=== PATIENT | male | born 1930 | race Caucasian/White ===

== ENCOUNTER 2018-02-01 17:09 | Inpatient (IN) | payer MEDICARE, MEDICAID ==
[2018-02-01 17:38] LABS: CHLORIDE,CL 102 mEq/L (98-106); SODIUM,NA 138 mEq/L (136-145)
[2018-02-01] MEDS: Sodium Chloride 0.9% 1,000 ML IV SCH (19:02)
[2018-02-01] MEDS: Bumetanide 1 MG Tab PO SCH (19:02)
[2018-02-01] MEDS: Pantoprazole 40 MG Vial IVPUSH SCH (19:02)
[2018-02-01] MEDS: hydrALAZINE 25 MG Tab PO SCH (19:26)
[2018-02-01] MEDS ORDERED: Tamsulosin 0.4 MG Cap.ER PO SCH (20:00)
[2018-02-02] MEDS: Levothyroxine 100 MCG Tab PO SCH (06:41)
[2018-02-02] MEDS: hydrALAZINE 25 MG Tab PO SCH ×3 (07:36→19:36)
[2018-02-02] MEDS: Metoprolol Succinate 100 MG Tab.ER PO SCH (07:37)
[2018-02-02] MEDS: Bumetanide 1 MG Tab PO SCH ×2 (07:38→15:09)
[2018-02-02] MEDS: Lisinopril 10 MG Tab PO SCH (07:39)
[2018-02-02] MEDS: Isosorbide Mononitrate 30 MG Tab.ER PO SCH (07:39)
[2018-02-02] MEDS ORDERED: Non-Formulary Medication 1 Each (Liraglutide [Victoza] 1.8 MG) SUBCUT SCH (08:00)
[2018-02-02] MEDS: Insulin Aspart 100 Units/ML 3 ML Pen SUBCUT SCH ×3 (08:01→17:21)
[2018-02-02] MEDS: Sodium Chloride 0.9% 1,000 ML IV SCH (09:35)
[2018-02-02] MEDS ORDERED: Ferrous Sulfate 324 MG Tab.EC PO SCH (12:00)
[2018-02-02] MEDS: Pantoprazole 40 MG Vial IVPUSH SCH (18:03)
[2018-02-02] MEDS ORDERED: LIRAGLUTIDE SUBCUT SCH (20:00)
--- NOTE | 2018-02-02 21:28 | PCM.PN ---
- General Info Date of Service: 02/02/18 Admission Dx/Problem (Free Text): Hematochezia Functional Status: Reports: Pain Controlled, Tolerating Diet, Ambulating - Review of Systems General: Denies: Fever, Weakness, Fatigue HEENT: Reports: No Symptoms Pulmonary: Denies: Shortness of Breath, Cough, Sputum Cardiovascular: Denies: Chest Pain, Edema, Lightheadedness Gastrointestinal: Reports: Hematochezia. Denies: Abdominal Pain, Diarrhea, Nausea, Vomiting Genitourinary: Reports: No Symptoms Musculoskeletal: Reports: No Symptoms Skin: Reports: No Symptoms Neurological: Reports: Dizziness (improved today versus admit) - Patient Data Vitals - Most Recent: Last Vital Signs Temp 98.9 F 02/02/18 19:34 Pulse 63 02/02/18 19:34 Resp 18 02/02/18 19:34 BP 136/70 02/02/18 19:34 Pulse Ox 96 02/02/18 19:34 Weight - Most Recent: 231 lb 11.2 oz I&O - Last 24 Hours: Intake & Output 02/02/18 02/02/18 02/02/18 06:59 14:59 22:59 Intake Total 1000 Balance 1000 Lab Results Last 24 Hours: Laboratory Results - last 24 hr 02/02/18 02/02/18 02/02/18 Range/Units 06:55 07:39 08:05 Hgb 8.4 L (14.0-18.0) g/dL Hct 27.6 L (40.0-54.0) % Sodium 140 (136-145) mEq/L Potassium 3.9 (3.5-5.0) mEq/L Chloride 104 (98-106) mEq/L Carbon Dioxide 27 (21-32) mmol/L BUN 21 H (7-18) mg/dL Creatinine 1.8 H (0.7-1.3) mg/dL Est Cr Clr Drug Dosing 28.50 mL/min Estimated GFR (MDRD) 36 L (>=60) mL/min Glucose 240 H (75-99) mg/dL POC Glucose 247 H (75-105) mg/dl Calcium 8.8 (8.4-10.1) mg/dL 02/02/18 02/02/18 Range/Units 11:23 17:12 Hgb (14.0-18.0) g/dL Hct (40.0-54.0) % Sodium (136-145) mEq/L Potassium (3.5-5.0) mEq/L Chloride (98-106) mEq/L Carbon Dioxide (21-32) mmol/L BUN (7-18) mg/dL Creatinine (0.7-1.3) mg/dL Est Cr Clr Drug Dosing mL/min Estimated GFR (MDRD) (>=60) mL/min Glucose (75-99) mg/dL POC Glucose 414 H* 346 H (75-105) mg/dl Calcium (8.4-10.1) mg/dL Med Orders - Current: Current Medications Bumetanide (Bumex) 1 mg PO BIDDIURETIC [facility] Last Admin: 02/02/18 15:09 Dose: 1 mg Ferrous Sulfate (Ferrous Sulfate) 324 mg PO DAILY@1200 [facility] Last Admin: 02/02/18 11:53 Dose: 324 mg Hydralazine HCl (Apresoline) 50 mg PO TID [facility] Last Admin: 02/02/18 19:36 Dose: 50 mg Sodium Chloride (Normal Saline) 1,000 mls @ 70 mls/hr IV ASDIRECTED [facility] Last Admin: 02/02/18 09:35 Dose: 70 mls/hr Insulin Aspart (Novolog) 0 unit SUBCUT TIDMEALS [facility]; Protocol Last Admin: 02/02/18 17:21 Dose: 8 units Isosorbide Mononitrate (Imdur) 30 mg PO DAILY [facility] Last Admin: 02/02/18 07:39 Dose: 30 mg Levothyroxine Sodium (Synthroid) 100 mcg PO ACBREAKFAST [facility] Last Admin: 02/02/18 06:41 Dose: 100 mcg Lisinopril (Prinivil) 10 mg PO DAILY [facility] Last Admin: 02/02/18 07:39 Dose: 10 mg Metoprolol Succinate (Toprol Xl) 100 mg PO DAILY [facility] Last Admin: 02/02/18 07:37 Dose: 100 mg Liraglutide [Victoza (] Pen Own Med) 0 mg SUBCUT BEDTIME [facility] Last Admin: 02/02/18 19:38 Dose: 1.2 mg Pantoprazole Sodium (Protonix Iv) 40 mg IVPUSH Q24H [facility] Last Admin: 02/02/18 18:03 Dose: 40 mg Discontinued Medications Ferrous Sulfate (Ferrous Sulfate) 324 mg PO Q2D [facility] Iron Sucrose 400 mg/ Sodium (Chloride) 270 mls @ 62.5 mls/hr IV ONETIME ONE Stop: 02/02/18 13:57 Last Admin: 02/02/18 10:29 Dose: 62.5 mls/hr Non-Formulary Medication (Liraglutide [Victoza]) 1.8 mg SUBCUT DAILY [facility] Tamsulosin HCl (Flomax) 0.4 mg PO BEDTIME [facility] Last Admin: 02/01/18 19:27 Dose: Not Given - Exam General: Alert, Oriented HEENT: Mucous Membr. Moist/[place] Neck: Supple Lungs: Clear to Auscultation, Normal Respiratory Effort Cardiovascular: Regular Rate, Regular Rhythm GI/Abdominal Exam: Normal Bowel Sounds, Soft, Non-Tender Extremities: Normal Inspection, No Pedal Edema Skin: Warm, Dry Neurological: No New Focal Deficit - Problem List & Annotations (1) Hematochezia SNOMED Code(s): 323364905 Code(s): K92.1 - MELENA Status: Acute Priority: High Current Visit: Yes - Problem List Review Problem List Initiated/Reviewed/Updated: Yes - My Orders Last 24 Hours: My Active Orders 02/02/18 12:00 Ferrous Sulfate 324 mg PO DAILY@1200 02/03/18 05:11 BASIC METABOLIC PANEL,BMP [CHEM] AM CBC WITH AUTO DIFF [HEME] AM - Assessment Assessment:: Hematochezia - Plan Plan:: Patient admits to feeling better today, less dizziness. Denies abdominal pain. He has not had a stool since admission. Relates that has had 1-2 stools per day that have been bloody over the last 4 days. Has a history of intermittent blood in his stools for years but admits has been worse as of late. Does admit that he doesn't always take his iron like recommended as it does cause GI irritation and constipation. Has had iron infusions about every 3-4 months. Hemoglobin on admit 8.3, today 8.4. Creatinine 1.9 on admission, now 1.8. Normal creatinine tends to vary between 1.6 and 2.0. Telemetry has been stable , noted atrial fib. Patient routinely on a daily aspirin and Xarelto. Currently on hold. Will given iron transfusion today. Continue to monitor for stools/blood. Telemetry. IV Protonix. Possible discharge in am.
[2018-02-03] MEDS: Sodium Chloride 0.9% 1,000 ML IV SCH (02:26)
[2018-02-03] MEDS: Levothyroxine 100 MCG Tab PO SCH (06:36)
[2018-02-03] MEDS: Bumetanide 1 MG Tab PO SCH (07:14)
[2018-02-03] MEDS: Isosorbide Mononitrate 30 MG Tab.ER PO SCH (07:15)
[2018-02-03] MEDS: hydrALAZINE 25 MG Tab PO SCH (07:15)
[2018-02-03] MEDS: Metoprolol Succinate 100 MG Tab.ER PO SCH (07:15)
[2018-02-03] MEDS: Lisinopril 10 MG Tab PO SCH (07:16)
[2018-02-03 07:17] VITALS: BP 158/87
[2018-02-03] MEDS: Insulin Aspart 100 Units/ML 3 ML Pen SUBCUT SCH (07:54)
[2018-02-03] MEDS ORDERED: Ferrous Sulfate 324 MG Tab.EC PO SCH (08:00)
--- NOTE | 2018-02-03 09:27 | PCM.DCSUM1 ---
Discharge Summary - Hospital Course Free Text/Narrative:: Patient presented to see Dawit Arias in the clinic with complaints of dizziness and bright red blood from his rectum. Has had issues with bleeding with stools for many years but worsened over the last 4 days. Had noted the amount of blood was increased. Denies any abdominal pain. Hemoglobin on admit 8.4, has chronic anemia as well and admits that doesn't take his iron like is recommended. Has had iron transfusions in the past as well. Admitted and started on IV fluids, T & C for 2 units with repeat labs. Diagnosis: Stroke: No - Discharge Data Discharge Date: 02/03/18 Discharge Disposition: Home, Self-Care 01 Condition: Good - Discharge Diagnosis/Problem(s) (1) Hematochezia SNOMED Code(s): 554569536 ICD Code: K92.1 - MELENA Status: Acute Priority: High - Patient Summary/Data Complications: none Consults: Consultations 02/01/18 18:25 Consult to Physician [CONS] Routine Hospital Course: Patient has had 2 large stools with bright red blood noted during admission but is now asymptomatic. Denies any further dizziness. Is up and ambulating without symptoms. He denies any abdominal pain or shortness of breath. Has had bloody stools for years, had colonoscopy with large hemorrhoids noted in the past. Xarelto has been held during admission. IV Protonix given. Blood pressure has remained stable. Is tolerating meals well. Hemoglobin remained stable between 8.1-8.4. Was given Iron infusion as does have concerns with GI side effects from taking his oral iron on a regular basis. - Patient Instructions Diet: Usual Diet as Tolerated Activity: As Tolerated - Discharge Plan *PRESCRIPTION DRUG MONITORING PROGRAM REVIEWED*: No *COPY OF PRESCRIPTION DRUG MONITORING REPORT IN PATIENT TENZIN: No Home Medications: Home Meds Allopurinol 150 mg PO DAILY 02/08/14 [History] Simvastatin 10 mg PO BEDTIME 02/08/14 [History] Ketorolac [Acular 0.5% Ophth Soln] 1 drop OP TID PRN 10/22/14 [History] Bumetanide [Bumex] 1 mg PO BID 11/09/14 [History] Omeprazole [Prilosec] 20 mg PO DAILY 11/09/14 [History] Tamsulosin [Flomax] 0.4 mg PO BEDTIME 11/09/14 [History] hydrALAZINE [Apresoline] 50 mg PO TID 11/09/14 [History] Lisinopril 10 mg PO DAILY 08/05/15 [History] Metoprolol Succinate [Toprol XL] 100 mg PO DAILY 08/05/15 [History] Levothyroxine Sodium [Synthroid] 100 mcg PO ACBREAKFAST 08/17/16 [History] Isosorbide Mononitrate [Imdur] 30 mg PO DAILY #30 tab.er 09/17/16 [Rx] Ferrous Sulfate 325 mg PO Q2D 02/01/18 [History] Liraglutide [Victoza] 6 - 12 units SUBCUT DAILY 02/01/18 [History] Patient Handouts: Gastrointestinal Bleeding Referrals: Torito Taylor MD [ED Physician] - (See Dr. Taylor on Wednesday, lab prior to visit ) - Discharge Summary/Plan Comment DC Time >30 min.: No Discharge Summary/Plan Comment: Discharge home Continue Omeprazole. Hold Xarelto Continue oral iron Repeat labs on Wednesday prior to seeing Dr. Taylor - General Info Date of Service: 02/03/18 Admission Dx/Problem (Free Text: Hematochezia Functional Status: Reports: Pain Controlled, Tolerating Diet, Ambulating - Review of Systems General: Denies: Fever, Weakness, Fatigue HEENT: Reports: No Symptoms Pulmonary: Denies: Shortness of Breath, Cough Cardiovascular: Denies: Chest Pain, Edema, Lightheadedness Gastrointestinal: Reports: Hematochezia. Denies: Abdominal Pain, Nausea, Vomiting Genitourinary: Reports: No Symptoms Musculoskeletal: Reports: No Symptoms Skin: Reports: No Symptoms Neurological: Reports: No Symptoms Psychiatric: Reports: No Symptoms - Patient Data Vitals - Most Recent: Last Vital Signs Temp 97.7 F 02/03/18 07:46 Pulse 77 02/03/18 07:46 Resp 18 02/03/18 07:46 BP 158/87 H 02/03/18 07:46 Pulse Ox 97 02/03/18 07:46 Weight - Most Recent: 231 lb 11.2 oz I&O - Last 24 hours: Intake & Output 02/02/18 02/03/18 02/03/18 22:59 06:59 14:59 Intake Total 1000 Balance 1000 Lab Results - Last 24 hrs: Laboratory Results - last 24 hr 02/02/18 02/02/18 02/02/18 Range/Units 06:55 11:23 17:12 WBC (5.0-10.0) 10^3/uL RBC (4.50-6.00) 10^6/uL Hgb (14.0-18.0) g/dL Hct (40.0-54.0) % MCV (82.0-94.0) fL MCH (27.0-32.0) pg MCHC (33.0-38.0) g/dL RDW Coeff of Emma (11.0-15.0) % Plt Count (150-400) 10^3/uL Neut % (Auto) (35-85) % Lymph % (Auto) (10-55) % [place] % (Auto) (0-16) % Eos % (Auto) (0-5) % Baso % (Auto) (0-3) % Neut # (Auto) (1.80-7.00) 10^3/uL Lymph # (Auto) (1.00-4.80) 10^3/uL [place] # (Auto) (0.00-0.80) 10^3/uL Eos # (Auto) (0.00-0.45) 10^3/uL Baso # (Auto) 10^3/uL Sodium (136-145) mEq/L Potassium (3.5-5.0) mEq/L Chloride (98-106) mEq/L Carbon Dioxide (21-32) mmol/L BUN (7-18) mg/dL Creatinine (0.7-1.3) mg/dL Est Cr Clr Drug Dosing mL/min Estimated GFR (MDRD) (>=60) mL/min Glucose (75-99) mg/dL POC Glucose 414 H* 346 H (75-105) mg/dl Calcium (8.4-10.1) mg/dL Iron 19 L (50-150) ug/dL TIBC 336 (261-478) ug/dL Unsaturated IBC 317 (155-355) ug/dL Transferrin % Sat 5.7 L (20.0-50.0) % Ferritin 25 (24-336) ng/mL 02/02/18 02/03/18 02/03/18 Range/Units 20:32 06:50 06:50 WBC 10.0 (5.0-10.0) 10^3/uL RBC 3.36 L (4.50-6.00) 10^6/uL Hgb 8.1 L (14.0-18.0) g/dL Hct 27.0 L (40.0-54.0) % MCV 80.4 L (82.0-94.0) fL MCH 24.1 L (27.0-32.0) pg MCHC 30.0 L (33.0-38.0) g/dL RDW Coeff of Emma 18.0 H (11.0-15.0) % Plt Count 344 (150-400) 10^3/uL Neut % (Auto) 72.1 (35-85) % Lymph % (Auto) 13.7 (10-55) % [place] % (Auto) 8.7 (0-16) % Eos % (Auto) 5.1 H (0-5) % Baso % (Auto) 0.4 (0-3) % Neut # (Auto) 7.18 H (1.80-7.00) 10^3/uL Lymph # (Auto) 1.37 (1.00-4.80) 10^3/uL [place] # (Auto) 0.87 H (0.00-0.80) 10^3/uL Eos # (Auto) 0.51 H (0.00-0.45) 10^3/uL Baso # (Auto) 0.04 10^3/uL Sodium 140 (136-145) mEq/L Potassium 3.6 (3.5-5.0) mEq/L Chloride 105 (98-106) mEq/L Carbon Dioxide 26 (21-32) mmol/L BUN 22 H (7-18) mg/dL Creatinine 1.8 H (0.7-1.3) mg/dL Est Cr Clr Drug Dosing 28.50 mL/min Estimated GFR (MDRD) 36 L (>=60) mL/min Glucose 207 H (75-99) mg/dL POC Glucose 309 H (75-105) mg/dl Calcium 8.8 (8.4-10.1) mg/dL Iron (50-150) ug/dL TIBC (261-478) ug/dL Unsaturated IBC (155-355) ug/dL Transferrin % Sat (20.0-50.0) % Ferritin (24-336) ng/mL 02/03/18 Range/Units 07:50 WBC (5.0-10.0) 10^3/uL RBC (4.50-6.00) 10^6/uL Hgb (14.0-18.0) g/dL Hct (40.0-54.0) % MCV (82.0-94.0) fL MCH (27.0-32.0) pg MCHC (33.0-38.0) g/dL RDW Coeff of Emma (11.0-15.0) % Plt Count (150-400) 10^3/uL Neut % (Auto) (35-85) % Lymph % (Auto) (10-55) % [place] % (Auto) (0-16) % Eos % (Auto) (0-5) % Baso % (Auto) (0-3) % Neut # (Auto) (1.80-7.00) 10^3/uL Lymph # (Auto) (1.00-4.80) 10^3/uL [place] # (Auto) (0.00-0.80) 10^3/uL Eos # (Auto) (0.00-0.45) 10^3/uL Baso # (Auto) 10^3/uL Sodium (136-145) mEq/L Potassium (3.5-5.0) mEq/L Chloride (98-106) mEq/L Carbon Dioxide (21-32) mmol/L BUN (7-18) mg/dL Creatinine (0.7-1.3) mg/dL Est Cr Clr Drug Dosing mL/min Estimated GFR (MDRD) (>=60) mL/min Glucose (75-99) mg/dL POC Glucose 205 H (75-105) mg/dl Calcium (8.4-10.1) mg/dL Iron (50-150) ug/dL TIBC (261-478) ug/dL Unsaturated IBC (155-355) ug/dL Transferrin % Sat (20.0-50.0) % Ferritin (24-336) ng/mL Med Orders - Current: Current Medications Bumetanide (Bumex) 1 mg PO BIDDIURETIC [facility] Last Admin: 02/03/18 07:14 Dose: 1 mg Ferrous Sulfate (Ferrous Sulfate) 324 mg PO DAILY@1200 [facility] Last Admin: 02/02/18 11:53 Dose: 324 mg Hydralazine HCl (Apresoline) 50 mg PO TID [facility] Last Admin: 02/03/18 07:15 Dose: 50 mg Sodium Chloride (Normal Saline) 1,000 mls @ 70 mls/hr IV ASDIRECTED [facility] Last Admin: 02/03/18 02:26 Dose: 70 mls/hr Insulin Aspart (Novolog) 0 unit SUBCUT TIDMEALS [facility]; Protocol Last Admin: 02/03/18 07:54 Dose: 4 units Isosorbide Mononitrate (Imdur) 30 mg PO DAILY [facility] Last Admin: 02/03/18 07:15 Dose: 30 mg Levothyroxine Sodium (Synthroid) 100 mcg PO ACBREAKFAST [facility] Last Admin: 02/03/18 06:36 Dose: 100 mcg Lisinopril (Prinivil) 10 mg PO DAILY [facility] Last Admin: 02/03/18 07:16 Dose: 10 mg Metoprolol Succinate (Toprol Xl) 100 mg PO DAILY [facility] Last Admin: 02/03/18 07:15 Dose: 100 mg Liraglutide [Victoza (] Pen Own Med) 0 mg SUBCUT BEDTIME [facility] Last Admin: 02/02/18 19:38 Dose: 1.2 mg Pantoprazole Sodium (Protonix Iv) 40 mg IVPUSH Q24H [facility] Last Admin: 02/02/18 18:03 Dose: 40 mg Discontinued Medications Ferrous Sulfate (Ferrous Sulfate) 324 mg PO Q2D [facility] Iron Sucrose 400 mg/ Sodium (Chloride) 270 mls @ 62.5 mls/hr IV ONETIME ONE Stop: 02/02/18 13:57 Last Admin: 02/02/18 10:29 Dose: 62.5 mls/hr Non-Formulary Medication (Liraglutide [Victoza]) 1.8 mg SUBCUT DAILY [facility] Tamsulosin HCl (Flomax) 0.4 mg PO BEDTIME [facility] Last Admin: 02/01/18 19:27 Dose: Not Given - Exam General: Reports: Alert, Oriented HEENT: Reports: Mucous Membr. Moist/[place] Neck: Reports: Supple Lungs: Reports: Clear to Auscultation, Normal Respiratory Effort Cardiovascular: Reports: Regular Rate, Regular Rhythm GI/Abdominal Exam: Normal Bowel Sounds, Soft, Non-Tender Extremities: Normal Inspection, No Pedal Edema Skin: Reports: Warm, Dry Neurological: Reports: No New Focal Deficit
== END 2018-02-03 09:50 | disposition home or self-care (01) | DRG 379 ==
LOC: CC.FCMC 17:09 → CC.MS 17:09 → UNDOADMIN 17:38 → CC.MS 18:17
PROVIDERS: ADMIT Physician Assistant Medical; ATTEND Family Medicine
DX: K92.1 Melena (principal); N40.0 Benign prostatic hyperplasia without lower urinary tract symptoms; I12.9 Hypertensive chronic kidney disease with stage 1 through stage 4 chronic kidney disease, or unspecified chronic kidney disease; E11.22 Type 2 diabetes mellitus with diabetic chronic kidney disease; N18.3 Chronic kidney disease, stage 3 (moderate); K21.9 Gastro-esophageal reflux disease without esophagitis; E78.5 Hyperlipidemia, unspecified; E03.9 Hypothyroidism, unspecified; E61.1 Iron deficiency; N28.1 Cyst of kidney, acquired; Z88.8 Allergy status to other drugs, medicaments and biological substances; Z79.899 Other long term (current) drug therapy; Z91.14 Patient's other noncompliance with medication regimen
CPT/HCPCS: 36415; 80048; 80053; 82728; 82962; 83540; 83550; 83605; 85014; 85018; 85025; 86140; 86850; 86900; 86901; 86920; 86922; A9270-GY; C9113; J1756; J1815-GY; J7030; J7050

== ENCOUNTER 2018-05-02 16:29 | Observation (INO) | payer MEDICARE, MEDICAID ==
[2018-05-02] MEDS ORDERED: Ondansetron 4 MG Tab.DIS PO PRN (18:09)
[2018-05-02] MEDS ORDERED: Ondansetron 4 MG/2 ML SDV IV PRN (18:09)
[2018-05-02] MEDS ORDERED: Ketorolac 0.5% Ophth Soln 3 ML Bottle EYERT PRN (18:09)
[2018-05-02] MEDS ORDERED: Acetaminophen 325 MG Tab PO PRN (18:09)
[2018-05-02] MEDS: Sodium Chloride 0.9% 1,000 ML IV SCH (18:44)
--- NOTE | 2018-05-02 18:58 | EDM.PDOC ---
ED HPI GENERAL MEDICAL PROBLEM - General Chief Complaint: Diabetic Complaint Stated Complaint: EXTREMELY HIGH BLOOD SUGAR CAME FROM CLINIC Time Seen by Provider: 05/02/18 16:45 Source of Information: Reports: Patient, Family History Limitations: Reports: No Limitations - History of Present Illness INITIAL COMMENTS - FREE TEXT/NARRATIVE: Patient presents to the ER with concerns of blood sugars running high. Son reports that they had been on a [place] conway over the weekend and he seemed fine except he was voiding a lot. Went to the drug store to review his blood sugars with the pharmacist as he wasn't sure how his machine worked and when reviewing the patient's log, it appeared they had been running high for quite some time, as far back as February per his machine. Pharmacist felt he needed to be seen by his provider for review of this so son brought him to the clinic to be seen where he was referred over to the ER. Patient states he feels fine. Does also see an internal medicine doctor in [place] and was started on Victoza a month or 2 ago as his sugars have been so high. Hasn't seen much improvement at this point and is scheduled to be seen on May 19 for a recheck. Denies chest pain, shortness of breath, nausea or vomiting. Does have polyuria and polydipsia. Son relates he was on Lantus several years ago but it was stopped due to cost and they felt he was doing well at that time without it. He was able to go on 5-6 hour stretches this weekend with hunting with only short breaks in between and seemed to tolerate quite well. Patient was not all that concerned and felt he would have his meds adjusted when he went to his doctor in [place] Duration: Week(s):, Constant Location: Reports: Generalized Associated Symptoms: Denies: Confusion, Chest Pain, Loss of Appetite, Nausea/ Vomiting, Shortness of Breath, Weakness - Related Data Allergies Allergy/AdvReac Type Severity Reaction Status Date / Time Sulfa (Sulfonamide Allergy Cannot Verified 05/02/18 16:45 Antibiotics) Remember terazosin [Terazosin] Allergy Cannot Verified 05/02/18 16:45 Remember Home Meds: Home Meds Allopurinol 150 mg PO DAILY 02/08/14 [History] Simvastatin 10 mg PO BEDTIME 02/08/14 [History] Ketorolac [Acular 0.5% Ophth Soln] 1 drop OP TID PRN 03/30/15 [History] Bumetanide [Bumex] 1 mg PO BID 11/09/14 [History] Omeprazole [Prilosec] 20 mg PO DAILY 11/09/14 [History] Tamsulosin [Flomax] 0.4 mg PO BEDTIME 11/09/14 [History] hydrALAZINE [Apresoline] 50 mg PO TID 11/09/14 [History] Lisinopril 10 mg PO DAILY 08/05/15 [History] Metoprolol Succinate [Toprol XL] 50 mg PO DAILY 08/05/15 [History] Levothyroxine Sodium [Synthroid] 100 mcg PO ACBREAKFAST 08/17/16 [History] Ferrous Sulfate 325 mg PO Q2D 02/01/18 [History] Liraglutide [Victoza] 12 units SUBCUT DAILY 02/01/18 [History] Cholecalciferol (Vitamin D3) [Vitamin D] 2,000 unit PO DAILY 05/02/18 [History] Past Medical History HEENT History: Reports: Cataract, Impaired Vision Cardiovascular History: Reports: Heart Murmur, Heart Valve Replacement, High Cholesterol, Hypertension Gastrointestinal History: Reports: GERD, GI Bleed, Hemorrhoids Endocrine/Metabolic History: Reports: Diabetes, Type II - Past Surgical History Cardiovascular Surgical History: Reports: Valve Replacement GI Surgical History: Reports: Colonoscopy Endocrine Surgical History: Reports: Other (See Below) Social & Family History - Family History Family Medical History: Noncontributory Cardiac: Reports: CAD, Hypertension - Tobacco Use Smoking Status *Q: Never Smoker - Caffeine Use Caffeine Use: Reports: Coffee - Recreational Drug Use Recreational Drug Use: No - Living Situation & Occupation Living situation: Reports: , with Spouse ED ROS GENERAL - Review of Systems Review Of Systems: See Below Constitutional: Denies: Fever, Chills, Malaise, Weakness, Decreased Appetite HEENT: Reports: No Symptoms Respiratory: Denies: Shortness of Breath, Cough Cardiovascular: Reports: Edema. Denies: Chest Pain, Lightheadedness Endocrine: Denies: Fatigue GI/Abdominal: Denies: Abdominal Pain, Nausea, Vomiting : Reports: Frequency Musculoskeletal: Reports: No Symptoms Skin: Reports: No Symptoms Neurological: Denies: Confusion, Dizziness, Headache, Syncope, Weakness Psychiatric: Reports: No Symptoms ED EXAM GENERAL NO PERIP PULSE - Physical Exam Exam: See Below Exam Limited By: No Limitations General Appearance: Alert, WD/WN, No Apparent Distress Ears: Normal External Exam, Normal TMs Nose: Normal Inspection, Normal Mucosa, No Blood Throat/Mouth: Normal Inspection, Normal Oropharynx Head: Normocephalic Neck: Normal Inspection, Supple, Non-Tender Respiratory/Chest: No Respiratory Distress, Lungs Clear, Normal Breath Sounds Cardiovascular: Regular Rate, Rhythm, Systolic Murmur GI/Abdominal: Normal Bowel Sounds, Soft, Non-Tender Extremities: Pedal Edema (2+ pitting) Neurological: Alert, Oriented Skin Exam: Warm, Dry Course - Vital Signs Last Recorded V/S: Last Vital Signs Temp 98.7 F 05/02/18 16:56 Pulse 76 05/02/18 16:56 Resp 18 05/02/18 16:56 BP 120/72 05/02/18 16:56 Pulse Ox 98 05/02/18 16:56 - Orders/Labs/Meds Orders: Active Orders 24 hr Category Date Time Status Patient Status [ADT] Routine ADT 05/02/18 18:09 Active Blood Glucose Check, Bedside [RC] 0730,1130,1700,2100 Care 05/02/18 18:09 Active Cardiac Monitoring [RC] 0800,2000 Care 05/02/18 18:09 Active Oxygen Therapy [RC] .PRN Care 05/02/18 18:09 Active Up With Assistance [RC] .PRN Care 05/02/18 18:09 Active Vital Signs [RC] 0000,0400,0800,1200,1600,2000 Care 05/02/18 18:09 Active Consistent Carbohydrate Diet [DIET] Diet 05/02/18 Dinner Active BASIC METABOLIC PANEL,BMP [CHEM] AM Lab 05/03/18 05:11 Ordered C-REACTIVE PROTEIN [CHEM] AM Lab 05/03/18 05:11 Ordered CBC WITH AUTO DIFF [HEME] AM Lab 05/03/18 05:11 Ordered Acetaminophen [Tylenol] Med 05/02/18 18:09 Active 650 mg PO Q4H PRN Insulin Aspart [NovoLOG] Med 05/02/18 21:00 Active See Protocol SUBCUT WITHMEALSANDBED Insulin Glarg,Human.Rec.Analog [LantUS Solostar] Med 05/02/18 20:00 Active 20 units SUBCUT BEDTIME Ondansetron [Zofran ODT] Med 05/02/18 18:09 Active 4 mg PO Q4H PRN Ondansetron [Zofran] Med 05/02/18 18:09 Active 4 mg IV Q4H PRN Sodium Chloride 0.9% [Normal Saline] 1,000 ml Med 05/02/18 18:09 Active IV ASDIRECTED Resuscitation Status Routine Resus Stat 05/02/18 17:32 Ordered Medication Orders Acetaminophen (Tylenol) 650 mg PO Q4H PRN PRN Reason: Pain (Mild 1-3)/fever Allopurinol (Zyloprim) 150 mg PO DAILY [facility] Bumetanide (Bumex) 1 mg PO BID@0800,1400 [facility] Cholecalciferol (Vitamin D3) 2,000 units PO DAILY [facility] Ferrous Sulfate (Ferrous Sulfate) 324 mg PO Q2D [facility] Hydralazine HCl (Apresoline) 50 mg PO TID@0800,1200,1700 [facility] Sodium Chloride (Normal Saline) 1,000 mls @ 125 mls/hr IV ASDIRECTED [facility] Last Admin: 05/02/18 18:44 Dose: 125 mls/hr Insulin Aspart (Novolog) 0 unit SUBCUT WITHMEALSANDBED [facility]; Protocol Insulin Glargine (Lantus Solostar) 20 units SUBCUT BEDTIME [facility] Ketorolac Tromethamine (Acular 0.5% Ophth Soln) 0 ml EYERT TID PRN PRN Reason: eyes Levothyroxine Sodium (Synthroid) 100 mcg PO ACBREAKFAST [facility] Lisinopril (Prinivil) 10 mg PO DAILY [facility] Metoprolol Succinate (Toprol Xl) 50 mg PO DAILY [facility] Liraglutide [Victoza ] 12units Own Med 12 units SUBCUT BEDTIME [facility] Ondansetron HCl (Zofran Odt) 4 mg PO Q4H PRN PRN Reason: nausea, able to take PO Ondansetron HCl (Zofran) 4 mg IV Q4H PRN PRN Reason: Nausea/Vomiting Pantoprazole Sodium (Protonix) 40 mg PO DAILY@0700 [facility] Simvastatin (Zocor) 10 mg PO BEDTIME [facility] Tamsulosin HCl (Flomax) 0.4 mg PO DAILY@1700 [facility] Labs: Laboratory Tests 05/02/18 05/02/18 05/02/18 Range/Units 16:59 16:59 17:05 WBC 12.8 H (5.0-10.0) 10^3/uL RBC 5.00 (4.50-6.00) 10^6/uL Hgb 12.1 L (14.0-18.0) g/dL Hct 38.0 L (40.0-54.0) % MCV 76.0 L (82.0-94.0) fL MCH 24.2 L (27.0-32.0) pg MCHC 31.8 L (33.0-38.0) g/dL RDW Coeff of Emma 17.2 H (11.0-15.0) % Plt Count 273 (150-400) 10^3/uL Neut % (Auto) 78.4 (35-85) % Lymph % (Auto) 10.9 (10-55) % [place] % (Auto) 7.1 (0-16) % Eos % (Auto) 3.4 (0-5) % Baso % (Auto) 0.2 (0-3) % Neut # (Auto) 10.01 H (1.80-7.00) 10^3/uL Lymph # (Auto) 1.40 (1.00-4.80) 10^3/uL [place] # (Auto) 0.91 H (0.00-0.80) 10^3/uL Eos # (Auto) 0.44 (0.00-0.45) 10^3/uL Baso # (Auto) 0.03 10^3/uL Sodium 128 L (136-145) mEq/L Potassium 3.9 (3.5-5.0) mEq/L Chloride 95 L (98-106) mEq/L Carbon Dioxide 25 (21-32) mmol/L BUN 47 H D (7-18) mg/dL Creatinine 2.5 H (0.7-1.3) mg/dL Est Cr Clr Drug Dosing 19.83 mL/min Estimated GFR (MDRD) 25 L (>=60) mL/min Glucose 568 H* D (75-99) mg/dL Calcium 8.9 (8.4-10.1) mg/dL Total Bilirubin 0.4 (0.0-1.0) mg/dL AST 20 (15-37) U/L ALT 27 (12-78) U/L Alkaline Phosphatase 106 (46-116) U/L C-Reactive Protein 7.3 H (0.2-0.8) mg/dL Total Protein 7.6 (6.4-8.2) g/dL Albumin 3.0 L (3.4-5.0) g/dL Urine Color Yellow (YELLOW) Urine Appearance Clear (CLEAR) Urine pH 6.0 (4.5-8.0) Ur Specific [place] 1.015 (1.003-1.020) Urine Protein 100 H (NEGATIVE) mg/dL Urine Glucose (UA) 500 H (NEGATIVE) mg/dL Urine Ketones Negative (NEGATIVE) mg/dL Urine Occult Blood Trace-intact H (NEGATIVE) Urine Nitrite Negative (NEGATIVE) Urine Bilirubin Negative (NEGATIVE) Urine Urobilinogen 0.2 (0.2-1.0) EU/dL Ur Leukocyte Esterase Negative (NEGATIVE) Urine RBC 10-20 H (0-5) /HPF Urine WBC 0-5 (0-5) /HPF Ur Epithelial Cells Few H (NOT SEEN) /HPF Meds: Medications Generic Name Dose Route Start Last Admin Trade Name Freq PRN Reason Stop Dose Admin Acetaminophen 650 mg 05/02/18 18:09 Tylenol PO Q4H PRN Pain (Mild 1-3)/fever Allopurinol 150 mg 05/03/18 08:00 Zyloprim PO DAILY [facility] Bumetanide 1 mg 05/03/18 08:00 Bumex PO BID@0800,1400 [facility] Cholecalciferol 2,000 units 05/03/18 08:00 Vitamin D3 PO DAILY [facility] Ferrous Sulfate 324 mg 05/03/18 08:00 Ferrous Sulfate PO Q2D [facility] Hydralazine HCl 50 mg 05/03/18 08:00 Apresoline PO TID@0800,1200,1700 [facility] Sodium Chloride 1,000 mls @ 125 mls/hr 05/02/18 18:09 05/02/18 18:44 Normal Saline IV 125 mls/hr ASDIRECTED [facility] Administration Insulin Aspart 0 unit 05/02/18 21:00 Novolog SUBCUT WITHMEALSANDBED [facility] Protocol Insulin Glargine 20 units 05/02/18 20:00 Lantus Solostar SUBCUT BEDTIME [facility] Ketorolac Tromethamine 0 ml 05/02/18 18:09 Acular 0.5% Ophth Soln EYERT TID PRN eyes Levothyroxine Sodium 100 mcg 05/03/18 07:00 Synthroid PO ACBREAKFAST [facility] Lisinopril 10 mg 05/03/18 08:00 Prinivil PO DAILY [facility] Metoprolol Succinate 50 mg 05/03/18 08:00 Toprol Xl PO DAILY [facility] Liraglutide [Victoza 12 units 05/02/18 20:00 ] 12units Own Med SUBCUT BEDTIME [facility] Ondansetron HCl 4 mg 05/02/18 18:09 Zofran Odt PO Q4H PRN nausea, able to take PO Ondansetron HCl 4 mg 05/02/18 18:09 Zofran IV Q4H PRN Nausea/Vomiting Pantoprazole Sodium 40 mg 05/03/18 07:00 Protonix PO DAILY@0700 [facility] Simvastatin 10 mg 05/02/18 20:00 Zocor PO BEDTIME [facility] Tamsulosin HCl 0.4 mg 05/03/18 17:00 Flomax PO DAILY@1700 [facility] - Re-Assessments/Exams Free Text/Narrative Re-Assessment/Exam: 05/02/18 Lab results reviewed with patient and son. Sodium is low, BUN and creatinine are high in comparison to past evaluation. Will admit to observation, rehydrate with normal saline and monitor blood sugars. Start on sliding scale insulin and restart Lantus. Patient and family in agreement. Departure - Departure Time of Disposition: 17:30 Disposition: Refer to Observation Condition: Fair Clinical Impression: Hyperglycemia, Hyponatremia, Chronic kidney disease - Discharge Information - Problem List & Annotations (1) Diabetes mellitus type 2 SNOMED Code(s): 22140264 Code(s): E11.9 - TYPE 2 DIABETES MELLITUS WITHOUT COMPLICATIONS Status: Chronic Priority: High Current Visit: Yes (2) Chronic kidney disease SNOMED Code(s): 983794428 Code(s): N18.9 - CHRONIC KIDNEY DISEASE, UNSPECIFIED Status: Acute Priority: High Current Visit: Yes (3) Hyperglycemia SNOMED Code(s): 61986246 Code(s): R73.9 - HYPERGLYCEMIA, UNSPECIFIED Status: Acute Priority: High Current Visit: Yes (4) Hyponatremia SNOMED Code(s): 83633921 Code(s): E87.1 - HYPO-OSMOLALITY AND HYPONATREMIA Status: Acute Priority : High Current Visit: Yes (5) Dehydration SNOMED Code(s): 65205391 Code(s): E86.0 - DEHYDRATION Status: Acute Current Visit: Yes - Problem List Review Problem List Initiated/Reviewed/Updated: Yes - My Orders Last 24 Hours: My Active Orders 05/02/18 17:32 Resuscitation Status Routine 05/02/18 18:09 Patient Status [ADT] Routine Blood Glucose Check, Bedside [RC] 0730,1130,1700,2100 Cardiac Monitoring [RC] 0800,2000 Oxygen Therapy [RC] .PRN Up With Assistance [RC] .PRN Vital Signs [RC] 0000,0400,0800,1200,1600,2000 Acetaminophen [Tylenol] 650 mg PO Q4H PRN Ondansetron [Zofran ODT] 4 mg PO Q4H PRN Ondansetron [Zofran] 4 mg IV Q4H PRN Sodium Chloride 0.9% [Normal Saline] 1,000 ml IV ASDIRECTED 05/02/18 20:00 Insulin Glarg,Human.Rec.Analog [LantUS Solostar] 20 units SUBCUT BEDTIME 05/02/18 21:00 Insulin Aspart [NovoLOG] See Protocol SUBCUT WITHMEALSANDBED 05/02/18 Dinner Consistent Carbohydrate Diet [DIET] 05/03/18 05:11 BASIC METABOLIC PANEL,BMP [CHEM] AM C-REACTIVE PROTEIN [CHEM] AM CBC WITH AUTO DIFF [HEME] AM - Assessment/Plan Admission H&P: Please use this note as an admission H&P Last 24 Hours: My Active Orders 05/02/18 17:32 Resuscitation Status Routine 05/02/18 18:09 Patient Status [ADT] Routine Blood Glucose Check, Bedside [RC] 0730,1130,1700,2100 Cardiac Monitoring [RC] 0800,2000 Oxygen Therapy [RC] .PRN Up With Assistance [RC] .PRN Vital Signs [RC] 0000,0400,0800,1200,1600,2000 Acetaminophen [Tylenol] 650 mg PO Q4H PRN Ondansetron [Zofran ODT] 4 mg PO Q4H PRN Ondansetron [Zofran] 4 mg IV Q4H PRN Sodium Chloride 0.9% [Normal Saline] 1,000 ml IV ASDIRECTED 05/02/18 20:00 Insulin Glarg,Human.Rec.Analog [LantUS Solostar] 20 units SUBCUT BEDTIME 05/02/18 21:00 Insulin Aspart [NovoLOG] See Protocol SUBCUT WITHMEALSANDBED 05/02/18 Dinner Consistent Carbohydrate Diet [DIET] 05/03/18 05:11 BASIC METABOLIC PANEL,BMP [CHEM] AM C-REACTIVE PROTEIN [CHEM] AM CBC WITH AUTO DIFF [HEME] AM Assessment:: Hyperglycemia Hyponatremia CKD Dehydration Plan: Admit to observation. Will rehydrate with IV fluids. Monitor blood sugars, give sliding scale insulin and restart Lantus. Patient and family in agreement.
[2018-05-02] MEDS ORDERED: Insulin Glargine,Human Rec. Analog 100 Units/ML 3 ML Pen SUBCUT SCH (20:00)
[2018-05-02] MEDS ORDERED: HYDRALAZINE 25 MG PO SCH (20:00)
[2018-05-02] MEDS ORDERED: hydrALAZINE 25 MG Tab PO SCH (20:00)
[2018-05-02] MEDS: Tamsulosin 0.4 MG Cap.ER ** OWN MED PO SCH (20:34)
[2018-05-02] MEDS: SIMVASTATIN 10 MG PO SCH (20:52)
[2018-05-02] MEDS: LIRAGLUTIDE 12 UNIT SUBCUT SCH (20:53)
[2018-05-02] MEDS: Insulin Aspart 100 Units/ML 3 ML Pen SUBCUT SCH (21:22)
[2018-05-02] MEDS: Insulin Detemir 100 Units/ML 3 ML Pen SUBCUT SCH (21:30)
[2018-05-03] MEDS: Sodium Chloride 0.9% 1,000 ML IV SCH ×3 (02:40→17:49)
[2018-05-03] MEDS: Pantoprazole 40 MG Tab.CR PO SCH (06:34)
[2018-05-03] MEDS: Levothyroxine 100 MCG Tab ** OWN MED PO SCH (06:34)
[2018-05-03] MEDS: HYDRALAZINE 50 MG PO SCH ×3 (07:22→17:18)
[2018-05-03] MEDS: **PTOM** Allopurinol 300 MG Tab PO SCH (07:22)
[2018-05-03] MEDS: Cholecalciferol (Vitamin D3) 1,000 Unit Tab PO SCH (07:22)
[2018-05-03] MEDS: BUMETANIDE 1 MG PO SCH ×2 (07:24→13:56)
[2018-05-03] MEDS ORDERED: Metoprolol Succinate 25 MG Tab.ER PO SCH (08:00)
[2018-05-03] MEDS ORDERED: Lisinopril 5 MG Tab PO SCH (08:00)
[2018-05-03] MEDS ORDERED: Ferrous Sulfate 324 MG Tab.EC PO SCH (08:00)
[2018-05-03] MEDS: **PTOM** Isosorbide Mononitrate 30 MG Tab.ER PO SCH (10:45)
[2018-05-03] MEDS: Insulin Aspart 100 Units/ML 3 ML Pen SUBCUT SCH ×4 (10:45→20:40)
[2018-05-03] MEDS ORDERED: Polyethylene Glycol 3350 Powder 17 GM Packet PO PRN (10:46)
[2018-05-03] MEDS ORDERED: HYDRALAZINE 100 MG PO SCH (14:00)
[2018-05-03] MEDS: Tamsulosin 0.4 MG Cap.ER ** OWN MED PO SCH (17:18)
--- NOTE | 2018-05-03 20:26 | PCM.PN ---
- General Info Date of Service: 05/03/18 Admission Dx/Problem (Free Text): Dehydration CKD Hyponatremia Hyperglycemia Functional Status: Reports: Pain Controlled, Tolerating Diet, Ambulating - Review of Systems General: Denies: Fever, Weakness, Fatigue HEENT: Reports: No Symptoms Pulmonary: Denies: Shortness of Breath, Cough Cardiovascular: Denies: Chest Pain, Edema, Lightheadedness Gastrointestinal: Denies: Abdominal Pain, Nausea, Vomiting Genitourinary: Reports: No Symptoms Musculoskeletal: Reports: No Symptoms Skin: Reports: No Symptoms Neurological: Reports: No Symptoms - Patient Data Vitals - Most Recent: Last Vital Signs Temp 97 F 05/03/18 15:46 Pulse 71 05/03/18 15:46 Resp 18 05/03/18 15:46 BP 133/74 05/03/18 15:46 Pulse Ox 98 05/03/18 15:46 Weight - Most Recent: 215 lb 14.4 oz I&O - Last 24 Hours: Intake & Output 05/03/18 05/03/18 05/03/18 06:59 14:59 22:59 Intake Total 992 1000 883 Balance 992 1000 883 Lab Results Last 24 Hours: Laboratory Results - last 24 hr 05/02/18 05/03/18 05/03/18 Range/Units 20:31 06:59 06:59 WBC 12.3 H (5.0-10.0) 10^3/uL RBC 4.72 (4.50-6.00) 10^6/uL Hgb 11.5 L (14.0-18.0) g/dL Hct 36.4 L (40.0-54.0) % MCV 77.1 L (82.0-94.0) fL MCH 24.4 L (27.0-32.0) pg MCHC 31.6 L (33.0-38.0) g/dL RDW Coeff of [place] 17.2 H (11.0-15.0) % Plt Count 261 (150-400) 10^3/uL Neut % (Auto) 70.0 (35-85) % Lymph % (Auto) 14.4 (10-55) % [place] % (Auto) 9.9 (0-16) % Eos % (Auto) 5.5 H (0-5) % Baso % (Auto) 0.2 (0-3) % Neut # (Auto) 8.60 H (1.80-7.00) 10^3/uL Lymph # (Auto) 1.77 (1.00-4.80) 10^3/uL [place] # (Auto) 1.22 H (0.00-0.80) 10^3/uL Eos # (Auto) 0.68 H (0.00-0.45) 10^3/uL Baso # (Auto) 0.03 10^3/uL Sodium 137 (136-145) mEq/L Potassium 3.5 (3.5-5.0) mEq/L Chloride 105 (98-106) mEq/L Carbon Dioxide 26 (21-32) mmol/L BUN 39 H (7-18) mg/dL Creatinine 2.0 H (0.7-1.3) mg/dL Est Cr Clr Drug Dosing 25.65 mL/min Estimated GFR (MDRD) 32 L (>=60) mL/min Glucose 88 D (75-99) mg/dL POC Glucose > 500 H* (75-105) mg/dl Calcium 8.7 (8.4-10.1) mg/dL C-Reactive Protein 6.1 H (0.2-0.8) mg/dL 05/03/18 05/03/18 05/03/18 Range/Units 07:19 11:50 17:20 WBC (5.0-10.0) 10^3/uL RBC (4.50-6.00) 10^6/uL Hgb (14.0-18.0) g/dL Hct (40.0-54.0) % MCV (82.0-94.0) fL MCH (27.0-32.0) pg MCHC (33.0-38.0) g/dL RDW Coeff of Emma (11.0-15.0) % Plt Count (150-400) 10^3/uL Neut % (Auto) (35-85) % Lymph % (Auto) (10-55) % [place] % (Auto) (0-16) % Eos % (Auto) (0-5) % Baso % (Auto) (0-3) % Neut # (Auto) (1.80-7.00) 10^3/uL Lymph # (Auto) (1.00-4.80) 10^3/uL [place] # (Auto) (0.00-0.80) 10^3/uL Eos # (Auto) (0.00-0.45) 10^3/uL Baso # (Auto) 10^3/uL Sodium (136-145) mEq/L Potassium (3.5-5.0) mEq/L Chloride (98-106) mEq/L Carbon Dioxide (21-32) mmol/L BUN (7-18) mg/dL Creatinine (0.7-1.3) mg/dL Est Cr Clr Drug Dosing mL/min Estimated GFR (MDRD) (>=60) mL/min Glucose (75-99) mg/dL POC Glucose 92 311 H 355 H (75-105) mg/dl Calcium (8.4-10.1) mg/dL C-Reactive Protein (0.2-0.8) mg/dL Med Orders - Current: Current Medications Acetaminophen (Tylenol) 650 mg PO Q4H PRN PRN Reason: Pain (Mild 1-3)/fever Last Admin: 05/02/18 23:41 Dose: 650 mg Allopurinol (Zyloprim) 150 mg PO DAILY [facility] Last Admin: 05/03/18 07:22 Dose: 150 mg Bumetanide (Bumex) 1 mg PO BID@0800,1400 [facility] Last Admin: 05/03/18 13:56 Dose: 1 mg Cholecalciferol (Vitamin D3) 2,000 units PO DAILY [facility] Last Admin: 05/03/18 07:22 Dose: 2,000 units Ferrous Sulfate (Ferrous Sulfate) 324 mg PO Q2D [facility] Last Admin: 05/03/18 08:19 Dose: 324 mg Sodium Chloride (Normal Saline) 1,000 mls @ 125 mls/hr IV ASDIRECTED [facility] Last Admin: 05/03/18 17:49 Dose: 125 mls/hr Insulin Aspart (Novolog) 0 unit SUBCUT WITHMEALSANDBED [facility]; Protocol Last Admin: 05/03/18 17:21 Dose: 5 units Insulin Detemir (Levemir) 20 unit SUBCUT BEDTIME [facility] Last Admin: 05/02/18 21:30 Dose: 20 units Isosorbide Mononitrate (Imdur) 30 mg PO DAILY [facility] Last Admin: 05/03/18 10:45 Dose: 30 mg Ketorolac Tromethamine (Acular 0.5% Ophth Soln) 0 ml EYERT TID PRN PRN Reason: eyes Levothyroxine Sodium (Synthroid) 100 mcg PO ACBREAKFAST [facility] Last Admin: 05/03/18 06:34 Dose: 100 mcg Liraglutide [Victoza ] 12units Own Med 12 units SUBCUT BEDTIME [facility] Last Admin: 05/02/18 20:53 Dose: 12 units Hydralazine 50 Mg (Tab Own Med ) 2 each PO TID@0800,1200,1700 [facility] Last Admin: 05/03/18 17:18 Dose: 2 each Ptom Lisinopril (10 Mg Tab) 10 mg PO DAILY [facility] Ptom Metoprolol (Succinate Er 100 Mg) 100 mg PO DAILY [facility] Ondansetron HCl (Zofran Odt) 4 mg PO Q4H PRN PRN Reason: nausea, able to take PO Ondansetron HCl (Zofran) 4 mg IV Q4H PRN PRN Reason: Nausea/Vomiting Pantoprazole Sodium (Protonix) 40 mg PO DAILY@0700 [facility] Last Admin: 05/03/18 06:34 Dose: 40 mg Polyethylene Glycol (Miralax) 17 gm PO DAILY PRN PRN Reason: Constipation Last Admin: 05/03/18 11:54 Dose: 17 gm Simvastatin (Zocor) 10 mg PO BEDTIME [facility] Last Admin: 05/02/18 20:52 Dose: 10 mg Tamsulosin HCl (Flomax) 0.4 mg PO DAILY@1700 [facility] Last Admin: 05/03/18 17:18 Dose: 0.4 mg Discontinued Medications Hydralazine HCl (Apresoline) 50 mg PO TID@0800,1200,1700 [facility] Insulin Glargine (Lantus Solostar) 20 units SUBCUT BEDTIME [facility] Last Admin: 05/02/18 21:30 Dose: Not Given Lisinopril (Prinivil) 10 mg PO DAILY [facility] Last Admin: 05/03/18 07:24 Dose: 10 mg Metoprolol Succinate (Toprol Xl) 50 mg PO DAILY [facility] Last Admin: 05/03/18 07:25 Dose: 50 mg Non-Formulary Medication (Hydralazine [Apresoline]) 100 mg PO TID [facility] - Exam General: Alert, Oriented HEENT: Mucous Membr. Moist/[place] Neck: Supple Lungs: Clear to Auscultation, Normal Respiratory Effort Cardiovascular: Regular Rate, Regular Rhythm, Murmurs GI/Abdominal Exam: Normal Bowel Sounds, Soft, Non-Tender Extremities: Normal Inspection, Pedal Edema Skin: Warm, Dry, Other (Has erythematous lesions scattered to lower extremities ) Neurological: No New Focal Deficit - Problem List & Annotations (1) Diabetes mellitus type 2 SNOMED Code(s): 23711578 Code(s): E11.9 - TYPE 2 DIABETES MELLITUS WITHOUT COMPLICATIONS Status: Chronic Priority: High Current Visit: Yes (2) Chronic kidney disease SNOMED Code(s): 933730264 Code(s): N18.9 - CHRONIC KIDNEY DISEASE, UNSPECIFIED Status: Acute Priority: High Current Visit: Yes (3) Hyperglycemia SNOMED Code(s): 30550773 Code(s): R73.9 - HYPERGLYCEMIA, UNSPECIFIED Status: Acute Priority: High Current Visit: Yes (4) Hyponatremia SNOMED Code(s): 64004502 Code(s): E87.1 - HYPO-OSMOLALITY AND HYPONATREMIA Status: Acute Priority : High Current Visit: Yes (5) Dehydration SNOMED Code(s): 47331373 Code(s): E86.0 - DEHYDRATION Status: Acute Current Visit: Yes - Problem List Review Problem List Initiated/Reviewed/Updated: Yes - My Orders Last 24 Hours: My Active Orders 05/02/18 20:00 Liraglutide [Victoza] 12 units SUBCUT BEDTIME Non-Formulary Medication [NF Drug] 2 each PO TID@0800,1200,1700 Simvastatin [Zocor] 10 mg PO BEDTIME Tamsulosin [Flomax] 0.4 mg PO DAILY@1700 05/02/18 21:00 Insulin Aspart [NovoLOG] See Protocol SUBCUT WITHMEALSANDBED 05/02/18 21:20 Insulin Detemir [Levemir] 20 unit SUBCUT BEDTIME 05/03/18 07:00 Levothyroxine [Synthroid] 100 mcg PO ACBREAKFAST Pantoprazole [ProTONIX] 40 mg PO DAILY@0700 05/03/18 08:00 Allopurinol [Zyloprim] 150 mg PO DAILY Bumetanide [Bumex] 1 mg PO BID@0800,1400 Cholecalciferol (Vitamin D3) [Vitamin D3] 2,000 units PO DAILY Ferrous Sulfate 324 mg PO Q2D 05/03/18 10:00 Isosorbide Mononitrate [Imdur] 30 mg PO DAILY 05/03/18 10:46 Polyethylene Glycol 3350 [MiraLAX] 17 gm PO DAILY PRN 05/04/18 08:00 Lisinopril 10 mg PO DAILY Metoprolol Succinate 100 Mg 100 mg PO DAILY - Assessment Assessment:: Dehydration CKD Hyponatremia Hyperglycemia - Plan Plan:: Patient feeling good. Denies any lightheadedness this am with blood sugar that had dropped to 92. Has been running high, over 500 much of the time over the last 2 months. Labs today are improved. Sodium now 137. Creatinine 2.0. CRP 6.1. Afebrile. Blood pressure in good control. Will continue with IV Normal Saline. Watch blood sugars throughout the day today and adjust novolog to low dose per sliding scale. Lantus 20 units at bedtime, continue Victoza. Repeat labs in am. Possible discharge home tomorrow.
[2018-05-03] MEDS: LIRAGLUTIDE 12 UNIT SUBCUT SCH (20:42)
[2018-05-03] MEDS: Insulin Detemir 100 Units/ML 3 ML Pen SUBCUT SCH (20:44)
[2018-05-03] MEDS: SIMVASTATIN 10 MG PO SCH (20:47)
[2018-05-04] MEDS: Sodium Chloride 0.9% 1,000 ML IV SCH (02:18)
[2018-05-04] MEDS: Pantoprazole 40 MG Tab.CR PO SCH (06:43)
[2018-05-04] MEDS: Levothyroxine 100 MCG Tab ** OWN MED PO SCH (06:43)
[2018-05-04] MEDS: BUMETANIDE 1 MG PO SCH (07:29)
[2018-05-04] MEDS: **PTOM** Isosorbide Mononitrate 30 MG Tab.ER PO SCH (07:29)
[2018-05-04] MEDS: HYDRALAZINE 50 MG PO SCH (07:31)
[2018-05-04] MEDS: Insulin Aspart 100 Units/ML 3 ML Pen SUBCUT SCH (07:33)
[2018-05-04] MEDS: **PTOM** Allopurinol 300 MG Tab PO SCH (07:33)
[2018-05-04 07:34] VITALS: BP 127/74
[2018-05-04] MEDS: Cholecalciferol (Vitamin D3) 1,000 Unit Tab PO SCH (07:40)
[2018-05-04] MEDS ORDERED: LISINOPRIL 10 MG PO SCH (08:00)
[2018-05-04] MEDS ORDERED: METOPROLOL SUCCINATE 100 MG PO SCH (08:00)
[2018-05-04] MEDS ORDERED: Bisacodyl 10 MG Supp RECTAL ONE (08:50)
--- NOTE | 2018-05-04 15:57 | PCM.DCSUM1 ---
Discharge Summary - Hospital Course Free Text/Narrative:: Patient presented to ER with concerns of ongoing high blood sugars. Son had taken him on an [employer] [place] and noted that he was voiding about every 15 minutes. Son had noted on his glucose monitor that he had been running high to as far back as February. Patient himself had not been concerned. Had been started on Victoza a few months ago by his provider in [place] for the same reason. Is due for recheck of this on May 19. Patient asymptomatic other than polyuria in the ER. Lab done however did show hyponatremia at 128 and acute renal insufficiency with a creatinine of 2.5, normal being around 1.6. Admitted and started on IV normal saline. UA negative except for mostly glucose. Diagnosis: Stroke: No Modified [place] Scale: No Symptoms at All Modified [place] Scale Score: 0 - Discharge Data Discharge Date: 05/04/18 Discharge Disposition: Home, Self-Care 01 Condition: - Discharge Diagnosis/Problem(s) (1) Diabetes mellitus type 2 SNOMED Code(s): 07657754 ICD Code: E11.9 - TYPE 2 DIABETES MELLITUS WITHOUT COMPLICATIONS Status: Chronic Priority: High (2) Chronic kidney disease SNOMED Code(s): 147524908 ICD Code: N18.9 - CHRONIC KIDNEY DISEASE, UNSPECIFIED Status: Acute Priority: High (3) Hyperglycemia SNOMED Code(s): 66879923 ICD Code: R73.9 - HYPERGLYCEMIA, UNSPECIFIED Status: Acute Priority: High (4) Hyponatremia SNOMED Code(s): 90452720 ICD Code: E87.1 - HYPO-OSMOLALITY AND HYPONATREMIA Status: Acute Priority : High (5) Dehydration SNOMED Code(s): 10821632 ICD Code: E86.0 - DEHYDRATION Status: Acute - Patient Summary/Data Complications: none Hospital Course: Patient has continued to feel well. Blood sugars have ranged from 88-92 in the mornings to over 300 the remainder of the day. He was given 20 units of Levemir with additional 14 units total of Novolog throughout the day. Sodium has responded nicely to fluids and increased to 137 yesterday and 136 today. Creatinine 2.5 on admit, now 1.7. Appetite is good. Ambulating about without any difficulty. - Patient Instructions Diet: Diabetic Diet Activity: As Tolerated Other/Special Instructions: Check blood sugars four times per day and bring log to appointment - Discharge Plan *PRESCRIPTION DRUG MONITORING PROGRAM REVIEWED*: No *COPY OF PRESCRIPTION DRUG MONITORING REPORT IN PATIENT TENZIN: No Prescriptions/Med Rec: Insulin Detemir [Levemir] 30 unit SUBCUT BEDTIME #1 pen Home Medications: Home Meds Allopurinol 150 mg PO DAILY 02/08/14 [History] Simvastatin 10 mg PO BEDTIME 02/08/14 [History] Ketorolac [Acular 0.5% Ophth Soln] 1 drop OP TID PRN 10/22/14 [History] Bumetanide [Bumex] 1 mg PO BID 11/09/14 [History] Omeprazole [Prilosec] 20 mg PO DAILY 11/09/14 [History] Tamsulosin [Flomax] 0.4 mg PO BEDTIME 11/09/14 [History] Lisinopril 10 mg PO DAILY 08/05/15 [History] Metoprolol Succinate [Toprol XL] 100 mg PO DAILY 08/05/15 [History] Levothyroxine Sodium [Synthroid] 100 mcg PO ACBREAKFAST 08/17/16 [History] Ferrous Sulfate 325 mg PO Q2D 02/01/18 [History] Liraglutide [Victoza] 12 units SUBCUT DAILY 02/01/18 [History] Cholecalciferol (Vitamin D3) [Vitamin D] 2,000 unit PO DAILY 05/02/18 [History] hydrALAZINE [Apresoline] 100 mg PO TID 05/02/18 [History] Isosorbide Mononitrate [Isosorbide Mononitrate ER] 30 mg PO DAILY 05/03/18 [ History] Insulin Detemir [Levemir] 30 unit SUBCUT BEDTIME #1 pen 05/04/18 [Rx] Patient Handouts: Hyponatremia, Type 2 Diabetes Mellitus, Self Care, Adult Forms: ED Department Discharge Referrals: Torito Taylor MD [ED Physician] - (Follow up with Dr. Taylor in one week. Bring diabetic log with to appointment) - Discharge Summary/Plan Comment DC Time >30 min.: No Discharge Summary/Plan Comment: Discharge home Advised to take Victoza in the am and will add Levemir 30 units at bedtime. Continue to monitor blood sugars four times a day and bring log to upcoming appointment with Dr. Taylor next week. - General Info Date of Service: 05/04/18 Admission Dx/Problem (Free Text: Dehydration CKD Hyponatremia Hyperglycemia Functional Status: Reports: Pain Controlled - Review of Systems General: Denies: Fever, Weakness, Fatigue HEENT: Reports: No Symptoms Pulmonary: Denies: Shortness of Breath, Cough Cardiovascular: Denies: Chest Pain, Edema, Lightheadedness Gastrointestinal: Denies: Abdominal Pain, Nausea, Vomiting Genitourinary: Reports: No Symptoms Musculoskeletal: Reports: No Symptoms Neurological: Reports: No Symptoms - Patient Data Vitals - Most Recent: Last Vital Signs Temp 96.7 F 05/04/18 07:51 Pulse 76 05/04/18 07:51 Resp 18 05/04/18 07:51 BP 127/74 05/04/18 07:51 Pulse Ox 96 05/04/18 07:51 Weight - Most Recent: 215 lb 14.4 oz I&O - Last 24 hours: Intake & Output 05/04/18 05/04/18 05/04/18 06:59 14:59 22:59 Intake Total 1000 Balance 1000 Lab Results - Last 24 hrs: Laboratory Results - last 24 hr 05/03/18 05/03/18 05/04/18 Range/Units 17:20 20:35 07:00 Sodium 136 (136-145) mEq/L Potassium 3.9 (3.5-5.0) mEq/L Chloride 104 (98-106) mEq/L Carbon Dioxide 24 (21-32) mmol/L BUN 28 H (7-18) mg/dL Creatinine 1.7 H (0.7-1.3) mg/dL Est Cr Clr Drug Dosing 30.18 mL/min Estimated GFR (MDRD) 38 L (>=60) mL/min Glucose 219 H D (75-99) mg/dL POC Glucose 355 H 408 H* (75-105) mg/dl Calcium 8.3 L (8.4-10.1) mg/dL 05/04/18 Range/Units 07:25 Sodium (136-145) mEq/L Potassium (3.5-5.0) mEq/L Chloride (98-106) mEq/L Carbon Dioxide (21-32) mmol/L BUN (7-18) mg/dL Creatinine (0.7-1.3) mg/dL Est Cr Clr Drug Dosing mL/min Estimated GFR (MDRD) (>=60) mL/min Glucose (75-99) mg/dL POC Glucose 203 H (75-105) mg/dl Calcium (8.4-10.1) mg/dL Med Orders - Current: Current Medications Discontinued Medications Acetaminophen (Tylenol) 650 mg PO Q4H PRN PRN Reason: Pain (Mild 1-3)/fever Last Admin: 05/02/18 23:41 Dose: 650 mg Allopurinol (Zyloprim) 150 mg PO DAILY [facility] Last Admin: 05/04/18 07:33 Dose: 150 mg Bisacodyl (Dulcolax) 10 mg RECTAL ONETIME ONE Stop: 05/04/18 08:51 Last Admin: 05/04/18 08:55 Dose: 10 mg Bumetanide (Bumex) 1 mg PO BID@0800,1400 [facility] Last Admin: 05/04/18 07:29 Dose: 1 mg Cholecalciferol (Vitamin D3) 2,000 units PO DAILY [facility] Last Admin: 05/04/18 07:40 Dose: 2,000 units Ferrous Sulfate (Ferrous Sulfate) 324 mg PO Q2D [facility] Last Admin: 05/03/18 08:19 Dose: 324 mg Hydralazine HCl (Apresoline) 50 mg PO TID@0800,1200,1700 [facility] Sodium Chloride (Normal Saline) 1,000 mls @ 125 mls/hr IV ASDIRECTED [facility] Last Admin: 05/04/18 02:18 Dose: 125 mls/hr Insulin Aspart (Novolog) 0 unit SUBCUT WITHMEALSANDBED [facility]; Protocol Last Admin: 05/04/18 07:33 Dose: 2 units Insulin Detemir (Levemir) 20 unit SUBCUT BEDTIME [facility] Last Admin: 05/03/18 20:44 Dose: 20 units Insulin Glargine (Lantus Solostar) 20 units SUBCUT BEDTIME [facility] Last Admin: 05/02/18 21:30 Dose: Not Given Isosorbide Mononitrate (Imdur) 30 mg PO DAILY [facility] Last Admin: 05/04/18 07:29 Dose: 30 mg Ketorolac Tromethamine (Acular 0.5% Ophth Soln) 0 ml EYERT TID PRN PRN Reason: eyes Levothyroxine Sodium (Synthroid) 100 mcg PO ACBREAKFAST [facility] Last Admin: 05/04/18 06:43 Dose: 100 mcg Lisinopril (Prinivil) 10 mg PO DAILY [facility] Last Admin: 05/03/18 07:24 Dose: 10 mg Metoprolol Succinate (Toprol Xl) 50 mg PO DAILY [facility] Last Admin: 05/03/18 07:25 Dose: 50 mg Liraglutide [Victoza ] 12units Own Med 12 units SUBCUT BEDTIME [facility] Last Admin: 05/03/18 20:42 Dose: 12 units Hydralazine 50 Mg (Tab Own Med ) 2 each PO TID@0800,1200,1700 [facility] Last Admin: 05/04/18 07:31 Dose: 2 each Ptom Lisinopril (10 Mg Tab) 10 mg PO DAILY [facility] Last Admin: 05/04/18 07:30 Dose: 10 mg Non-Formulary Medication (Hydralazine [Apresoline]) 100 mg PO TID [facility] Ptom Metoprolol (Succinate Er 100 Mg) 100 mg PO DAILY [facility] Last Admin: 05/04/18 07:31 Dose: 100 mg Ondansetron HCl (Zofran Odt) 4 mg PO Q4H PRN PRN Reason: nausea, able to take PO Ondansetron HCl (Zofran) 4 mg IV Q4H PRN PRN Reason: Nausea/Vomiting Pantoprazole Sodium (Protonix) 40 mg PO DAILY@0700 [facility] Last Admin: 05/04/18 06:43 Dose: 40 mg Polyethylene Glycol (Miralax) 17 gm PO DAILY PRN PRN Reason: Constipation Last Admin: 05/03/18 11:54 Dose: 17 gm Simvastatin (Zocor) 10 mg PO BEDTIME [facility] Last Admin: 05/03/18 20:47 Dose: 10 mg Tamsulosin HCl (Flomax) 0.4 mg PO DAILY@1700 [facility] Last Admin: 05/03/18 17:18 Dose: 0.4 mg - Exam General: Reports: Alert, Oriented HEENT: Reports: Mucous Membr. Moist/[place] Neck: Reports: Supple Lungs: Reports: Clear to Auscultation, Normal Respiratory Effort Cardiovascular: Reports: Regular Rate, Regular Rhythm GI/Abdominal Exam: Normal Bowel Sounds, Soft, Non-Tender Extremities: Pedal Edema Skin: Reports: Other (erythematous scaly lesions to lower legs noted) Neurological: Reports: No New Focal Deficit
== END 2018-05-04 10:30 | disposition home or self-care (01) ==
LOC: CC.ED 16:29 → CC.MS 17:36
PROVIDERS: ADMIT Physician Assistant Medical; ATTEND Family Medicine
DX: E11.65 Type 2 diabetes mellitus with hyperglycemia (principal); I12.9 Hypertensive chronic kidney disease with stage 1 through stage 4 chronic kidney disease, or unspecified chronic kidney disease; E11.22 Type 2 diabetes mellitus with diabetic chronic kidney disease; N18.9 Chronic kidney disease, unspecified; E87.1 Hypo-osmolality and hyponatremia; E86.0 Dehydration; E78.00 Pure hypercholesterolemia, unspecified; Z79.4 Long term (current) use of insulin; Z79.899 Other long term (current) drug therapy; Z23 Encounter for immunization
CPT/HCPCS: 36415; 80048; 80053; 81001; 82962; 85025; 86140; 90686; 96360; 96361; 99217; 99220; 99225; 99284; A9270-GY; G0378; J1815-GY; J7030

== ENCOUNTER 2018-05-15 09:44 | Emergency (ER) | payer MEDICARE, MEDICAID ==
[2018-05-15 10:17] LABS: CHLORIDE,CL 102 mEq/L (98-106); SODIUM,NA 136 mEq/L (136-145)
--- NOTE | 2018-05-15 11:10 | EDM.PDOC ---
ED HPI GENERAL MEDICAL PROBLEM - General Chief Complaint: General Stated Complaint: DIZZINESS Time Seen by Provider: 05/15/18 10:30 Source of Information: Reports: Patient History Limitations: Reports: No Limitations - History of Present Illness INITIAL COMMENTS - FREE TEXT/NARRATIVE: Akash is a 87 year old male who presents to the ED with c/o near syncopal episode while at [facility]. He reports he stood up and "lost his balance because things got black." He denies loss of consciousness. He reports he leaned against the wall and some people stood him back up and then got him a wheelchair. Episode lasted 10-15 seconds and then he has felt normal since then. Does have strong cardiac history, including valve replacement. Patient is not good historian and cardiology notes are not available for review. Does appear that patient had been on Xarelto for known atrial flutter, but this was stopped in January 2018 secondary to GI bleed. Patient denies any chest pain, shortness of breath, headache, abdominal pain, N/ V/D, bloody/black stools, cough, urinary symptoms. At presentation to the ED he reports he feels fine. Onset: Today, Sudden Onset Date: 05/15/18 Onset Time: 10:15 Duration: Resolved Prior to Arrival Associated Symptoms: Reports: Syncope (near syncope). Denies: Confusion, Chest Pain, Cough, cough w sputum, Diaphoresis, Fever/Chills, Headaches, Loss of Appetite, Malaise, Nausea/Vomiting, Rash, Seizure, Shortness of Breath, Weakness - Related Data Allergies Allergy/AdvReac Type Severity Reaction Status Date / Time Sulfa (Sulfonamide Allergy Cannot Verified 05/15/18 10:11 Antibiotics) Remember terazosin [Terazosin] Allergy Cannot Verified 05/15/18 10:11 Remember Home Meds: Home Meds Allopurinol 150 mg PO DAILY 02/08/14 [History] Simvastatin 10 mg PO BEDTIME 02/08/14 [History] Ketorolac [Acular 0.5% Ophth Soln] 1 drop OP TID PRN 10/22/14 [History] Bumetanide [Bumex] 1 mg PO BID 11/09/14 [History] Omeprazole [Prilosec] 20 mg PO DAILY 11/09/14 [History] Tamsulosin [Flomax] 0.4 mg PO BEDTIME 11/09/14 [History] Lisinopril 10 mg PO DAILY 08/05/15 [History] Metoprolol Succinate [Toprol XL] 100 mg PO DAILY 08/05/15 [History] Levothyroxine Sodium [Synthroid] 100 mcg PO ACBREAKFAST 08/17/16 [History] Liraglutide [Victoza] 12 units SUBCUT DAILY 02/01/18 [History] Cholecalciferol (Vitamin D3) [Vitamin D] 2,000 unit PO DAILY 05/02/18 [History] hydrALAZINE [Apresoline] 100 mg PO TID 05/02/18 [History] Isosorbide Mononitrate [Isosorbide Mononitrate ER] 30 mg PO DAILY 05/03/18 [ History] Insulin Detemir [Levemir] 30 unit SUBCUT BEDTIME #1 pen 05/04/18 [Rx] Past Medical History HEENT History: Reports: Cataract, Impaired Vision Cardiovascular History: Reports: Heart Murmur, Heart Valve Replacement, High Cholesterol, Hypertension Gastrointestinal History: Reports: GERD, GI Bleed, Hemorrhoids Endocrine/Metabolic History: Reports: Diabetes, Type II - Past Surgical History Cardiovascular Surgical History: Reports: Valve Replacement GI Surgical History: Reports: Colonoscopy Endocrine Surgical History: Reports: Other (See Below) Social & Family History - Family History Family Medical History: Noncontributory Cardiac: Reports: CAD, Hypertension - Tobacco Use Smoking Status *Q: Never Smoker - Caffeine Use Caffeine Use: Reports: Coffee - Recreational Drug Use Recreational Drug Use: No - Living Situation & Occupation Living situation: Reports: , with Spouse ED ROS GENERAL - Review of Systems Review Of Systems: ROS reveals no pertinent complaints other than HPI. ED EXAM, GENERAL - Physical Exam Exam: See Below Exam Limited By: No Limitations General Appearance: Alert, WD/WN, No Apparent Distress Eye Exam: Bilateral Eye: EOMI, PERRL Ears: Normal External Exam, Normal Canal, Hearing Grossly Normal, Normal TMs Nose: Normal Inspection, Normal Mucosa, No Blood Throat/Mouth: Normal Inspection, Normal Lips, Normal Teeth, Normal Gums, Normal Oropharynx, Normal Voice, No Airway Compromise Head: Atraumatic, Normocephalic Neck: Normal Inspection, Supple, Non-Tender, Full Range of Motion Respiratory/Chest: No Respiratory Distress, Lungs Clear, Normal Breath Sounds, No Accessory Muscle Use, Chest Non-Tender Cardiovascular: Normal Peripheral Pulses, Systolic Murmur, Irregularly Irregular , Other (pitting edema to pretibial BLE) Peripheral Pulses: 2+: Dorsalis Pedis (L), Dorsalis Pedis (R) GI/Abdominal: Normal Bowel Sounds, Soft, Non-Tender, No Organomegaly, No Distention, No Abnormal Bruit, No Mass Back Exam: Normal Inspection, Full Range of Motion, NT Extremities: Non-Tender, Normal Capillary Refill, Pedal Edema Neurological: Alert, Oriented, CN II-XII Intact, Normal Cognition, Normal Gait, Normal Reflexes, No Motor/Sensory Deficits Psychiatric: Normal Affect, Normal Mood Skin Exam: Warm, Dry, Intact Course - Vital Signs Last Recorded V/S: Last Vital Signs Temp 97.6 F 05/15/18 12:30 Pulse 66 05/15/18 12:30 Resp 16 05/15/18 12:30 BP 148/78 H 05/15/18 12:30 Pulse Ox 99 05/15/18 12:30 - Orders/Labs/Meds Orders: Active Orders 24 hr Category Date Time Status EKG Documentation Completion [RC] STAT Care 05/15/18 09:51 Active Labs: Laboratory Tests 05/15/18 05/15/18 05/15/18 Range/Units 09:56 09:56 09:56 WBC 7.5 (5.0-10.0) 10^3/uL RBC 4.58 (4.50-6.00) 10^6/uL Hgb 11.0 L (14.0-18.0) g/dL Hct 36.0 L (40.0-54.0) % MCV 78.6 L (82.0-94.0) fL MCH 24.0 L (27.0-32.0) pg MCHC 30.6 L (33.0-38.0) g/dL RDW Coeff of Emma 17.3 H (11.0-15.0) % Plt Count 302 (150-400) 10^3/uL Neut % (Auto) 66.0 (35-85) % Lymph % (Auto) 18.9 (10-55) % [place] % (Auto) 8.8 (0-16) % Eos % (Auto) 5.8 H (0-5) % Baso % (Auto) 0.5 (0-3) % Neut # (Auto) 4.97 (1.80-7.00) 10^3/uL Lymph # (Auto) 1.42 (1.00-4.80) 10^3/uL [place] # (Auto) 0.66 (0.00-0.80) 10^3/uL Eos # (Auto) 0.44 (0.00-0.45) 10^3/uL Baso # (Auto) 0.04 10^3/uL PT 10.4 (9.7-12.3) SEC INR 1.00 (0.92-1.18) APTT 28.6 (23.2-32.3) SEC Sodium (136-145) mEq/L Potassium (3.5-5.0) mEq/L Chloride (98-106) mEq/L Carbon Dioxide (21-32) mmol/L BUN (7-18) mg/dL Creatinine (0.7-1.3) mg/dL Est Cr Clr Drug Dosing mL/min Estimated GFR (MDRD) (>=60) mL/min Glucose (75-99) mg/dL Calcium (8.4-10.1) mg/dL Total Bilirubin (0.0-1.0) mg/dL AST (15-37) U/L ALT (12-78) U/L Alkaline Phosphatase (46-116) U/L Lactate Dehydrogenase (100-190) U/L Creatine Kinase (35-232) U/L Troponin I (0.00-0.06) ng/mL Total Protein (6.4-8.2) g/dL Albumin (3.4-5.0) g/dL Urine Color Yellow (YELLOW) Urine Appearance Clear (CLEAR) Urine pH 5.5 (4.5-8.0) Ur Specific Calder 1.015 (1.003-1.020) Urine Protein 100 H (NEGATIVE) mg/dL Urine Glucose (UA) Negative (NEGATIVE) mg/dL Urine Ketones Negative (NEGATIVE) mg/dL Urine Occult Blood Negative (NEGATIVE) Urine Nitrite Negative (NEGATIVE) Urine Bilirubin Negative (NEGATIVE) Urine Urobilinogen 0.2 (0.2-1.0) EU/dL Ur Leukocyte Esterase Small H (NEGATIVE) Urine RBC Not seen (0-5) /HPF Urine WBC 0-5 (0-5) /HPF Ur Squamous Epith Cells Occasional H (NOT SEEN) /HPF Urine Bacteria Occasional H (NOT SEEN) /HPF 05/15/18 Range/Units 09:56 WBC (5.0-10.0) 10^3/uL RBC (4.50-6.00) 10^6/uL Hgb (14.0-18.0) g/dL Hct (40.0-54.0) % MCV (82.0-94.0) fL MCH (27.0-32.0) pg MCHC (33.0-38.0) g/dL RDW Coeff of Emma (11.0-15.0) % Plt Count (150-400) 10^3/uL Neut % (Auto) (35-85) % Lymph % (Auto) (10-55) % [place] % (Auto) (0-16) % Eos % (Auto) (0-5) % Baso % (Auto) (0-3) % Neut # (Auto) (1.80-7.00) 10^3/uL Lymph # (Auto) (1.00-4.80) 10^3/uL [place] # (Auto) (0.00-0.80) 10^3/uL Eos # (Auto) (0.00-0.45) 10^3/uL Baso # (Auto) 10^3/uL PT (9.7-12.3) SEC INR (0.92-1.18) APTT (23.2-32.3) SEC Sodium 136 (136-145) mEq/L Potassium 4.5 (3.5-5.0) mEq/L Chloride 102 (98-106) mEq/L Carbon Dioxide 27 (21-32) mmol/L BUN 27 H (7-18) mg/dL Creatinine 1.8 H (0.7-1.3) mg/dL Est Cr Clr Drug Dosing 29.46 mL/min Estimated GFR (MDRD) 36 L (>=60) mL/min Glucose 237 H (75-99) mg/dL Calcium 8.9 (8.4-10.1) mg/dL Total Bilirubin 0.4 (0.0-1.0) mg/dL AST 28 (15-37) U/L ALT 31 (12-78) U/L Alkaline Phosphatase 100 (46-116) U/L Lactate Dehydrogenase 215 H (100-190) U/L Creatine Kinase 115 (35-232) U/L Troponin I < 0.017 (0.00-0.06) ng/mL Total Protein 7.5 (6.4-8.2) g/dL Albumin 2.9 L (3.4-5.0) g/dL Urine Color (YELLOW) Urine Appearance (CLEAR) Urine pH (4.5-8.0) Ur Specific Calder (1.003-1.020) Urine Protein (NEGATIVE) mg/dL Urine Glucose (UA) (NEGATIVE) mg/dL Urine Ketones (NEGATIVE) mg/dL Urine Occult Blood (NEGATIVE) Urine Nitrite (NEGATIVE) Urine Bilirubin (NEGATIVE) Urine Urobilinogen (0.2-1.0) EU/dL Ur Leukocyte Esterase (NEGATIVE) Urine RBC (0-5) /HPF Urine WBC (0-5) /HPF Ur Squamous Epith Cells (NOT SEEN) /HPF Urine Bacteria (NOT SEEN) /HPF - Re-Assessments/Exams Free Text/Narrative Re-Assessment/Exam: 05/15/18 11:00 Discussed lab and EKG findings with patient. Patient has known history of flutter. Recently stopped Xarelto secondary to GI bleed. Will keep patient for few hours for cardiac monitoring and close monitoring of BP. 05/15/18 13:42 Patient has been stable troughout extended ER stay. Has been on cardiac monitoring. Pulse range upper 40's-60's. Patient has had no further symptoms. Blood pressure has remained stable. Will discharge home. Departure - Departure Time of Disposition: 13:43 Disposition: Home, Self-Care 01 Clinical Impression: Postural dizziness with near syncope Atrial flutter Qualifiers: Atrial flutter type: unspecified Qualified Code(s): I48.92 - Unspecified atrial flutter - Discharge Information *PRESCRIPTION DRUG MONITORING PROGRAM REVIEWED*: Not Applicable *COPY OF PRESCRIPTION DRUG MONITORING REPORT IN PATIENT TENZIN: Not Applicable Instructions: Near-Syncope, [id number], Atrial Flutter Referrals: Torito Taylor MD [Primary Care Provider] - Forms: ED Department Discharge Additional Instructions: Change positions slowly Drink at least 60 oz fluids/day Close monitoring of blood sugars Hold metoprolol if pulse less then 60 at home Recommend follow up with PCP for med review in the next week, sooner if symptoms recur or worsen - My Orders Last 24 Hours: My Active Orders 05/15/18 09:51 EKG Documentation Completion [RC] STAT - Assessment/Plan Last 24 Hours: My Active Orders 05/15/18 09:51 EKG Documentation Completion [RC] STAT
[2018-05-15 13:01] VITALS: BP 148/78
== END 2018-05-15 14:25 | disposition home or self-care (01) ==
LOC: CC.ED 09:44
DX: I48.92 Unspecified atrial flutter (principal); R55 Syncope and collapse; E11.9 Type 2 diabetes mellitus without complications; Z79.899 Other long term (current) drug therapy; Z88.2 Allergy status to sulfonamides; Z88.8 Allergy status to other drugs, medicaments and biological substances
CPT/HCPCS: 36415; 80053; 81001; 82550; 83615; 84484; 85025; 85610; 85730; 93005; 93010; 99284

== ENCOUNTER 2018-09-30 06:26 | Emergency (ER) | payer MEDICARE, MEDICAID ==
[2018-09-30 09:29] VITALS: BP 150/75
--- NOTE | 2018-09-30 10:13 | EDM.PDOC ---
ED HPI GENERAL MEDICAL PROBLEM - General Chief Complaint: Chest Pain Stated Complaint: SICK Time Seen by Provider: 09/30/18 07:30 Source of Information: Reports: Patient History Limitations: Reports: No Limitations - History of Present Illness INITIAL COMMENTS - FREE TEXT/NARRATIVE: Akash is an 88 year old male who presents to the ED with c/o elevated BP and episodes of chest pain. He reports that starting last evening he just hasn't felt right. Reports he feels like his heart is racing. Has intermittent episodes of left sided chest pain that last a few seconds and then go away. He denies any dizziness, shortness of breath, diaphoresis, syncope, N/V/D. Reports he has a chronic cough productive of sputum in the mornings, but no recent changes in this. Denies known history of a fib. Reports with these symptoms he checked his BP and it was elevated 200/100s, prompting ED presentation. He did not take his BP meds this morning prior to arrival. Quality: Reports: Sharp Severity: Mild Context: Denies: Sick Contact, Trauma Associated Symptoms: Reports: Chest Pain, Cough, cough w sputum, Weakness. Denies: Confusion, Diaphoresis, Fever/Chills, Headaches, Loss of Appetite, Malaise, Nausea/Vomiting, Shortness of Breath, Syncope Treatments [employer]S: Reports: Aspirin - Related Data Allergies Allergy/AdvReac Type Severity Reaction Status Date / Time Sulfa (Sulfonamide Allergy Cannot Verified 09/30/18 07:49 Antibiotics) Remember terazosin [Terazosin] Allergy Cannot Verified 09/30/18 07:49 Remember Home Meds: Home Meds Allopurinol 150 mg PO DAILY 02/08/14 [History] Simvastatin 10 mg PO BEDTIME 02/08/14 [History] Ketorolac [Acular 0.5% Ophth Soln] 1 drop OP TID PRN 10/22/14 [History] Bumetanide [Bumex] 1 mg PO BID 11/09/14 [History] Omeprazole [Prilosec] 20 mg PO DAILY 11/09/14 [History] Tamsulosin [Flomax] 0.4 mg PO BEDTIME 11/09/14 [History] Lisinopril 10 mg PO DAILY 08/05/15 [History] Metoprolol Succinate [Toprol XL] 100 mg PO DAILY 08/05/15 [History] Levothyroxine Sodium [Synthroid] 100 mcg PO ACBREAKFAST 08/17/16 [History] Liraglutide [Victoza] 12 units SUBCUT DAILY 02/01/18 [History] Cholecalciferol (Vitamin D3) [Vitamin D] 2,000 unit PO DAILY 05/02/18 [History] hydrALAZINE [Apresoline] 100 mg PO TID 05/02/18 [History] Isosorbide Mononitrate [Isosorbide Mononitrate ER] 30 mg PO DAILY 05/03/18 [ History] Insulin Detemir [Levemir] 30 unit SUBCUT BEDTIME #1 pen 05/04/18 [Rx] Past Medical History HEENT History: Reports: Cataract, Impaired Vision Cardiovascular History: Reports: Heart Murmur, Heart Valve Replacement, High Cholesterol, Hypertension Gastrointestinal History: Reports: GERD, GI Bleed, Hemorrhoids Endocrine/Metabolic History: Reports: Diabetes, Type II - Past Surgical History Cardiovascular Surgical History: Reports: Valve Replacement GI Surgical History: Reports: Colonoscopy Endocrine Surgical History: Reports: Other (See Below) Social & Family History - Family History Family Medical History: Noncontributory Cardiac: Reports: CAD, Hypertension - Tobacco Use Smoking Status *Q: Never Smoker Second Hand Smoke Exposure: No - Caffeine Use Caffeine Use: Reports: Coffee - Living Situation & Occupation Living situation: Reports: , with Spouse ED ROS GENERAL - Review of Systems Review Of Systems: ROS reveals no pertinent complaints other than HPI. ED EXAM, GENERAL - Physical Exam Exam: See Below Exam Limited By: No Limitations General Appearance: Alert, WD/WN, No Apparent Distress Eye Exam: Bilateral Eye: EOMI, Normal Fundi, Normal Inspection, PERRL Ears: Normal External Exam, Normal Canal, Hearing Grossly Normal, Normal TMs Nose: Normal Inspection, Normal Mucosa, No Blood Throat/Mouth: Normal Inspection, Normal Lips, Normal Teeth, Normal Gums, Normal Oropharynx, Normal Voice, No Airway Compromise Head: Atraumatic, Normocephalic Neck: Normal Inspection, Supple, Non-Tender, Full Range of Motion Cardiovascular: Normal Peripheral Pulses, No Edema, No JVD, No Murmur, Irregularly Irregular GI/Abdominal: Normal Bowel Sounds, Soft, Non-Tender, No Organomegaly, No Distention, No Abnormal Bruit, No Mass Back Exam: Normal Inspection, Full Range of Motion, NT Extremities: Normal Inspection, Normal Range of Motion, Non-Tender, Normal Capillary Refill, No Pedal Edema Neurological: Alert, Oriented, CN II-XII Intact, Normal Cognition, Normal Gait, Normal Reflexes, No Motor/Sensory Deficits Psychiatric: Normal Affect, Normal Mood Skin Exam: Warm, Dry, Intact, Normal Color, No Rash Lymphatic: No Adenopathy Course - Vital Signs Last Recorded V/S: Last Vital Signs Temp 97.1 F 09/30/18 07:16 Pulse 92 09/30/18 08:02 Resp 18 09/30/18 08:02 BP 150/75 H 09/30/18 09:29 Pulse Ox 93 L 09/30/18 08:02 - Orders/Labs/Meds Labs: Laboratory Tests 09/30/18 09/30/18 09/30/18 Range/Units 07:07 07:07 07:07 WBC 7.8 (5.0-10.0) 10^3/uL RBC 4.83 (4.50-6.00) 10^6/uL Hgb 12.1 L (14.0-18.0) g/dL Hct 38.8 L (40.0-54.0) % MCV 80.3 L (82.0-94.0) fL MCH 25.1 L (27.0-32.0) pg MCHC 31.2 L (33.0-38.0) g/dL RDW Coeff of Emma 15.8 H (11.0-15.0) % Plt Count 313 (150-400) 10^3/uL Neut % (Auto) 68.4 (35-85) % Lymph % (Auto) 15.7 (10-55) % [place] % (Auto) 9.2 (0-16) % Eos % (Auto) 6.2 H (0-5) % Baso % (Auto) 0.5 (0-3) % Neut # (Auto) 5.33 (1.80-7.00) 10^3/uL Lymph # (Auto) 1.22 (1.00-4.80) 10^3/uL [place] # (Auto) 0.72 (0.00-0.80) 10^3/uL Eos # (Auto) 0.48 H (0.00-0.45) 10^3/uL Baso # (Auto) 0.04 10^3/uL PT 10.3 (9.7-12.3) SEC INR 0.99 (0.92-1.18) APTT 29.2 (23.2-32.3) SEC Sodium 141 (136-145) mEq/L Potassium 4.2 (3.5-5.0) mEq/L Chloride 104 (98-106) mEq/L Carbon Dioxide 27 (21-32) mmol/L BUN 31 H (7-18) mg/dL Creatinine 1.8 H (0.7-1.3) mg/dL Est Cr Clr Drug Dosing 27.97 mL/min Estimated GFR (MDRD) 36 L (>=60) mL/min Glucose 144 H D (75-99) mg/dL Calcium 9.2 (8.4-10.1) mg/dL Lactate Dehydrogenase 261 H (100-190) U/L Creatine Kinase 171 (35-232) U/L Troponin I 0.019 (0.00-0.06) ng/mL NT-Pro-B Natriuret Pep (0-1000) pg/mL 09/30/18 Range/Units 07:56 WBC (5.0-10.0) 10^3/uL RBC (4.50-6.00) 10^6/uL Hgb (14.0-18.0) g/dL Hct (40.0-54.0) % MCV (82.0-94.0) fL MCH (27.0-32.0) pg MCHC (33.0-38.0) g/dL RDW Coeff of Emma (11.0-15.0) % Plt Count (150-400) 10^3/uL Neut % (Auto) (35-85) % Lymph % (Auto) (10-55) % [place] % (Auto) (0-16) % Eos % (Auto) (0-5) % Baso % (Auto) (0-3) % Neut # (Auto) (1.80-7.00) 10^3/uL Lymph # (Auto) (1.00-4.80) 10^3/uL [place] # (Auto) (0.00-0.80) 10^3/uL Eos # (Auto) (0.00-0.45) 10^3/uL Baso # (Auto) 10^3/uL PT (9.7-12.3) SEC INR (0.92-1.18) APTT (23.2-32.3) SEC Sodium (136-145) mEq/L Potassium (3.5-5.0) mEq/L Chloride (98-106) mEq/L Carbon Dioxide (21-32) mmol/L BUN (7-18) mg/dL Creatinine (0.7-1.3) mg/dL Est Cr Clr Drug Dosing mL/min Estimated GFR (MDRD) (>=60) mL/min Glucose (75-99) mg/dL Calcium (8.4-10.1) mg/dL Lactate Dehydrogenase (100-190) U/L Creatine Kinase (35-232) U/L Troponin I (0.00-0.06) ng/mL NT-Pro-B Natriuret Pep 3055 H (0-1000) pg/mL - Re-Assessments/Exams Free Text/Narrative Re-Assessment/Exam: Reviewed EKG with Dr. Taylor, patients PCP. Dr. Taylor reports patient has history of atrial fibrillation. Is not anticoagulated due to GI bleed in past. He was on Eliquis in the past. Discussed lab, EKG, CXR findings with patient and family. Patient reports he is feeling better now that BP improved. Has not had episodes of CP while in ED. BP improved after patient took home BP medications. Will discharge home. Departure - Departure Time of Disposition: 10:02 Disposition: Home, Self-Care 01 Condition: Good Clinical Impression: Hypertension Qualifiers: Hypertension type: essential hypertension Qualified Code(s): I10 - Essential ( primary) hypertension Congestive heart failure Qualifiers: Heart failure type: unspecified Heart failure chronicity: chronic Qualified Code(s): I50.9 - Heart failure, unspecified Atrial fibrillation Qualifiers: Atrial fibrillation type: chronic Qualified Code(s): I48.2 - Chronic atrial fibrillation Referrals: PCP,Unknown [Primary Care Provider] - Forms: ED Department Discharge Additional Instructions: 1) Continue home meds as prescribed 2) Follow up with PCP if symptoms worsen or do not improve 3) Return to ED for emergent needs
== END 2018-09-30 10:10 | disposition home or self-care (01) ==
LOC: CC.ED 06:26
DX: I11.0 Hypertensive heart disease with heart failure (principal); I50.9 Heart failure, unspecified; I48.2 Chronic atrial fibrillation; E11.9 Type 2 diabetes mellitus without complications; K21.9 Gastro-esophageal reflux disease without esophagitis; Z79.899 Other long term (current) drug therapy; Z79.4 Long term (current) use of insulin; Z95.4 Presence of other heart-valve replacement; Z88.2 Allergy status to sulfonamides; Z88.8 Allergy status to other drugs, medicaments and biological substances
CPT/HCPCS: 36415; 71046; 80048; 82550; 83615; 83880; 84484; 85025; 85610; 85730; 93005; 99285-25

== ENCOUNTER 2019-04-09 14:13 | Emergency (ER) | payer MEDICARE, MEDICAID ==
[2019-04-09] MEDS ORDERED: Acetaminophen/HYDROcodone 325-5 MG Tab PO ONE ×2 (14:14→14:23)
[2019-04-09 14:17] VITALS: BP 126/67; PULSE 70
--- NOTE | 2019-04-09 14:29 | EDM.PDOC ---
ED HPI GENERAL MEDICAL PROBLEM - General Chief Complaint: Lower Extremity Injury/Pain Stated Complaint: R Leg Pain Time Seen by Provider: 04/09/19 14:15 Source of Information: Reports: Patient, Family History Limitations: Reports: No Limitations - History of Present Illness INITIAL COMMENTS - FREE TEXT/NARRATIVE: in with c/o right sided hip/back pain over the sciatic nerve x this morning , no injury or trauma, no cp or palpitations, no calf pain. 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) Right Hip Pain Score (Numeric/FACES): 9 - Related Data Allergies Allergy/AdvReac Type Severity Reaction Status Date / Time Sulfa (Sulfonamide Allergy Cannot Verified 04/09/19 14:18 Antibiotics) Remember terazosin [Terazosin] Allergy Cannot Verified 04/09/19 14:18 Remember Home Meds: Home Meds Allopurinol 150 mg PO DAILY 02/08/14 [History] Simvastatin 10 mg PO BEDTIME 02/08/14 [History] Ketorolac [Acular 0.5% Ophth Soln] 1 drop OP TID PRN 10/22/14 [History] Bumetanide [Bumex] 1 mg PO BID 11/09/14 [History] Omeprazole [Prilosec] 20 mg PO DAILY 11/09/14 [History] Tamsulosin [Flomax] 0.4 mg PO BEDTIME 11/09/14 [History] Lisinopril 10 mg PO DAILY 08/05/15 [History] Metoprolol Succinate [Toprol XL] 100 mg PO DAILY 08/05/15 [History] Levothyroxine Sodium [Synthroid] 100 mcg PO ACBREAKFAST 08/17/16 [History] Liraglutide [Victoza] 12 units SUBCUT DAILY 02/01/18 [History] Cholecalciferol (Vitamin D3) [Vitamin D] 2,000 unit PO DAILY 05/02/18 [History] hydrALAZINE [Apresoline] 100 mg PO TID 05/02/18 [History] Isosorbide Mononitrate [Isosorbide Mononitrate ER] 30 mg PO DAILY 05/03/18 [ History] Insulin Detemir [Levemir] 30 unit SUBCUT BEDTIME #1 pen 05/04/18 [Rx] Past Medical History HEENT History: Reports: Cataract, Impaired Vision Cardiovascular History: Reports: Heart Murmur, Heart Valve Replacement, High Cholesterol, Hypertension Gastrointestinal History: Reports: GERD, GI Bleed, Hemorrhoids Endocrine/Metabolic History: Reports: Diabetes, Type II - Past Surgical History Cardiovascular Surgical History: Reports: Valve Replacement GI Surgical History: Reports: Colonoscopy Endocrine Surgical History: Reports: Other (See Below) Social & Family History - Family History Family Medical History: Noncontributory Cardiac: Reports: CAD, Hypertension - Caffeine Use Caffeine Use: Reports: Coffee - Living Situation & Occupation Living situation: Reports: , with Spouse Review of Systems - Review of Systems Review Of Systems: See Below Constitutional: Reports: No Symptoms. Denies: Chills, Fever Eyes: Reports: No Symptoms Ears: Reports: No Symptoms Nose: Reports: No Symptoms Mouth/Throat: Reports: No Symptoms Respiratory: Reports: No Symptoms. Denies: Shortness of Breath Cardiovascular: Reports: No Symptoms. Denies: Chest Pain, Irregular Heart Rate , Palpitations GI/Abdominal: Reports: No Symptoms. Denies: Abdominal Pain, Nausea, Vomiting Genitourinary: Reports: No Symptoms Musculoskeletal: Reports: Back Pain, Joint Pain (as above). Denies: Neck Pain Skin: Reports: No Symptoms. Denies: Bruising, Rash, Erythema Neurological: Reports: No Symptoms. Denies: Headache, Numbness, Tingling, Weakness Psychiatric: Reports: No Symptoms ED EXAM, GENERAL - Physical Exam Exam: See Below Exam Limited By: No Limitations General Appearance: Alert, WD/WN, No Apparent Distress Nose: Normal Inspection Throat/Mouth: Normal Inspection, Normal Lips, Normal Voice, No Airway Compromise Head: Atraumatic, Normocephalic Neck: Normal Inspection, Supple, Non-Tender, Full Range of Motion Respiratory/Chest: No Respiratory Distress, Lungs Clear, Normal Breath Sounds Cardiovascular: Normal Peripheral Pulses, Regular Rate, Rhythm, No Edema, No Murmur Peripheral Pulses: 2+: Radial (L), Posterior Tibial (L), Posterior Tibial (R) GI/Abdominal: Soft, Non-Tender Back Exam: Normal Inspection, Full Range of Motion Extremities: Normal Inspection, Normal Range of Motion, Normal Capillary Refill , Other (pain over the sciatic area on the right with palpation and goes into his right buttock, no problems voiding or having a BM, no numbness or tingling) . No: Redness Neurological: Alert, Oriented, Normal Cognition, No Motor/Sensory Deficits Psychiatric: Normal Affect, Normal Mood Skin Exam: Warm, Dry, Intact, Normal Color Course - Vital Signs Last Recorded V/S: Last Vital Signs Temp 35.8 C 04/09/19 14:14 Pulse 70 04/09/19 14:14 Resp 16 04/09/19 14:14 BP 126/67 04/09/19 14:14 Pulse Ox 96 04/09/19 14:14 - Orders/Labs/Meds Orders: Active Orders 24 hr Category Date Time Status Hip Min 2V or 3V w Pelvis Rt [CR] Stat Exams 04/09/19 14:22 Taken Meds: Medications Discontinued Medications Generic Name Dose Route Start Last Admin Trade Name [place] PRN Reason Stop Dose Admin Hydrocodone Bitart/Acetaminophen 1 tab 04/09/19 14:23 04/09/19 14:28 [place] 325-5 Mg PO 04/09/19 14:24 1 tab ONETIME ONE Administration - Re-Assessments/Exams Free Text/Narrative Re-Assessment/Exam: 04/09/19 15:18 xray of the right hip and pelvis is neg for fx or dislocation, radiology reading is pending Departure - Departure Time of Disposition: 15:18 Disposition: Home, Self-Care 01 Condition: Good Clinical Impression: Right-sided low back pain with sciatica - Discharge Information *PRESCRIPTION DRUG MONITORING PROGRAM REVIEWED*: Not Applicable *COPY OF PRESCRIPTION DRUG MONITORING REPORT IN PATIENT TENZIN: Not Applicable Instructions: Sciatica Forms: ED Department Discharge Additional Instructions: norco 5/325mg 1 every 6 hours as needed for pain follow up with your family doctor in am for further evaluation and treatment return to ER sooner if worse or problems - Problem List & Annotations (1) Right-sided low back pain with sciatica SNOMED Code(s): 022307211 Code(s): M54.41 - LUMBAGO WITH SCIATICA, RIGHT SIDE Status: Acute Priority: High Current Visit: Yes Qualifiers: Chronicity: acute Sciatica laterality: sciatica of right side Qualified Code(s): M54.41 - Lumbago with sciatica, right side - Problem List Review Problem List Initiated/Reviewed/Updated: Yes - My Orders Last 24 Hours: My Active Orders 04/09/19 14:22 Hip Min 2V or 3V w Pelvis Rt [CR] Stat - Assessment/Plan Last 24 Hours: My Active Orders 04/09/19 14:22 Hip Min 2V or 3V w Pelvis Rt [CR] Stat Plan: will tx with norco for now, pt is a diabetic and aadvised his Blood glucose runs over 200, I hesitate to start the pt on prednisone at this time and suggest he see his pcp in am and if they agree can prescribe prednisone with a possible sliding scale insulin, advised pt and he and his agrees with the tx plan
[2019-04-09] MEDS ORDERED: Take Home: Acetaminophen/HYDROcodone 325-5 MG, 2 Tab Pack PO ONE (15:24)
== END 2019-04-09 15:48 | disposition home or self-care (01) ==
LOC: CC.ED 14:13
DX: M54.41 Lumbago with sciatica, right side (principal); I10 Essential (primary) hypertension; E11.9 Type 2 diabetes mellitus without complications; E78.00 Pure hypercholesterolemia, unspecified; K21.9 Gastro-esophageal reflux disease without esophagitis; Z88.2 Allergy status to sulfonamides; Z88.8 Allergy status to other drugs, medicaments and biological substances; Z79.899 Other long term (current) drug therapy; Z79.4 Long term (current) use of insulin
CPT/HCPCS: 99283; 99283-25; A9270-GY

== ENCOUNTER 2019-04-11 22:20 | Inpatient (IN) | payer MEDICARE, MEDICAID ==
--- NOTE | 2019-04-11 23:20 | EDM.PDOC ---
ED HPI GENERAL MEDICAL PROBLEM - General Chief Complaint: Lower Extremity Injury/Pain Stated Complaint: right leg sciatiac pain Time Seen by Provider: 04/11/19 22:54 Source of Information: Reports: Patient History Limitations: Reports: No Limitations - History of Present Illness INITIAL COMMENTS - FREE TEXT/NARRATIVE: Akash is an 88 yo male who is brought into the ER via EMS with complaints of right sciatic pain. He states he was seen in the ER on Wednesday for the same pain. Had X-rays done and was sent home with hydrocodone tablets. Admits the pain first started on Wednesday after getting out of the shower so he came to the ER. He admits the pills really haven't helped and came into the clinic yesterday to see Dr Taylor and had more x-rays done. Unsure of results. States pain has gotten worse since Wednesday. He did take the 4 tablets of [place] he was sent home with and filled his prescription for [place] today from Dr. Taylor. He has only has taken one pain medicine today as it really doesn't seem to help. Was going to physical therapy appointment today and ended up falling, getting a skin tear to his elbow. Was still able to work with physical therapy and went home. States he felt a lot better after physical therapy until supper time. Since then he has fallen twice at home but was able to get himself up. Denies any head involvement or any other injuries from the fall. called the ambulance after the last fall. He states the pain seems to come and go but overall is getting worse. States it starts in his right lower back and goes down his right leg. Currently rates his pain a 9 out of 10. 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) Right Leg Pain Score (Numeric/FACES): 9 - Related Data Allergies Allergy/AdvReac Type Severity Reaction Status Date / Time Sulfa (Sulfonamide Allergy Cannot Verified 04/11/19 22:31 Antibiotics) Remember terazosin [Terazosin] Allergy Cannot Verified 04/11/19 22:31 Remember Home Meds: Home Meds Allopurinol 150 mg PO DAILY 02/08/14 [History] Simvastatin 10 mg PO BEDTIME 02/08/14 [History] Ketorolac [Acular 0.5% Ophth Soln] 1 drop OP TID PRN 10/22/14 [History] Bumetanide [Bumex] 1 mg PO BID 11/09/14 [History] Omeprazole [Prilosec] 20 mg PO DAILY 11/09/14 [History] Tamsulosin [Flomax] 0.4 mg PO BEDTIME 11/09/14 [History] Lisinopril 10 mg PO DAILY 08/05/15 [History] Metoprolol Succinate [Toprol XL] 100 mg PO DAILY 08/05/15 [History] Levothyroxine Sodium [Synthroid] 100 mcg PO ACBREAKFAST 08/17/16 [History] Liraglutide [Victoza] 12 units SUBCUT DAILY 02/01/18 [History] Cholecalciferol (Vitamin D3) [Vitamin D] 2,000 unit PO DAILY 05/02/18 [History] hydrALAZINE [Apresoline] 100 mg PO TID 05/02/18 [History] Isosorbide Mononitrate [Isosorbide Mononitrate ER] 30 mg PO DAILY 05/03/18 [ History] Insulin Detemir [Levemir] 30 unit SUBCUT BEDTIME #1 pen 05/04/18 [Rx] Hydrocodone/Acetaminophen [Hydrocodon-Acetaminophen 5-325] 1 tab PO Q6H PRN [History] Past Medical History HEENT History: Reports: Cataract, Impaired Vision, Other (See Below) Other HEENT History: right false eye Cardiovascular History: Reports: Heart Murmur, Heart Valve Replacement, High Cholesterol, Hypertension Gastrointestinal History: Reports: GERD, GI Bleed, Hemorrhoids Endocrine/Metabolic History: Reports: Diabetes, Type II - Past Surgical History HEENT Surgical History: Reports: Cataract Surgery Cardiovascular Surgical History: Reports: Valve Replacement GI Surgical History: Reports: Colonoscopy Endocrine Surgical History: Reports: Other (See Below) Social & Family History - Family History Family Medical History: Noncontributory Cardiac: Reports: CAD, Hypertension - Tobacco Use Smoking Status *Q: Never Smoker - Caffeine Use Caffeine Use: Reports: Coffee - Recreational Drug Use Recreational Drug Use: No - Living Situation & Occupation Living situation: Reports: , with Spouse Review of Systems - Review of Systems Review Of Systems: See Below Constitutional: Reports: Weakness. Denies: Chills, Fever Eyes: Reports: No Symptoms Ears: Reports: No Symptoms Nose: Reports: No Symptoms Mouth/Throat: Reports: No Symptoms Respiratory: Reports: No Symptoms GI/Abdominal: Reports: No Symptoms Genitourinary: Denies: Dysuria, Hematuria, Painful Urination Musculoskeletal: Reports: Back Pain, Leg Pain, Muscle Pain, Muscle Stiffness Skin: Reports: Other (skin tear right elbow) Neurological: Reports: Numbness, Paresthesia, Tingling, Difficulty Walking, Gait Disturbance. Denies: Confusion, Dizziness, Headache, Seizure, Syncope, Trouble Speaking, Change in Speech Psychiatric: Reports: No Symptoms ED EXAM, GENERAL - Physical Exam Exam: See Below Exam Limited By: No Limitations General Appearance: Alert, No Apparent Distress, Obese. No: Lethargic Eye Exam: Right Eye: Other (prosthesis), Left Eye: Normal Inspection Ears: Normal External Exam, Normal Canal, Hearing Grossly Normal, Normal TMs Nose: Normal Inspection, Normal Mucosa, No Blood Throat/Mouth: Normal Voice, No Airway Compromise Head: Atraumatic, Normocephalic Neck: Normal Inspection, Supple, Non-Tender. No: Tender Lateral, Tender Midline Respiratory/Chest: No Respiratory Distress, Lungs Clear, Normal Breath Sounds, No Accessory Muscle Use Cardiovascular: Normal Peripheral Pulses, Regular Rate, Rhythm, Systolic Murmur Peripheral Pulses: 2+: Femoral (R), Posterior Tibial (L), Posterior Tibial (R), Dorsalis Pedis (L), Dorsalis Pedis (R) GI/Abdominal: Normal Bowel Sounds, Soft, Non-Tender, No Organomegaly, No Abnormal Bruit, No Mass, Pelvis Stable Back Exam: Decreased Range of Motion, Paraspinal Tenderness (Right L4-S1 into sciatic notch). No: Muscle Spasm Extremities: Pedal Edema (1+ bilaterally), Leg Pain (right hip), Other ( decreased strength to bilateral lower extremities) Neurological: Alert, Oriented, CN II-XII Intact, Normal Cognition, Other ( parathesias to right lower extremity. Decreased strength to bilateral lower extremities. ). No: Confused, Slow to Respond Psychiatric: Normal Affect, Normal Mood Skin Exam: Warm, Dry, Intact, Normal Color, No Rash Course - Vital Signs Last Recorded V/S: Last Vital Signs Temp 98.5 F 04/11/19 22:23 Pulse 75 04/11/19 22:23 Resp 18 04/11/19 22:23 BP 176/90 H 04/11/19 22:50 Pulse Ox 97 04/11/19 22:23 Departure - Departure Time of Disposition: 23:30 Disposition: Refer to Observation Clinical Impression: Low back pain with right-sided sciatica Qualifiers: Chronicity: acute Back pain laterality: right Qualified Code(s): M54.41 - Lumbago with sciatica, right side - Discharge Information - Problem List & Annotations (1) Right-sided low back pain with sciatica SNOMED Code(s): 495894140 Code(s): M54.41 - LUMBAGO WITH SCIATICA, RIGHT SIDE Status: Acute Priority: High Qualifiers: Chronicity: acute Sciatica laterality: sciatica of right side Qualified Code(s): M54.41 - Lumbago with sciatica, right side - Assessment/Plan Admission H&P: Please use this note as an admission H&P Plan: Will admit to Dr. Taylor's services under observation for pain control and PT to continue to work with. Discussed with Akash further imaging is likely warranted at this time. Will discuss tomorrow whether CT or MRI would be of his best interest. Akash verbalized understanding and will transfer to the floor in satisfactory condition. I reviewed recent x-rays that do show anterolisthesis at L4-S1. No acute abnormalities of lumbar spine or right hip.
[2019-04-12] MEDS ORDERED: Ketorolac 0.5% Ophth Soln 3 ML Bottle EYERT PRN ×2 (00:21→01:31)
[2019-04-12] MEDS ORDERED: Acetaminophen/HYDROcodone 325-5 MG Tab PO PRN (00:21)
[2019-04-12] MEDS ORDERED: Sodium Chloride 0.9% 10 ML Syringe FLUSH PRN (00:21)
[2019-04-12] MEDS ORDERED: fentaNYL 100 MCG/2 ML SDV ONE (00:59)
[2019-04-12] MEDS: fentaNYL 100 MCG/2 ML SDV IVPUSH PRN ×3 (01:10→13:32)
[2019-04-12] MEDS ORDERED: Levothyroxine 100 MCG Tab PO SCH (07:00)
[2019-04-12] MEDS: Pantoprazole 40 MG Tab.CR PO SCH (07:59)
[2019-04-12] MEDS ORDERED: hydrALAZINE 25 MG Tab PO SCH (08:00)
[2019-04-12] MEDS ORDERED: Isosorbide Mononitrate 30 MG Tab.ER PO SCH (08:00)
[2019-04-12] MEDS ORDERED: Bumetanide 1 MG Tab PO SCH (08:00)
[2019-04-12] MEDS ORDERED: Metoprolol Succinate 100 MG Tab.ER PO SCH (08:00)
[2019-04-12] MEDS ORDERED: LIRAGLUTIDE 12 UNIT SUBCUT SCH (08:00)
[2019-04-12] MEDS ORDERED: Lisinopril 10 MG Tab PO SCH (08:00)
[2019-04-12] MEDS: Enoxaparin 30 MG/0.3 ML Syringe SUBCUT SCH (08:53)
--- NOTE | 2019-04-12 09:03 | PCM.PN ---
- General Info Date of Service: 04/12/19 Admission Dx/Problem (Free Text): Acute low back pain with sciatica Functional Status: Reports: Pain Controlled, Tolerating Diet, Ambulating - Review of Systems General: Reports: Weakness HEENT: Reports: No Symptoms Pulmonary: Denies: Shortness of Breath, Cough Cardiovascular: Denies: Chest Pain, Edema, Lightheadedness Gastrointestinal: Denies: Abdominal Pain, Nausea, Vomiting Genitourinary: Reports: No Symptoms Musculoskeletal: Reports: Back Pain, Leg Pain Skin: Reports: No Symptoms Neurological: Reports: Weakness - Patient Data Vitals - Most Recent: Last Vital Signs Temp 96.9 F 04/12/19 07:58 Pulse 70 04/12/19 08:23 Resp 14 04/12/19 08:23 BP 158/87 H 04/12/19 08:23 Pulse Ox 96 04/12/19 08:23 Weight - Most Recent: 228 lb 11.2 oz Lab Results Last 24 Hours: Laboratory Results - last 24 hr 04/11/19 04/11/19 04/11/19 Range/Units 23:30 23:30 23:35 WBC 12.1 H (5.0-10.0) 10^3/uL RBC 4.96 (4.50-6.00) 10^6/uL Hgb 13.7 L (14.0-18.0) g/dL Hct 41.5 (40.0-54.0) % MCV 83.7 (82.0-94.0) fL MCH 27.6 (27.0-32.0) pg MCHC 33.0 (33.0-38.0) g/dL RDW Coeff of Emma 15.9 H (11.0-15.0) % Plt Count 289 (150-400) 10^3/uL Neut % (Auto) 78.9 (35-85) % Lymph % (Auto) 9.6 L (10-55) % [place] % (Auto) 9.2 (0-16) % Eos % (Auto) 2.1 (0-5) % Baso % (Auto) 0.2 (0-3) % Neut # (Auto) 9.52 H (1.80-7.00) 10^3/uL Lymph # (Auto) 1.16 (1.00-4.80) 10^3/uL [place] # (Auto) 1.11 H (0.00-0.80) 10^3/uL Eos # (Auto) 0.25 (0.00-0.45) 10^3/uL Baso # (Auto) 0.03 10^3/uL Sodium 136 (136-145) mEq/L Potassium 3.6 (3.5-5.0) mEq/L Chloride 100 (98-106) mEq/L Carbon Dioxide 25 (21-32) mmol/L BUN 31 H (7-18) mg/dL Creatinine 1.8 H (0.7-1.3) mg/dL Est Cr Clr Drug Dosing 27.03 mL/min Estimated GFR (MDRD) 36 L (>=60) mL/min Glucose 193 H D (75-99) mg/dL POC Glucose (75-105) mg/dl Calcium 9.1 (8.4-10.1) mg/dL Urine Color Yellow (YELLOW) Urine Appearance Clear (CLEAR) Urine pH 5.5 (4.5-8.0) Ur Specific [place] 1.020 (1.003-1.020) Urine Protein >=300 H (NEGATIVE) mg/dL Urine Glucose (UA) Negative (NEGATIVE) mg/dL Urine Ketones Negative (NEGATIVE) mg/dL Urine Occult Blood Trace-intact H (NEGATIVE) Urine Nitrite Negative (NEGATIVE) Urine Bilirubin Negative (NEGATIVE) Urine Urobilinogen 0.2 (0.2-1.0) EU/dL Ur Leukocyte Esterase Negative (NEGATIVE) Urine RBC 0-5 (0-5) /HPF Urine WBC 0-5 (0-5) /HPF Ur Epithelial Cells Occasional H (NOT SEEN) /HPF Urine Bacteria Occasional H (NOT SEEN) /HPF 04/12/ Range/Units 07:58 WBC (5.0-10.0) 10^3/uL RBC (4.50-6.00) 10^6/uL Hgb (14.0-18.0) g/dL Hct (40.0-54.0) % MCV (82.0-94.0) fL MCH (27.0-32.0) pg MCHC (33.0-38.0) g/dL RDW Coeff of Emma (11.0-15.0) % Plt Count (150-400) 10^3/uL Neut % (Auto) (35-85) % Lymph % (Auto) (10-55) % [place] % (Auto) (0-16) % Eos % (Auto) (0-5) % Baso % (Auto) (0-3) % Neut # (Auto) (1.80-7.00) 10^3/uL Lymph # (Auto) (1.00-4.80) 10^3/uL [place] # (Auto) (0.00-0.80) 10^3/uL Eos # (Auto) (0.00-0.45) 10^3/uL Baso # (Auto) 10^3/uL Sodium (136-145) mEq/L Potassium (3.5-5.0) mEq/L Chloride (98-106) mEq/L Carbon Dioxide (21-32) mmol/L BUN (7-18) mg/dL Creatinine (0.7-1.3) mg/dL Est Cr Clr Drug Dosing mL/min Estimated GFR (MDRD) (>=60) mL/min Glucose (75-99) mg/dL POC Glucose 130 H (75-105) mg/dl Calcium (8.4-10.1) mg/dL Urine Color (YELLOW) Urine Appearance (CLEAR) Urine pH (4.5-8.0) Ur Specific [place] (1.003-1.020) Urine Protein (NEGATIVE) mg/dL Urine Glucose (UA) (NEGATIVE) mg/dL Urine Ketones (NEGATIVE) mg/dL Urine Occult Blood (NEGATIVE) Urine Nitrite (NEGATIVE) Urine Bilirubin (NEGATIVE) Urine Urobilinogen (0.2-1.0) EU/dL Ur Leukocyte Esterase (NEGATIVE) Urine RBC (0-5) /HPF Urine WBC (0-5) /HPF Ur Epithelial Cells (NOT SEEN) /HPF Urine Bacteria (NOT SEEN) /HPF Med Orders - Current: Current Medications Acetaminophen (Tylenol) 650 mg PO Q4H PRN PRN Reason: Pain (Mild 1-3)/fever Hydrocodone Bitart/Acetaminophen ([place] 325-5 Mg) 1 tab PO Q6H PRN PRN Reason: Pain Last Admin: 04/12/19 03:05 Dose: 1 tab Allopurinol (Zyloprim) 150 mg PO DAILY [facility] Bumetanide (Bumex) 1 mg PO BIDDIURETIC [facility] Enoxaparin Sodium (Lovenox) 30 mg SUBCUT DAILY [facility] Last Admin: 04/12/19 08:53 Dose: 30 mg Fentanyl (Sublimaze) 25 - 50 mcg IVPUSH Q6H PRN PRN Reason: Pain Last Admin: 04/12/19 08:00 Dose: 50 mcg Hydralazine HCl (Apresoline) 100 mg PO TID [facility] Insulin Glargine (Lantus Solostar) 30 units SUBCUT BEDTIME [facility] Isosorbide Mononitrate (Imdur) 30 mg PO DAILY [facility] Ketorolac Tromethamine (Acular 0.5% Ophth Soln) 3 ml EYERT TID PRN PRN Reason: Dry Eyes Levothyroxine Sodium (Synthroid) 100 mcg PO ACBREAKFAST [facility] Last Admin: 04/12/19 07:59 Dose: 100 mcg Lisinopril (Prinivil) 10 mg PO DAILY [facility] Metoprolol Succinate (Toprol Xl) 100 mg PO DAILY [facility] Non-Formulary Medication (Liraglutide [Victoza]) 12 units SUBCUT DAILY [facility] Pantoprazole Sodium (Protonix) 40 mg PO ACBREAKFAST [facility] Last Admin: 04/12/19 07:59 Dose: 40 mg Simvastatin (Zocor) 10 mg PO BEDTIME [facility] Sodium Chloride (Saline Flush) 10 ml FLUSH ASDIRECTED PRN PRN Reason: Keep Vein Open Tamsulosin HCl (Flomax) 0.4 mg PO BEDTIME [facility] Discontinued Medications Fentanyl (Sublimaze) Confirm Administered Dose 100 mcg .ROUTE .[facility]-MED ONE Stop: 04/12/19 01:00 Last Admin: 04/12/19 01:06 Dose: Not Given Ketorolac Tromethamine (Acular 0.5% Ophth Soln) ml EYERT TID PRN PRN Reason: eyes - Exam General: Alert, Oriented HEENT: Mucous Membr. Moist/[place] Neck: Supple Lungs: Clear to Auscultation, Normal Respiratory Effort Cardiovascular: Regular Rate, Regular Rhythm GI/Abdominal Exam: Normal Bowel Sounds, Soft, Non-Tender Extremities: Normal Inspection, Leg Pain, Other (pain in low back, especially to right side) Skin: Warm, Dry Neurological: No New Focal Deficit - Problem List & Annotations (1) Right-sided low back pain with sciatica SNOMED Code(s): 113896292 Code(s): M54.41 - LUMBAGO WITH SCIATICA, RIGHT SIDE Status: Acute Priority: High Current Visit: Yes Qualifiers: Chronicity: acute Sciatica laterality: sciatica of right side Qualified Code(s): M54.41 - Lumbago with sciatica, right side - Problem List Review Problem List Initiated/Reviewed/Updated: Yes - Assessment Assessment:: right side low back pain with sciatica - Plan Plan:: Patient admitted late last evening for low back pain with right sciatica. [facility] has been dealing with this for several days now. Was seen x2 prior to coming to ER last night. Had [place] at home that he states was not effective for his pain. Legs have been weak, has fallen several times. Relates the pain radiates down his right leg. Had more severe again this am, nurse reports was restless, blood pressure was up. Was given Fentanyl and he is now resting better in bed. Had ambulated to the bathroom with his cane and staff and tolerated fairly well, was steady. Will continue with PT today. Pain meds as needed. Plan for MRI when able.
[2019-04-12] MEDS ORDERED: LISINOPRIL 10 MG PO SCH (09:30)
[2019-04-12] MEDS: ISOSORBIDE MONONITRATE 30 MG PO SCH (09:59)
[2019-04-12] MEDS: METOPROLOL SUCCINATE 100 MG PO SCH (09:59)
[2019-04-12] MEDS: Allopurinol 300 MG Tab PO SCH (09:59)
[2019-04-12] MEDS: HYDRALAZINE 50 MG PO SCH ×3 (10:00→20:09)
[2019-04-12] MEDS: BUMETANIDE 1 MG PO SCH ×2 (10:01→16:40)
[2019-04-12] MEDS: FINASTERIDE 5 MG PO SCH (11:57)
[2019-04-12] MEDS: HYDROCODONE PO PRN ×2 (13:17→20:14)
[2019-04-12] MEDS: ACETAMINOPHEN PO PRN ×2 (13:17→20:14)
[2019-04-12] MEDS: Tamsulosin 0.4 MG Cap.ER PO SCH (20:08)
[2019-04-12] MEDS: [UNRECOGNIZED DRUG - OTHER] PO SCH (20:09)
[2019-04-12] MEDS: Insulin Glargine,Human Rec. Analog 100 Units/ML 3 ML Pen SUBCUT SCH (20:16)
[2019-04-13] MEDS: Acetaminophen 325 MG Tab PO PRN ×3 (01:15→19:51)
[2019-04-13] MEDS: HYDROCODONE PO PRN ×3 (03:50→23:09)
[2019-04-13] MEDS: ACETAMINOPHEN PO PRN ×3 (03:50→23:09)
[2019-04-13] MEDS: LEVOTHYROXINE 100 MCG PO SCH (06:03)
[2019-04-13] MEDS: Pantoprazole 40 MG Tab.CR PO SCH (06:03)
[2019-04-13] MEDS: ISOSORBIDE MONONITRATE 30 MG PO SCH (08:20)
[2019-04-13] MEDS: LISINOPRIL 20 MG PO SCH (08:20)
[2019-04-13] MEDS: BUMETANIDE 1 MG PO SCH ×2 (08:21→16:48)
[2019-04-13] MEDS: FINASTERIDE 5 MG PO SCH (08:21)
[2019-04-13] MEDS: HYDRALAZINE 50 MG PO SCH ×3 (08:21→19:45)
[2019-04-13] MEDS: Enoxaparin 30 MG/0.3 ML Syringe SUBCUT SCH (08:22)
[2019-04-13] MEDS: Metoprolol Succinate 100 MG Tab.ER PO SCH (09:17)
[2019-04-13] MEDS: Allopurinol 300 MG Tab PO SCH (09:17)
[2019-04-13] MEDS: METOPROLOL SUCCINATE 100 MG PO SCH (09:17)
[2019-04-13] MEDS ORDERED: Polyethylene Glycol 3350 Powder 17 GM Packet PO ONE (09:50)
[2019-04-13] MEDS: Insulin Lispro 100 Units/ML 3 ML Vial SUBCUT SCH ×3 (13:46→20:49)
[2019-04-13] MEDS: methylPREDNISolone Sodium Succinate 125 MG/2 ML SDV IVPUSH SCH (13:58)
[2019-04-13] MEDS ORDERED: Bumetanide 1 MG Tab ONE (16:56)
[2019-04-13] MEDS: Tamsulosin 0.4 MG Cap.ER PO SCH (19:45)
[2019-04-13] MEDS: Insulin Glargine,Human Rec. Analog 100 Units/ML 3 ML Pen SUBCUT SCH (19:46)
[2019-04-13] MEDS: [UNRECOGNIZED DRUG - OTHER] PO SCH (19:46)
[2019-04-13] MEDS: fentaNYL 100 MCG/2 ML SDV IVPUSH SCH (19:52)
--- NOTE | 2019-04-13 21:12 | PCM.PN ---
- General Info Date of Service: 04/13/19 Admission Dx/Problem (Free Text): Acute low back pain with sciatica Functional Status: Reports: Pain Controlled (with fentanyl), Tolerating Diet, Ambulating - Review of Systems General: Reports: Weakness. Denies: Fever, Fatigue, Malaise HEENT: Reports: No Symptoms Pulmonary: Denies: Shortness of Breath, Cough Cardiovascular: Denies: Chest Pain, Edema, Lightheadedness Gastrointestinal: Denies: Abdominal Pain, Nausea, Vomiting Genitourinary: Denies: Dysuria Musculoskeletal: Reports: Back Pain, Leg Pain Skin: Reports: No Symptoms Neurological: Reports: Weakness - Patient Data Vitals - Most Recent: Last Vital Signs Temp 99.4 F 04/13/19 20:00 Pulse 88 04/13/19 20:00 Resp 18 04/13/19 20:00 BP 128/75 04/13/19 20:00 Pulse Ox 94 L 04/13/19 20:00 Weight - Most Recent: 228 lb 11.2 oz Lab Results Last 24 Hours: Laboratory Results - last 24 hr 04/13/19 04/13/19 04/13/19 Range/Units 07:51 12:06 17:25 POC Glucose 74 L 146 H 219 H (75-105) mg/dl 04/13/19 Range/Units 20:46 POC Glucose 407 H* (75-105) mg/dl Med Orders - Current: Current Medications Acetaminophen (Tylenol) 650 mg PO Q4H PRN PRN Reason: Pain (Mild 1-3)/fever Last Admin: 04/13/19 19:51 Dose: 650 mg Hydrocodone Bitart/Acetaminophen ([place] 325-5 Mg) 1 tab PO Q6H PRN PRN Reason: Pain Last Admin: 04/13/19 14:27 Dose: 1 tab Allopurinol (Zyloprim) 150 mg PO DAILY [facility] Last Admin: 04/13/19 09:17 Dose: 150 mg Bumetanide (Bumex) 1 mg PO BIDDIURETIC [facility] Last Admin: 04/13/19 16:48 Dose: 1 mg Enoxaparin Sodium (Lovenox) 30 mg SUBCUT DAILY [facility] Last Admin: 04/13/19 08:22 Dose: 30 mg Fentanyl (Sublimaze) 25 - 50 mcg IVPUSH Q6H PRN PRN Reason: Pain Last Admin: 04/12/19 13:32 Dose: 25 mcg Fentanyl (Sublimaze) 25 mcg IVPUSH Q12H [facility] Last Admin: 04/13/19 19:52 Dose: Not Given Finasteride (Proscar) 5 mg PO DAILY [facility] Last Admin: 04/13/19 08:21 Dose: 5 mg Insulin Glargine (Lantus Solostar) 30 units SUBCUT BEDTIME [facility] Last Admin: 04/13/19 19:46 Dose: 30 units Insulin Human Lispro (Humalog) 0 unit SUBCUT WITHMEALSANDBED [facility]; Protocol Last Admin: 04/13/19 20:49 Dose: 10 unit Isosorbide Mononitrate (Imdur) 30 mg PO DAILY [facility] Last Admin: 04/13/19 08:20 Dose: 30 mg Ketorolac Tromethamine (Acular 0.5% Ophth Soln) 3 ml EYERT TID PRN PRN Reason: Dry Eyes Levothyroxine Sodium (Synthroid) 100 mcg PO ACBREAKFAST [facility] Last Admin: 04/13/19 06:03 Dose: 100 mcg Lisinopril (Prinivil) 20 mg PO DAILY [facility] Last Admin: 04/13/19 08:20 Dose: 20 mg Methylprednisolone Sodium Succinate (Solu-Medrol) 62.5 mg IVPUSH BID@0800,1600 [facility] Last Admin: 04/13/19 13:58 Dose: 62.5 mg Metoprolol Succinate (Toprol Xl) 100 mg PO DAILY [facility] Last Admin: 04/13/19 09:17 Dose: 100 mg Non-Formulary Medication (Liraglutide [Victoza]) 12 units SUBCUT DAILY [facility] Ownmed Hydralazine 50 Mg Tab 50 mg PO TID [facility] Last Admin: 04/13/19 19:45 Dose: 50 mg Pantoprazole Sodium (Protonix) 40 mg PO ACBREAKFAST [facility] Last Admin: 04/13/19 06:03 Dose: 40 mg Simvastatin (Zocor) 10 mg PO BEDTIME [facility] Last Admin: 04/13/19 19:46 Dose: 10 mg Sodium Chloride (Saline Flush) 10 ml FLUSH ASDIRECTED PRN PRN Reason: Keep Vein Open Tamsulosin HCl (Flomax) 0.4 mg PO BEDTIME [facility] Last Admin: 04/13/19 19:45 Dose: 0.4 mg Discontinued Medications Hydrocodone Bitart/Acetaminophen ([place] 325-5 Mg) 1 tab PO Q6H PRN PRN Reason: Pain Last Admin: 04/12/19 03:05 Dose: 1 tab Bumetanide (Bumex) 1 mg PO BIDDIURETIC [facility] Last Admin: 04/12/19 11:35 Dose: Not Given Bumetanide (Bumex) Confirm Administered Dose 1 mg .ROUTE .[facility] ONE Stop: 04/13/19 16:57 Last Admin: 04/13/19 17:35 Dose: Not Given Fentanyl (Sublimaze) Confirm Administered Dose 100 mcg .ROUTE .[facility] ONE Stop: 04/12/19 01:00 Last Admin: 04/12/19 01:06 Dose: Not Given Hydralazine HCl (Apresoline) 100 mg PO TID [facility] Last Admin: 04/12/19 11:35 Dose: Not Given Isosorbide Mononitrate (Imdur) 30 mg PO DAILY [facility] Last Admin: 04/12/19 11:36 Dose: Not Given Ketorolac Tromethamine (Acular 0.5% Ophth Soln) ml EYERT TID PRN PRN Reason: eyes Levothyroxine Sodium (Synthroid) 100 mcg PO ACBREAKFAST [facility] Last Admin: 04/12/19 07:59 Dose: 100 mcg Lisinopril (Prinivil) 10 mg PO DAILY [facility] Last Admin: 04/12/19 11:36 Dose: Not Given Lisinopril (Prinivil) 10 mg PO DAILY [facility] Last Admin: 04/12/19 10:00 Dose: 10 mg Metoprolol Succinate (Toprol Xl) 100 mg PO DAILY [facility] Last Admin: 04/12/19 11:36 Dose: Not Given Metoprolol Succinate (Toprol Xl) 100 mg PO DAILY [facility] Last Admin: 04/13/19 09:17 Dose: Not Given Polyethylene Glycol (Miralax) 17 gm PO ONETIME ONE Stop: 04/13/19 09:51 Last Admin: 04/13/19 09:57 Dose: 17 gm - Exam General: Alert, Oriented HEENT: Mucous Membr. Moist/[place] Neck: Supple Lungs: Clear to Auscultation, Normal Respiratory Effort Cardiovascular: Regular Rate, Regular Rhythm GI/Abdominal Exam: Normal Bowel Sounds, Soft, Non-Tender Extremities: Normal Inspection, No Pedal Edema Skin: Warm Neurological: No New Focal Deficit - Problem List & Annotations (1) Right-sided low back pain with sciatica SNOMED Code(s): 251094681 Code(s): M54.41 - LUMBAGO WITH SCIATICA, RIGHT SIDE Status: Acute Priority: High Current Visit: Yes Qualifiers: Chronicity: acute Sciatica laterality: sciatica of right side Qualified Code(s): M54.41 - Lumbago with sciatica, right side - Problem List Review Problem List Initiated/Reviewed/Updated: Yes - My Orders Last 24 Hours: My Active Orders 04/13/19 08:00 Lisinopril [Prinivil] 20 mg PO DAILY 04/13/19 11:21 Patient Status [ADT] Routine 04/13/19 12:00 Insulin Lispro [HumaLOG] See Protocol SUBCUT WITHMEALSANDBED 04/13/19 13:30 methylPREDNISolone Sod Succ [Solu-MEDROL] 62.5 mg IVPUSH BID@0800,1600 04/13/19 20:00 fentaNYL [Sublimaze] 25 mcg IVPUSH Q12H 04/14/19 11:21 Lumbar Spine Comp wo Cont [MR] Routine - Assessment Assessment:: right side low back pain with sciatica - Plan Plan:: Patient admitted late last evening for low back pain with right sciatica. has been dealing with this for several days now. Was seen x2 prior to coming to ER last night. Had [place] at home that he states was not effective for his pain. Legs have been weak, has fallen several times. Relates the pain radiates down his right leg. Had more severe again this am, nurse reports was restless, blood pressure was up. Was given Fentanyl and he is now resting better in bed. Had ambulated to the bathroom with his cane and staff and tolerated fairly well, was steady. Will continue with PT today. Pain meds as needed. Plan for MRI when able. 04-13-2019 Patient up in chair at bedside. States is ambulating with walker and stand by assist. Does feel the Fentanyl is helping with his pain. IS concerned with constipation this am, straining to have a BM and feels is worsening his pain. Nurses report is more restless prior to receiving pain meds. Still has pain that radiates down his leg at times. Will continue with PT and pain meds. Transfer to acute. MRI in am.
[2019-04-14] MEDS: LEVOTHYROXINE 100 MCG PO SCH (06:03)
[2019-04-14] MEDS: Pantoprazole 40 MG Tab.CR PO SCH (06:03)
[2019-04-14] MEDS ORDERED: Lisinopril 20 MG Tab PO SCH (08:00)
[2019-04-14] MEDS: fentaNYL 100 MCG/2 ML SDV IVPUSH SCH (08:00)
[2019-04-14] MEDS ORDERED: Acetaminophen/HYDROcodone 325-5 MG Tab PO PRN (08:21)
[2019-04-14] MEDS ORDERED: Bumetanide 1 MG Tab PO SCH ×2 (08:22→09:00)
[2019-04-14] MEDS ORDERED: Isosorbide Mononitrate 30 MG Tab.ER PO SCH ×2 (08:23→09:00)
[2019-04-14] MEDS ORDERED: Levothyroxine 100 MCG Tab PO SCH ×2 (08:23→09:00)
[2019-04-14] MEDS ORDERED: Finasteride 5 MG Tab PO SCH (08:30)
[2019-04-14] MEDS: hydrALAZINE 25 MG Tab PO SCH ×2 (08:38→13:42)
[2019-04-14] MEDS: Allopurinol 300 MG Tab PO SCH (08:39)
[2019-04-14] MEDS: Metoprolol Succinate 100 MG Tab.ER PO SCH (08:39)
[2019-04-14] MEDS: methylPREDNISolone Sodium Succinate 125 MG/2 ML SDV IVPUSH SCH (08:40)
[2019-04-14] MEDS: Enoxaparin 30 MG/0.3 ML Syringe SUBCUT SCH (08:41)
[2019-04-14] MEDS: Insulin Lispro 100 Units/ML 3 ML Vial SUBCUT SCH ×2 (08:48→12:16)
[2019-04-14] MEDS: HYDRALAZINE 50 MG PO SCH (09:31)
[2019-04-14] MEDS: ISOSORBIDE MONONITRATE 30 MG PO SCH (09:31)
[2019-04-14] MEDS: BUMETANIDE 1 MG PO SCH (09:31)
[2019-04-14] MEDS: LISINOPRIL 20 MG PO SCH (09:31)
[2019-04-14] MEDS: FINASTERIDE 5 MG PO SCH (09:32)
[2019-04-14 13:42] VITALS: BP 124/75; PULSE 76
--- NOTE | 2019-04-14 14:23 | PCM.DCSUM1 ---
Discharge Summary - Hospital Course Free Text/Narrative:: Patient presented to ER with persistent back and right leg pain. He was seen in the ER on Wednesday, given pain meds and discharged home. Returned on Wednesday to see Dr. Taylor. Had xrays done, sent back home with [place]. He was seen by Physical Therapy and had felt better after returning home. Had only taken one [place] as he didn't feel they helped. The evening of arrival again to ER, was unable to get up after falling x2 and called EMS. Admitted for PT and pain control. Labs all essentially stable. Diagnosis: Stroke: No Modified Cannon Scale: No Symptoms at All Modified Cannon Scale Score: 0 - Discharge Data Discharge Date: 04/14/19 Discharge Disposition: Home, Self-Care 01 Condition: Good - Referral to Home Health Primary Care Physician: Torito Taylor MD - Discharge Diagnosis/Problem(s) (1) Right-sided low back pain with sciatica SNOMED Code(s): 690827058 ICD Code: M54.41 - LUMBAGO WITH SCIATICA, RIGHT SIDE Status: Acute Priority: High Qualifiers: Chronicity: acute Sciatica laterality: sciatica of right side Qualified Code(s): M54.41 - Lumbago with sciatica, right side - Patient Summary/Data Complications: none Consults: Consultations 04/12/19 00:21 PT Evaluation and Treatment [CONS] Routine Hospital Course: Patient doing very well this am, requesting to go home "before the storm". He is up and ambulating with walker. Evaluated by PT this am who stated he is doing better than he had been prior as an outpatient. Was given steroids while here in addition to Fentanyl and switched to [place] for pain. Had large BM this am who felt that relieved some of his pain as well as has been straining on the toilet to have a BM. Had MRI this am, awaiting on results. Denies much for appreciable pain to vertebral area with palpation. Has pain more in right leg at times. Will discharge home as patient does feel he can manage with the oral pain meds and continue PT as an outpatient. Will follow up with Dr. Taylor next week. - Patient Instructions Diet: Diabetic Diet Activity: As Tolerated - Discharge Plan *PRESCRIPTION DRUG MONITORING PROGRAM REVIEWED*: No *COPY OF PRESCRIPTION DRUG MONITORING REPORT IN PATIENT TENZIN: No Home Medications: Home Meds Allopurinol 150 mg PO DAILY 02/08/14 [History] Simvastatin 10 mg PO BEDTIME 02/08/14 [History] Ketorolac [Acular 0.5% Ophth Soln] 1 drop OP TID PRN 10/22/14 [History] Bumetanide [Bumex] 1 mg PO BID 11/09/14 [History] Omeprazole [Prilosec] 20 mg PO DAILY 11/09/14 [History] Tamsulosin [Flomax] 0.4 mg PO BEDTIME 11/09/14 [History] Metoprolol Succinate [Toprol XL] 100 mg PO DAILY 08/05/15 [History] Levothyroxine Sodium [Synthroid] 100 mcg PO ACBREAKFAST 08/17/16 [History] Cholecalciferol (Vitamin D3) [Vitamin D] 2,000 unit PO DAILY 05/02/18 [History] hydrALAZINE [Apresoline] 100 mg PO TID 05/02/18 [History] Isosorbide Mononitrate [Isosorbide Mononitrate ER] 30 mg PO DAILY 05/03/18 [ History] Hydrocodone/Acetaminophen [Hydrocodon-Acetaminophen 5-325] 1 tab PO Q6H PRN [History] Finasteride 5 mg PO DAILY 04/12/19 [History] Lisinopril 20 mg PO DAILY 04/12/19 [History] Insulin Degludec [Tresiba] 22 unit SUBCUT DAILY 04/16/19 [History] Oxygen Therapy Mode: Nasal Cannula Forms: ED Department Discharge Referrals: Torito Taylor MD [Primary Care Provider] - (Follow up with Dr. Taylor in 1 week ) - Discharge Summary/Plan Comment DC Time >30 min.: No - General Info Date of Service: 04/14/19 Admission Dx/Problem (Free Text: Acute low back pain with sciatica Functional Status: Reports: Pain Controlled, Tolerating Diet, Ambulating - Review of Systems General: Reports: Weakness HEENT: Reports: No Symptoms Pulmonary: Denies: Shortness of Breath, Cough Cardiovascular: Denies: Chest Pain, Edema, Lightheadedness Gastrointestinal: Denies: Abdominal Pain, Nausea, Vomiting Genitourinary: Reports: No Symptoms Musculoskeletal: Reports: Back Pain, Leg Pain Skin: Reports: No Symptoms Neurological: Reports: Weakness - Patient Data Vitals - Most Recent: Last Vital Signs Temp 97.2 F 04/14/19 12:00 Pulse 76 04/14/19 12:00 Resp 16 04/14/19 12:00 BP 124/75 04/14/19 13:42 Pulse Ox 96 04/14/19 12:00 Weight - Most Recent: 228 lb 11.2 oz Lab Results - Last 24 hrs: Laboratory Results - last 24 hr 04/13/19 04/13/19 04/14/19 Range/Units 17:25 20:46 07:28 POC Glucose 219 H 407 H* 189 H (75-105) mg/dl 04/14/19 Range/Units 10:12 POC Glucose 226 H (75-105) mg/dl Med Orders - Current: Current Medications Acetaminophen (Tylenol) 650 mg PO Q4H PRN PRN Reason: Pain (Mild 1-3)/fever Last Admin: 04/13/19 19:51 Dose: 650 mg Hydrocodone Bitart/Acetaminophen ([place] 325-5 Mg) 1 tab PO Q6H PRN PRN Reason: Pain Last Admin: 04/14/19 13:43 Dose: 1 tab Allopurinol (Zyloprim) 150 mg PO DAILY [facility] Last Admin: 04/14/19 08:39 Dose: 150 mg Bumetanide (Bumex) 1 mg PO BIDDIURETIC [facility] Last Admin: 04/14/19 08:46 Dose: 1 mg Enoxaparin Sodium (Lovenox) 30 mg SUBCUT DAILY [facility] Last Admin: 04/14/19 08:41 Dose: 30 mg Fentanyl (Sublimaze) 25 - 50 mcg IVPUSH Q6H PRN PRN Reason: Pain Last Admin: 04/12/19 13:32 Dose: 25 mcg Fentanyl (Sublimaze) 25 mcg IVPUSH Q12H [facility] Last Admin: 04/14/19 08:00 Dose: Not Given Finasteride (Proscar) 5 mg PO DAILY [facility] Last Admin: 04/14/19 08:38 Dose: 5 mg Hydralazine HCl (Apresoline) 50 mg PO TID [facility] Last Admin: 04/14/19 13:42 Dose: 50 mg Insulin Glargine (Lantus Solostar) 30 units SUBCUT BEDTIME [facility] Last Admin: 04/13/19 19:46 Dose: 30 units Insulin Human Lispro (Humalog) 0 unit SUBCUT WITHMEALSANDBED [facility]; Protocol Last Admin: 04/14/19 12:16 Dose: 6 unit Isosorbide Mononitrate (Imdur) 30 mg PO DAILY [facility] Last Admin: 04/14/19 08:46 Dose: 30 mg Ketorolac Tromethamine (Acular 0.5% Ophth Soln) 3 ml EYERT TID PRN PRN Reason: Dry Eyes Levothyroxine Sodium (Synthroid) 100 mcg PO ACBREAKFAST [facility] Last Admin: 04/14/19 08:46 Dose: 100 mcg Lisinopril (Prinivil) 20 mg PO DAILY [facility] Last Admin: 04/14/19 08:39 Dose: 20 mg Methylprednisolone Sodium Succinate (Solu-Medrol) 62.5 mg IVPUSH BID@0800,1600 [facility] Last Admin: 04/14/19 08:40 Dose: 62.5 mg Metoprolol Succinate (Toprol Xl) 100 mg PO DAILY [facility] Last Admin: 04/14/19 08:39 Dose: 100 mg Non-Formulary Medication (Liraglutide [Victoza]) 12 units SUBCUT DAILY [facility] Pantoprazole Sodium (Protonix) 40 mg PO ACBREAKFAST [facility] Last Admin: 04/14/19 06:03 Dose: 40 mg Simvastatin (Zocor) 10 mg PO BEDTIME [facility] Sodium Chloride (Saline Flush) 10 ml FLUSH ASDIRECTED PRN PRN Reason: Keep Vein Open Tamsulosin HCl (Flomax) 0.4 mg PO BEDTIME [facility] Last Admin: 04/13/19 19:45 Dose: 0.4 mg Discontinued Medications Hydrocodone Bitart/Acetaminophen ([place] 325-5 Mg) 1 tab PO Q6H PRN PRN Reason: Pain Last Admin: 04/12/19 03:05 Dose: 1 tab Hydrocodone Bitart/Acetaminophen ([place] 325-5 Mg) 1 tab PO Q6H PRN PRN Reason: Pain Last Admin: 04/13/19 23:09 Dose: 1 tab Bumetanide (Bumex) 1 mg PO BIDDIURETIC [facility] Last Admin: 04/12/19 11:35 Dose: Not Given Bumetanide (Bumex) 1 mg PO BIDDIURETIC [facility] Last Admin: 04/14/19 09:31 Dose: Not Given Bumetanide (Bumex) Confirm Administered Dose 1 mg .ROUTE .STK-MED ONE Stop: 04/13/19 16:57 Last Admin: 04/13/19 17:35 Dose: Not Given Bumetanide (Bumex) 1 mg PO BIDDIURETIC [facility] Fentanyl (Sublimaze) Confirm Administered Dose 100 mcg .ROUTE .STK-MED ONE Stop: 04/12/19 01:00 Last Admin: 04/12/19 01:06 Dose: Not Given Finasteride (Proscar) 5 mg PO DAILY [facility] Last Admin: 04/14/19 09:32 Dose: Not Given Hydralazine HCl (Apresoline) 100 mg PO TID [facility] Last Admin: 04/12/19 11:35 Dose: Not Given Isosorbide Mononitrate (Imdur) 30 mg PO DAILY [facility] Last Admin: 04/12/19 11:36 Dose: Not Given Isosorbide Mononitrate (Imdur) 30 mg PO DAILY [facility] Last Admin: 04/14/19 09:31 Dose: Not Given Isosorbide Mononitrate (Imdur) 30 mg PO DAILY [facility] Ketorolac Tromethamine (Acular 0.5% Ophth Soln) ml EYERT TID PRN PRN Reason: eyes Levothyroxine Sodium (Synthroid) 100 mcg PO ACBREAKFAST [facility] Last Admin: 04/12/19 07:59 Dose: 100 mcg Levothyroxine Sodium (Synthroid) 100 mcg PO ACBREAKFAST [facility] Last Admin: 04/14/19 06:03 Dose: 100 mcg Levothyroxine Sodium (Synthroid) 100 mcg PO ACBREAKFAST [facility] Lisinopril (Prinivil) 10 mg PO DAILY [facility] Last Admin: 04/12/19 11:36 Dose: Not Given Lisinopril (Prinivil) 10 mg PO DAILY [facility] Last Admin: 04/12/19 10:00 Dose: 10 mg Lisinopril (Prinivil) 20 mg PO DAILY [facility] Last Admin: 04/14/19 09:31 Dose: Not Given Metoprolol Succinate (Toprol Xl) 100 mg PO DAILY [facility] Last Admin: 04/12/19 11:36 Dose: Not Given Metoprolol Succinate (Toprol Xl) 100 mg PO DAILY [facility] Last Admin: 04/13/19 09:17 Dose: Not Given Ownmed Hydralazine 50 Mg Tab 50 mg PO TID [facility] Last Admin: 04/14/19 09:31 Dose: Not Given Polyethylene Glycol (Miralax) 17 gm PO ONETIME ONE Stop: 04/13/19 09:51 Last Admin: 04/13/19 09:57 Dose: 17 gm Simvastatin (Zocor) 10 mg PO BEDTIME [facility] Last Admin: 04/13/19 19:46 Dose: 10 mg - Exam General: Reports: Alert, Oriented HEENT: Reports: Mucous Membr. Moist/[place] Neck: Reports: Supple Lungs: Reports: Clear to Auscultation, Normal Respiratory Effort Cardiovascular: Reports: Regular Rate, Regular Rhythm GI/Abdominal Exam: Normal Bowel Sounds, Soft, Non-Tender Back Exam: Reports: Normal Inspection, Decreased Range of Motion, Paraspinal Tenderness Extremities: Normal Inspection, No Pedal Edema Skin: Reports: Warm, Dry Neurological: Reports: No New Focal Deficit
[2019-04-14] MEDS ORDERED: Simvastatin 10 MG Tab PO SCH (20:00)
== END 2019-04-14 15:15 | disposition home or self-care (01) | DRG 552 ==
LOC: CC.ED 22:20 → CC.MS 23:35 → UNDOADMOB 23:40 → CC.MS 23:40 → CC.ED 23:45 → OBSVTOIN 04-13 11:21
PROVIDERS: ADMIT Physician Assistant Medical; ATTEND Family Medicine
DX: M54.41 Lumbago with sciatica, right side (principal); H54.7 Unspecified visual loss; Z97.0 Presence of artificial eye; E78.00 Pure hypercholesterolemia, unspecified; K21.9 Gastro-esophageal reflux disease without esophagitis; E11.9 Type 2 diabetes mellitus without complications; R29.6 Repeated falls; Z79.899 Other long term (current) drug therapy; Z87.19 Personal history of other diseases of the digestive system; Z79.4 Long term (current) use of insulin; Z88.8 Allergy status to other drugs, medicaments and biological substances; Z79.890 Hormone replacement therapy; Z88.2 Allergy status to sulfonamides; Z88.1 Allergy status to other antibiotic agents; Z98.49 Cataract extraction status, unspecified eye; Z95.2 Presence of prosthetic heart valve
CPT/HCPCS: 36415; 72148; 80048; 81001; 82962; 85025; 96372; 96374; 96376; 97116-GP; 97161-GP; 97530-GP; 99284; A9270-GY; G0378; J1650; J1815; J1815-GY; J2930; J3010

== ENCOUNTER 2019-04-15 22:25 | Inpatient (IN) | payer MEDICARE, MEDICAID ==
[2019-04-15] MEDS ORDERED: Ondansetron 4 MG/2 ML SDV ONE (22:51)
[2019-04-15] MEDS ORDERED: Ondansetron 4 MG/2 ML SDV IVPUSH STA (22:58)
--- NOTE | 2019-04-15 22:58 | EDM.PDOC ---
ED HPI GENERAL MEDICAL PROBLEM - General Chief Complaint: General Stated Complaint: weakness, pain Time Seen by Provider: 04/15/19 22:27 Source of Information: Reports: Patient, EMS History Limitations: Reports: No Limitations - History of Present Illness INITIAL COMMENTS - FREE TEXT/NARRATIVE: Patient is an 88 year old male that presents to the ER. Patient arrives via EMS. EMS reports it took 3 people to get the patient from his bed to a standing position and pivot to EMS cot. The patient was admitted here to the hospital this past week for uncontrollable back pain and was discharged yesterday. Patient reports he was able to walk out of hospital yesterday with walker. Patient had an MRI done Wednesday. The patient reports that started today he seemed okay and ambulating and moving. He then reports has the afternoon progressed he started to have body aches, chills, hot feeling, lower back pain increase, burning with urination, generally weak, unable to get up from bed. The patient reports he generally does not feel well. Denies urinary/bowel incontinence. Onset: Today Onset Date: 04/15/19 Duration: Getting Worse Location: Reports: Back, Generalized, Radiates to (RLE to knee) Quality: Reports: Ache Severity: Moderate Improves with: Reports: Immobilization Worsens with: Reports: Movement Associated Symptoms: Reports: Fever/Chills, Malaise, Weakness (generalized). Denies: Confusion, Chest Pain, Cough, cough w sputum, Diaphoresis, Headaches, Loss of Appetite, Nausea/Vomiting, Rash, Seizure, Shortness of Breath, Syncope Right Back Pain Score (Numeric/FACES): 8 - Related Data Allergies Allergy/AdvReac Type Severity Reaction Status Date / Time Sulfa (Sulfonamide Allergy Cannot Verified 04/15/19 22:32 Antibiotics) Remember terazosin [Terazosin] Allergy Cannot Verified 04/15/19 22:32 Remember Home Meds: Home Meds Allopurinol 150 mg PO DAILY 02/08/14 [History] Simvastatin 10 mg PO BEDTIME 02/08/14 [History] Ketorolac [Acular 0.5% Ophth Soln] 1 drop OP TID PRN 10/22/14 [History] Bumetanide [Bumex] 1 mg PO BID 11/09/14 [History] Omeprazole [Prilosec] 20 mg PO DAILY 11/09/14 [History] Tamsulosin [Flomax] 0.4 mg PO BEDTIME 11/09/14 [History] Metoprolol Succinate [Toprol XL] 100 mg PO DAILY 08/05/15 [History] Levothyroxine Sodium [Synthroid] 100 mcg PO ACBREAKFAST 08/17/16 [History] Liraglutide [Victoza] 12 units SUBCUT DAILY 02/01/18 [History] Cholecalciferol (Vitamin D3) [Vitamin D] 2,000 unit PO DAILY 05/02/18 [History] hydrALAZINE [Apresoline] 100 mg PO TID 05/02/18 [History] Isosorbide Mononitrate [Isosorbide Mononitrate ER] 30 mg PO DAILY 05/03/18 [ History] Insulin Detemir [Levemir] 30 unit SUBCUT BEDTIME #1 pen 05/04/18 [Rx] Hydrocodone/Acetaminophen [Hydrocodon-Acetaminophen 5-325] 1 tab PO Q6H PRN [History] Finasteride 5 mg PO DAILY 04/12/19 [History] Lisinopril 20 mg PO DAILY 04/12/19 [History] Past Medical History HEENT History: Reports: Cataract, Impaired Vision, Other (See Below) Other HEENT History: right false eye Cardiovascular History: Reports: Heart Murmur, Heart Valve Replacement, High Cholesterol, Hypertension Gastrointestinal History: Reports: GERD, GI Bleed, Hemorrhoids Endocrine/Metabolic History: Reports: Diabetes, Type II - Past Surgical History HEENT Surgical History: Reports: Cataract Surgery Cardiovascular Surgical History: Reports: Valve Replacement GI Surgical History: Reports: Colonoscopy Endocrine Surgical History: Reports: Other (See Below) Social & Family History - Family History Family Medical History: Noncontributory Cardiac: Reports: CAD, Hypertension - Tobacco Use Smoking Status *Q: Never Smoker - Caffeine Use Caffeine Use: Reports: Coffee - Recreational Drug Use Recreational Drug Use: No - Living Situation & Occupation Living situation: Reports: , with Spouse ED ROS GENERAL - Review of Systems Review Of Systems: See Below Constitutional: Reports: Fever, Chills, Malaise, Weakness (general), Fatigue, Diaphoresis HEENT: Reports: No Symptoms. Denies: Rhinitis, Sinus Problem, Throat Pain Respiratory: Denies: Shortness of Breath, Wheezing, Pleuritic Chest Pain, Cough , Sputum, Hemoptysis Cardiovascular: Reports: Edema (BLE). Denies: Chest Pain, Lightheadedness, Palpitations Endocrine: Reports: No Symptoms GI/Abdominal: Reports: No Symptoms. Denies: Abdominal Pain, Diarrhea, Nausea, Vomiting : Reports: Dysuria Musculoskeletal: Reports: Back Pain (lower central, right lower), Leg Pain ( right posterior lower to knee), Muscle Pain (generally achy) Skin: Reports: No Symptoms Neurological: Reports: No Symptoms. Denies: Dizziness, Headache, Numbness, Seizure, Syncope, Tingling, Weakness (not unilateral. No weakness to RLE. ) Psychiatric: Reports: No Symptoms Hematologic/Lymphatic: Reports: No Symptoms Immunologic: Reports: No Symptoms ED EXAM, GENERAL - Physical Exam Exam: See Below Exam Limited By: No Limitations General Appearance: Alert, WD/WN, No Apparent Distress, Mild Distress, Obese Eye Exam: Left Eye: Normal Inspection, PERRL, Bilateral Eye: Other (chronic abnormal right eye) Ears: Normal External Exam, Normal Canal, Hearing Grossly Normal, Normal TMs Ear Exam: Bilateral Ear: Auricle Normal, Canal Normal, TM normal Nose: Normal Inspection, Normal Mucosa, No Blood Throat/Mouth: Normal Teeth, Normal Gums, Normal Oropharynx, Normal Voice, No Airway Compromise, Other (dry oral mucosa, dry lips) Head: Atraumatic, Normocephalic Neck: Normal Inspection, Supple, Non-Tender, Full Range of Motion. No: Limited Range of Motion, Lymphadenopathy (L), Lymphadenopathy (R), Tender Lateral, Tender Midline Respiratory/Chest: No Respiratory Distress, Lungs Clear, Normal Breath Sounds, No Accessory Muscle Use, Chest Non-Tender, Decreased Breath Sounds (mildly bilateral lobes.). No: Respiratory Distress, Rales, Rhonchi, Wheezing, Stridor , Accessory Muscle Use, Splinting, Prolonged Expiration Cardiovascular: Normal Peripheral Pulses, No Gallop, No JVD, No Murmur, No Rub, Tachycardia (120 on exam), Other (Edema BLE +3) Peripheral Pulses: 2+: Radial (L), Radial (R), Posterior Tibial (L), Posterior Tibial (R), Dorsalis Pedis (L), Dorsalis Pedis (R) GI/Abdominal: Normal Bowel Sounds, Soft, Non-Tender, No Organomegaly, No Distention, No Abnormal Bruit, No Mass, Pelvis Stable (Male) Exam: Deferred Rectal (Males) Exam: Deferred Back Exam: Normal Inspection, Decreased Range of Motion (decreased flexion due to pain. ), Paraspinal Tenderness (lumbar central/right. Right butock. ), Vertebral Tenderness (lumbar L4-5 Area). No: CVA Tenderness (L), CVA Tenderness (R), Muscle Spasm Extremities: Normal Range of Motion (leg raises equal. ROM intact. Pulses +2, sensory/motor function intact. Neurovascular intact. ), Normal Capillary Refill , Pedal Edema (+3 BLE.), Leg Pain (RLE to right knee posterior). No: Increased Warmth, Mottled, Pallor, Redness Neurological: Alert, Oriented, CN II-XII Intact, Normal Cognition, No Motor/ Sensory Deficits, Other (patient generally weak, no unialteral weaknesses. ) Psychiatric: Normal Affect, Normal Mood Skin Exam: Warm, Dry, Intact, Normal Color, No Rash Lymphatic: No Adenopathy Course - Vital Signs Last Recorded V/S: Last Vital Signs Temp 97.4 F 04/16/19 08:00 Pulse 87 04/16/19 08:00 Resp 18 04/16/19 08:00 BP 114/62 04/16/19 08:00 Pulse Ox 94 L 04/16/19 08:00 - Orders/Labs/Meds Orders: Active Orders 24 hr Category Date Time Status Patient Status [ADT] Routine ADT 04/16/19 00:22 Active Antiembolic Devices [RC] 1000,2200 Care 04/16/19 00:22 Active Blood Glucose Check, Bedside [RC] 0730,1130,1700,2100 Care 04/16/19 00:22 Active Cardiac Monitoring [RC] 0800,1999 Care 04/16/19 00:22 Active Height and Weight [RC] 0600 Care 04/16/19 00:22 Active Notify Provider Vital Signs [RC] .PRN Care 04/16/19 00:22 Active Oxygen Therapy [RC] .PRN Care 04/16/19 00:22 Active RT Aerosol Therapy [RC] 0800,1200,1600,2000 Care 04/16/19 00:22 Active Up With Assistance [RC] .PRN Care 04/16/19 00:22 Active Up to Chair [RC] .PRN Care 04/16/19 00:22 Active Vital Signs [RC] 0000,0400,0800,1200,1600,2000 Care 04/16/19 00:22 Active Consistent Carbohydrate Diet [DIET] Diet 04/16/19 Breakfast Active Chest 1V Frontal [CR] Stat Exams 04/15/19 22:48 Taken BASIC METABOLIC PANEL,BMP [CHEM] DAILY Lab 04/17/19 05:00 Ordered BASIC METABOLIC PANEL,BMP [CHEM] DAILY Lab 04/18/19 05:00 Ordered C-REACTIVE PROTEIN [CHEM] DAILY Lab 04/17/19 05:00 Ordered C-REACTIVE PROTEIN [CHEM] DAILY Lab 04/18/19 05:00 Ordered CBC WITH AUTO DIFF [HEME] DAILY Lab 04/17/19 05:00 Ordered CBC WITH AUTO DIFF [HEME] DAILY Lab 04/18/19 05:00 Ordered CULTURE BLOOD [BC] Stat Lab 04/15/19 23:16 Received CULTURE BLOOD [BC] Stat Lab 04/15/19 23:16 Received Acetaminophen [Tylenol] Med 04/16/19 00:22 Active 650 mg PO Q4H PRN Acetaminophen/oxyCODONE [Percocet 325-5 MG] Med 04/16/19 00:22 Active 2 tab PO Q4H PRN Albuterol/Ipratropium [DuoNeb 3.0-0.5 MG/3 ML] Med 04/16/19 00:22 Active 3 ml NEB Q4H PRN Docusate Sodium [Colace] Med 04/16/19 00:22 Active 100 mg PO BID PRN Ibuprofen [Motrin] Med 04/16/19 00:22 Active 600 mg PO Q6H PRN Morphine Med 04/16/19 00:22 Active 2 mg IVPUSH Q2H PRN Ondansetron [Zofran] Med 04/16/19 00:22 Active 4 mg IV Q6H PRN Sodium Chloride 0.9% [Normal Saline] 1,000 ml Med 04/16/19 00:22 Active IV .BOLUS Temazepam [Restoril] Med 04/16/19 00:22 Active 15 mg PO BEDTIME PRN Antiembolic Hose [OM.PC] Per Unit Routine Oth 04/16/19 00:22 Ordered Blood Culture x2 Reflex Set [OM.PC] Stat Oth 04/15/19 22:44 Ordered Resuscitation Status Routine Resus Stat 04/15/19 23:56 Ordered Medication Orders Acetaminophen (Tylenol) 650 mg PO Q4H PRN PRN Reason: Fever Albuterol/Ipratropium (Duoneb 3.0-0.5 Mg/3 Ml) 3 ml NEB Q4H PRN PRN Reason: Shortness Of Breath/wheezing Allopurinol (Zyloprim) 150 mg PO DAILY [facility] Last Admin: 04/16/19 07:50 Dose: 150 mg Bumetanide (Bumex) 2 mg PO DAILY [facility] Last Admin: 04/16/19 07:48 Dose: 2 mg Bumetanide (Bumex) 1 mg PO BEDTIME [facility] Last Admin: 04/16/19 02:32 Dose: Not Given Cholecalciferol (Vitamin D3) 50 mcg PO DAILY [facility] Last Admin: 04/16/19 07:50 Dose: 50 mcg Docusate Sodium (Colace) 100 mg PO BID PRN PRN Reason: Constipation Enoxaparin Sodium (Lovenox) 30 mg SUBCUT Q24H [facility] Finasteride (Proscar) 5 mg PO DAILY [facility] Last Admin: 04/16/19 07:54 Dose: 5 mg Hydralazine HCl (Apresoline) 100 mg PO TID [facility] Piperacillin Sod/Tazobactam (Sod 3.375 gm/ Sodium Chloride) 100 mls @ 200 mls/ hr IV Q6H [facility] Last Admin: 04/16/19 07:37 Dose: Admin: 04/16/19 03:58 Dose: 200 mls/hr Sodium Chloride (Normal Saline) 1,000 mls @ 999 mls/hr IV .BOLUS [facility] Last Admin: 04/16/19 00:56 Dose: 999 mls/hr Levofloxacin/Dextrose 750 mg/ (Premix) 150 mls @ 100 mls/hr IV Q48H [facility] Vancomycin HCl 1.25 gm/ Sodium (Chloride) 250 mls @ 167 mls/hr IV Q24H [facility] Ibuprofen (Motrin) 600 mg PO Q6H PRN PRN Reason: Fever Insulin Glargine (Lantus Solostar) 30 units SUBCUT BEDTIME [facility] Isosorbide Mononitrate (Imdur) 30 mg PO DAILY [facility] Ketorolac Tromethamine (Acular 0.5% Oph Soln) 0 ml EYERT TID PRN PRN Reason: Dry Eyes Levothyroxine Sodium (Synthroid) 100 mcg PO ACBREAKFAST [facility] Last Admin: 04/16/19 06:45 Dose: 100 mcg Lisinopril (Prinivil) 20 mg PO DAILY [facility] Methylprednisolone Sodium Succinate (Solu-Medrol) 62.5 mg IVPUSH Q12H [facility] Last Admin: 04/16/19 07:45 Dose: 62.5 mg Metoprolol Succinate (Toprol Xl) 100 mg PO DAILY [facility] Morphine Sulfate (Morphine) 2 mg IVPUSH Q2H PRN PRN Reason: Pain (severe 7-10) Non-Formulary Medication (Liraglutide [Victoza]) 12 units SUBCUT DAILY [facility] Ondansetron HCl (Zofran) 4 mg IV Q6H PRN PRN Reason: Nausea/Vomiting Oxycodone/Acetaminophen (Percocet 325-5 Mg) 2 tab PO Q4H PRN PRN Reason: Pain (moderate 4-6) Last Admin: 04/16/19 03:59 Dose: 2 tab Pantoprazole Sodium (Protonix) 40 mg PO ACBREAKFAST [facility] Last Admin: 04/16/19 06:45 Dose: 40 mg Simvastatin (Zocor) 10 mg PO BEDTIME [facility] Tamsulosin HCl (Flomax) 0.4 mg PO BEDTIME [facility] Temazepam (Restoril) 15 mg PO BEDTIME PRN PRN Reason: Sleep Vancomycin HCl (Pharmacy To Dose - Vancomycin) 1 dose .XX ASDIRECTED [facility] Labs: Laboratory Tests 04/15/19 04/15/19 04/15/19 Range/Units 22:43 22:46 23:16 WBC 15.3 H (5.0-10.0) 10^3/uL RBC 4.94 (4.50-6.00) 10^6/uL Hgb 13.7 L (14.0-18.0) g/dL Hct 41.3 (40.0-54.0) % MCV 83.6 (82.0-94.0) fL MCH 27.7 (27.0-32.0) pg MCHC 33.2 (33.0-38.0) g/dL RDW Coeff of Emma 16.2 H (11.0-15.0) % Plt Count 284 (150-400) 10^3/uL Neut % (Auto) 89.7 H (35-85) % Lymph % (Auto) 1.9 L (10-55) % Cloud % (Auto) 5.5 (0-16) % Eos % (Auto) 2.7 (0-5) % Baso % (Auto) 0.2 (0-3) % Neut # (Auto) 13.72 H (1.80-7.00) 10^3/uL Lymph # (Auto) 0.29 L (1.00-4.80) 10^3/uL Cloud # (Auto) 0.84 H (0.00-0.80) 10^3/uL Eos # (Auto) 0.41 (0.00-0.45) 10^3/uL Baso # (Auto) 0.03 10^3/uL D-Dimer, Quantitative (0.00-0.50) Sodium 133 L (136-145) mEq/L Potassium 3.8 (3.5-5.0) mEq/L Chloride 99 (98-106) mEq/L Carbon Dioxide 22 (21-32) mmol/L BUN 50 H D (7-18) mg/dL Creatinine 2.1 H (0.7-1.3) mg/dL Est Cr Clr Drug Dosing 23.17 mL/min Estimated GFR (MDRD) 30 L (>=60) mL/min Glucose 302 H* D (75-99) mg/dL Lactic Acid (0.4-2.0) mmol/L Calcium 8.9 (8.4-10.1) mg/dL Total Bilirubin 0.4 (0.0-1.0) mg/dL AST 28 (15-37) U/L ALT 23 (12-78) U/L Alkaline Phosphatase 103 (46-116) U/L C-Reactive Protein 6.3 H (0.2-0.8) mg/dL NT-Pro-B Natriuret Pep 3863 H (0-1000) pg/mL Total Protein 7.0 (6.4-8.2) g/dL Albumin 2.8 L (3.4-5.0) g/dL Urine Color Yellow (YELLOW) Urine Appearance Clear (CLEAR) Urine pH 5.5 (4.5-8.0) Ur Specific [place] 1.025 H (1.003-1.020) Urine Protein >=300 H (NEGATIVE) mg/dL Urine Glucose (UA) 100 H (NEGATIVE) mg/dL Urine Ketones Negative (NEGATIVE) mg/dL Urine Occult Blood Trace-intact H (NEGATIVE) Urine Nitrite Negative (NEGATIVE) Urine Bilirubin Negative (NEGATIVE) Urine Urobilinogen 0.2 (0.2-1.0) EU/dL Ur Leukocyte Esterase Negative (NEGATIVE) Urine RBC 5-10 H (0-5) /HPF Urine WBC Not seen (0-5) /HPF 04/15/19 04/15/19 Range/Units 23:16 23:16 WBC (5.0-10.0) 10^3/uL RBC (4.50-6.00) 10^6/uL Hgb (14.0-18.0) g/dL Hct (40.0-54.0) % MCV (82.0-94.0) fL MCH (27.0-32.0) pg MCHC (33.0-38.0) g/dL RDW Coeff of Emma (11.0-15.0) % Plt Count (150-400) 10^3/uL Neut % (Auto) (35-85) % Lymph % (Auto) (10-55) % Cloud % (Auto) (0-16) % Eos % (Auto) (0-5) % Baso % (Auto) (0-3) % Neut # (Auto) (1.80-7.00) 10^3/uL Lymph # (Auto) (1.00-4.80) 10^3/uL Cloud # (Auto) (0.00-0.80) 10^3/uL Eos # (Auto) (0.00-0.45) 10^3/uL Baso # (Auto) 10^3/uL D-Dimer, Quantitative 2.27 H (0.00-0.50) Sodium (136-145) mEq/L Potassium (3.5-5.0) mEq/L Chloride (98-106) mEq/L Carbon Dioxide (21-32) mmol/L BUN (7-18) mg/dL Creatinine (0.7-1.3) mg/dL Est Cr Clr Drug Dosing mL/min Estimated GFR (MDRD) (>=60) mL/min Glucose (75-99) mg/dL Lactic Acid 1.3 (0.4-2.0) mmol/L Calcium (8.4-10.1) mg/dL Total Bilirubin (0.0-1.0) mg/dL AST (15-37) U/L ALT (12-78) U/L Alkaline Phosphatase (46-116) U/L C-Reactive Protein (0.2-0.8) mg/dL NT-Pro-B Natriuret Pep (0-1000) pg/mL Total Protein (6.4-8.2) g/dL Albumin (3.4-5.0) g/dL Urine Color (YELLOW) Urine Appearance (CLEAR) Urine pH (4.5-8.0) Ur Specific [place] (1.003-1.020) Urine Protein (NEGATIVE) mg/dL Urine Glucose (UA) (NEGATIVE) mg/dL Urine Ketones (NEGATIVE) mg/dL Urine Occult Blood (NEGATIVE) Urine Nitrite (NEGATIVE) Urine Bilirubin (NEGATIVE) Urine Urobilinogen (0.2-1.0) EU/dL Ur Leukocyte Esterase (NEGATIVE) Urine RBC (0-5) /HPF Urine WBC (0-5) /HPF Meds: Medications Generic Name Dose Route Start Last Admin Trade Name Freq PRN Reason Stop Dose Admin Acetaminophen 650 mg 04/16/19 00:22 Tylenol PO Q4H PRN Fever Albuterol/Ipratropium 3 ml 04/16/19 00:22 Duoneb 3.0-0.5 Mg/3 Ml NEB Q4H PRN Shortness Of Breath/wheezing Allopurinol 150 mg 04/16/19 08:00 04/16/19 07:50 Zyloprim PO 150 mg DAILY [facility] Administration Bumetanide 2 mg 04/16/19 08:00 04/16/19 07:48 Bumex PO 2 mg DAILY [facility] Administration Bumetanide 1 mg 04/16/19 01:45 04/16/19 02:32 Bumex PO Not Given BEDTIME [facility] Cholecalciferol 50 mcg 04/16/19 08:00 04/16/19 07:50 Vitamin D3 PO 50 mcg DAILY [facility] Administration Docusate Sodium 100 mg 04/16/19 00:22 Colace PO BID PRN Constipation Enoxaparin Sodium 30 mg 04/16/19 08:00 Lovenox SUBCUT Q24H [facility] Finasteride 5 mg 04/16/19 08:00 04/16/19 07:54 Proscar PO 5 mg DAILY [facility] Administration Hydralazine HCl 100 mg 04/16/19 08:00 Apresoline PO TID [facility] Piperacillin Sod/Tazobactam 100 mls @ 200 mls/hr 04/16/19 00:30 04/16/19 07: 37 Sod 3.375 gm/ Sodium Chloride IV Not Given Q6H [facility] Sodium Chloride 1,000 mls @ 999 mls/hr 04/16/19 00:22 04/16/19 00:56 Normal Saline IV 999 mls/hr .BOLUS [facility] Administration Levofloxacin/Dextrose 750 mg/ 150 mls @ 100 mls/hr 04/16/19 20:00 Premix IV Q48H [facility] Vancomycin HCl 1.25 gm/ Sodium 250 mls @ 167 mls/hr 04/17/19 08:00 Chloride IV Q24H [facility] Ibuprofen 600 mg 04/16/19 00:22 Motrin PO Q6H PRN Fever Insulin Glargine 30 units 04/16/19 20:00 Lantus Solostar SUBCUT BEDTIME [facility] Isosorbide Mononitrate 30 mg 04/16/19 08:00 Imdur PO DAILY [facility] Ketorolac Tromethamine 0 ml 04/16/19 00:22 Acular 0.5% Ophth Soln EYERT TID PRN Dry Eyes Levothyroxine Sodium 100 mcg 04/16/19 07:00 04/16/19 06:45 Synthroid PO 100 mcg ACBREAKFAST [facility] Administration Lisinopril 20 mg 04/16/19 08:00 Prinivil PO DAILY [facility] Methylprednisolone Sodium Succinate 62.5 mg 04/16/19 08:00 04/16/19 07:45 Solu-Medrol IVPUSH 62.5 mg Q12H [facility] Administration Metoprolol Succinate 100 mg 04/16/19 08:00 Toprol Xl PO DAILY [facility] Morphine Sulfate 2 mg 04/16/19 00:22 Morphine IVPUSH Q2H PRN Pain (severe 7-10) Non-Formulary Medication 12 units 04/16/19 08:00 Liraglutide [Victoza] SUBCUT DAILY [facility] Ondansetron HCl 4 mg 04/16/19 00:22 Zofran IV Q6H PRN Nausea/Vomiting Oxycodone/Acetaminophen 2 tab 04/16/19 00:22 04/16/19 03:59 Percocet 325-5 Mg PO 2 tab Q4H PRN Administration Pain (moderate 4-6) Pantoprazole Sodium 40 mg 04/16/19 07:00 04/16/19 06:45 Protonix PO 40 mg ACBREAKFAST [facility] Administration Simvastatin 10 mg 04/16/19 20:00 Zocor PO BEDTIME [facility] Tamsulosin HCl 0.4 mg 04/16/19 20:00 Flomax PO BEDTIME [facility] Temazepam 15 mg 04/16/19 00:22 Restoril PO BEDTIME PRN Sleep Vancomycin HCl 1 dose 04/16/19 00:22 Pharmacy To Dose - Vancomycin .XX ASDIRECTED [facility] Discontinued Medications Generic Name Dose Route Start Last Admin Trade Name Freq PRN Reason Stop Dose Admin Acetaminophen 1,000 mg 04/15/19 23:51 04/15/19 23:56 Tylenol Extra Strength PO 04/15/19 23:52 1,000 mg ONETIME ONE Administration Acetaminophen Confirm 04/16/19 00:02 04/16/19 00:00 Tylenol Extra Strength Administered 04/16/19 00:03 Not Given Dose 1,000 mg .ROUTE .STK-MED ONE Bumetanide 1 mg 04/16/19 20:00 04/16/19 01:01 Bumex PO 1 mg BEDTIME [facility] Administration Bumetanide Confirm 04/16/19 01:24 04/16/19 01:38 Bumex Administered 04/16/19 01:25 Not Given Dose 1 mg .ROUTE .STK-MED ONE Enoxaparin Sodium 30 mg 04/16/19 00:22 04/16/19 00:56 Lovenox SUBCUT 30 mg Q24H [facility] Administration Levofloxacin/Dextrose 750 mg/ 150 mls @ 100 mls/hr 04/16/19 00:22 04/16/19 00 :55 Premix IV 100 mls/hr Q48H [facility] Administration Vancomycin HCl 1.25 gm/ Sodium 250 mls @ 167 mls/hr 04/16/19 01:00 04/16/19 02:23 Chloride IV 167 mls/hr Q24H [facility] Administration Morphine Sulfate Confirm 04/15/19 22:51 04/15/19 23:08 Morphine Administered 04/15/19 22:52 Not Given Dose 4 mg .ROUTE .STK-MED ONE Morphine Sulfate 4 mg 04/15/19 22:58 04/15/19 22:46 Morphine IVPUSH 04/15/19 22:59 4 mg ONETIME ONE Administration Ondansetron HCl Confirm 04/15/19 22:51 04/15/19 23:08 Zofran Administered 04/15/19 22:52 Not Given Dose 4 mg .ROUTE .STK-MED ONE Ondansetron HCl 4 mg 04/15/19 22:58 04/15/19 22:42 Zofran IVPUSH 04/15/19 22:59 4 mg NOW STA Administration - Radiology Interpretation Free Text/Narrative:: CXR: Bilateral lower lobe opacities, possible infiltrates. No pulmonary edema. - Re-Assessments/Exams Free Text/Narrative Re-Assessment/Exam: 04/15/19 23:36 I reviewed patient MRI results: Multilevel degenerative changes of the lumbar spine, as described in detail in report. At the L3-L4 level, there is a right paracentral disc extrusion which narrows the right lateral recess and appears to be impinging the right L4 nerve root. 04/16/19 00:21 Patient CXR shows possible bilateral lower base infiltrates. Patient has fever. Will treat for hospital acquired pneumonia, as patient was recently admitted greater than 2 days and discharged just yesterday. Patient D-dimer is elevated, this could be due to fever/infection. I can not CTA his chest due to patient CR function of 2.1. Will order BLE dopplar US for Wednesday. Patient will be treated with Lovenox during admit. Departure - Departure Time of Disposition: 23:49 Disposition: Admitted As Inpatient 67 Condition: Poor Clinical Impression: Pneumonia Qualifiers: Pneumonia type: due to unspecified organism Laterality: bilateral Lung location : lower lobe of lung Qualified Code(s): J18.1 - Lobar pneumonia, unspecified organism - Discharge Information *PRESCRIPTION DRUG MONITORING PROGRAM REVIEWED*: Not Applicable *COPY OF PRESCRIPTION DRUG MONITORING REPORT IN PATIENT TENZIN: Not Applicable - My Orders Last 24 Hours: My Active Orders 04/15/19 22:44 Blood Culture x2 Reflex Set [OM.PC] Stat 04/15/19 22:48 Chest 1V Frontal [CR] Stat 04/15/19 23:16 CULTURE BLOOD [BC] Stat CULTURE BLOOD [BC] Stat 04/15/19 23:56 Resuscitation Status Routine 04/16/19 00:22 Patient Status [ADT] Routine Antiembolic Devices [RC] 1000,2200 Blood Glucose Check, Bedside [RC] 0730,1130,1700,2100 Cardiac Monitoring [RC] 0800,2000 Height and Weight [RC] 0600 Notify Provider Vital Signs [RC] .PRN Oxygen Therapy [RC] .PRN RT Aerosol Therapy [RC] 0800,1200,1600,2000 Up With Assistance [RC] .PRN Up to Chair [RC] .PRN Vital Signs [RC] 0000,0400,0800,1200,1600,2000 Acetaminophen [Tylenol] 650 mg PO Q4H PRN Acetaminophen/oxyCODONE [Percocet 325-5 MG] 2 tab PO Q4H PRN Albuterol/Ipratropium [DuoNeb 3.0-0.5 MG/3 ML] 3 ml NEB Q4H PRN Docusate Sodium [Colace] 100 mg PO BID PRN Ibuprofen [Motrin] 600 mg PO Q6H PRN Morphine 2 mg IVPUSH Q2H PRN Ondansetron [Zofran] 4 mg IV Q6H PRN Sodium Chloride 0.9% [Normal Saline] 1,000 ml IV .BOLUS Temazepam [Restoril] 15 mg PO BEDTIME PRN Antiembolic Hose [OM.PC] Per Unit Routine 04/16/19 Breakfast Consistent Carbohydrate Diet [DIET] 04/17/19 05:00 BASIC METABOLIC PANEL,BMP [CHEM] DAILY C-REACTIVE PROTEIN [CHEM] DAILY CBC WITH AUTO DIFF [HEME] DAILY 04/18/19 05:00 BASIC METABOLIC PANEL,BMP [CHEM] DAILY C-REACTIVE PROTEIN [CHEM] DAILY CBC WITH AUTO DIFF [HEME] DAILY - Assessment/Plan Last 24 Hours: My Active Orders 04/15/19 22:44 Blood Culture x2 Reflex Set [OM.PC] Stat 04/15/19 22:48 Chest 1V Frontal [CR] Stat 04/15/19 23:16 CULTURE BLOOD [BC] Stat CULTURE BLOOD [BC] Stat 04/15/19 23:56 Resuscitation Status Routine 04/16/19 00:22 Patient Status [ADT] Routine Antiembolic Devices [RC] 1000,2200 Blood Glucose Check, Bedside [RC] 0730,1130,1700,2100 Cardiac Monitoring [RC] 0800,2000 Height and Weight [RC] 0600 Notify Provider Vital Signs [RC] .PRN Oxygen Therapy [RC] .PRN RT Aerosol Therapy [RC] 0800,1200,1600,2000 Up With Assistance [RC] .PRN Up to Chair [RC] .PRN Vital Signs [RC] 0000,0400,0800,1200,1600,2000 Acetaminophen [Tylenol] 650 mg PO Q4H PRN Acetaminophen/oxyCODONE [Percocet 325-5 MG] 2 tab PO Q4H PRN Albuterol/Ipratropium [DuoNeb 3.0-0.5 MG/3 ML] 3 ml NEB Q4H PRN Docusate Sodium [Colace] 100 mg PO BID PRN Ibuprofen [Motrin] 600 mg PO Q6H PRN Morphine 2 mg IVPUSH Q2H PRN Ondansetron [Zofran] 4 mg IV Q6H PRN Sodium Chloride 0.9% [Normal Saline] 1,000 ml IV .BOLUS Temazepam [Restoril] 15 mg PO BEDTIME PRN Antiembolic Hose [OM.PC] Per Unit Routine 04/16/19 Breakfast Consistent Carbohydrate Diet [DIET] 04/17/19 05:00 BASIC METABOLIC PANEL,BMP [CHEM] DAILY C-REACTIVE PROTEIN [CHEM] DAILY CBC WITH AUTO DIFF [HEME] DAILY 04/18/19 05:00 BASIC METABOLIC PANEL,BMP [CHEM] DAILY C-REACTIVE PROTEIN [CHEM] DAILY CBC WITH AUTO DIFF [HEME] DAILY Plan: PLEASE SEE RN NOTE FOR PFSH. PLEASE USE ER H&P ADMIT H&P
[2019-04-15] MEDS ORDERED: Acetaminophen 500 MG Tab PO ONE (23:51)
[2019-04-16] MEDS ORDERED: Acetaminophen 500 MG Tab ONE (00:02)
[2019-04-16] MEDS ORDERED: Temazepam 15 MG Cap PO PRN (00:22)
[2019-04-16] MEDS ORDERED: Ondansetron 4 MG/2 ML SDV IV PRN (00:22)
[2019-04-16] MEDS ORDERED: Levofloxacin/Dextrose 5%-Water 750 MG in Premix Bag 1 BAG IV SCH ×2 (00:22→20:00)
[2019-04-16] MEDS ORDERED: Ibuprofen 200 MG Tab PO PRN (00:22)
[2019-04-16] MEDS ORDERED: Docusate Sodium 100 MG Cap PO PRN (00:22)
[2019-04-16] MEDS ORDERED: Enoxaparin 30 MG/0.3 ML Syringe SUBCUT SCH (00:22)
[2019-04-16] MEDS ORDERED: Ketorolac 0.5% Ophth Soln 3 ML Bottle EYERT PRN (00:22)
[2019-04-16] MEDS ORDERED: Sodium Chloride 0.9% 1,000 ML IV SCH (00:22)
[2019-04-16] MEDS ORDERED: Albuterol/Ipratropium 3.0-0.5 MG/3 ML Neb Soln NEB PRN (00:22)
[2019-04-16] MEDS ORDERED: Morphine 2 MG/ML Syringe IVPUSH PRN (00:22)
[2019-04-16] MEDS ORDERED: Bumetanide 1 MG Tab ONE (01:24)
[2019-04-16] MEDS: Bumetanide 1 MG Tab PO SCH ×3 (02:32→20:34)
[2019-04-16] MEDS: Piperacillin/Tazobactam 3.375 GM in Sodium Chloride 0.9% 100 ML IV SCH ×5 (03:58→23:52)
[2019-04-16] MEDS: Acetaminophen/oxyCODONE 325-5 MG Tab PO PRN (03:59)
[2019-04-16] MEDS: Levothyroxine 100 MCG Tab PO SCH (06:45)
[2019-04-16] MEDS: Pantoprazole 40 MG Tab.CR PO SCH (06:45)
[2019-04-16] MEDS: methylPREDNISolone Sodium Succinate 125 MG/2 ML SDV IVPUSH SCH ×2 (07:45→20:33)
[2019-04-16] MEDS: Allopurinol 300 MG Tab PO SCH (07:50)
[2019-04-16] MEDS: Cholecalciferol (Vitamin D3) 25 MCG Tab PO SCH (07:50)
[2019-04-16] MEDS: Finasteride 5 MG Tab PO SCH (07:54)
[2019-04-16] MEDS ORDERED: LIRAGLUTIDE 12 UNIT SUBCUT SCH (08:00)
[2019-04-16] MEDS: Metoprolol Succinate 100 MG Tab.ER PO SCH (11:11)
[2019-04-16] MEDS: hydrALAZINE 25 MG Tab PO SCH ×3 (12:51→20:34)
[2019-04-16] MEDS: Lisinopril 20 MG Tab PO SCH (12:52)
[2019-04-16] MEDS: Isosorbide Mononitrate 30 MG Tab.ER PO SCH (12:52)
[2019-04-16] MEDS ORDERED: Furosemide 40 MG/4 ML VIAL IVPUSH ONE (13:06)
[2019-04-16] MEDS ORDERED: Insulin Glargine,Human Rec. Analog 100 Units/ML 3 ML Pen SUBCUT SCH ×2 (13:15→20:00)
[2019-04-16] MEDS: Enoxaparin 30 MG/0.3 ML Syringe SUBCUT SCH (14:00)
--- NOTE | 2019-04-16 14:29 | PCM.PN ---
- General Info Date of Service: 04/16/19 Functional Status: Reports: Tolerating Diet - Review of Systems General: Reports: Fever, Weakness (generally, but improved some today) HEENT: Reports: No Symptoms Pulmonary: Reports: Cough, Sputum. Denies: Shortness of Breath, Pleuritic Chest Pain, Hemoptysis, Wheezing Cardiovascular: Reports: Edema (+3 BLE) Gastrointestinal: Reports: No Symptoms. Denies: Abdominal Pain, Diarrhea, Nausea, Vomiting Genitourinary: Reports: No Symptoms Musculoskeletal: Reports: Back Pain (Right lower), Leg Pain (RLE) Skin: Reports: No Symptoms Neurological: Reports: Difficulty Walking (due to RLE pain. ). Denies: Confusion, Dizziness, Headache, Numbness, Seizure, Syncope, Tingling Psychiatric: Reports: No Symptoms - Patient Data Vitals - Most Recent: Last Vital Signs Temp 98.8 F 04/16/19 12:00 Pulse 115 H 04/16/19 12:00 Resp 20 04/16/19 12:00 BP 106/65 04/16/19 12:52 Pulse Ox 91 L 04/16/19 12:00 Weight - Most Recent: 231 lb Lab Results Last 24 Hours: Laboratory Results - last 24 hr 04/15/19 04/15/19 04/15/19 Range/Units 22:43 22:46 23:16 WBC 15.3 H (5.0-10.0) 10^3/uL RBC 4.94 (4.50-6.00) 10^6/uL Hgb 13.7 L (14.0-18.0) g/dL Hct 41.3 (40.0-54.0) % MCV 83.6 (82.0-94.0) fL MCH 27.7 (27.0-32.0) pg MCHC 33.2 (33.0-38.0) g/dL RDW Coeff of Emma 16.2 H (11.0-15.0) % Plt Count 284 (150-400) 10^3/uL Neut % (Auto) 89.7 H (35-85) % Lymph % (Auto) 1.9 L (10-55) % [place] % (Auto) 5.5 (0-16) % Eos % (Auto) 2.7 (0-5) % Baso % (Auto) 0.2 (0-3) % Neut # (Auto) 13.72 H (1.80-7.00) 10^3/uL Lymph # (Auto) 0.29 L (1.00-4.80) 10^3/uL [place] # (Auto) 0.84 H (0.00-0.80) 10^3/uL Eos # (Auto) 0.41 (0.00-0.45) 10^3/uL Baso # (Auto) 0.03 10^3/uL D-Dimer, Quantitative (0.00-0.50) Sodium 133 L (136-145) mEq/L Potassium 3.8 (3.5-5.0) mEq/L Chloride 99 (98-106) mEq/L Carbon Dioxide 22 (21-32) mmol/L BUN 50 H D (7-18) mg/dL Creatinine 2.1 H (0.7-1.3) mg/dL Est Cr Clr Drug Dosing 23.17 mL/min Estimated GFR (MDRD) 30 L (>=60) mL/min Glucose 302 H* D (75-99) mg/dL POC Glucose (75-105) mg/dl Lactic Acid (0.4-2.0) mmol/L Calcium 8.9 (8.4-10.1) mg/dL Total Bilirubin 0.4 (0.0-1.0) mg/dL AST 28 (15-37) U/L ALT 23 (12-78) U/L Alkaline Phosphatase 103 (46-116) U/L C-Reactive Protein 6.3 H (0.2-0.8) mg/dL NT-Pro-B Natriuret Pep 3863 H (0-1000) pg/mL Total Protein 7.0 (6.4-8.2) g/dL Albumin 2.8 L (3.4-5.0) g/dL Urine Color Yellow (YELLOW) Urine Appearance Clear (CLEAR) Urine pH 5.5 (4.5-8.0) Ur Specific [place] 1.025 H (1.003-1.020) Urine Protein >=300 H (NEGATIVE) mg/dL Urine Glucose (UA) 100 H (NEGATIVE) mg/dL Urine Ketones Negative (NEGATIVE) mg/dL Urine Occult Blood Trace-intact H (NEGATIVE) Urine Nitrite Negative (NEGATIVE) Urine Bilirubin Negative (NEGATIVE) Urine Urobilinogen 0.2 (0.2-1.0) EU/dL Ur Leukocyte Esterase Negative (NEGATIVE) Urine RBC 5-10 H (0-5) /HPF Urine WBC Not seen (0-5) /HPF 04/15/19 04/15/19 04/16/19 Range/Units 23:16 23:16 05:00 WBC 12.4 H (5.0-10.0) 10^3/uL RBC 4.58 (4.50-6.00) 10^6/uL Hgb 12.7 L (14.0-18.0) g/dL Hct 39.0 L (40.0-54.0) % MCV 85.2 (82.0-94.0) fL MCH 27.7 (27.0-32.0) pg MCHC 32.6 L (33.0-38.0) g/dL RDW Coeff of Emma 16.1 H (11.0-15.0) % Plt Count 277 (150-400) 10^3/uL Neut % (Auto) 85.6 H (35-85) % Lymph % (Auto) 3.4 L (10-55) % [place] % (Auto) 6.1 (0-16) % Eos % (Auto) 4.6 (0-5) % Baso % (Auto) 0.3 (0-3) % Neut # (Auto) 10.64 H (1.80-7.00) 10^3/uL Lymph # (Auto) 0.42 L (1.00-4.80) 10^3/uL [place] # (Auto) 0.76 (0.00-0.80) 10^3/uL Eos # (Auto) 0.57 H (0.00-0.45) 10^3/uL Baso # (Auto) 0.04 10^3/uL D-Dimer, Quantitative 2.27 H (0.00-0.50) Sodium (136-145) mEq/L Potassium (3.5-5.0) mEq/L Chloride (98-106) mEq/L Carbon Dioxide (21-32) mmol/L BUN (7-18) mg/dL Creatinine (0.7-1.3) mg/dL Est Cr Clr Drug Dosing mL/min Estimated GFR (MDRD) (>=60) mL/min Glucose (75-99) mg/dL POC Glucose (75-105) mg/dl Lactic Acid 1.3 (0.4-2.0) mmol/L Calcium (8.4-10.1) mg/dL Total Bilirubin (0.0-1.0) mg/dL AST (15-37) U/L ALT (12-78) U/L Alkaline Phosphatase (46-116) U/L C-Reactive Protein (0.2-0.8) mg/dL NT-Pro-B Natriuret Pep (0-1000) pg/mL Total Protein (6.4-8.2) g/dL Albumin (3.4-5.0) g/dL Urine Color (YELLOW) Urine Appearance (CLEAR) Urine pH (4.5-8.0) Ur Specific [place] (1.003-1.020) Urine Protein (NEGATIVE) mg/dL Urine Glucose (UA) (NEGATIVE) mg/dL Urine Ketones (NEGATIVE) mg/dL Urine Occult Blood (NEGATIVE) Urine Nitrite (NEGATIVE) Urine Bilirubin (NEGATIVE) Urine Urobilinogen (0.2-1.0) EU/dL Ur Leukocyte Esterase (NEGATIVE) Urine RBC (0-5) /HPF Urine WBC (0-5) /HPF 04/16/19 04/16/19 04/16/19 Range/Units 05:00 07:39 12:03 WBC (5.0-10.0) 10^3/uL RBC (4.50-6.00) 10^6/uL Hgb (14.0-18.0) g/dL Hct (40.0-54.0) % MCV (82.0-94.0) fL MCH (27.0-32.0) pg MCHC (33.0-38.0) g/dL RDW Coeff of Emma (11.0-15.0) % Plt Count (150-400) 10^3/uL Neut % (Auto) (35-85) % Lymph % (Auto) (10-55) % [place] % (Auto) (0-16) % Eos % (Auto) (0-5) % Baso % (Auto) (0-3) % Neut # (Auto) (1.80-7.00) 10^3/uL Lymph # (Auto) (1.00-4.80) 10^3/uL [place] # (Auto) (0.00-0.80) 10^3/uL Eos # (Auto) (0.00-0.45) 10^3/uL Baso # (Auto) 10^3/uL D-Dimer, Quantitative (0.00-0.50) Sodium 136 (136-145) mEq/L Potassium 3.6 (3.5-5.0) mEq/L Chloride 103 (98-106) mEq/L Carbon Dioxide 23 (21-32) mmol/L BUN 45 H (7-18) mg/dL Creatinine 1.9 H (0.7-1.3) mg/dL Est Cr Clr Drug Dosing 25.61 mL/min Estimated GFR (MDRD) 34 L (>=60) mL/min Glucose 172 H D (75-99) mg/dL POC Glucose 160 H 317 H (75-105) mg/dl Lactic Acid (0.4-2.0) mmol/L Calcium 8.6 (8.4-10.1) mg/dL Total Bilirubin (0.0-1.0) mg/dL AST (15-37) U/L ALT (12-78) U/L Alkaline Phosphatase (46-116) U/L C-Reactive Protein 11.0 H (0.2-0.8) mg/dL NT-Pro-B Natriuret Pep 5699 H (0-1000) pg/mL Total Protein (6.4-8.2) g/dL Albumin (3.4-5.0) g/dL Urine Color (YELLOW) Urine Appearance (CLEAR) Urine pH (4.5-8.0) Ur Specific [place] (1.003-1.020) Urine Protein (NEGATIVE) mg/dL Urine Glucose (UA) (NEGATIVE) mg/dL Urine Ketones (NEGATIVE) mg/dL Urine Occult Blood (NEGATIVE) Urine Nitrite (NEGATIVE) Urine Bilirubin (NEGATIVE) Urine Urobilinogen (0.2-1.0) EU/dL Ur Leukocyte Esterase (NEGATIVE) Urine RBC (0-5) /HPF Urine WBC (0-5) /HPF Neil Results Last 24 Hours: Microbiology 04/15/19 23:16 Influenza Type A Antigen Screen - Final Nasal, Unspecified NEGATIVE INFLUENZA A VIRUS AG REFERENCE RANGE: NEGATIVE Influenza Type B Antigen Screen - Final NEGATIVE INFLUENZA B VIRUS AG REFERENCE RANGE: NEGATIVE Med Orders - Current: Current Medications Acetaminophen (Tylenol) 650 mg PO Q4H PRN PRN Reason: Fever Albuterol/Ipratropium (Duoneb 3.0-0.5 Mg/3 Ml) 3 ml NEB Q4H PRN PRN Reason: Shortness Of Breath/wheezing Allopurinol (Zyloprim) 150 mg PO DAILY [facility] Last Admin: 04/16/19 07:50 Dose: 150 mg Bumetanide (Bumex) 2 mg PO DAILY [facility] Last Admin: 04/16/19 07:48 Dose: 2 mg Bumetanide (Bumex) 1 mg PO BEDTIME [facility] Last Admin: 04/16/19 02:32 Dose: Not Given Cholecalciferol (Vitamin D3) 50 mcg PO DAILY [facility] Last Admin: 04/16/19 07:50 Dose: 50 mcg Docusate Sodium (Colace) 100 mg PO BID PRN PRN Reason: Constipation Enoxaparin Sodium (Lovenox) 30 mg SUBCUT Q24H [facility] Finasteride (Proscar) 5 mg PO DAILY [facility] Last Admin: 04/16/19 07:54 Dose: 5 mg Hydralazine HCl (Apresoline) 100 mg PO TID [facility] Last Admin: 04/16/19 12:51 Dose: Not Given Piperacillin Sod/Tazobactam (Sod 3.375 gm/ Sodium Chloride) 100 mls @ 200 mls/ hr IV Q6H [facility] Last Admin: 04/16/19 13:03 Dose: 200 mls/hr Sodium Chloride (Normal Saline) 1,000 mls @ 999 mls/hr IV .BOLUS [facility] Last Admin: 04/16/19 00:56 Dose: 999 mls/hr Levofloxacin/Dextrose 750 mg/ (Premix) 150 mls @ 100 mls/hr IV Q48H [facility] Vancomycin HCl 1.25 gm/ Sodium (Chloride) 250 mls @ 167 mls/hr IV Q24H [facility] Ibuprofen (Motrin) 600 mg PO Q6H PRN PRN Reason: Fever Insulin Glargine (Lantus Solostar) 30 units SUBCUT BEDTIME [facility] Insulin Glargine (Lantus Solostar) 22 units SUBCUT DAILY [facility] Insulin Human Lispro (Humalog) 0 unit SUBCUT WITHMEALSANDBED [facility]; Protocol Isosorbide Mononitrate (Imdur) 30 mg PO DAILY [facility] Last Admin: 04/16/19 12:52 Dose: Not Given Ketorolac Tromethamine (Acular 0.5% Ophth Soln) 0 ml EYERT TID PRN PRN Reason: Dry Eyes Levothyroxine Sodium (Synthroid) 100 mcg PO ACBREAKFAST [facility] Last Admin: 04/16/19 06:45 Dose: 100 mcg Lisinopril (Prinivil) 20 mg PO DAILY [facility] Last Admin: 04/16/19 12:52 Dose: Not Given Methylprednisolone Sodium Succinate (Solu-Medrol) 62.5 mg IVPUSH Q12H [facility] Last Admin: 04/16/19 07:45 Dose: 62.5 mg Metoprolol Succinate (Toprol Xl) 100 mg PO DAILY [facility] Last Admin: 04/16/19 11:11 Dose: Not Given Morphine Sulfate (Morphine) 2 mg IVPUSH Q2H PRN PRN Reason: Pain (severe 7-10) Ondansetron HCl (Zofran) 4 mg IV Q6H PRN PRN Reason: Nausea/Vomiting Oxycodone/Acetaminophen (Percocet 325-5 Mg) 2 tab PO Q4H PRN PRN Reason: Pain (moderate 4-6) Last Admin: 04/16/19 03:59 Dose: 2 tab Pantoprazole Sodium (Protonix) 40 mg PO ACBREAKFAST [facility] Last Admin: 04/16/19 06:45 Dose: 40 mg Simvastatin (Zocor) 10 mg PO BEDTIME [facility] Tamsulosin HCl (Flomax) 0.4 mg PO BEDTIME [facility] Temazepam (Restoril) 15 mg PO BEDTIME PRN PRN Reason: Sleep Vancomycin HCl (Pharmacy To Dose - Vancomycin) 1 dose .XX ASDIRECTED [facility] Discontinued Medications Acetaminophen (Tylenol Extra Strength) 1,000 mg PO ONETIME ONE Stop: 04/15/19 23:52 Last Admin: 04/15/19 23:56 Dose: 1,000 mg Acetaminophen (Tylenol Extra Strength) Confirm Administered Dose 1,000 mg .ROUTE .STK-MED ONE Stop: 04/16/19 00:03 Last Admin: 04/16/19 00:00 Dose: Not Given Bumetanide (Bumex) 1 mg PO BEDTIME [facility] Last Admin: 04/16/19 01:01 Dose: 1 mg Bumetanide (Bumex) Confirm Administered Dose 1 mg .ROUTE .STK-MED ONE Stop: 04/16/19 01:25 Last Admin: 04/16/19 01:38 Dose: Not Given Enoxaparin Sodium (Lovenox) 30 mg SUBCUT Q24H [facility] Last Admin: 04/16/19 00:56 Dose: 30 mg Furosemide (Lasix) 40 mg IVPUSH ONETIME ONE Stop: 04/16/19 13:07 Levofloxacin/Dextrose 750 mg/ (Premix) 150 mls @ 100 mls/hr IV Q48H [facility] Last Admin: 04/16/19 00:55 Dose: 100 mls/hr Vancomycin HCl 1.25 gm/ Sodium (Chloride) 250 mls @ 167 mls/hr IV Q24H [facility] Last Admin: 04/16/19 02:23 Dose: 167 mls/hr Morphine Sulfate (Morphine) Confirm Administered Dose 4 mg .ROUTE .STK-MED ONE Stop: 04/15/19 22:52 Last Admin: 04/15/19 23:08 Dose: Not Given Morphine Sulfate (Morphine) 4 mg IVPUSH ONETIME ONE Stop: 04/15/19 22:59 Last Admin: 04/15/19 22:46 Dose: 4 mg Non-Formulary Medication (Liraglutide [Victoza]) 12 units SUBCUT DAILY [facility] Ondansetron HCl (Zofran) Confirm Administered Dose 4 mg .ROUTE .STK-MED ONE Stop: 04/15/19 22:52 Last Admin: 04/15/19 23:08 Dose: Not Given Ondansetron HCl (Zofran) 4 mg IVPUSH NOW STA Stop: 04/15/19 22:59 Last Admin: 04/15/19 22:42 Dose: 4 mg - Exam General: Alert, Oriented, Cooperative, No Acute Distress HEENT: Pupils Equal, Pupils Reactive, Mucous Membr. Moist/[place] Neck: Supple Lungs: Clear to Auscultation, Normal Respiratory Effort, Other (patietn last night had decreased Bilateral lower lobes, today moving good air and clear. ). No: Decreased Breath Sounds, Crackles, Rales, Rhonchi, Stridor, Wheezing Cardiovascular: Regular Rate, Regular Rhythm GI/Abdominal Exam: Normal Bowel Sounds, Soft, Non-Tender, No Organomegaly, No Distention, No Abnormal Bruit, No Mass, Pelvis Stable (Male) Exam: Deferred Back Exam: Normal Inspection, Full Range of Motion, Decreased Range of Motion ( lower back, but his movement and ability to flex and extend today is improved compared to last night. ), Paraspinal Tenderness (lumbar lower right), Vertebral Tenderness (lumbar ). No: CVA Tenderness (L), CVA Tenderness (R) Extremities: Normal Inspection, Normal Range of Motion, Normal Capillary Refill , Pedal Edema (+3 BLE), Leg Pain (RLE to the knee), Other (pulses +2, cap refill < 2 sec, sensory/motor function intact. Neurovascular intact. ). No: Increased Warmth, Redness Peripheral Pulses: 2+: Radial (L), Radial (R), Femoral (L), Femoral (R), Popliteal (L), Popliteal (R), Posterior Tibial (L), Posterior Tibial (R), Dorsalis Pedis (L), Dorsalis Pedis (R) Skin: Warm, Dry, Intact Neurological: No New Focal Deficit, Normal Speech, Strength Equal Bilateral, Sensation Intact Psy/Mental Status: Alert, Normal Affect, Normal Mood - Problem List Review Problem List Initiated/Reviewed/Updated: Yes - My Orders Last 24 Hours: My Active Orders 04/15/19 22:44 Blood Culture x2 Reflex Set [OM.PC] Stat 04/15/19 22:48 Chest 1V Frontal [CR] Stat 04/15/19 23:16 CULTURE BLOOD [BC] Stat CULTURE BLOOD [BC] Stat 04/15/19 23:56 Resuscitation Status Routine 04/16/19 00:22 Patient Status [ADT] Routine Antiembolic Devices [RC] 1000,2200 Blood Glucose Check, Bedside [RC] 0730,1130,1700,2100 Cardiac Monitoring [RC] 0800,2000 Height and Weight [RC] 0600 Notify Provider Vital Signs [RC] .PRN Oxygen Therapy [RC] .PRN RT Aerosol Therapy [RC] .PRN Up With Assistance [RC] .PRN Up to Chair [RC] .PRN Vital Signs [RC] 0000,0400,0800,1200,1600,2000 Acetaminophen [Tylenol] 650 mg PO Q4H PRN Acetaminophen/oxyCODONE [Percocet 325-5 MG] 2 tab PO Q4H PRN Albuterol/Ipratropium [DuoNeb 3.0-0.5 MG/3 ML] 3 ml NEB Q4H PRN Docusate Sodium [Colace] 100 mg PO BID PRN Ibuprofen [Motrin] 600 mg PO Q6H PRN Ketorolac [Acular 0.5% Ophth Soln] 0 ml EYERT TID PRN Morphine 2 mg IVPUSH Q2H PRN Ondansetron [Zofran] 4 mg IV Q6H PRN Pharmacy to Dose - Vancomycin 1 dose .XX ASDIRECTED Sodium Chloride 0.9% [Normal Saline] 1,000 ml IV .BOLUS Temazepam [Restoril] 15 mg PO BEDTIME PRN Antiembolic Hose [OM.PC] Per Unit Routine 04/16/19 00:30 Piperacillin/Tazobactam [Zosyn] 3.375 gm Sodium Chloride 0.9% [Normal Saline] 100 ml IV Q6H 04/16/19 01:45 Bumetanide [Bumex] 1 mg PO BEDTIME 04/16/19 07:00 Levothyroxine [Synthroid] 100 mcg PO ACBREAKFAST Pantoprazole [ProTONIX] 40 mg PO ACBREAKFAST 04/16/19 08:00 Allopurinol [Zyloprim] 150 mg PO DAILY Bumetanide [Bumex] 2 mg PO DAILY Cholecalciferol (Vitamin D3) [Vitamin D3] 50 mcg PO DAILY Enoxaparin [Lovenox] 30 mg SUBCUT Q24H Finasteride [Proscar] 5 mg PO DAILY Isosorbide Mononitrate [Imdur] 30 mg PO DAILY Lisinopril [Prinivil] 20 mg PO DAILY Metoprolol Succinate [Toprol XL] 100 mg PO DAILY hydrALAZINE [Apresoline] 100 mg PO TID methylPREDNISolone Sod Succ [Solu-MEDROL] 62.5 mg IVPUSH Q12H 04/16/19 13:15 Insulin Glarg,Human.Rec.Analog [LantUS Solostar] 22 units SUBCUT DAILY 04/16/19 17:30 Insulin Lispro [HumaLOG] See Protocol SUBCUT WITHMEALSANDBED 04/16/19 20:00 Insulin Glarg,Human.Rec.Analog [LantUS Solostar] 30 units SUBCUT BEDTIME Levofloxacin/Dextrose 5%-Water [Levaquin in D5W 750 MG/150 ML] 750 mg Premix Bag 1 bag IV Q48H Simvastatin [Zocor] 10 mg PO BEDTIME Tamsulosin [Flomax] 0.4 mg PO BEDTIME 04/16/19 Breakfast Consistent Carbohydrate Diet [DIET] 04/17/19 05:00 BASIC METABOLIC PANEL,BMP [CHEM] DAILY C-REACTIVE PROTEIN [CHEM] DAILY CBC WITH AUTO DIFF [HEME] DAILY PRO B-TYPE NATRIUR PEPT,BNPPRO [CHEM] DAILY 04/17/19 08:00 VL Duplex Lwr Ext Veins Comp [US] Routine Vancomycin 1.25 gm Sodium Chloride 0.9% [Normal Saline] 250 ml IV Q24H 04/18/19 05:00 BASIC METABOLIC PANEL,BMP [CHEM] DAILY C-REACTIVE PROTEIN [CHEM] DAILY CBC WITH AUTO DIFF [HEME] DAILY PRO B-TYPE NATRIUR PEPT,BNPPRO [CHEM] DAILY - Plan Plan:: This patient was admitted for bilateral lower lobe base pneumonia last night with fever. Patient also has continued ongoing right lower back pain and radiation down the right leg with difficulty walking due to pain. Patient today reports he is feeling a little better than yesterday as he does not feel achy all over, his lower back pain has improved some. He reports still having the right leg pain, but reports it is some better compared to last night. He does report that today he has developed a productive cough. Patient is sitting up in a chair with legs up. The patient labs yesterday were wbc 15.3, hgb 13.7, glucose 302, CRP 6.3, Na 133, BUN 50, CR 2.1, BNP 3863. Due to patient being dry with fever and elevated CR of 2.1, 1L NS was given. Patient today CR has improved, not as dry on exam. BNP today has increased, but no increase in shortness of breath, no increase in BLE edema, unchanged. I did on admit increase his Bumex, now will give a one time dose of Lasix IV. His labs today are wbc 12.4, hgb 12.7, glucose 172, CRP 11.0, Na 136, BUN 45, CR 1.9, BNP 5699. Will continue IV abx, pain meds for leg pain. He is scheduled for venous US of legs for DVT. Will continue admit.
[2019-04-16] MEDS: Insulin Lispro 100 Units/ML 3 ML Vial SUBCUT SCH ×2 (17:16→20:37)
[2019-04-16] MEDS ORDERED: Metoprolol Succinate 100 MG Tab.ER PO ONE (17:59)
[2019-04-16] MEDS ORDERED: Bumetanide 1 MG Tab PO SCH (20:00)
[2019-04-16] MEDS: Tamsulosin 0.4 MG Cap.ER PO SCH (20:34)
[2019-04-16] MEDS: Simvastatin 10 MG Tab PO SCH (20:35)
[2019-04-16] MEDS: Insulin Glargine,Human Rec. Analog 100 Units/ML 3 ML Pen SUBCUT SCH (20:41)
[2019-04-17] MEDS: Pantoprazole 40 MG Tab.CR PO SCH (06:11)
[2019-04-17] MEDS: Levothyroxine 100 MCG Tab PO SCH (06:11)
[2019-04-17] MEDS: Piperacillin/Tazobactam 3.375 GM in Sodium Chloride 0.9% 100 ML IV SCH ×4 (06:12→20:05)
[2019-04-17] MEDS: Insulin Lispro 100 Units/ML 3 ML Vial SUBCUT SCH ×4 (07:49→21:07)
[2019-04-17] MEDS: methylPREDNISolone Sodium Succinate 125 MG/2 ML SDV IVPUSH SCH ×2 (07:50→19:46)
[2019-04-17] MEDS: Bumetanide 1 MG Tab PO SCH ×2 (07:52→19:45)
[2019-04-17] MEDS: Finasteride 5 MG Tab PO SCH (07:53)
[2019-04-17] MEDS: Metoprolol Succinate 100 MG Tab.ER PO SCH (07:53)
[2019-04-17] MEDS: Isosorbide Mononitrate 30 MG Tab.ER PO SCH (07:53)
[2019-04-17] MEDS: Allopurinol 300 MG Tab PO SCH (07:54)
[2019-04-17] MEDS: Cholecalciferol (Vitamin D3) 25 MCG Tab PO SCH (07:55)
[2019-04-17] MEDS: hydrALAZINE 25 MG Tab PO SCH ×3 (07:55→19:45)
[2019-04-17] MEDS: Enoxaparin 30 MG/0.3 ML Syringe SUBCUT SCH (07:56)
[2019-04-17] MEDS: Lisinopril 20 MG Tab PO SCH (07:56)
--- NOTE | 2019-04-17 12:52 | PCM.PN ---
- General Info Date of Service: 04/17/19 Admission Dx/Problem (Free Text): bilateral lower lobe pneumonia Low back pain with right sciatica Functional Status: Reports: Pain Controlled, Tolerating Diet, Ambulating - Review of Systems General: Reports: Weakness, Fatigue HEENT: Denies: Ear Pain, Sinus Congestion Pulmonary: Reports: Shortness of Breath, Cough, Sputum Cardiovascular: Reports: Edema. Denies: Chest Pain, Lightheadedness Gastrointestinal: Denies: Abdominal Pain, Nausea, Vomiting Genitourinary: Reports: No Symptoms Musculoskeletal: Reports: Back Pain, Leg Pain Skin: Reports: No Symptoms Neurological: Reports: Weakness - Patient Data Vitals - Most Recent: Last Vital Signs Temp 98.1 F 04/17/19 11:50 Pulse 78 04/17/19 11:50 Resp 16 04/17/19 11:50 BP 119/77 04/17/19 11:50 Pulse Ox 95 04/17/19 08:00 Weight - Most Recent: 227 lb 4.8 oz Lab Results Last 24 Hours: Laboratory Results - last 24 hr 04/16/19 04/16/19 04/17/19 Range/Units 17:00 20:13 07:20 WBC 11.9 H (5.0-10.0) 10^3/uL RBC 4.61 (4.50-6.00) 10^6/uL Hgb 12.9 L (14.0-18.0) g/dL Hct 39.1 L (40.0-54.0) % MCV 84.8 (82.0-94.0) fL MCH 28.0 (27.0-32.0) pg MCHC 33.0 (33.0-38.0) g/dL RDW Coeff of Emma 16.1 H (11.0-15.0) % Plt Count 260 (150-400) 10^3/uL Add Manual Diff Yes Neutrophils % (Manual) 96 H (35-85) % Lymphocytes % (Manual) 4 L (21-55) % Absolute Neutrophils 11.42 H (1.80-7.00) 10^3/uL Lymphocytes # (Manual) 0.48 L (1.00-4.80) 10^3/uL Sodium (136-145) mEq/L Potassium (3.5-5.0) mEq/L Chloride (98-106) mEq/L Carbon Dioxide (21-32) mmol/L BUN (7-18) mg/dL Creatinine (0.7-1.3) mg/dL Est Cr Clr Drug Dosing mL/min Estimated GFR (MDRD) (>=60) mL/min Glucose (75-99) mg/dL POC Glucose > 500 H* > 500 H* (75-105) mg/dl Calcium (8.4-10.1) mg/dL C-Reactive Protein (0.2-0.8) mg/dL NT-Pro-B Natriuret Pep (0-1000) pg/mL 04/17/19 04/17/19 04/17/19 Range/Units 07:20 07:30 11:32 WBC (5.0-10.0) 10^3/uL RBC (4.50-6.00) 10^6/uL Hgb (14.0-18.0) g/dL Hct (40.0-54.0) % MCV (82.0-94.0) fL MCH (27.0-32.0) pg MCHC (33.0-38.0) g/dL RDW Coeff of Emma (11.0-15.0) % Plt Count (150-400) 10^3/uL Add Manual Diff Neutrophils % (Manual) (35-85) % Lymphocytes % (Manual) (21-55) % Absolute Neutrophils (1.80-7.00) 10^3/uL Lymphocytes # (Manual) (1.00-4.80) 10^3/uL Sodium 135 L (136-145) mEq/L Potassium 4.2 (3.5-5.0) mEq/L Chloride 101 (98-106) mEq/L Carbon Dioxide 25 (21-32) mmol/L BUN 50 H (7-18) mg/dL Creatinine 2.2 H (0.7-1.3) mg/dL Est Cr Clr Drug Dosing 22.12 mL/min Estimated GFR (MDRD) 28 L (>=60) mL/min Glucose 357 H* D (75-99) mg/dL POC Glucose 324 H 388 H (75-105) mg/dl Calcium 9.4 (8.4-10.1) mg/dL C-Reactive Protein 12.7 H (0.2-0.8) mg/dL NT-Pro-B Natriuret Pep 5668 H (0-1000) pg/mL Neil Results Last 24 Hours: Microbiology 04/15/19 23:16 Aerobic Blood Culture - Preliminary Blood - Venous NO GROWTH AFTER 1 DAY Anaerobic Blood Culture - Preliminary NO GROWTH AFTER 1 DAY 04/15/19 23:16 Aerobic Blood Culture - Preliminary Blood - Venous - Lab Draw NO GROWTH AFTER 1 DAY Anaerobic Blood Culture - Preliminary NO GROWTH AFTER 1 DAY Med Orders - Current: Current Medications Acetaminophen (Tylenol) 650 mg PO Q4H PRN PRN Reason: Fever Albuterol/Ipratropium (Duoneb 3.0-0.5 Mg/3 Ml) 3 ml NEB Q4H PRN PRN Reason: Shortness Of Breath/wheezing Allopurinol (Zyloprim) 150 mg PO DAILY [facility] Last Admin: 04/17/19 07:54 Dose: 150 mg Bumetanide (Bumex) 2 mg PO DAILY [facility] Last Admin: 04/17/19 07:52 Dose: 2 mg Bumetanide (Bumex) 1 mg PO BEDTIME [facility] Last Admin: 04/16/19 20:34 Dose: 1 mg Cholecalciferol (Vitamin D3) 50 mcg PO DAILY [facility] Last Admin: 04/17/19 07:55 Dose: 50 mcg Docusate Sodium (Colace) 100 mg PO BID PRN PRN Reason: Constipation Enoxaparin Sodium (Lovenox) 30 mg SUBCUT Q24H [facility] Last Admin: 04/17/19 07:56 Dose: 30 mg Finasteride (Proscar) 5 mg PO DAILY [facility] Last Admin: 04/17/19 07:53 Dose: 5 mg Hydralazine HCl (Apresoline) 100 mg PO TID [facility] Last Admin: 04/17/19 07:55 Dose: 100 mg Piperacillin Sod/Tazobactam (Sod 3.375 gm/ Sodium Chloride) 100 mls @ 200 mls/ hr IV Q6H [facility] Last Admin: 04/17/19 06:12 Dose: 200 mls/hr Sodium Chloride (Normal Saline) 1,000 mls @ 999 mls/hr IV .BOLUS [facility] Last Admin: 04/16/19 00:56 Dose: 999 mls/hr Vancomycin HCl 1.25 gm/ Sodium (Chloride) 250 mls @ 167 mls/hr IV Q24H [facility] Last Admin: 04/17/19 09:02 Dose: 167 mls/hr Levofloxacin/Dextrose 750 mg/ (Premix) 150 mls @ 100 mls/hr IV Q48H [facility] Ibuprofen (Motrin) 600 mg PO Q6H PRN PRN Reason: Fever Insulin Glargine (Lantus Solostar) 22 units SUBCUT BEDTIME [facility] Last Admin: 04/16/19 20:41 Dose: 22 unit Insulin Human Lispro (Humalog) 0 unit SUBCUT WITHMEALSANDBED [facility]; Protocol Last Admin: 04/17/19 11:42 Dose: 10 unit Isosorbide Mononitrate (Imdur) 30 mg PO DAILY [facility] Last Admin: 04/17/19 07:53 Dose: 30 mg Ketorolac Tromethamine (Acular 0.5% Ophth Soln) 0 ml EYERT TID PRN PRN Reason: Dry Eyes Levothyroxine Sodium (Synthroid) 100 mcg PO ACBREAKFAST [facility] Last Admin: 04/17/19 06:11 Dose: 100 mcg Lisinopril (Prinivil) 20 mg PO DAILY [facility] Last Admin: 04/17/19 07:56 Dose: 20 mg Methylprednisolone Sodium Succinate (Solu-Medrol) 62.5 mg IVPUSH Q12H [facility] Last Admin: 04/17/19 07:50 Dose: 62.5 mg Metoprolol Succinate (Toprol Xl) 100 mg PO DAILY [facility] Last Admin: 04/17/19 07:53 Dose: 100 mg Morphine Sulfate (Morphine) 2 mg IVPUSH Q2H PRN PRN Reason: Pain (severe 7-10) Ondansetron HCl (Zofran) 4 mg IV Q6H PRN PRN Reason: Nausea/Vomiting Oxycodone/Acetaminophen (Percocet 325-5 Mg) 2 tab PO Q4H PRN PRN Reason: Pain (moderate 4-6) Last Admin: 04/16/19 03:59 Dose: 2 tab Pantoprazole Sodium (Protonix) 40 mg PO ACBREAKFAST [facility] Last Admin: 04/17/19 06:11 Dose: 40 mg Simvastatin (Zocor) 10 mg PO BEDTIME [facility] Last Admin: 04/16/19 20:35 Dose: 10 mg Tamsulosin HCl (Flomax) 0.4 mg PO BEDTIME [facility] Last Admin: 04/16/19 20:34 Dose: 0.4 mg Temazepam (Restoril) 15 mg PO BEDTIME PRN PRN Reason: Sleep Vancomycin HCl (Pharmacy To Dose - Vancomycin) 1 dose .XX ASDIRECTED [facility] Discontinued Medications Acetaminophen (Tylenol Extra Strength) 1,000 mg PO ONETIME ONE Stop: 04/15/19 23:52 Last Admin: 04/15/19 23:56 Dose: 1,000 mg Acetaminophen (Tylenol Extra Strength) Confirm Administered Dose 1,000 mg .ROUTE .STK-MED ONE Stop: 04/16/19 00:03 Last Admin: 04/16/19 00:00 Dose: Not Given Bumetanide (Bumex) 1 mg PO BEDTIME [facility] Last Admin: 04/16/19 01:01 Dose: 1 mg Bumetanide (Bumex) Confirm Administered Dose 1 mg .ROUTE .STK-MED ONE Stop: 04/16/19 01:25 Last Admin: 04/16/19 01:38 Dose: Not Given Enoxaparin Sodium (Lovenox) 30 mg SUBCUT Q24H [facility] Last Admin: 04/16/19 00:56 Dose: 30 mg Furosemide (Lasix) 40 mg IVPUSH ONETIME ONE Stop: 04/16/19 13:07 Last Admin: 04/16/19 14:43 Dose: 40 mg Levofloxacin/Dextrose 750 mg/ (Premix) 150 mls @ 100 mls/hr IV Q48H [facility] Last Admin: 04/16/19 00:55 Dose: 100 mls/hr Vancomycin HCl 1.25 gm/ Sodium (Chloride) 250 mls @ 167 mls/hr IV Q24H [facility] Last Admin: 04/16/19 02:23 Dose: 167 mls/hr Levofloxacin/Dextrose 750 mg/ (Premix) 150 mls @ 100 mls/hr IV Q48H [facility] Last Admin: 04/16/19 20:59 Dose: Not Given Insulin Glargine (Lantus Solostar) 22 units SUBCUT DAILY [facility] Last Admin: 04/16/19 15:00 Dose: Not Given Metoprolol Succinate (Toprol Xl) 100 mg PO ONETIME ONE Stop: 04/16/19 18:00 Last Admin: 04/16/19 18:25 Dose: 100 mg Morphine Sulfate (Morphine) Confirm Administered Dose 4 mg .ROUTE .STK-MED ONE Stop: 04/15/19 22:52 Last Admin: 04/15/19 23:08 Dose: Not Given Morphine Sulfate (Morphine) 4 mg IVPUSH ONETIME ONE Stop: 04/15/19 22:59 Last Admin: 04/15/19 22:46 Dose: 4 mg Non-Formulary Medication (Liraglutide [Victoza]) 12 units SUBCUT DAILY [facility] Last Admin: 04/16/19 14:43 Dose: Not Given Ondansetron HCl (Zofran) Confirm Administered Dose 4 mg .ROUTE .STK-MED ONE Stop: 04/15/19 22:52 Last Admin: 04/15/19 23:08 Dose: Not Given Ondansetron HCl (Zofran) 4 mg IVPUSH NOW STA Stop: 04/15/19 22:59 Last Admin: 04/15/19 22:42 Dose: 4 mg - Exam General: Alert, Oriented HEENT: Mucous Membr. Moist/[place]: Supple Lungs: Clear to Auscultation, Normal Respiratory Effort GI/Abdominal Exam: Normal Bowel Sounds, Soft, Non-Tender - Problem List & Annotations (1) Pneumonia SNOMED Code(s): 438138040 Code(s): J18.9 - PNEUMONIA, UNSPECIFIED ORGANISM Status: Acute Priority: High Current Visit: Yes Qualifiers: Pneumonia type: due to other aerobic Gram-negative bacteria Laterality: bilateral Lung location: lower lobe of lung Qualified Code(s): J15.6 - Pneumonia due to other Gram-negative bacteria (2) Low back pain with right-sided sciatica SNOMED Code(s): 535888353 Code(s): M54.41 - LUMBAGO WITH SCIATICA, RIGHT SIDE Status: Acute Priority: High Current Visit: Yes Qualifiers: Chronicity: acute Back pain laterality: right Qualified Code(s): M54.41 - Lumbago with sciatica, right side (3) Congestive heart failure SNOMED Code(s): 29824156 Code(s): I50.9 - HEART FAILURE, UNSPECIFIED Status: Chronic Priority: Medium Current Visit: Yes Qualifiers: Heart failure type: systolic Heart failure chronicity: acute on chronic Qualified Code(s): I50.23 - Acute on chronic systolic (congestive) heart failure (4) Diabetes mellitus type 2 SNOMED Code(s): 19080015 Code(s): E11.9 - TYPE 2 DIABETES MELLITUS WITHOUT COMPLICATIONS Status: Chronic Priority: High Current Visit: Yes - Problem List Review Problem List Initiated/Reviewed/Updated: Yes - Assessment Assessment:: bilateral lower lobe pneumonia Acute on chronic CHF Renal Insufficiency Diabetes Type 2 Acute low back pain with right sciatica - Plan Plan:: This patient was admitted for bilateral lower lobe base pneumonia last night with fever. Patient also has continued ongoing right lower back pain and radiation down the right leg with difficulty walking due to pain. Patient today reports he is feeling a little better than yesterday as he does not feel achy all over, his lower back pain has improved some. He reports still having the right leg pain, but reports it is some better compared to last night. He does report that today he has developed a productive cough. Patient is sitting up in a chair with legs up. The patient labs yesterday were wbc 15.3, hgb 13.7, glucose 302, CRP 6.3, Na 133, BUN 50, CR 2.1, BNP 3863. Due to patient being dry with fever and elevated CR of 2.1, 1L NS was given. Patient today CR has improved, not as dry on exam. BNP today has increased, but no increase in shortness of breath, no increase in BLE edema, unchanged. I did on admit increase his Bumex, now will give a one time dose of Lasix IV. His labs today are wbc 12.4, hgb 12.7, glucose 172, CRP 11.0, Na 136, BUN 45, CR 1.9, BNP 5699. Will continue IV abx, pain meds for leg pain. He is scheduled for venous US of legs for DVT. Will continue admit. 04-17-2019 Patient resting comfortably in the recliner. States feeling better. He feels less short of breath. Does continue to cough, productive at times. Afebrile. Has ongoing low back pain with radiculopathy to right leg, however, better than it was when presented back to the ER. Is ambulating to bathroom with walker. Per records, had 3+ edema in lower legs, improved to 1+ today. Has had echocardiogram in [place] with cardiology. patient was given IV fluids due to elevated creatinine on presentation, increased fluid overload, ProBNp increased to 5699. Was given IV Lasix yesterday and Bumex was increased. Due to elevated creatinine, CTA of chest was unable to be completed for elevated d- dimer and shortness of breath so covered with Lovenox. Bilateral leg ultrasound being done today. chest xray shows a linear opacity, questionable atelectasis versus bibasilar pneumonia. will continue to cover with Vanco and Zosyn. Await ultrasound report of legs. Repeat labs in am. Continue PT for low back pain as does have bulging disc with nerve impingement at L4.
[2019-04-17] MEDS: Acetaminophen/oxyCODONE 325-5 MG Tab PO PRN ×2 (13:16→19:43)
[2019-04-17] MEDS ORDERED: Insulin Lispro 100 Units/ML 3 ML Vial SUBCUT ONE (17:14)
[2019-04-17] MEDS: Simvastatin 10 MG Tab PO SCH (19:44)
[2019-04-17] MEDS: Tamsulosin 0.4 MG Cap.ER PO SCH (19:45)
[2019-04-17] MEDS: Insulin Glargine,Human Rec. Analog 100 Units/ML 3 ML Pen SUBCUT SCH (19:49)
[2019-04-17] MEDS ORDERED: Levofloxacin/Dextrose 5%-Water 750 MG in Premix Bag 1 BAG IV SCH (21:00)
[2019-04-18] MEDS: Piperacillin/Tazobactam 3.375 GM in Sodium Chloride 0.9% 100 ML IV SCH ×2 (02:00→09:08)
[2019-04-18] MEDS: Pantoprazole 40 MG Tab.CR PO SCH (06:08)
[2019-04-18] MEDS: Levothyroxine 100 MCG Tab PO SCH (06:08)
[2019-04-18] MEDS: Bumetanide 1 MG Tab PO SCH ×2 (08:20→19:29)
[2019-04-18] MEDS: methylPREDNISolone Sodium Succinate 125 MG/2 ML SDV IVPUSH SCH ×3 (08:20→23:54)
[2019-04-18] MEDS: Cholecalciferol (Vitamin D3) 25 MCG Tab PO SCH (08:21)
[2019-04-18] MEDS: Finasteride 5 MG Tab PO SCH (08:21)
[2019-04-18] MEDS: Lisinopril 20 MG Tab PO SCH (08:22)
[2019-04-18] MEDS: hydrALAZINE 25 MG Tab PO SCH ×3 (08:22→19:36)
[2019-04-18] MEDS: Allopurinol 300 MG Tab PO SCH (08:23)
[2019-04-18] MEDS: Metoprolol Succinate 100 MG Tab.ER PO SCH (08:23)
[2019-04-18] MEDS: Isosorbide Mononitrate 30 MG Tab.ER PO SCH (08:23)
[2019-04-18] MEDS: Insulin Lispro 100 Units/ML 3 ML Vial SUBCUT SCH ×4 (08:24→20:00)
[2019-04-18] MEDS: Enoxaparin 30 MG/0.3 ML Syringe SUBCUT SCH (08:24)
[2019-04-18] MEDS: cefTRIAXone 1 GM Vial IVPUSH SCH (10:12)
--- NOTE | 2019-04-18 10:22 | PCM.PN ---
- General Info Date of Service: 04/18/19 Admission Dx/Problem (Free Text): bilateral lower lobe pneumonia Low back pain with right sciatica Functional Status: Reports: Pain Controlled, Tolerating Diet, Ambulating - Review of Systems General: Reports: Weakness, Fatigue HEENT: Denies: Ear Pain, Sinus Congestion, Sore Throat Pulmonary: Reports: Cough, Sputum. Denies: Shortness of Breath Cardiovascular: Reports: Edema. Denies: Chest Pain, Lightheadedness Gastrointestinal: Reports: No Symptoms Genitourinary: Reports: No Symptoms Musculoskeletal: Reports: Back Pain, Leg Pain Skin: Reports: No Symptoms Neurological: Reports: Weakness - Patient Data Vitals - Most Recent: Last Vital Signs Temp 97.7 F 04/18/19 07:38 Pulse 82 04/18/19 08:23 Resp 16 04/18/19 07:38 BP 153/85 H 04/18/19 08:23 Pulse Ox 96 04/18/19 07:38 Weight - Most Recent: 227 lb 4.8 oz Lab Results Last 24 Hours: Laboratory Results - last 24 hr 04/17/19 04/17/19 04/17/19 Range/Units 11:32 17:05 19:49 WBC (5.0-10.0) 10^3/uL RBC (4.50-6.00) 10^6/uL Hgb (14.0-18.0) g/dL Hct (40.0-54.0) % MCV (82.0-94.0) fL MCH (27.0-32.0) pg MCHC (33.0-38.0) g/dL RDW Coeff of Emma (11.0-15.0) % Plt Count (150-400) 10^3/uL Add Manual Diff Neutrophils % (Manual) (35-85) % Lymphocytes % (Manual) (21-55) % Monocytes % (Manual) (2-12) % Absolute Neutrophils (1.80-7.00) 10^3/uL Lymphocytes # (Manual) (1.00-4.80) 10^3/uL Monocytes # (Manual) (0.00-0.80) 10^3/uL Sodium (136-145) mEq/L Potassium (3.5-5.0) mEq/L Chloride (98-106) mEq/L Carbon Dioxide (21-32) mmol/L BUN (7-18) mg/dL Creatinine (0.7-1.3) mg/dL Est Cr Clr Drug Dosing mL/min Estimated GFR (MDRD) (>=60) mL/min Glucose (75-99) mg/dL POC Glucose 388 H 458 H* 387 H (75-105) mg/dl Calcium (8.4-10.1) mg/dL C-Reactive Protein (0.2-0.8) mg/dL NT-Pro-B Natriuret Pep (0-1000) pg/mL 04/18/19 04/18/19 04/18/19 Range/Units 07:00 07:00 07:31 WBC 18.8 H (5.0-10.0) 10^3/uL RBC 4.61 (4.50-6.00) 10^6/uL Hgb 12.7 L (14.0-18.0) g/dL Hct 38.6 L (40.0-54.0) % MCV 83.7 (82.0-94.0) fL MCH 27.5 (27.0-32.0) pg MCHC 32.9 L (33.0-38.0) g/dL RDW Coeff of Emma 15.9 H (11.0-15.0) % Plt Count 303 (150-400) 10^3/uL Add Manual Diff Yes Neutrophils % (Manual) 92 H (35-85) % Lymphocytes % (Manual) 2 L (21-55) % Monocytes % (Manual) 6 (2-12) % Absolute Neutrophils 17.30 H (1.80-7.00) 10^3/uL Lymphocytes # (Manual) 0.38 L (1.00-4.80) 10^3/uL Monocytes # (Manual) 1.13 H (0.00-0.80) 10^3/uL Sodium 135 L (136-145) mEq/L Potassium 3.6 (3.5-5.0) mEq/L Chloride 101 (98-106) mEq/L Carbon Dioxide 23 (21-32) mmol/L BUN 58 H (7-18) mg/dL Creatinine 2.2 H (0.7-1.3) mg/dL Est Cr Clr Drug Dosing 22.12 mL/min Estimated GFR (MDRD) 28 L (>=60) mL/min Glucose 363 H* (75-99) mg/dL POC Glucose 346 H (75-105) mg/dl Calcium 9.4 (8.4-10.1) mg/dL C-Reactive Protein 5.4 H (0.2-0.8) mg/dL NT-Pro-B Natriuret Pep 5539 H (0-1000) pg/mL Neil Results Last 24 Hours: Microbiology 04/18/19 05:27 Gram Stain - Final Sputum - Expectorated 04/15/19 23:16 Aerobic Blood Culture - Preliminary Blood - Venous NO GROWTH AFTER 2 DAYS Anaerobic Blood Culture - Preliminary NO GROWTH AFTER 2 DAYS 04/15/19 23:16 Aerobic Blood Culture - Preliminary Blood - Venous - Lab Draw NO GROWTH AFTER 2 DAYS Anaerobic Blood Culture - Preliminary NO GROWTH AFTER 2 DAYS Med Orders - Current: Current Medications Acetaminophen (Tylenol) 650 mg PO Q4H PRN PRN Reason: Fever Albuterol/Ipratropium (Duoneb 3.0-0.5 Mg/3 Ml) 3 ml NEB Q4H PRN PRN Reason: Shortness Of Breath/wheezing Allopurinol (Zyloprim) 150 mg PO DAILY [facility] Last Admin: 04/18/19 08:23 Dose: 150 mg Bumetanide (Bumex) 2 mg PO DAILY [facility] Last Admin: 04/18/19 08:20 Dose: 2 mg Bumetanide (Bumex) 1 mg PO BEDTIME [facility] Last Admin: 04/17/19 19:45 Dose: 1 mg Ceftriaxone Sodium (Rocephin) 1 gm IVPUSH Q24H [facility] Last Admin: 04/18/19 10:12 Dose: 1 gm Cholecalciferol (Vitamin D3) 50 mcg PO DAILY [facility] Last Admin: 04/18/19 08:21 Dose: 50 mcg Docusate Sodium (Colace) 100 mg PO BID PRN PRN Reason: Constipation Enoxaparin Sodium (Lovenox) 30 mg SUBCUT Q24H [facility] Last Admin: 04/18/19 08:24 Dose: 30 mg Finasteride (Proscar) 5 mg PO DAILY [facility] Last Admin: 04/18/19 08:21 Dose: 5 mg Hydralazine HCl (Apresoline) 100 mg PO TID [facility] Last Admin: 04/18/19 08:22 Dose: 100 mg Ibuprofen (Motrin) 600 mg PO Q6H PRN PRN Reason: Fever Insulin Glargine (Lantus Solostar) 22 units SUBCUT BEDTIME [facility] Last Admin: 04/17/19 19:49 Dose: 22 unit Insulin Human Lispro (Humalog) 0 unit SUBCUT WITHMEALSANDBED [facility]; Protocol Last Admin: 04/18/19 08:24 Dose: 8 unit Isosorbide Mononitrate (Imdur) 30 mg PO DAILY [facility] Last Admin: 04/18/19 08:23 Dose: 30 mg Ketorolac Tromethamine (Acular 0.5% Ophth Soln) 0 ml EYERT TID PRN PRN Reason: Dry Eyes Levothyroxine Sodium (Synthroid) 100 mcg PO ACBREAKFAST [facility] Last Admin: 04/18/19 06:08 Dose: 100 mcg Lisinopril (Prinivil) 20 mg PO DAILY [facility] Last Admin: 04/18/19 08:22 Dose: 20 mg Methylprednisolone Sodium Succinate (Solu-Medrol) 62.5 mg IVPUSH Q12H [facility] Last Admin: 04/18/19 08:20 Dose: 62.5 mg Metoprolol Succinate (Toprol Xl) 100 mg PO DAILY [facility] Last Admin: 04/18/19 08:23 Dose: 100 mg Morphine Sulfate (Morphine) 2 mg IVPUSH Q2H PRN PRN Reason: Pain (severe 7-10) Ondansetron HCl (Zofran) 4 mg IV Q6H PRN PRN Reason: Nausea/Vomiting Oxycodone/Acetaminophen (Percocet 325-5 Mg) 2 tab PO Q4H PRN PRN Reason: Pain (moderate 4-6) Last Admin: 04/17/19 19:43 Dose: 2 tab Pantoprazole Sodium (Protonix) 40 mg PO ACBREAKFAST [facility] Last Admin: 04/18/19 06:08 Dose: 40 mg Simvastatin (Zocor) 10 mg PO BEDTIME [facility] Last Admin: 04/17/19 19:44 Dose: 10 mg Tamsulosin HCl (Flomax) 0.4 mg PO BEDTIME [facility] Last Admin: 04/17/19 19:45 Dose: 0.4 mg Temazepam (Restoril) 15 mg PO BEDTIME PRN PRN Reason: Sleep Discontinued Medications Acetaminophen (Tylenol Extra Strength) 1,000 mg PO ONETIME ONE Stop: 04/15/19 23:52 Last Admin: 04/15/19 23:56 Dose: 1,000 mg Acetaminophen (Tylenol Extra Strength) Confirm Administered Dose 1,000 mg .ROUTE .STK-MED ONE Stop: 04/16/19 00:03 Last Admin: 04/16/19 00:00 Dose: Not Given Bumetanide (Bumex) 1 mg PO BEDTIME [facility] Last Admin: 04/16/19 01:01 Dose: 1 mg Bumetanide (Bumex) Confirm Administered Dose 1 mg .ROUTE .STK-MED ONE Stop: 04/16/19 01:25 Last Admin: 04/16/19 01:38 Dose: Not Given Enoxaparin Sodium (Lovenox) 30 mg SUBCUT Q24H [facility] Last Admin: 04/16/19 00:56 Dose: 30 mg Furosemide (Lasix) 40 mg IVPUSH ONETIME ONE Stop: 04/16/19 13:07 Last Admin: 04/16/19 14:43 Dose: 40 mg Levofloxacin/Dextrose 750 mg/ (Premix) 150 mls @ 100 mls/hr IV Q48H [facility] Last Admin: 04/16/19 00:55 Dose: 100 mls/hr Piperacillin Sod/Tazobactam (Sod 3.375 gm/ Sodium Chloride) 100 mls @ 200 mls/ hr IV Q6H [facility] Last Admin: 04/17/19 14:00 Dose: Not Given Sodium Chloride (Normal Saline) 1,000 mls @ 999 mls/hr IV .BOLUS [facility] Last Admin: 04/16/19 00:56 Dose: 999 mls/hr Vancomycin HCl 1.25 gm/ Sodium (Chloride) 250 mls @ 167 mls/hr IV Q24H [facility] Last Admin: 04/16/19 02:23 Dose: 167 mls/hr Levofloxacin/Dextrose 750 mg/ (Premix) 150 mls @ 100 mls/hr IV Q48H [facility] Last Admin: 04/16/19 20:59 Dose: Not Given Vancomycin HCl 1.25 gm/ Sodium (Chloride) 250 mls @ 167 mls/hr IV Q24H [facility] Last Admin: 04/18/19 09:08 Dose: Not Given Levofloxacin/Dextrose 750 mg/ (Premix) 150 mls @ 100 mls/hr IV Q48H [facility] Last Admin: 04/17/19 20:58 Dose: 100 mls/hr Piperacillin Sod/Tazobactam (Sod 3.375 gm/ Sodium Chloride) 100 mls @ 200 mls/ hr IV 0200,0800,1400,2000 [facility] Last Admin: 04/18/19 09:08 Dose: Not Given Insulin Glargine (Lantus Solostar) 22 units SUBCUT DAILY [facility] Last Admin: 04/16/19 15:00 Dose: Not Given Insulin Human Lispro (Humalog) 12 unit SUBCUT ASDIRECTED ONE Stop: 04/17/19 17:15 Last Admin: 04/17/19 17:48 Dose: 12 units Metoprolol Succinate (Toprol Xl) 100 mg PO ONETIME ONE Stop: 04/16/19 18:00 Last Admin: 04/16/19 18:25 Dose: 100 mg Morphine Sulfate (Morphine) Confirm Administered Dose 4 mg .ROUTE .STK-MED ONE Stop: 04/15/19 22:52 Last Admin: 04/15/19 23:08 Dose: Not Given Morphine Sulfate (Morphine) 4 mg IVPUSH ONETIME ONE Stop: 04/15/19 22:59 Last Admin: 04/15/19 22:46 Dose: 4 mg Non-Formulary Medication (Liraglutide [Victoza]) 12 units SUBCUT DAILY [facility] Last Admin: 04/16/19 14:43 Dose: Not Given Ondansetron HCl (Zofran) Confirm Administered Dose 4 mg .ROUTE .STK-MED ONE Stop: 04/15/19 22:52 Last Admin: 04/15/19 23:08 Dose: Not Given Ondansetron HCl (Zofran) 4 mg IVPUSH NOW STA Stop: 04/15/19 22:59 Last Admin: 04/15/19 22:42 Dose: 4 mg Vancomycin HCl (Pharmacy To Dose - Vancomycin) 1 dose .XX ASDIRECTED [facility] - Exam General: Alert, Oriented HEENT: Mucous Membr. Moist/[place] Neck: Supple Lungs: Clear to Auscultation, Normal Respiratory Effort Cardiovascular: Regular Rate, Regular Rhythm GI/Abdominal Exam: Normal Bowel Sounds, Soft, Non-Tender Extremities: Normal Inspection, Pedal Edema (1+) Skin: Warm, Dry Neurological: No New Focal Deficit - Problem List & Annotations (1) Pneumonia SNOMED Code(s): 714292858 Code(s): J18.9 - PNEUMONIA, UNSPECIFIED ORGANISM Status: Acute Priority: High Current Visit: Yes Qualifiers: Pneumonia type: due to other aerobic Gram-negative bacteria Laterality: bilateral Lung location: lower lobe of lung Qualified Code(s): J15.6 - Pneumonia due to other Gram-negative bacteria (2) Low back pain with right-sided sciatica SNOMED Code(s): 589830227 Code(s): M54.41 - LUMBAGO WITH SCIATICA, RIGHT SIDE Status: Acute Priority: High Current Visit: Yes Qualifiers: Chronicity: acute Back pain laterality: right Qualified Code(s): M54.41 - Lumbago with sciatica, right side (3) Congestive heart failure SNOMED Code(s): 43343572 Code(s): I50.9 - HEART FAILURE, UNSPECIFIED Status: Chronic Priority: Medium Current Visit: Yes Qualifiers: Heart failure type: systolic Heart failure chronicity: acute on chronic Qualified Code(s): I50.23 - Acute on chronic systolic (congestive) heart failure (4) Diabetes mellitus type 2 SNOMED Code(s): 86359231 Code(s): E11.9 - TYPE 2 DIABETES MELLITUS WITHOUT COMPLICATIONS Status: Chronic Priority: High Current Visit: Yes - Problem List Review Problem List Initiated/Reviewed/Updated: Yes - My Orders Last 24 Hours: My Active Orders 04/18/19 05:27 CULTURE SPUTUM + SMEAR [RM] Routine 04/18/19 09:15 cefTRIAXone [Rocephin] 1 gm IVPUSH Q24H 04/19/19 05:11 BASIC METABOLIC PANEL,BMP [CHEM] AM C-REACTIVE PROTEIN [CHEM] AM CBC WITH AUTO DIFF [HEME] AM - Assessment Assessment:: bilateral lower lobe pneumonia Acute on chronic CHF Renal Insufficiency Diabetes Type 2 Acute low back pain with right sciatica - Plan Plan:: This patient was admitted for bilateral lower lobe base pneumonia last night with fever. Patient also has continued ongoing right lower back pain and radiation down the right leg with difficulty walking due to pain. Patient today reports he is feeling a little better than yesterday as he does not feel achy all over, his lower back pain has improved some. He reports still having the right leg pain, but reports it is some better compared to last night. He does report that today he has developed a productive cough. Patient is sitting up in a chair with legs up. The patient labs yesterday were wbc 15.3, hgb 13.7, glucose 302, CRP 6.3, Na 133, BUN 50, CR 2.1, BNP 3863. Due to patient being dry with fever and elevated CR of 2.1, 1L NS was given. Patient today CR has improved, not as dry on exam. BNP today has increased, but no increase in shortness of breath, no increase in BLE edema, unchanged. I did on admit increase his Bumex, now will give a one time dose of Lasix IV. His labs today are wbc 12.4, hgb 12.7, glucose 172, CRP 11.0, Na 136, BUN 45, CR 1.9, BNP 5699. Will continue IV abx, pain meds for leg pain. He is scheduled for venous US of legs for DVT. Will continue admit. 04-17-2019 Patient resting comfortably in the recliner. States feeling better. He feels less short of breath. Does continue to cough, productive at times. Afebrile. Has ongoing low back pain with radiculopathy to right leg, however, better than it was when presented back to the ER. Is ambulating to bathroom with walker. Per records, had 3+ edema in lower legs, improved to 1+ today. Has had echocardiogram in [place] with cardiology. patient was given IV fluids due to elevated creatinine on presentation, increased fluid overload, ProBNp increased to 5699. Was given IV Lasix yesterday and Bumex was increased. Due to elevated creatinine, CTA of chest was unable to be completed for elevated d- dimer and shortness of breath so covered with Lovenox. Bilateral leg ultrasound being done today. chest xray shows a linear opacity, questionable atelectasis versus bibasilar pneumonia. will continue to cover with Vanco and Zosyn. Await ultrasound report of legs. Repeat labs in am. Continue PT for low back pain as does have bulging disc with nerve impingement at L4. 04-18-2019 Patient resting quietly in the recliner, states slept there last night as more comfortable. Denies shortness of breath. Does continue to have productive cough, was able to collect sputum sample last evening. Ambulating to the bathroom per self, tolerating well. Does still have back and leg pain but admits it is feeling better. Lung sounds are clear, edema 1+. WBC increased this am, is on steroids yet. CRP down to 5.7 from 12. proBNP improved slightly at 5539. Creatinine remains high at 2.2 but stable. Will stop Vanco, Zosyn, and Levaquin as lung sounds are clear, afebrile. Will start daily rocephin. Repeat labs in am. Await sputum specimen. Continue PT.
[2019-04-18] MEDS: Acetaminophen/oxyCODONE 325-5 MG Tab PO PRN ×2 (11:07→19:30)
[2019-04-18] MEDS ORDERED: Insulin Lispro 100 Units/ML 3 ML Vial SUBCUT ONE (17:42)
[2019-04-18] MEDS: Tamsulosin 0.4 MG Cap.ER PO SCH (19:30)
[2019-04-18] MEDS: Simvastatin 10 MG Tab PO SCH (19:30)
[2019-04-18] MEDS: Insulin Glargine,Human Rec. Analog 100 Units/ML 3 ML Pen SUBCUT SCH (19:50)
[2019-04-19] MEDS: Levothyroxine 100 MCG Tab PO SCH (07:32)
[2019-04-19] MEDS: Pantoprazole 40 MG Tab.CR PO SCH (07:33)
[2019-04-19] MEDS: hydrALAZINE 25 MG Tab PO SCH ×3 (07:35→19:48)
[2019-04-19] MEDS: Bumetanide 1 MG Tab PO SCH ×2 (07:36→19:47)
[2019-04-19] MEDS: Isosorbide Mononitrate 30 MG Tab.ER PO SCH (07:36)
[2019-04-19] MEDS: Enoxaparin 30 MG/0.3 ML Syringe SUBCUT SCH (07:37)
[2019-04-19] MEDS: Lisinopril 20 MG Tab PO SCH (07:38)
[2019-04-19] MEDS: Metoprolol Succinate 100 MG Tab.ER PO SCH (07:38)
[2019-04-19] MEDS: Finasteride 5 MG Tab PO SCH (07:38)
[2019-04-19] MEDS: Cholecalciferol (Vitamin D3) 25 MCG Tab PO SCH (07:39)
[2019-04-19] MEDS: Allopurinol 300 MG Tab PO SCH (07:39)
[2019-04-19] MEDS: Insulin Lispro 100 Units/ML 3 ML Vial SUBCUT SCH ×4 (07:58→21:17)
[2019-04-19] MEDS: cefTRIAXone 1 GM Vial IVPUSH SCH (08:35)
[2019-04-19] MEDS: Acetaminophen/oxyCODONE 325-5 MG Tab PO PRN ×3 (10:22→21:18)
[2019-04-19] MEDS ORDERED: Potassium Chloride 10% 20 MEQ/15 ML Soln 15 ML UD Cup PO SCH (10:29)
[2019-04-19] MEDS: Docusate Sodium 100 MG Cap PO SCH (11:31)
[2019-04-19] MEDS: Fluconazole 100 MG Tab PO SCH (11:31)
[2019-04-19] MEDS: Potassium Chloride 10 MEQ Tab.ER PO SCH ×2 (12:32→19:48)
--- NOTE | 2019-04-19 12:53 | PCM.PN ---
- General Info Date of Service: 04/19/19 Admission Dx/Problem (Free Text): bilateral lower lobe pneumonia Low back pain with right sciatica Subjective Update: Akash reports he is feeling well this morning. Reports cough has improved. He no longer is feeling short of breath. Has been working with PT and feels he is doing better from that standpoint. He denies any chest pain, shortness of breath at rest, N/V/D. Does continue to c/o low back pain radiating to his right leg. Has been up ambulating to bathroom and is working with PT. Functional Status: Reports: Pain Controlled, Tolerating Diet, Ambulating, Urinating. Denies: New Symptoms - Review of Systems General: Reports: Weakness. Denies: Fever, Fatigue, Chills Pulmonary: Reports: Shortness of Breath, Cough (ocassional). Denies: Sputum, Wheezing Cardiovascular: Reports: Dyspnea on Exertion. Denies: Chest Pain, Edema Gastrointestinal: Reports: No Symptoms. Denies: Abdominal Pain, Constipation, Decreased Appetite, Diarrhea, Nausea, Vomiting Genitourinary: Reports: No Symptoms Musculoskeletal: Reports: Back Pain, Leg Pain Neurological: Reports: Dizziness, Weakness Psychiatric: Reports: No Symptoms - Patient Data Vitals - Most Recent: Last Vital Signs Temp 96.8 F 04/19/19 12:00 Pulse 68 04/19/19 12:00 Resp 20 04/19/19 12:00 BP 130/63 04/19/19 12:00 Pulse Ox 93 L 04/19/19 12:00 Weight - Most Recent: 227 lb 4.8 oz Lab Results Last 24 Hours: Laboratory Results - last 24 hr 04/18/19 04/18/19 04/18/19 Range/Units 11:53 17:27 19:44 WBC (5.0-10.0) 10^3/uL RBC (4.50-6.00) 10^6/uL Hgb (14.0-18.0) g/dL Hct (40.0-54.0) % MCV (82.0-94.0) fL MCH (27.0-32.0) pg MCHC (33.0-38.0) g/dL RDW Coeff of Emma (11.0-15.0) % Plt Count (150-400) 10^3/uL Neut % (Auto) (35-85) % Lymph % (Auto) (10-55) % [place] % (Auto) (0-16) % Eos % (Auto) (0-5) % Baso % (Auto) (0-3) % Neut # (Auto) (1.80-7.00) 10^3/uL Lymph # (Auto) (1.00-4.80) 10^3/uL [place] # (Auto) (0.00-0.80) 10^3/uL Eos # (Auto) (0.00-0.45) 10^3/uL Baso # (Auto) 10^3/uL Sodium (136-145) mEq/L Potassium (3.5-5.0) mEq/L Chloride (98-106) mEq/L Carbon Dioxide (21-32) mmol/L BUN (7-18) mg/dL Creatinine (0.7-1.3) mg/dL Est Cr Clr Drug Dosing mL/min Estimated GFR (MDRD) (>=60) mL/min Glucose (75-99) mg/dL POC Glucose 303 H 468 H* > 500 H* (75-105) mg/dl Calcium (8.4-10.1) mg/dL C-Reactive Protein (0.2-0.8) mg/dL 04/19/19 04/19/19 04/19/19 Range/Units 07:00 07:00 07:57 WBC 16.9 H (5.0-10.0) 10^3/uL RBC 5.22 (4.50-6.00) 10^6/uL Hgb 14.3 (14.0-18.0) g/dL Hct 42.8 (40.0-54.0) % MCV 82.0 (82.0-94.0) fL MCH 27.4 (27.0-32.0) pg MCHC 33.4 (33.0-38.0) g/dL RDW Coeff of Emma 15.9 H (11.0-15.0) % Plt Count 330 (150-400) 10^3/uL Neut % (Auto) 86.6 H (35-85) % Lymph % (Auto) 6.2 L (10-55) % [place] % (Auto) 6.9 (0-16) % Eos % (Auto) 0.2 (0-5) % Baso % (Auto) 0.1 (0-3) % Neut # (Auto) 14.60 H (1.80-7.00) 10^3/uL Lymph # (Auto) 1.05 (1.00-4.80) 10^3/uL [place] # (Auto) 1.17 H (0.00-0.80) 10^3/uL Eos # (Auto) 0.04 (0.00-0.45) 10^3/uL Baso # (Auto) 0.01 10^3/uL Sodium 137 (136-145) mEq/L Potassium 3.1 L (3.5-5.0) mEq/L Chloride 101 (98-106) mEq/L Carbon Dioxide 27 (21-32) mmol/L BUN 59 H (7-18) mg/dL Creatinine 2.2 H (0.7-1.3) mg/dL Est Cr Clr Drug Dosing 22.12 mL/min Estimated GFR (MDRD) 28 L (>=60) mL/min Glucose 164 H D (75-99) mg/dL POC Glucose 143 H (75-105) mg/dl Calcium 9.7 (8.4-10.1) mg/dL C-Reactive Protein 2.5 H (0.2-0.8) mg/dL 04/19/19 Range/Units 11:39 WBC (5.0-10.0) 10^3/uL RBC (4.50-6.00) 10^6/uL Hgb (14.0-18.0) g/dL Hct (40.0-54.0) % MCV (82.0-94.0) fL MCH (27.0-32.0) pg MCHC (33.0-38.0) g/dL RDW Coeff of Emma (11.0-15.0) % Plt Count (150-400) 10^3/uL Neut % (Auto) (35-85) % Lymph % (Auto) (10-55) % [place] % (Auto) (0-16) % Eos % (Auto) (0-5) % Baso % (Auto) (0-3) % Neut # (Auto) (1.80-7.00) 10^3/uL Lymph # (Auto) (1.00-4.80) 10^3/uL [place] # (Auto) (0.00-0.80) 10^3/uL Eos # (Auto) (0.00-0.45) 10^3/uL Baso # (Auto) 10^3/uL Sodium (136-145) mEq/L Potassium (3.5-5.0) mEq/L Chloride (98-106) mEq/L Carbon Dioxide (21-32) mmol/L BUN (7-18) mg/dL Creatinine (0.7-1.3) mg/dL Est Cr Clr Drug Dosing mL/min Estimated GFR (MDRD) (>=60) mL/min Glucose (75-99) mg/dL POC Glucose 220 H (75-105) mg/dl Calcium (8.4-10.1) mg/dL C-Reactive Protein (0.2-0.8) mg/dL Neil Results Last 24 Hours: Microbiology 04/18/19 05:27 Gram Stain - Final Sputum - Expectorated Sputum Culture - Preliminary YEAST 04/15/19 23:16 Aerobic Blood Culture - Preliminary Blood - Venous NO GROWTH AFTER 3 DAYS Anaerobic Blood Culture - Preliminary NO GROWTH AFTER 3 DAYS 04/15/19 23:16 Aerobic Blood Culture - Preliminary Blood - Venous - Lab Draw NO GROWTH AFTER 3 DAYS Anaerobic Blood Culture - Preliminary NO GROWTH AFTER 3 DAYS Med Orders - Current: Current Medications Acetaminophen (Tylenol) 650 mg PO Q4H PRN PRN Reason: Fever Albuterol/Ipratropium (Duoneb 3.0-0.5 Mg/3 Ml) 3 ml NEB Q4H PRN PRN Reason: Shortness Of Breath/wheezing Allopurinol (Zyloprim) 150 mg PO DAILY [facility] Last Admin: 04/19/19 07:39 Dose: 150 mg Bumetanide (Bumex) 2 mg PO DAILY [facility] Last Admin: 04/19/19 07:36 Dose: 2 mg Bumetanide (Bumex) 1 mg PO BEDTIME [facility] Last Admin: 04/18/19 19:29 Dose: 1 mg Ceftriaxone Sodium (Rocephin) 1 gm IVPUSH Q24H [facility] Last Admin: 04/19/19 08:35 Dose: 1 gm Cholecalciferol (Vitamin D3) 50 mcg PO DAILY [facility] Last Admin: 04/19/19 07:39 Dose: 50 mcg Docusate Sodium (Colace) 100 mg PO BID PRN PRN Reason: Constipation Docusate Sodium (Colace) 100 mg PO DAILY [facility] Last Admin: 04/19/19 11:31 Dose: 100 mg Enoxaparin Sodium (Lovenox) 30 mg SUBCUT Q24H [facility] Last Admin: 04/19/19 07:37 Dose: 30 mg Finasteride (Proscar) 5 mg PO DAILY [facility] Last Admin: 04/19/19 07:38 Dose: 5 mg Fluconazole (Diflucan) 100 mg PO DAILY [facility] Last Admin: 04/19/19 11:31 Dose: 100 mg Hydralazine HCl (Apresoline) 100 mg PO TID [facility] Last Admin: 04/19/19 07:35 Dose: 100 mg Ibuprofen (Motrin) 600 mg PO Q6H PRN PRN Reason: Fever Insulin Glargine (Lantus Solostar) 22 units SUBCUT BEDTIME [facility] Last Admin: 04/18/19 19:50 Dose: 22 unit Insulin Human Lispro (Humalog) 0 unit SUBCUT WITHMEALSANDBED [facility]; Protocol Last Admin: 04/19/19 11:51 Dose: 4 unit Isosorbide Mononitrate (Imdur) 30 mg PO DAILY [facility] Last Admin: 04/19/19 07:36 Dose: 30 mg Ketorolac Tromethamine (Acular 0.5% Ophth Soln) 0 ml EYERT TID PRN PRN Reason: Dry Eyes Levothyroxine Sodium (Synthroid) 100 mcg PO ACBREAKFAST [facility] Last Admin: 04/19/19 07:32 Dose: 100 mcg Lisinopril (Prinivil) 20 mg PO DAILY [facility] Last Admin: 04/19/19 07:38 Dose: 20 mg Metoprolol Succinate (Toprol Xl) 100 mg PO DAILY [facility] Last Admin: 04/19/19 07:38 Dose: 100 mg Morphine Sulfate (Morphine) 2 mg IVPUSH Q2H PRN PRN Reason: Pain (severe 7-10) Ondansetron HCl (Zofran) 4 mg IV Q6H PRN PRN Reason: Nausea/Vomiting Oxycodone/Acetaminophen (Percocet 325-5 Mg) 2 tab PO Q4H PRN PRN Reason: Pain (moderate 4-6) Last Admin: 04/19/19 10:22 Dose: 2 tab Pantoprazole Sodium (Protonix) 40 mg PO ACBREAKFAST [facility] Last Admin: 04/19/19 07:33 Dose: 40 mg Potassium Chloride (Klor-Con 10) 20 meq PO BID [facility] Last Admin: 04/19/19 12:32 Dose: 20 meq Simvastatin (Zocor) 10 mg PO BEDTIME [facility] Last Admin: 04/18/19 19:30 Dose: 10 mg Tamsulosin HCl (Flomax) 0.4 mg PO BEDTIME [facility] Last Admin: 04/18/19 19:30 Dose: 0.4 mg Temazepam (Restoril) 15 mg PO BEDTIME PRN PRN Reason: Sleep Discontinued Medications Acetaminophen (Tylenol Extra Strength) 1,000 mg PO ONETIME ONE Stop: 04/15/19 23:52 Last Admin: 04/15/19 23:56 Dose: 1,000 mg Acetaminophen (Tylenol Extra Strength) Confirm Administered Dose 1,000 mg .ROUTE .STK-MED ONE Stop: 04/16/19 00:03 Last Admin: 04/16/19 00:00 Dose: Not Given Bumetanide (Bumex) 1 mg PO BEDTIME [facility] Last Admin: 04/16/19 01:01 Dose: 1 mg Bumetanide (Bumex) Confirm Administered Dose 1 mg .ROUTE .STK-MED ONE Stop: 04/16/19 01:25 Last Admin: 04/16/19 01:38 Dose: Not Given Enoxaparin Sodium (Lovenox) 30 mg SUBCUT Q24H [facility] Last Admin: 04/16/19 00:56 Dose: 30 mg Furosemide (Lasix) 40 mg IVPUSH ONETIME ONE Stop: 04/16/19 13:07 Last Admin: 04/16/19 14:43 Dose: 40 mg Levofloxacin/Dextrose 750 mg/ (Premix) 150 mls @ 100 mls/hr IV Q48H [facility] Last Admin: 04/16/19 00:55 Dose: 100 mls/hr Piperacillin Sod/Tazobactam (Sod 3.375 gm/ Sodium Chloride) 100 mls @ 200 mls/ hr IV Q6H [facility] Last Admin: 04/17/19 14:00 Dose: Not Given Sodium Chloride (Normal Saline) 1,000 mls @ 999 mls/hr IV .BOLUS [facility] Last Admin: 04/16/19 00:56 Dose: 999 mls/hr Vancomycin HCl 1.25 gm/ Sodium (Chloride) 250 mls @ 167 mls/hr IV Q24H [facility] Last Admin: 04/16/19 02:23 Dose: 167 mls/hr Levofloxacin/Dextrose 750 mg/ (Premix) 150 mls @ 100 mls/hr IV Q48H [facility] Last Admin: 04/16/19 20:59 Dose: Not Given Vancomycin HCl 1.25 gm/ Sodium (Chloride) 250 mls @ 167 mls/hr IV Q24H [facility] Last Admin: 04/18/19 09:08 Dose: Not Given Levofloxacin/Dextrose 750 mg/ (Premix) 150 mls @ 100 mls/hr IV Q48H [facility] Last Admin: 04/17/19 20:58 Dose: 100 mls/hr Piperacillin Sod/Tazobactam (Sod 3.375 gm/ Sodium Chloride) 100 mls @ 200 mls/ hr IV 0200,0800,1400,2000 [facility] Last Admin: 04/18/19 09:08 Dose: Not Given Insulin Glargine (Lantus Solostar) 22 units SUBCUT DAILY [facility] Last Admin: 04/16/19 15:00 Dose: Not Given Insulin Human Lispro (Humalog) 12 unit SUBCUT ASDIRECTED ONE Stop: 04/17/19 17:15 Last Admin: 04/17/19 17:48 Dose: 12 units Insulin Human Lispro (Humalog) 15 unit SUBCUT ASDIRECTED ONE Stop: 04/18/19 17:43 Last Admin: 04/18/19 17:56 Dose: 15 units Methylprednisolone Sodium Succinate (Solu-Medrol) 62.5 mg IVPUSH Q12H [facility] Last Admin: 04/18/19 23:54 Dose: Not Given Metoprolol Succinate (Toprol Xl) 100 mg PO ONETIME ONE Stop: 04/16/19 18:00 Last Admin: 04/16/19 18:25 Dose: 100 mg Morphine Sulfate (Morphine) Confirm Administered Dose 4 mg .ROUTE .STK-MED ONE Stop: 04/15/19 22:52 Last Admin: 04/15/19 23:08 Dose: Not Given Morphine Sulfate (Morphine) 4 mg IVPUSH ONETIME ONE Stop: 04/15/19 22:59 Last Admin: 04/15/19 22:46 Dose: 4 mg Non-Formulary Medication (Liraglutide [Victoza]) 12 units SUBCUT DAILY [facility] Last Admin: 04/16/19 14:43 Dose: Not Given Ondansetron HCl (Zofran) Confirm Administered Dose 4 mg .ROUTE .STK-MED ONE Stop: 04/15/19 22:52 Last Admin: 04/15/19 23:08 Dose: Not Given Ondansetron HCl (Zofran) 4 mg IVPUSH NOW STA Stop: 04/15/19 22:59 Last Admin: 04/15/19 22:42 Dose: 4 mg Potassium Chloride (Potassium Chloride Solution) 20 meq PO BIDMEALS [facility] Last Admin: 04/19/19 12:31 Dose: Not Given Vancomycin HCl (Pharmacy To Dose - Vancomycin) 1 dose .XX ASDIRECTED [facility] - Exam Quality Assessment: DVT Prophylaxis General: Alert, Oriented, No Acute Distress HEENT: Pupils Equal, Pupils Reactive, EOMI, Mucous Membr. Moist/[place] Neck: Supple Lungs: Clear to Auscultation, Normal Respiratory Effort Cardiovascular: Regular Rate, Regular Rhythm GI/Abdominal Exam: Normal Bowel Sounds, Soft, Non-Tender, No Organomegaly, No Distention, No Abnormal Bruit, No Mass, Pelvis Stable Back Exam: Decreased Range of Motion, Vertebral Tenderness (lumbar spine, R > L) Extremities: Normal Inspection, Normal Range of Motion, Non-Tender, No Pedal Edema, Normal Capillary Refill, Pedal Edema (trace) Neurological: No New Focal Deficit Psy/Mental Status: Alert, Normal Affect, Normal Mood - Problem List & Annotations (1) Low back pain with right-sided sciatica SNOMED Code(s): 555038004 Code(s): M54.41 - LUMBAGO WITH SCIATICA, RIGHT SIDE Status: Acute Priority: High Current Visit: Yes Qualifiers: Chronicity: acute Back pain laterality: right Qualified Code(s): M54.41 - Lumbago with sciatica, right side (2) Pneumonia SNOMED Code(s): 468039423 Code(s): J18.9 - PNEUMONIA, UNSPECIFIED ORGANISM Status: Acute Priority: High Current Visit: Yes Qualifiers: Pneumonia type: due to other aerobic Gram-negative bacteria Laterality: bilateral Lung location: lower lobe of lung Qualified Code(s): J15.6 - Pneumonia due to other Gram-negative bacteria - Problem List Review Problem List Initiated/Reviewed/Updated: Yes - My Orders Last 24 Hours: My Active Orders 04/19/19 10:30 Docusate Sodium [Colace] 100 mg PO DAILY Fluconazole [Diflucan] 100 mg PO DAILY 04/19/19 12:30 Potassium Chloride [Klor-Con 10] 20 meq PO BID - Assessment Assessment:: bilateral lower lobe pneumonia Acute on chronic CHF Renal Insufficiency Diabetes Type 2 Acute low back pain with right sciatica - Plan Plan:: This patient was admitted for bilateral lower lobe base pneumonia last night with fever. Patient also has continued ongoing right lower back pain and radiation down the right leg with difficulty walking due to pain. Patient today reports he is feeling a little better than yesterday as he does not feel achy all over, his lower back pain has improved some. He reports still having the right leg pain, but reports it is some better compared to last night. He does report that today he has developed a productive cough. Patient is sitting up in a chair with legs up. The patient labs yesterday were wbc 15.3, hgb 13.7, glucose 302, CRP 6.3, Na 133, BUN 50, CR 2.1, BNP 3863. Due to patient being dry with fever and elevated CR of 2.1, 1L NS was given. Patient today CR has improved, not as dry on exam. BNP today has increased, but no increase in shortness of breath, no increase in BLE edema, unchanged. I did on admit increase his Bumex, now will give a one time dose of Lasix IV. His labs today are wbc 12.4, hgb 12.7, glucose 172, CRP 11.0, Na 136, BUN 45, CR 1.9, BNP 5699. Will continue IV abx, pain meds for leg pain. He is scheduled for venous US of legs for DVT. Will continue admit. 04-17-2019 Patient resting comfortably in the recliner. States feeling better. He feels less short of breath. Does continue to cough, productive at times. Afebrile. Has ongoing low back pain with radiculopathy to right leg, however, better than it was when presented back to the ER. Is ambulating to bathroom with walker. Per records, had 3+ edema in lower legs, improved to 1+ today. Has had echocardiogram in [place] with cardiology. patient was given IV fluids due to elevated creatinine on presentation, increased fluid overload, ProBNp increased to 5699. Was given IV Lasix yesterday and Bumex was increased. Due to elevated creatinine, CTA of chest was unable to be completed for elevated d- dimer and shortness of breath so covered with Lovenox. Bilateral leg ultrasound being done today. chest xray shows a linear opacity, questionable atelectasis versus bibasilar pneumonia. will continue to cover with Vanco and Zosyn. Await ultrasound report of legs. Repeat labs in am. Continue PT for low back pain as does have bulging disc with nerve impingement at L4. 04-18-2019 Patient resting quietly in the recliner, states slept there last night as more comfortable. Denies shortness of breath. Does continue to have productive cough, was able to collect sputum sample last evening. Ambulating to the bathroom per self, tolerating well. Does still have back and leg pain but admits it is feeling better. Lung sounds are clear, edema 1+. WBC increased this am, is on steroids yet. CRP down to 5.7 from 12. proBNP improved slightly at 5539. Creatinine remains high at 2.2 but stable. Will stop Vanco, Zosyn, and Levaquin as lung sounds are clear, afebrile. Will start daily rocephin. Repeat labs in am. Await sputum specimen. Continue PT. 04-19-2019 Patient reports cough and shortness of breath have improved. Sputum culture showed yeast. Add Diflucan daily x 7 days. WBC down to 16.9 from 18.8 yesterday. CRP down to 2.5 from 5.4. Steroids discontinued last evening per emergency telecommunications dispatcher provider as patient was having hyperglycemia. Blood sugars improved this am. No wheezing noted. Edema to lower extremities improved. K low today at 3.1. Start oral K supplements, 20 meq BID with meals. Continues to feel unsteady on feet. Has been ambulating to the bathroom per self. Does continue to have back and leg pain but feels it has improved. He continues to work with PT. He does not feel he needs assistance at home. I did discuss with patient that he would likely benefit from home health PT. He is agreeable to this. Case management to further look into this. Anticipate discharge home with home health tomorrow if patient continues to improve. Recheck labs in am. Continue PT.
[2019-04-19] MEDS: Tamsulosin 0.4 MG Cap.ER PO SCH (19:47)
[2019-04-19] MEDS: Simvastatin 10 MG Tab PO SCH (19:47)
[2019-04-19] MEDS: Insulin Glargine,Human Rec. Analog 100 Units/ML 3 ML Pen SUBCUT SCH (19:49)
[2019-04-20] MEDS: Acetaminophen/oxyCODONE 325-5 MG Tab PO PRN ×3 (03:06→19:38)
[2019-04-20] MEDS: Levothyroxine 100 MCG Tab PO SCH (07:02)
[2019-04-20] MEDS: Pantoprazole 40 MG Tab.CR PO SCH (07:02)
[2019-04-20] MEDS: Lisinopril 20 MG Tab PO SCH (07:57)
[2019-04-20] MEDS: hydrALAZINE 25 MG Tab PO SCH ×3 (07:57→19:42)
[2019-04-20] MEDS: Potassium Chloride 10 MEQ Tab.ER PO SCH ×2 (07:57→19:38)
[2019-04-20] MEDS: Metoprolol Succinate 100 MG Tab.ER PO SCH (07:58)
[2019-04-20] MEDS: Isosorbide Mononitrate 30 MG Tab.ER PO SCH (07:58)
[2019-04-20] MEDS: Allopurinol 300 MG Tab PO SCH (07:58)
[2019-04-20] MEDS: Bumetanide 1 MG Tab PO SCH ×2 (07:58→19:38)
[2019-04-20] MEDS: Fluconazole 100 MG Tab PO SCH (07:58)
[2019-04-20] MEDS: Docusate Sodium 100 MG Cap PO SCH (07:58)
[2019-04-20] MEDS: Finasteride 5 MG Tab PO SCH (07:59)
[2019-04-20] MEDS: Enoxaparin 30 MG/0.3 ML Syringe SUBCUT SCH (07:59)
[2019-04-20] MEDS: Cholecalciferol (Vitamin D3) 25 MCG Tab PO SCH (07:59)
[2019-04-20] MEDS: Insulin Lispro 100 Units/ML 3 ML Vial SUBCUT SCH ×4 (08:01→21:17)
[2019-04-20] MEDS: cefTRIAXone 1 GM Vial IVPUSH SCH (08:53)
--- NOTE | 2019-04-20 09:08 | PCM.PN ---
- General Info Date of Service: 04/20/19 Admission Dx/Problem (Free Text): bilateral lower lobe pneumonia Low back pain with right sciatica Subjective Update: Akash reports he is feeling ok this morning. Has more c/o dizziness/ unsteadiness this morning. He reports he is concerned about fact that he continues to be unsteady on his feet. Does admit to ongoing back pain, but this has improved. Cough has improved. Patient denies any shortness of breath or chest pain. Edema in lower extremities has improved. He has been working with PT. Is ambulating to bathroom per self. Functional Status: Reports: Pain Controlled, Tolerating Diet, Ambulating, Urinating. Denies: New Symptoms - Review of Systems General: Reports: Weakness. Denies: Fever, Fatigue, Chills HEENT: Denies: Sinus Congestion, Sore Throat Pulmonary: Reports: Cough. Denies: Shortness of Breath, Pleuritic Chest Pain, Sputum, Wheezing Cardiovascular: Reports: Edema. Denies: Chest Pain, Dyspnea on Exertion, Lightheadedness Gastrointestinal: Denies: Abdominal Pain, Decreased Appetite, Diarrhea, Nausea, Vomiting Genitourinary: Denies: Dysuria, Frequency, Urgency Musculoskeletal: Reports: Back Pain, Leg Pain (right) Skin: Reports: No Symptoms Neurological: Reports: Dizziness, Weakness. Denies: Numbness, Tingling Psychiatric: Reports: No Symptoms - Patient Data Vitals - Most Recent: Last Vital Signs Temp 97.8 F 04/20/19 08:00 Pulse 82 04/20/19 08:00 Resp 20 04/20/19 08:00 BP 112/76 04/20/19 08:00 Pulse Ox 96 04/20/19 08:00 Weight - Most Recent: 227 lb 4.8 oz Lab Results Last 24 Hours: Laboratory Results - last 24 hr 04/19/19 04/19/19 04/19/19 Range/Units 11:39 16:57 20:59 WBC (5.0-10.0) 10^3/uL RBC (4.50-6.00) 10^6/uL Hgb (14.0-18.0) g/dL Hct (40.0-54.0) % MCV (82.0-94.0) fL MCH (27.0-32.0) pg MCHC (33.0-38.0) g/dL RDW Coeff of Emam (11.0-15.0) % Plt Count (150-400) 10^3/uL Neut % (Auto) (35-85) % Lymph % (Auto) (10-55) % Saline % (Auto) (0-16) % Eos % (Auto) (0-5) % Baso % (Auto) (0-3) % Neut # (Auto) (1.80-7.00) 10^3/uL Lymph # (Auto) (1.00-4.80) 10^3/uL Saline # (Auto) (0.00-0.80) 10^3/uL Eos # (Auto) (0.00-0.45) 10^3/uL Baso # (Auto) 10^3/uL Sodium (136-145) mEq/L Potassium (3.5-5.0) mEq/L Chloride (98-106) mEq/L Carbon Dioxide (21-32) mmol/L BUN (7-18) mg/dL Creatinine (0.7-1.3) mg/dL Est Cr Clr Drug Dosing mL/min Estimated GFR (MDRD) (>=60) mL/min Glucose (75-99) mg/dL POC Glucose 220 H 273 H 283 H (75-105) mg/dl Calcium (8.4-10.1) mg/dL C-Reactive Protein (0.2-0.8) mg/dL 04/20/19 04/20/19 04/20/19 Range/Units 06:00 06:00 07:44 WBC 12.2 H (5.0-10.0) 10^3/uL RBC 5.37 (4.50-6.00) 10^6/uL Hgb 14.9 (14.0-18.0) g/dL Hct 43.9 (40.0-54.0) % MCV 81.8 L (82.0-94.0) fL MCH 27.7 (27.0-32.0) pg MCHC 33.9 (33.0-38.0) g/dL RDW Coeff of Emma 16.1 H (11.0-15.0) % Plt Count 347 (150-400) 10^3/uL Neut % (Auto) 78.9 (35-85) % Lymph % (Auto) 8.4 L (10-55) % Saline % (Auto) 9.8 (0-16) % Eos % (Auto) 2.9 (0-5) % Baso % (Auto) 0 (0-3) % Neut # (Auto) 9.65 H (1.80-7.00) 10^3/uL Lymph # (Auto) 1.03 (1.00-4.80) 10^3/uL Saline # (Auto) 1.20 H (0.00-0.80) 10^3/uL Eos # (Auto) 0.36 (0.00-0.45) 10^3/uL Baso # (Auto) 0.00 10^3/uL Sodium 137 (136-145) mEq/L Potassium 3.5 (3.5-5.0) mEq/L Chloride 102 (98-106) mEq/L Carbon Dioxide 24 (21-32) mmol/L BUN 59 H (7-18) mg/dL Creatinine 2.3 H (0.7-1.3) mg/dL Est Cr Clr Drug Dosing 21.16 mL/min Estimated GFR (MDRD) 27 L (>=60) mL/min Glucose 135 H (75-99) mg/dL POC Glucose 132 H (75-105) mg/dl Calcium 9.2 (8.4-10.1) mg/dL C-Reactive Protein 2.3 H (0.2-0.8) mg/dL Neil Results Last 24 Hours: Microbiology 04/15/19 23:16 Aerobic Blood Culture - Preliminary Blood - Venous NO GROWTH AFTER 4 DAYS Anaerobic Blood Culture - Preliminary NO GROWTH AFTER 4 DAYS 04/15/19 23:16 Aerobic Blood Culture - Preliminary Blood - Venous - Lab Draw NO GROWTH AFTER 4 DAYS Anaerobic Blood Culture - Preliminary NO GROWTH AFTER 4 DAYS 04/18/19 05:27 Gram Stain - Final Sputum - Expectorated Sputum Culture - Preliminary YEAST Med Orders - Current: Current Medications Acetaminophen (Tylenol) 650 mg PO Q4H PRN PRN Reason: Fever Albuterol/Ipratropium (Duoneb 3.0-0.5 Mg/3 Ml) 3 ml NEB Q4H PRN PRN Reason: Shortness Of Breath/wheezing Allopurinol (Zyloprim) 150 mg PO DAILY [facility] Last Admin: 04/20/19 07:58 Dose: 150 mg Bumetanide (Bumex) 2 mg PO DAILY [facility] Last Admin: 04/20/19 07:58 Dose: 2 mg Bumetanide (Bumex) 1 mg PO BEDTIME [facility] Last Admin: 04/19/19 19:47 Dose: 1 mg Ceftriaxone Sodium (Rocephin) 1 gm IVPUSH Q24H [facility] Last Admin: 04/20/19 08:53 Dose: 1 gm Cholecalciferol (Vitamin D3) 50 mcg PO DAILY [facility] Last Admin: 04/20/19 07:59 Dose: 50 mcg Docusate Sodium (Colace) 100 mg PO BID PRN PRN Reason: Constipation Docusate Sodium (Colace) 100 mg PO DAILY [facility] Last Admin: 04/20/19 07:58 Dose: 100 mg Enoxaparin Sodium (Lovenox) 30 mg SUBCUT Q24H [facility] Last Admin: 04/20/19 07:59 Dose: 30 mg Finasteride (Proscar) 5 mg PO DAILY [facility] Last Admin: 04/20/19 07:59 Dose: 5 mg Fluconazole (Diflucan) 100 mg PO DAILY [facility] Last Admin: 04/20/19 07:58 Dose: 100 mg Hydralazine HCl (Apresoline) 100 mg PO TID [facility] Last Admin: 04/20/19 07:57 Dose: 100 mg Ibuprofen (Motrin) 600 mg PO Q6H PRN PRN Reason: Fever Insulin Glargine (Lantus Solostar) 22 units SUBCUT BEDTIME [facility] Last Admin: 04/19/19 19:49 Dose: 22 unit Insulin Human Lispro (Humalog) 0 unit SUBCUT WITHMEALSANDBED [facility]; Protocol Last Admin: 04/20/19 08:01 Dose: Not Given Isosorbide Mononitrate (Imdur) 30 mg PO DAILY [facility] Last Admin: 04/20/19 07:58 Dose: 30 mg Ketorolac Tromethamine (Acular 0.5% Ophth Soln) 0 ml EYERT TID PRN PRN Reason: Dry Eyes Levothyroxine Sodium (Synthroid) 100 mcg PO ACBREAKFAST [facility] Last Admin: 04/20/19 07:02 Dose: 100 mcg Lisinopril (Prinivil) 20 mg PO DAILY [facility] Last Admin: 04/20/19 07:57 Dose: 20 mg Metoprolol Succinate (Toprol Xl) 100 mg PO DAILY [facility] Last Admin: 04/20/19 07:58 Dose: 100 mg Morphine Sulfate (Morphine) 2 mg IVPUSH Q2H PRN PRN Reason: Pain (severe 7-10) Ondansetron HCl (Zofran) 4 mg IV Q6H PRN PRN Reason: Nausea/Vomiting Oxycodone/Acetaminophen (Percocet 325-5 Mg) 2 tab PO Q4H PRN PRN Reason: Pain (moderate 4-6) Last Admin: 04/20/19 03:06 Dose: 2 tab Pantoprazole Sodium (Protonix) 40 mg PO ACBREAKFAST [facility] Last Admin: 04/20/19 07:02 Dose: 40 mg Potassium Chloride (Klor-Con 10) 20 meq PO BID [facility] Last Admin: 04/20/19 07:57 Dose: 20 meq Simvastatin (Zocor) 10 mg PO BEDTIME [facility] Last Admin: 04/19/19 19:47 Dose: 10 mg Tamsulosin HCl (Flomax) 0.4 mg PO BEDTIME [facility] Last Admin: 04/19/19 19:47 Dose: 0.4 mg Temazepam (Restoril) 15 mg PO BEDTIME PRN PRN Reason: Sleep Discontinued Medications Acetaminophen (Tylenol Extra Strength) 1,000 mg PO ONETIME ONE Stop: 04/15/19 23:52 Last Admin: 04/15/19 23:56 Dose: 1,000 mg Acetaminophen (Tylenol Extra Strength) Confirm Administered Dose 1,000 mg .ROUTE .STK-MED ONE Stop: 04/16/19 00:03 Last Admin: 04/16/19 00:00 Dose: Not Given Bumetanide (Bumex) 1 mg PO BEDTIME [facility] Last Admin: 04/16/19 01:01 Dose: 1 mg Bumetanide (Bumex) Confirm Administered Dose 1 mg .ROUTE .STK-MED ONE Stop: 04/16/19 01:25 Last Admin: 04/16/19 01:38 Dose: Not Given Enoxaparin Sodium (Lovenox) 30 mg SUBCUT Q24H [facility] Last Admin: 04/16/19 00:56 Dose: 30 mg Furosemide (Lasix) 40 mg IVPUSH ONETIME ONE Stop: 04/16/19 13:07 Last Admin: 04/16/19 14:43 Dose: 40 mg Levofloxacin/Dextrose 750 mg/ (Premix) 150 mls @ 100 mls/hr IV Q48H [facility] Last Admin: 04/16/19 00:55 Dose: 100 mls/hr Piperacillin Sod/Tazobactam (Sod 3.375 gm/ Sodium Chloride) 100 mls @ 200 mls/ hr IV Q6H [facility] Last Admin: 04/17/19 14:00 Dose: Not Given Sodium Chloride (Normal Saline) 1,000 mls @ 999 mls/hr IV .BOLUS [facility] Last Admin: 04/16/19 00:56 Dose: 999 mls/hr Vancomycin HCl 1.25 gm/ Sodium (Chloride) 250 mls @ 167 mls/hr IV Q24H [facility] Last Admin: 04/16/19 02:23 Dose: 167 mls/hr Levofloxacin/Dextrose 750 mg/ (Premix) 150 mls @ 100 mls/hr IV Q48H [facility] Last Admin: 04/16/19 20:59 Dose: Not Given Vancomycin HCl 1.25 gm/ Sodium (Chloride) 250 mls @ 167 mls/hr IV Q24H [facility] Last Admin: 04/18/19 09:08 Dose: Not Given Levofloxacin/Dextrose 750 mg/ (Premix) 150 mls @ 100 mls/hr IV Q48H [facility] Last Admin: 04/17/19 20:58 Dose: 100 mls/hr Piperacillin Sod/Tazobactam (Sod 3.375 gm/ Sodium Chloride) 100 mls @ 200 mls/ hr IV 0200,0800,1400,2000 [facility] Last Admin: 04/18/19 09:08 Dose: Not Given Insulin Glargine (Lantus Solostar) 22 units SUBCUT DAILY [facility] Last Admin: 04/16/19 15:00 Dose: Not Given Insulin Human Lispro (Humalog) 12 unit SUBCUT ASDIRECTED ONE Stop: 04/17/19 17:15 Last Admin: 04/17/19 17:48 Dose: 12 units Insulin Human Lispro (Humalog) 15 unit SUBCUT ASDIRECTED ONE Stop: 04/18/19 17:43 Last Admin: 04/18/19 17:56 Dose: 15 units Methylprednisolone Sodium Succinate (Solu-Medrol) 62.5 mg IVPUSH Q12H [facility] Last Admin: 04/18/19 23:54 Dose: Not Given Metoprolol Succinate (Toprol Xl) 100 mg PO ONETIME ONE Stop: 04/16/19 18:00 Last Admin: 04/16/19 18:25 Dose: 100 mg Morphine Sulfate (Morphine) Confirm Administered Dose 4 mg .ROUTE .STK-MED ONE Stop: 04/15/19 22:52 Last Admin: 04/15/19 23:08 Dose: Not Given Morphine Sulfate (Morphine) 4 mg IVPUSH ONETIME ONE Stop: 04/15/19 22:59 Last Admin: 04/15/19 22:46 Dose: 4 mg Non-Formulary Medication (Liraglutide [Victoza]) 12 units SUBCUT DAILY [facility] Last Admin: 04/16/19 14:43 Dose: Not Given Ondansetron HCl (Zofran) Confirm Administered Dose 4 mg .ROUTE .STK-MED ONE Stop: 04/15/19 22:52 Last Admin: 04/15/19 23:08 Dose: Not Given Ondansetron HCl (Zofran) 4 mg IVPUSH NOW STA Stop: 04/15/19 22:59 Last Admin: 04/15/19 22:42 Dose: 4 mg Potassium Chloride (Potassium Chloride Solution) 20 meq PO BIDMEALS [facility] Last Admin: 04/19/19 12:31 Dose: Not Given Vancomycin HCl (Pharmacy To Dose - Vancomycin) 1 dose .XX ASDIRECTED [facility] - Exam Quality Assessment: DVT Prophylaxis General: Alert, Oriented, No Acute Distress Neck: Supple Lungs: Clear to Auscultation, Normal Respiratory Effort Cardiovascular: Regular Rate, Regular Rhythm GI/Abdominal Exam: Normal Bowel Sounds, Soft, Non-Tender, No Organomegaly, No Distention, No Abnormal Bruit, No Mass, Pelvis Stable Back Exam: Decreased Range of Motion, Vertebral Tenderness (lumbar spine, R > L) Extremities: Normal Inspection, Normal Range of Motion, Normal Capillary Refill , Pedal Edema (trace) Neurological: No New Focal Deficit Psy/Mental Status: Alert, Normal Affect, Normal Mood - Problem List & Annotations (1) Low back pain with right-sided sciatica SNOMED Code(s): 732309181 Code(s): M54.41 - LUMBAGO WITH SCIATICA, RIGHT SIDE Status: Acute Priority: High Current Visit: Yes Qualifiers: Chronicity: acute Back pain laterality: right Qualified Code(s): M54.41 - Lumbago with sciatica, right side (2) Pneumonia SNOMED Code(s): 624421014 Code(s): J18.9 - PNEUMONIA, UNSPECIFIED ORGANISM Status: Acute Priority: High Current Visit: Yes Qualifiers: Pneumonia type: due to other aerobic Gram-negative bacteria Laterality: bilateral Lung location: lower lobe of lung Qualified Code(s): J15.6 - Pneumonia due to other Gram-negative bacteria (3) Congestive heart failure SNOMED Code(s): 63975523 Code(s): I50.9 - HEART FAILURE, UNSPECIFIED Status: Chronic Priority: Medium Current Visit: Yes Qualifiers: Heart failure type: systolic Heart failure chronicity: acute on chronic Qualified Code(s): I50.23 - Acute on chronic systolic (congestive) heart failure (4) Diabetes mellitus type 2 SNOMED Code(s): 93981231 Code(s): E11.9 - TYPE 2 DIABETES MELLITUS WITHOUT COMPLICATIONS Status: Chronic Priority: High Current Visit: Yes - Problem List Review Problem List Initiated/Reviewed/Updated: Yes - My Orders Last 24 Hours: My Active Orders 04/19/19 10:30 Docusate Sodium [Colace] 100 mg PO DAILY Fluconazole [Diflucan] 100 mg PO DAILY 04/19/19 12:30 Potassium Chloride [Klor-Con 10] 20 meq PO BID - Assessment Assessment:: bilateral lower lobe pneumonia Acute on chronic CHF Renal Insufficiency Diabetes Type 2 Acute low back pain with right sciatica - Plan Plan:: Lung sounds are clear. Patient was started on Diflucan yesterday 04/19/2019 for yeast on sputum culture. Will continue 1 additional day of Rocephin. WBC improved to 12.2. CRP down to 2.3. Cough and shortness of breath have improved. K has improved to 3.5 with oral supplements. Blood sugars remain elevated, but have improved since discontinuation of steroids. Continue Humalog. Patient reports ongoing low back pain with right sided sciatica. He has been working with PT. Today he is concerned as he is unsteady and dizzy when he is up ambulating. This has been ongoing, but he feels it is worse this morning. He has been ambulating to the bathroom per self. He repots this concerns him with going home. Did discuss option of home health PT upon discharge. Case management to consult with patient. Will keep acute one additional day for patient to work with PT. He has been progressing with PT. Recheck potassium tomorrow to make sure that is stable. Plan is to discharge home tomorrow. Continue all other current cares.
[2019-04-20] MEDS: Tamsulosin 0.4 MG Cap.ER PO SCH (19:38)
[2019-04-20] MEDS: Simvastatin 10 MG Tab PO SCH (19:38)
[2019-04-20] MEDS: Insulin Glargine,Human Rec. Analog 100 Units/ML 3 ML Pen SUBCUT SCH (19:45)
[2019-04-21] MEDS: Levothyroxine 100 MCG Tab PO SCH (07:14)
[2019-04-21] MEDS: Pantoprazole 40 MG Tab.CR PO SCH (07:14)
[2019-04-21] MEDS: Acetaminophen/oxyCODONE 325-5 MG Tab PO PRN (07:15)
[2019-04-21] MEDS: Isosorbide Mononitrate 30 MG Tab.ER PO SCH (07:59)
[2019-04-21] MEDS: hydrALAZINE 25 MG Tab PO SCH ×2 (07:59→15:18)
[2019-04-21] MEDS: Bumetanide 1 MG Tab PO SCH (07:59)
[2019-04-21] MEDS: Metoprolol Succinate 100 MG Tab.ER PO SCH (08:00)
[2019-04-21] MEDS: Allopurinol 300 MG Tab PO SCH (08:00)
[2019-04-21] MEDS: Docusate Sodium 100 MG Cap PO SCH (08:00)
[2019-04-21] MEDS: Cholecalciferol (Vitamin D3) 25 MCG Tab PO SCH (08:00)
[2019-04-21] MEDS: Finasteride 5 MG Tab PO SCH (08:00)
[2019-04-21] MEDS: Potassium Chloride 10 MEQ Tab.ER PO SCH (08:00)
[2019-04-21] MEDS: Fluconazole 100 MG Tab PO SCH (08:00)
[2019-04-21] MEDS: Enoxaparin 30 MG/0.3 ML Syringe SUBCUT SCH (08:01)
[2019-04-21] MEDS: Lisinopril 20 MG Tab PO SCH (08:01)
[2019-04-21] MEDS: Insulin Lispro 100 Units/ML 3 ML Vial SUBCUT SCH ×2 (08:01→12:55)
[2019-04-21] MEDS: cefTRIAXone 1 GM Vial IVPUSH SCH (09:20)
[2019-04-21] MEDS: Acetaminophen 325 MG Tab PO PRN ×2 (10:32→15:18)
[2019-04-21 12:29] VITALS: BP 146/77; PULSE 79
--- NOTE | 2019-04-21 14:11 | PCM.DCSUM1 ---
Discharge Summary - Hospital Course Free Text/Narrative:: Patient returned back to the ER on Wednesday with increasing weakness, body aches and chills. Had been in the hospital for the week due to low back pain with sciatica. Had MRI on Wednesday. Was doing well, walking with walker and tolerating pain with oral meds. On presentation, was more weak. Required 3 ambulance members to transfer patient out of bed and pivot to cot. Complaining more of weakness, body aches and cough now than issues with back, however, does feel he was doing better when discharged than is now. ER work up showed elevated WBC, chest xray concerning for lower lobe infiltrates. Admitted for pneumonitis. Due to concerns with being hospital acquired, was started on Vancomycin, Levaquin and Zosyn. Neb treatments. Steroids. Humalog per sliding scale due to concerns with steroid induced hyperglycemia. Diagnosis: Stroke: No Modified Mariely Scale: No Symptoms at All Modified Angelina Scale Score: 0 - Discharge Data Discharge Date: 04/21/19 Discharge Disposition: Home, Self-Care 01 Condition: Fair - Referral to Home Health Primary Care Physician: Torito Taylor MD - Discharge Diagnosis/Problem(s) (1) Pneumonia SNOMED Code(s): 735532324 ICD Code: J18.9 - PNEUMONIA, UNSPECIFIED ORGANISM Status: Acute Priority : High Qualifiers: Pneumonia type: due to other aerobic Gram-negative bacteria Laterality: bilateral Lung location: lower lobe of lung Qualified Code(s): J15.6 - Pneumonia due to other Gram-negative bacteria (2) Low back pain with right-sided sciatica SNOMED Code(s): 951703792 ICD Code: M54.41 - LUMBAGO WITH SCIATICA, RIGHT SIDE Status: Acute Priority: High Qualifiers: Chronicity: acute Back pain laterality: right Qualified Code(s): M54.41 - Lumbago with sciatica, right side (3) Congestive heart failure SNOMED Code(s): 95737711 ICD Code: I50.9 - HEART FAILURE, UNSPECIFIED Status: Chronic Priority: Medium Qualifiers: Heart failure type: systolic Heart failure chronicity: acute on chronic Qualified Code(s): I50.23 - Acute on chronic systolic (congestive) heart failure (4) Diabetes mellitus type 2 SNOMED Code(s): 53540242 ICD Code: E11.9 - TYPE 2 DIABETES MELLITUS WITHOUT COMPLICATIONS Status: Chronic Priority: High - Patient Summary/Data Complications: none Consults: Consultations 04/18/19 10:24 Consult to Physical Therapy [PT Evaluation and Treatment] [CONS] Routine Hospital Course: Patient is showing improvement overall. Cough has improved. Sputum positive only for yeast, was started on Diflucan. Ultimately, was switched from Vancomycin, Levaquin and Zosyn to Rocephin. Less shortness of breath. Did have increase in ProBNP with increased edema. Was given one time dose of Lasix and Bumex was increased. ProBNP has reduced some and edema is much improved. Lung sounds are clear. 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 Has been getting physical therapy and tolerating pain with [place]. Is ambulating well with walker. Over the last 2 days, patient complaining of dizziness, feeling unsteady. As a result, did obtain a MRI of his brain which showed no acute changes. Labs have noted WBC to spike at 18.8, question related to steroid use. CRP has remained stable between 2.3 and 3.3. ProBNP did spike at 5699. Electrolytes stable. Creatinine was high at 2.1 on presentation, did increase to 2.5, likely from IV antibiotics and increased Bumex/Lasix. As edema is improved, lung sounds clear, will return patient to usual dose of Bumex. Recheck labs at return visit. - Patient Instructions Diet: Diabetic Diet Activity: As Tolerated - Discharge Plan *PRESCRIPTION DRUG MONITORING PROGRAM REVIEWED*: Not Applicable *COPY OF PRESCRIPTION DRUG MONITORING REPORT IN PATIENT TENZIN: Not Applicable Prescriptions/Med Rec: Docusate Sodium [Colace] 100 mg PO DAILY #60 cap Fluconazole [Diflucan] 100 mg PO DAILY #7 tablet Home Medications: Home Meds Allopurinol 150 mg PO DAILY 02/08/14 [History] Simvastatin 10 mg PO BEDTIME 02/08/14 [History] Ketorolac [Acular 0.5% Ophth Soln] 1 drop OP TID PRN 10/22/14 [History] Bumetanide [Bumex] 1 mg PO BID 11/09/14 [History] Omeprazole [Prilosec] 20 mg PO DAILY 11/09/14 [History] Tamsulosin [Flomax] 0.4 mg PO BEDTIME 11/09/14 [History] Metoprolol Succinate [Toprol XL] 100 mg PO DAILY 08/05/15 [History] Levothyroxine Sodium [Synthroid] 100 mcg PO ACBREAKFAST 08/17/16 [History] Cholecalciferol (Vitamin D3) [Vitamin D] 2,000 unit PO DAILY 05/02/18 [History] hydrALAZINE [Apresoline] 100 mg PO TID 05/02/18 [History] Isosorbide Mononitrate [Isosorbide Mononitrate ER] 30 mg PO DAILY 05/03/18 [ History] Hydrocodone/Acetaminophen [Hydrocodon-Acetaminophen 5-325] 1 tab PO Q6H PRN [History] Finasteride 5 mg PO DAILY 04/12/19 [History] Lisinopril 20 mg PO DAILY 04/12/19 [History] Insulin Degludec [Tresiba] 22 unit SUBCUT DAILY 04/16/19 [History] Docusate Sodium [Colace] 100 mg PO DAILY #60 cap 04/21/19 [Rx] Fluconazole [Diflucan] 100 mg PO DAILY #7 tablet 04/21/19 [Rx] Patient Handouts: Community-Acquired Pneumonia, Adult, Herniated Disk Forms: ED Department Discharge Referrals: Torito Taylor MD [Primary Care Provider] - (Hospital follow up in [address] Taylor) - Discharge Summary/Plan Comment DC Time >30 min.: No - General Info Date of Service: 04/21/19 Admission Dx/Problem (Free Text: bilateral lower lobe pneumonia Low back pain with right sciatica Functional Status: Reports: Pain Controlled, Tolerating Diet, Ambulating - Review of Systems General: Reports: Weakness. Denies: Fever HEENT: Reports: No Symptoms Pulmonary: Reports: Cough, Sputum. Denies: Shortness of Breath, Wheezing Cardiovascular: Reports: Edema. Denies: Chest Pain, Lightheadedness Gastrointestinal: Denies: Abdominal Pain, Nausea, Vomiting Genitourinary: Reports: No Symptoms Musculoskeletal: Reports: Back Pain, Leg Pain Skin: Reports: No Symptoms Neurological: Reports: Dizziness, Weakness - Patient Data Vitals - Most Recent: Last Vital Signs Temp 97 F 04/21/19 12:00 Pulse 79 04/21/19 12:00 Resp 18 04/21/19 12:00 BP 146/77 H 04/21/19 12:00 Pulse Ox 95 04/21/19 12:00 Weight - Most Recent: 227 lb 4.8 oz Lab Results - Last 24 hrs: Laboratory Results - last 24 hr 04/20/19 04/20/19 04/21/19 Range/Units 17:28 21:12 06:50 WBC 13.8 H (5.0-10.0) 10^3/uL RBC 5.31 (4.50-6.00) 10^6/uL Hgb 14.5 (14.0-18.0) g/dL Hct 43.6 (40.0-54.0) % MCV 82.1 (82.0-94.0) fL MCH 27.3 (27.0-32.0) pg MCHC 33.3 (33.0-38.0) g/dL RDW Coeff of Emma 16.3 H (11.0-15.0) % Plt Count 332 (150-400) 10^3/uL Neut % (Auto) 80.3 (35-85) % Lymph % (Auto) 8.1 L (10-55) % [place] % (Auto) 7.7 (0-16) % Eos % (Auto) 3.8 (0-5) % Baso % (Auto) 0.1 (0-3) % Neut # (Auto) 11.10 H (1.80-7.00) 10^3/uL Lymph # (Auto) 1.12 (1.00-4.80) 10^3/uL [place] # (Auto) 1.07 H (0.00-0.80) 10^3/uL Eos # (Auto) 0.52 H (0.00-0.45) 10^3/uL Baso # (Auto) 0.01 10^3/uL Sodium (136-145) mEq/L Potassium (3.5-5.0) mEq/L Chloride (98-106) mEq/L Carbon Dioxide (21-32) mmol/L BUN (7-18) mg/dL Creatinine (0.7-1.3) mg/dL Est Cr Clr Drug Dosing mL/min Estimated GFR (MDRD) (>=60) mL/min Glucose (75-99) mg/dL POC Glucose 250 H 282 H (75-105) mg/dl Calcium (8.4-10.1) mg/dL C-Reactive Protein (0.2-0.8) mg/dL 04/21/19 04/21/19 04/21/19 Range/Units 06:50 07:56 12:02 WBC (5.0-10.0) 10^3/uL RBC (4.50-6.00) 10^6/uL Hgb (14.0-18.0) g/dL Hct (40.0-54.0) % MCV (82.0-94.0) fL MCH (27.0-32.0) pg MCHC (33.0-38.0) g/dL RDW Coeff of Emma (11.0-15.0) % Plt Count (150-400) 10^3/uL Neut % (Auto) (35-85) % Lymph % (Auto) (10-55) % [place] % (Auto) (0-16) % Eos % (Auto) (0-5) % Baso % (Auto) (0-3) % Neut # (Auto) (1.80-7.00) 10^3/uL Lymph # (Auto) (1.00-4.80) 10^3/uL [place] # (Auto) (0.00-0.80) 10^3/uL Eos # (Auto) (0.00-0.45) 10^3/uL Baso # (Auto) 10^3/uL Sodium 136 (136-145) mEq/L Potassium 3.8 (3.5-5.0) mEq/L Chloride 102 (98-106) mEq/L Carbon Dioxide 24 (21-32) mmol/L BUN 59 H (7-18) mg/dL Creatinine 2.5 H (0.7-1.3) mg/dL Est Cr Clr Drug Dosing 19.46 mL/min Estimated GFR (MDRD) 25 L (>=60) mL/min Glucose 135 H (75-99) mg/dL POC Glucose 141 H 292 H (75-105) mg/dl Calcium 9.0 (8.4-10.1) mg/dL C-Reactive Protein 3.3 H (0.2-0.8) mg/dL BEST Results - Last 24 hrs: Microbiology 04/15/19 23:16 Aerobic Blood Culture - Final Blood - Venous NO GROWTH AFTER 5 DAYS Anaerobic Blood Culture - Final NO GROWTH AFTER 5 DAYS 04/15/19 23:16 Aerobic Blood Culture - Final Blood - Venous - Lab Draw NO GROWTH AFTER 5 DAYS Anaerobic Blood Culture - Final NO GROWTH AFTER 5 DAYS 04/18/19 05:27 Gram Stain - Final Sputum - Expectorated Sputum Culture - Final YEAST Med Orders - Current: Current Medications Acetaminophen (Tylenol) 650 mg PO Q4H PRN PRN Reason: Fever Last Admin: 04/21/19 10:32 Dose: 650 mg Albuterol/Ipratropium (Duoneb 3.0-0.5 Mg/3 Ml) 3 ml NEB Q4H PRN PRN Reason: Shortness Of Breath/wheezing Allopurinol (Zyloprim) 150 mg PO DAILY [facility] Last Admin: 04/21/19 08:00 Dose: 150 mg Bumetanide (Bumex) 2 mg PO DAILY [facility] Last Admin: 04/21/19 07:59 Dose: 2 mg Bumetanide (Bumex) 1 mg PO BEDTIME [facility] Last Admin: 04/20/19 19:38 Dose: 1 mg Ceftriaxone Sodium (Rocephin) 1 gm IVPUSH Q24H [facility] Last Admin: 04/21/19 09:20 Dose: 1 gm Cholecalciferol (Vitamin D3) 50 mcg PO DAILY [facility] Last Admin: 04/21/19 08:00 Dose: 50 mcg Docusate Sodium (Colace) 100 mg PO BID PRN PRN Reason: Constipation Docusate Sodium (Colace) 100 mg PO DAILY [facility] Last Admin: 04/21/19 08:00 Dose: 100 mg Enoxaparin Sodium (Lovenox) 30 mg SUBCUT Q24H [facility] Last Admin: 04/21/19 08:01 Dose: 30 mg Finasteride (Proscar) 5 mg PO DAILY [facility] Last Admin: 04/21/19 08:00 Dose: 5 mg Fluconazole (Diflucan) 100 mg PO DAILY [facility] Last Admin: 04/21/19 08:00 Dose: 100 mg Hydralazine HCl (Apresoline) 100 mg PO TID [facility] Last Admin: 04/21/19 07:59 Dose: 100 mg Ibuprofen (Motrin) 600 mg PO Q6H PRN PRN Reason: Fever Insulin Glargine (Lantus Solostar) 22 units SUBCUT BEDTIME [facility] Last Admin: 04/20/19 19:45 Dose: 22 unit Insulin Human Lispro (Humalog) 0 unit SUBCUT WITHMEALSANDBED [facility]; Protocol Last Admin: 04/21/19 12:55 Dose: 6 unit Isosorbide Mononitrate (Imdur) 30 mg PO DAILY [facility] Last Admin: 04/21/19 07:59 Dose: 30 mg Ketorolac Tromethamine (Acular 0.5% Ophth Soln) 0 ml EYERT TID PRN PRN Reason: Dry Eyes Levothyroxine Sodium (Synthroid) 100 mcg PO ACBREAKFAST [facility] Last Admin: 04/21/19 07:14 Dose: 100 mcg Lisinopril (Prinivil) 20 mg PO DAILY [facility] Last Admin: 04/21/19 08:01 Dose: 20 mg Metoprolol Succinate (Toprol Xl) 100 mg PO DAILY [facility] Last Admin: 04/21/19 08:00 Dose: 100 mg Morphine Sulfate (Morphine) 2 mg IVPUSH Q2H PRN PRN Reason: Pain (severe 7-10) Ondansetron HCl (Zofran) 4 mg IV Q6H PRN PRN Reason: Nausea/Vomiting Oxycodone/Acetaminophen (Percocet 325-5 Mg) 2 tab PO Q4H PRN PRN Reason: Pain (moderate 4-6) Last Admin: 04/21/19 07:15 Dose: 2 tab Pantoprazole Sodium (Protonix) 40 mg PO ACBREAKFAST [facility] Last Admin: 04/21/19 07:14 Dose: 40 mg Potassium Chloride (Klor-Con 10) 20 meq PO BID [facility] Last Admin: 04/21/19 08:00 Dose: 20 meq Simvastatin (Zocor) 10 mg PO BEDTIME [facility] Last Admin: 04/20/19 19:38 Dose: 10 mg Tamsulosin HCl (Flomax) 0.4 mg PO BEDTIME [facility] Last Admin: 04/20/19 19:38 Dose: 0.4 mg Temazepam (Restoril) 15 mg PO BEDTIME PRN PRN Reason: Sleep Discontinued Medications Acetaminophen (Tylenol Extra Strength) 1,000 mg PO ONETIME ONE Stop: 04/15/19 23:52 Last Admin: 04/15/19 23:56 Dose: 1,000 mg Acetaminophen (Tylenol Extra Strength) Confirm Administered Dose 1,000 mg .ROUTE .STK-MED ONE Stop: 04/16/19 00:03 Last Admin: 04/16/19 00:00 Dose: Not Given Bumetanide (Bumex) 1 mg PO BEDTIME [facility] Last Admin: 04/16/19 01:01 Dose: 1 mg Bumetanide (Bumex) Confirm Administered Dose 1 mg .ROUTE .STK-MED ONE Stop: 04/16/19 01:25 Last Admin: 04/16/19 01:38 Dose: Not Given Enoxaparin Sodium (Lovenox) 30 mg SUBCUT Q24H [facility] Last Admin: 04/16/19 00:56 Dose: 30 mg Furosemide (Lasix) 40 mg IVPUSH ONETIME ONE Stop: 04/16/19 13:07 Last Admin: 04/16/19 14:43 Dose: 40 mg Levofloxacin/Dextrose 750 mg/ (Premix) 150 mls @ 100 mls/hr IV Q48H [facility] Last Admin: 04/16/19 00:55 Dose: 100 mls/hr Piperacillin Sod/Tazobactam (Sod 3.375 gm/ Sodium Chloride) 100 mls @ 200 mls/ hr IV Q6H [facility] Last Admin: 04/17/19 14:00 Dose: Not Given Sodium Chloride (Normal Saline) 1,000 mls @ 999 mls/hr IV .BOLUS [facility] Last Admin: 04/16/19 00:56 Dose: 999 mls/hr Vancomycin HCl 1.25 gm/ Sodium (Chloride) 250 mls @ 167 mls/hr IV Q24H [facility] Last Admin: 04/16/19 02:23 Dose: 167 mls/hr Levofloxacin/Dextrose 750 mg/ (Premix) 150 mls @ 100 mls/hr IV Q48H [facility] Last Admin: 04/16/19 20:59 Dose: Not Given Vancomycin HCl 1.25 gm/ Sodium (Chloride) 250 mls @ 167 mls/hr IV Q24H [facility] Last Admin: 04/18/19 09:08 Dose: Not Given Levofloxacin/Dextrose 750 mg/ (Premix) 150 mls @ 100 mls/hr IV Q48H [facility] Last Admin: 04/17/19 20:58 Dose: 100 mls/hr Piperacillin Sod/Tazobactam (Sod 3.375 gm/ Sodium Chloride) 100 mls @ 200 mls/ hr IV 0200,0800,1400,2000 [facility] Last Admin: 04/18/19 09:08 Dose: Not Given Insulin Glargine (Lantus Solostar) 22 units SUBCUT DAILY [facility] Last Admin: 04/16/19 15:00 Dose: Not Given Insulin Human Lispro (Humalog) 12 unit SUBCUT ASDIRECTED ONE Stop: 04/17/19 17:15 Last Admin: 04/17/19 17:48 Dose: 12 units Insulin Human Lispro (Humalog) 15 unit SUBCUT ASDIRECTED ONE Stop: 04/18/19 17:43 Last Admin: 04/18/19 17:56 Dose: 15 units Methylprednisolone Sodium Succinate (Solu-Medrol) 62.5 mg IVPUSH Q12H [facility] Last Admin: 04/18/19 23:54 Dose: Not Given Metoprolol Succinate (Toprol Xl) 100 mg PO ONETIME ONE Stop: 04/16/19 18:00 Last Admin: 04/16/19 18:25 Dose: 100 mg Morphine Sulfate (Morphine) Confirm Administered Dose 4 mg .ROUTE .STK-MED ONE Stop: 04/15/19 22:52 Last Admin: 04/15/19 23:08 Dose: Not Given Morphine Sulfate (Morphine) 4 mg IVPUSH ONETIME ONE Stop: 04/15/19 22:59 Last Admin: 04/15/19 22:46 Dose: 4 mg Non-Formulary Medication (Liraglutide [Victoza]) 12 units SUBCUT DAILY [facility] Last Admin: 04/16/19 14:43 Dose: Not Given Ondansetron HCl (Zofran) Confirm Administered Dose 4 mg .ROUTE .STK-MED ONE Stop: 04/15/19 22:52 Last Admin: 04/15/19 23:08 Dose: Not Given Ondansetron HCl (Zofran) 4 mg IVPUSH NOW STA Stop: 04/15/19 22:59 Last Admin: 04/15/19 22:42 Dose: 4 mg Potassium Chloride (Potassium Chloride Solution) 20 meq PO BIDMEALS [facility] Last Admin: 04/19/19 12:31 Dose: Not Given Vancomycin HCl (Pharmacy To Dose - Vancomycin) 1 dose .XX ASDIRECTED [facility] - Exam General: Reports: Alert, Oriented HEENT: Reports: Mucous Membr. Moist/[place] Neck: Reports: Supple Lungs: Reports: Clear to Auscultation, Normal Respiratory Effort Cardiovascular: Reports: Regular Rate, Regular Rhythm GI/Abdominal Exam: Normal Bowel Sounds, Soft, Non-Tender Skin: Reports: Warm, Dry Neurological: Reports: No New Focal Deficit
== END 2019-04-21 16:13 | disposition home or self-care (01) | DRG 193 ==
LOC: CC.ED 22:25 → CC.MS 23:56 → UNDOADMIN 23:59
PROVIDERS: ADMIT Nurse Practitioner; ATTEND Family Medicine
DX: J18.1 Lobar pneumonia, unspecified organism (principal); I50.23 Acute on chronic systolic (congestive) heart failure; R53.1 Weakness; R50.9 Fever, unspecified; R30.0 Dysuria; M51.16 Intervertebral disc disorders with radiculopathy, lumbar region; M54.41 Lumbago with sciatica, right side; I10 Essential (primary) hypertension; E11.9 Type 2 diabetes mellitus without complications; H54.7 Unspecified visual loss; E78.00 Pure hypercholesterolemia, unspecified; K21.9 Gastro-esophageal reflux disease without esophagitis; E09.65 Drug or chemical induced diabetes mellitus with hyperglycemia; T38.0X5A Adverse effect of glucocorticoids and synthetic analogues, initial encounter; I11.0 Hypertensive heart disease with heart failure; M51.26 Other intervertebral disc displacement, lumbar region; B37.9 Candidiasis, unspecified; N28.9 Disorder of kidney and ureter, unspecified; Z79.899 Other long term (current) drug therapy; Z79.4 Long term (current) use of insulin; Z98.49 Cataract extraction status, unspecified eye; Z95.2 Presence of prosthetic heart valve
CPT/HCPCS: 36415; 70551; 71045; 80048; 80053; 81001; 82962; 83605; 83880; 85025; 85379; 86140; 87040; 87070; 87205; 87804; 93005; 96374; 96375; 97010-GP; 97110-GP; 99284-25; A9270-GY; G0283-GP; G0365; J0696; J1650; J1815; J1815-GY; J1940; J1956; J2270; J2405; J2543; J2930; J3370; J7030; J7050

== ENCOUNTER 2019-08-21 15:25 | Emergency (ER) | payer MEDICARE, MEDICAID ==
[2019-08-21] MEDS ORDERED: Aspirin 81 MG Tab.Chew PO ONE (15:36)
--- NOTE | 2019-08-21 17:32 | EDM.PDOC ---
ED HPI GENERAL MEDICAL PROBLEM - General Chief Complaint: Chest Pain Stated Complaint: CHEST PAIN Time Seen by Provider: 08/21/19 15:30 Source of Information: Reports: Patient History Limitations: Reports: No Limitations - History of Present Illness INITIAL COMMENTS - FREE TEXT/NARRATIVE: Akash is an 89 yo male who presented to the clinic with complaints of chest pain. States the pain started around 2:00pm today to the left anterior chest wall. Admits with taking deep breaths or palpation to the chest wall it does give him discomfort. States he had fallen this morning when he was out by the garage and fell and hit his lip. States he did fall onto his chest but didn't have any chest pain initially. Denies any loss of consciousness. Denies any palpitations. States he doesn't have any lightheadedness. Blood pressure continues to be elevated, which has been ongoing for him. He denies any shortness of breath. 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 Left Chest Pain Score (Numeric/FACES): 6 - Related Data Allergies Allergy/AdvReac Type Severity Reaction Status Date / Time Sulfa (Sulfonamide Allergy Cannot Verified 08/21/19 16:01 Antibiotics) Remember terazosin [Terazosin] Allergy Cannot Verified 08/21/19 16:01 Remember Home Meds: Home Meds Simvastatin 10 mg PO BEDTIME 02/08/14 [History] allopurinoL [Allopurinol] 300 mg PO DAILY 02/08/14 [History] Ketorolac [Acular 0.5% Ophth Soln] 1 drop OP TID PRN 10/22/14 [History] Bumetanide [Bumex] 1 mg PO BID 11/09/14 [History] Tamsulosin [Flomax] 0.4 mg PO BEDTIME 11/09/14 [History] Metoprolol Succinate [Toprol XL] 50 mg PO DAILY 08/05/15 [History] Cholecalciferol (Vitamin D3) [Vitamin D] 2,000 unit PO DAILY 05/02/18 [History] hydrALAZINE [Apresoline] 25 mg PO TID 05/02/18 [History] Isosorbide Mononitrate [Isosorbide Mononitrate ER] 30 mg PO DAILY 05/03/18 [ History] Finasteride 5 mg PO DAILY 04/12/19 [History] Lisinopril 5 mg PO DAILY 04/12/19 [History] Insulin Degludec [Tresiba] 22 unit SUBCUT DAILY 04/16/19 [History] Aspirin [Halfprin] 81 mg PO DAILY 08/21/19 [History] Docusate Sodium [Colace] 100 mg PO DAILY PRN 08/21/19 [History] Levothyroxine 75 mcg PO ACBREAKFAST 08/21/19 [History] Past Medical History HEENT History: Reports: Cataract, Impaired Vision, Other (See Below) Other HEENT History: right false eye Cardiovascular History: Reports: Heart Murmur, Heart Valve Replacement, High Cholesterol, Hypertension Gastrointestinal History: Reports: GERD, GI Bleed, Hemorrhoids Musculoskeletal History: Reports: Arthritis, Back Pain, Chronic Endocrine/Metabolic History: Reports: Diabetes, Type II - Past Surgical History HEENT Surgical History: Reports: Cataract Surgery Cardiovascular Surgical History: Reports: Valve Replacement GI Surgical History: Reports: Colonoscopy Endocrine Surgical History: Reports: Other (See Below) Social & Family History - Family History Family Medical History: Noncontributory Cardiac: Reports: CAD, Hypertension - Tobacco Use Smoking Status *Q: Never Smoker - Caffeine Use Caffeine Use: Reports: Coffee - Living Situation & Occupation Living situation: Reports: , with Spouse ED ROS GENERAL - Review of Systems Review Of Systems: See Below Constitutional: Reports: No Symptoms HEENT: Reports: No Symptoms Respiratory: Denies: Shortness of Breath, Wheezing, Cough Cardiovascular: Reports: Chest Pain, Blood Pressure Problem, Edema. Denies: Dyspnea on Exertion, Lightheadedness, Palpitations, Syncope Endocrine: Reports: No Symptoms GI/Abdominal: Reports: No Symptoms. Denies: Abdominal Pain, Bloody Stool, Nausea, Vomiting : Reports: No Symptoms Musculoskeletal: Reports: Muscle Pain. Denies: Neck Pain, Shoulder Pain Skin: Reports: No Symptoms Neurological: Reports: No Symptoms Psychiatric: Reports: No Symptoms ED EXAM, GENERAL - Physical Exam Exam: See Below Exam Limited By: No Limitations General Appearance: Alert, No Apparent Distress Ears: Normal External Exam, Hearing Grossly Normal Nose: Normal Inspection, Normal Mucosa, No Blood Throat/Mouth: Normal Inspection, Normal Teeth, Normal Gums, Normal Oropharynx, Normal Voice, No Airway Compromise. No: Normal Lips (small abrasion to right lower lip, mild swelling noted. No active bleeding. ) Head: Atraumatic, Normocephalic. No: Facial Swelling, Facial Tenderness, Sinus Tenderness Neck: Normal Inspection, Supple, Non-Tender, Full Range of Motion. No: Limited Range of Motion, Tender Lateral, Tender Midline Respiratory/Chest: No Respiratory Distress, Lungs Clear, No Accessory Muscle Use , Decreased Breath Sounds, Other (tenderness with palpation over left anterior rib cage. ). No: Retractions, Splinting, Prolonged Expiration Cardiovascular: Regular Rate, Rhythm, No Murmur GI/Abdominal: Normal Bowel Sounds, Soft, Non-Tender, No Organomegaly, No Distention Back Exam: No: Paraspinal Tenderness, Vertebral Tenderness Extremities: Normal Inspection, Pedal Edema Skin Exam: Warm, Dry, Normal Color, No Rash EKG INTERPRETATION EKG Date: 08/21/19 Time: 15:32 Rhythm: Other (sinus arrhythmia) Rate (Beats/Min): 75 QRS: RBBB ST-T: Normal Comparison: No Change Course - Vital Signs Last Recorded V/S: Last Vital Signs Temp 98.3 F 08/21/19 15:25 Pulse 74 08/21/19 15:25 Resp 16 08/21/19 15:25 BP 170/89 H 08/21/19 15:25 Pulse Ox 97 08/21/19 15:25 - Orders/Labs/Meds Orders: Active Orders 24 hr Category Date Time Status Vital Signs [RC] Q2HR Care 08/21/19 16:30 Active CXR [Chest 2V] [CR] Stat Exams 08/21/19 15:50 Taken Labs: Laboratory Tests 08/21/19 08/21/19 08/21/19 Range/Units 15:37 15:45 15:45 WBC 13.1 H (5.0-10.0) 10^3/uL RBC 4.70 (4.50-6.00) 10^6/uL Hgb 13.1 L (14.0-18.0) g/dL Hct 41.2 (40.0-54.0) % MCV 87.7 (82.0-94.0) fL MCH 27.9 (27.0-32.0) pg MCHC 31.8 L (33.0-38.0) g/dL RDW Coeff of Emma 14.3 (11.0-15.0) % Plt Count 302 (150-400) 10^3/uL Neut % (Auto) 81.1 (35-85) % Lymph % (Auto) 10.2 (10-55) % [place] % (Auto) 6.3 (0-16) % Eos % (Auto) 2.1 (0-5) % Baso % (Auto) 0.3 (0-3) % Neut # (Auto) 10.63 H (1.80-7.00) 10^3/uL Lymph # (Auto) 1.34 (1.00-4.80) 10^3/uL [place] # (Auto) 0.82 H (0.00-0.80) 10^3/uL Eos # (Auto) 0.28 (0.00-0.45) 10^3/uL Baso # (Auto) 0.04 10^3/uL PT 10.0 (9.7-12.3) SEC INR 0.97 (0.92-1.18) APTT 28.2 (23.2-32.3) SEC Sodium 136 (136-145) mEq/L Potassium 3.9 D (3.5-5.0) mEq/L Chloride 102 (98-106) mEq/L Carbon Dioxide 24 (21-32) mmol/L BUN 35 H (7-18) mg/dL Creatinine 1.7 H (0.7-1.3) mg/dL Est Cr Clr Drug Dosing 29.06 mL/min Estimated GFR (MDRD) 38 L (>=60) mL/min Glucose 247 H D (75-99) mg/dL Calcium 8.7 (8.4-10.1) mg/dL Total Bilirubin 0.3 (0.0-1.0) mg/dL AST 24 (15-37) U/L ALT 23 (12-78) U/L Alkaline Phosphatase 116 (46-116) U/L Lactate Dehydrogenase 219 H (100-190) U/L Creatine Kinase 72 (35-232) U/L Troponin I 0.040 (0.00-0.06) ng/mL Total Protein 7.3 (6.4-8.2) g/dL Albumin 3.1 L (3.4-5.0) g/dL Lipase 489 H (73-393) U/L Meds: Medications Discontinued Medications Generic Name Dose Route Start Last Admin Trade Name Sydney PRN Reason Stop Dose Admin Aspirin 324 mg 08/21/19 15:36 08/21/19 15:37 Aspirin PO 08/21/19 15:37 324 mg ONETIME ONE Administration Departure - Departure Time of Disposition: 17:55 Disposition: Home, Self-Care 01 Clinical Impression: Anterior chest wall pain, Rib pain on left side Instructions: Chest Wall Pain Additional Instructions: 1) May take Tylenol 1000mg two to three times a day for discomfort 2) May apply ice to anterior chest wall, 20 minutes at a time 3) If pain worsens or any concerns at all, advise returning for reevaluation 4) Follow up this week with primary for blood pressure and recheck of rib pain. Sepsis Event Note - Evaluation Sepsis Screening Result: No Definite Risk - Focused Exam Vital Signs: Vital Signs Temp Pulse Resp BP Pulse Ox 08/21/19 15:25 98.3 F 74 16 170/89 H 97 Date Exam was Performed: 08/21/19 Time Exam was Performed: 17:24 - Problem List & Annotations (1) Anterior chest wall pain SNOMED Code(s): 415372731 Code(s): R07.89 - OTHER CHEST PAIN Status: Acute (2) Rib pain on left side SNOMED Code(s): 137418145 Code(s): R07.81 - PLEURODYNIA Status: Acute - My Orders Last 24 Hours: My Active Orders 08/21/19 15:50 CXR [Chest 2V] [CR] Stat 08/21/19 16:30 Vital Signs [RC] Q2HR - Assessment/Plan Last 24 Hours: My Active Orders 08/21/19 15:50 CXR [Chest 2V] [CR] Stat 08/21/19 16:30 Vital Signs [RC] Q2HR Plan: Cardiac work up was negative. Pain appears to be musculoskeletal. Questionable left anterior rib fracture. No bony crepitus is noted. Overall Akash is doing well in the ED. Discussed monitoring Akash tonight and he felt he was ready to go home. Will discharge home at this time. Discussed if pain worsens tonight or has any concerns at all, advise returning to ED. Recommend follow up with primary provider this week to recheck blood pressure and reevaluate chest wall pain.
[2019-08-21 17:47] VITALS: BP 154/90; PULSE 77
== END 2019-08-21 18:10 | disposition home or self-care (01) ==
LOC: CC.ED 15:25
DX: R07.89 Other chest pain (principal); R07.81 Pleurodynia; E78.00 Pure hypercholesterolemia, unspecified; K21.9 Gastro-esophageal reflux disease without esophagitis; E11.9 Type 2 diabetes mellitus without complications; Z79.4 Long term (current) use of insulin; Z79.82 Long term (current) use of aspirin; Z88.2 Allergy status to sulfonamides; Z88.8 Allergy status to other drugs, medicaments and biological substances; Z95.2 Presence of prosthetic heart valve; W18.09XA Striking against other object with subsequent fall, initial encounter; Y92.008 Other place in unspecified non-institutional (private) residence as the place of occurrence of the external cause
CPT/HCPCS: 36415; 71046; 80053; 82550; 83615; 83690; 84484; 85025; 85610; 85730; 93005; 93010; 99284; 99285-25; A9270-GY

== ENCOUNTER 2019-09-07 23:04 | Observation (INO) | payer MEDICARE, MEDICAID ==
--- NOTE | 2019-09-07 23:27 | EDM.PDOC ---
ED HPI GENERAL MEDICAL PROBLEM - General Chief Complaint: General Stated Complaint: dizziness, headache and elevated BP Time Seen by Provider: 09/07/19 23:16 Source of Information: Reports: Patient History Limitations: Reports: No Limitations - History of Present Illness INITIAL COMMENTS - FREE TEXT/NARRATIVE: Akash is an 89 year old male who presents to the ED via private vehicle with c/ o elevated BP, dizziness, and headache on the left side of his head. He reports that headache started about 1.5 hrs ago. He reports he was unable to get his BP down at home. Reports his BP was 200s/100s at home. BP upon arrival 137/107. He reports he has "never had a headache before". Reports head pain is constant. Reports dizziness, described as lightheaded, also started about 1.5 hrs ago. Denies any vision changes, weakness, N/V/D, chest pain, shortness of breath, worsening edema. Does c/o occasional chest pressure and palpitations. No worsening of edema. Denies any known history of atrial fibrillation. Onset: Today, Sudden Onset Date: 09/07/19 Onset Time: 21:30 Duration: Constant Location: Reports: Head Quality: Reports: Ache Associated Symptoms: Reports: Headaches. Denies: Confusion, Chest Pain, Cough, cough w sputum, Diaphoresis, Fever/Chills, Loss of Appetite, Malaise, Nausea/ Vomiting, Rash, Seizure, Shortness of Breath, Syncope, Weakness Left Headache Pain Score (Numeric/FACES): 3 - Related Data Allergies Allergy/AdvReac Type Severity Reaction Status Date / Time Sulfa (Sulfonamide Allergy Cannot Verified 09/07/19 23:09 Antibiotics) Remember terazosin [Terazosin] Allergy Cannot Verified 09/07/19 23:09 Remember Home Meds: Home Meds Simvastatin 10 mg PO BEDTIME 02/08/14 [History] allopurinoL [Allopurinol] 300 mg PO DAILY 02/08/14 [History] Ketorolac [Acular 0.5% Ophth Soln] 1 drop OP TID PRN 10/22/14 [History] Bumetanide [Bumex] 1 mg PO BID 11/09/14 [History] Tamsulosin [Flomax] 0.4 mg PO BEDTIME 11/09/14 [History] Metoprolol Succinate [Toprol XL] 50 mg PO DAILY 08/05/15 [History] Cholecalciferol (Vitamin D3) [Vitamin D] 2,000 unit PO DAILY 05/02/18 [History] hydrALAZINE [Apresoline] 25 mg PO TID 05/02/18 [History] Isosorbide Mononitrate [Isosorbide Mononitrate ER] 30 mg PO DAILY 05/03/18 [ History] Finasteride 5 mg PO DAILY 04/12/19 [History] Lisinopril 5 mg PO DAILY 04/12/19 [History] Insulin Degludec [Tresiba] 24 unit SUBCUT DAILY 04/16/19 [History] Aspirin [Halfprin] 81 mg PO DAILY 08/21/19 [History] Docusate Sodium [Colace] 100 mg PO DAILY PRN 08/21/19 [History] Levothyroxine 75 mcg PO ACBREAKFAST 08/21/19 [History] Past Medical History HEENT History: Reports: Cataract, Impaired Vision, Other (See Below) Other HEENT History: right false eye Cardiovascular History: Reports: Heart Murmur, Heart Valve Replacement, High Cholesterol, Hypertension Gastrointestinal History: Reports: GERD, GI Bleed, Hemorrhoids Musculoskeletal History: Reports: Arthritis, Back Pain, Chronic Endocrine/Metabolic History: Reports: Diabetes, Type II - Past Surgical History HEENT Surgical History: Reports: Cataract Surgery Cardiovascular Surgical History: Reports: Valve Replacement GI Surgical History: Reports: Colonoscopy Endocrine Surgical History: Reports: Other (See Below) Social & Family History - Family History Family Medical History: Noncontributory Cardiac: Reports: CAD, Hypertension - Caffeine Use Caffeine Use: Reports: Coffee - Living Situation & Occupation Living situation: Reports: , with Spouse ED ROS GENERAL - Review of Systems Review Of Systems: See Below Constitutional: Denies: Fever, Chills, Malaise, Weakness, Fatigue, Diaphoresis, Decreased Appetite HEENT: Denies: Eye Pain, Throat Pain, Throat Swelling, Vertigo, Vision Change Respiratory: Denies: Shortness of Breath, Wheezing, Pleuritic Chest Pain, Cough , Sputum, Hemoptysis Cardiovascular: Reports: Blood Pressure Problem, Edema, Other (dizziness). Denies: Chest Pain, Lightheadedness, Syncope Endocrine: Reports: No Symptoms GI/Abdominal: Denies: Abdominal Pain, Black Stool, Bloody Stool, Constipation, Diarrhea, Decreased Appetite, Distension, Hematemesis, Hematochezia, Melena, Nausea, Vomiting : Reports: No Symptoms Musculoskeletal: Reports: No Symptoms Skin: Reports: No Symptoms Neurological: Reports: Dizziness, Headache, Tremors. Denies: Confusion, Numbness, Paresthesia, Tingling, Difficulty Walking, Weakness Psychiatric: Reports: No Symptoms Hematologic/Lymphatic: Reports: No Symptoms Immunologic: Reports: No Symptoms ED EXAM, GENERAL - Physical Exam Exam: See Below Exam Limited By: No Limitations General Appearance: Alert, WD/WN, No Apparent Distress Eye Exam: Bilateral Eye: EOMI Throat/Mouth: Normal Inspection, Normal Lips, Normal Teeth, Normal Gums, Normal Oropharynx, Normal Voice, No Airway Compromise Head: Atraumatic, Normocephalic Respiratory/Chest: No Respiratory Distress, Lungs Clear, Normal Breath Sounds, No Accessory Muscle Use Cardiovascular: Normal Peripheral Pulses, Systolic Murmur, Irregularly Irregular GI/Abdominal: Normal Bowel Sounds, Soft, Non-Tender, No Organomegaly, No Distention, No Abnormal Bruit, No Mass Extremities: Normal Range of Motion, Normal Capillary Refill, Pedal Edema (1+ pitting) Neurological: Alert, Oriented, Normal Cognition, Normal Gait, No Motor/Sensory Deficits Psychiatric: Normal Affect, Normal Mood Skin Exam: Warm, Dry, Intact, Normal Color Lymphatic: No Adenopathy Course - Vital Signs Last Recorded V/S: Last Vital Signs Temp 97.4 F 09/08/19 08:00 Pulse 59 L 09/08/19 08:00 Resp 18 09/08/19 08:00 BP 154/83 H 09/08/19 08:00 Pulse Ox 98 09/08/19 08:00 - Orders/Labs/Meds Labs: Laboratory Tests 09/07/19 09/07/19 09/07/19 Range/Units 23:28 23:28 23:46 WBC 9.7 (5.0-10.0) 10^3/uL RBC 4.65 (4.50-6.00) 10^6/uL Hgb 13.0 L (14.0-18.0) g/dL Hct 40.3 (40.0-54.0) % MCV 86.7 (82.0-94.0) fL MCH 28.0 (27.0-32.0) pg MCHC 32.3 L (33.0-38.0) g/dL RDW Coeff of Emma 14.4 (11.0-15.0) % Plt Count 325 (150-400) 10^3/uL Neut % (Auto) 70.1 (35-85) % Lymph % (Auto) 16.6 (10-55) % [place] % (Auto) 8.8 (0-16) % Eos % (Auto) 4.2 (0-5) % Baso % (Auto) 0.3 (0-3) % Neut # (Auto) 6.78 (1.80-7.00) 10^3/uL Lymph # (Auto) 1.61 (1.00-4.80) 10^3/uL [place] # (Auto) 0.85 H (0.00-0.80) 10^3/uL Eos # (Auto) 0.41 (0.00-0.45) 10^3/uL Baso # (Auto) 0.03 10^3/uL Sodium 136 (136-145) mEq/L Potassium 4.1 (3.5-5.0) mEq/L Chloride 102 (98-106) mEq/L Carbon Dioxide 24 (21-32) mmol/L BUN 33 H (7-18) mg/dL Creatinine 1.9 H (0.7-1.3) mg/dL Est Cr Clr Drug Dosing 26.00 mL/min Estimated GFR (MDRD) 34 L (>=60) mL/min Glucose 210 H (75-99) mg/dL Calcium 9.0 (8.4-10.1) mg/dL Lactate Dehydrogenase 217 H (100-190) U/L Creatine Kinase 83 (35-232) U/L Troponin I 0.041 (0.00-0.06) ng/mL Urine Color Yellow (YELLOW) Urine Appearance Clear (CLEAR) Urine pH 6.5 (4.5-8.0) Ur Specific [place] 1.020 (1.003-1.020) Urine Protein >=300 H (NEGATIVE) mg/dL Urine Glucose (UA) 100 H (NEGATIVE) mg/dL Urine Ketones Negative (NEGATIVE) mg/dL Urine Occult Blood Trace-intact H (NEGATIVE) Urine Nitrite Negative (NEGATIVE) Urine Bilirubin Negative (NEGATIVE) Urine Urobilinogen 0.2 (0.2-1.0) EU/dL Ur Leukocyte Esterase Trace H (NEGATIVE) Urine RBC 10-20 H (0-5) /HPF Urine WBC 10-20 H (0-5) /HPF Ur Epithelial Cells Few H (NOT SEEN) /HPF Urinalysis Comment See note Meds: Medications Discontinued Medications Generic Name Dose Route Start Last Admin Trade Name Freq PRN Reason Stop Dose Admin Allopurinol 300 mg 09/08/19 08:00 09/08/19 08:55 Zyloprim PO Not Given DAILY [facility] Aspirin 81 mg 09/08/19 08:00 09/08/19 08:55 Halfprin PO Not Given DAILY [facility] Bumetanide 1 mg 09/08/19 08:00 09/08/19 08:55 Bumex PO Not Given BID [facility] Cholecalciferol 50 mcg 09/08/19 08:00 09/08/19 08:55 Vitamin D3 PO Not Given DAILY [facility] Docusate Sodium 100 mg 09/08/19 00:35 Colace PO DAILY PRN Constipation Enoxaparin Sodium 30 mg 09/08/19 08:00 09/08/19 09:09 Lovenox SUBCUT Not Given Q24H [facility] Enoxaparin Sodium 30 mg 09/08/19 01:30 09/08/19 05:38 Lovenox SUBCUT 09/08/19 01:31 Not Given ONETIME ONE Finasteride 5 mg 09/08/19 08:00 09/08/19 08:55 Proscar PO Not Given DAILY [facility] Hydralazine HCl 25 mg 09/08/19 08:00 09/08/19 08:54 Apresoline PO Not Given TID [facility] Insulin Glargine 24 units 09/08/19 08:00 09/08/19 09:09 Lantus Solostar SUBCUT Not Given DAILY [facility] Isosorbide Mononitrate 30 mg 09/08/19 08:00 09/08/19 08:55 Imdur PO Not Given DAILY [facility] Levothyroxine Sodium 75 mcg 09/08/19 07:00 09/08/19 08:54 Synthroid PO Not Given ACBREAKFAST [facility] Lisinopril 5 mg 09/08/19 08:00 09/08/19 08:55 Prinivil PO Not Given DAILY [facility] Metoprolol Succinate 50 mg 09/08/19 08:00 09/08/19 08:55 Toprol Xl PO Not Given DAILY [facility] Simvastatin 10 mg 09/08/19 20:00 Zocor PO BEDTIME [facility] Sodium Chloride 10 ml 09/08/19 00:35 Saline Flush FLUSH ASDIRECTED PRN Keep Vein Open Tamsulosin HCl 0.4 mg 09/08/19 20:00 Flomax PO BEDTIME [facility] Temazepam 15 mg 09/08/19 00:35 Restoril PO BEDTIME PRN Sleep - Radiology Interpretation Free Text/Narrative:: Negative for acute changes CT Results Date: 09/07/19 CT Results Time: 23:59 - Re-Assessments/Exams Free Text/Narrative Re-Assessment/Exam: Discussed normal head CT results with patient and . Patient's headache improved. Discussed EKG findings significant for atrial fibrillation. Patient denies any known history of atrial fibrillation. Chart review of patients past EKGs and Holter monitor not evident of history of atrial fibrillation. Discussed code status with patient. He wishes to be full code. Discussed with patient that often times if patient's have atrial fibrillation they are at increased risk of stroke and anticoagulation may be indicated. Recommended overnight observation stay to consult with patient's PCP in the morning regarding need for anticoagulation. Patient agreeable with this. Will be admitted observation for continued telemetry and consultation with patient's PCP. Departure - Departure Time of Disposition: 00:04 Disposition: Refer to Observation Condition: Fair Clinical Impression: New onset atrial fibrillation, HTN, Benign hypertension, Dizziness - Discharge Information *PRESCRIPTION DRUG MONITORING PROGRAM REVIEWED*: Not Applicable *COPY OF PRESCRIPTION DRUG MONITORING REPORT IN PATIENT TENZIN: Not Applicable Sepsis Event Note - Focused Exam Date Exam was Performed: 09/11/19 Time Exam was Performed: 08:19 - Problem List & Annotations (1) New onset atrial fibrillation SNOMED Code(s): 61148883 Code(s): I48.91 - UNSPECIFIED ATRIAL FIBRILLATION Status: Acute (2) Dizziness SNOMED Code(s): 589850922, 360299106 Code(s): R42 - DIZZINESS AND GIDDINESS Status: Acute (3) HTN, Benign hypertension SNOMED Code(s): 45423968 Code(s): I10 - ESSENTIAL (PRIMARY) HYPERTENSION Status: Chronic Priority : Medium - Problem List Review Problem List Initiated/Reviewed/Updated: Yes - Assessment/Plan Admission H&P: Please use this note as an admission H&P Assessment:: New Onset Atrial Fibrillation Dizziness Hypertension Plan: Patient denies any history of atrial fibrillation. Review of past EKGs and Holter monitor report show no evidence of atrial fibrillation. Head CT negative Will admit to observation for cardiac monitoring overnight and discussion with PCP in am re: need for anticoagulation. Patient already on rate control medications. Patient transferred to floor in satisfactory condition.
[2019-09-08] MEDS ORDERED: Sodium Chloride 0.9% 10 ML Syringe FLUSH PRN (00:35)
[2019-09-08] MEDS ORDERED: Temazepam 15 MG Cap PO PRN (00:35)
[2019-09-08] MEDS ORDERED: Docusate Sodium 100 MG Cap PO PRN (00:35)
[2019-09-08] MEDS ORDERED: Enoxaparin 30 MG/0.3 ML Syringe SUBCUT ONE (01:30)
[2019-09-08] MEDS ORDERED: Levothyroxine 50 MCG Tab PO SCH (07:00)
[2019-09-08] MEDS ORDERED: Enoxaparin 30 MG/0.3 ML Syringe SUBCUT SCH (08:00)
[2019-09-08] MEDS ORDERED: Allopurinol 300 MG Tab PO SCH (08:00)
[2019-09-08] MEDS ORDERED: Aspirin 81 MG Tab.EC PO SCH (08:00)
[2019-09-08] MEDS ORDERED: hydrALAZINE 25 MG Tab PO SCH (08:00)
[2019-09-08] MEDS ORDERED: Isosorbide Mononitrate 30 MG Tab.ER PO SCH (08:00)
[2019-09-08] MEDS ORDERED: Metoprolol Succinate 25 MG Tab.ER PO SCH (08:00)
[2019-09-08] MEDS ORDERED: Lisinopril 20 MG Tab PO SCH (08:00)
[2019-09-08] MEDS ORDERED: Finasteride 5 MG Tab PO SCH (08:00)
[2019-09-08] MEDS ORDERED: Insulin Glargine,Human Rec. Analog 100 Units/ML 3 ML Pen SUBCUT SCH (08:00)
[2019-09-08] MEDS ORDERED: Bumetanide 1 MG Tab PO SCH (08:00)
[2019-09-08] MEDS ORDERED: Cholecalciferol (Vitamin D3) 25 MCG Tab PO SCH (08:00)
[2019-09-08 08:56] VITALS: BP 154/83; PULSE 59
--- NOTE | 2019-09-08 14:34 | PCM.DCSUM1 ---
Discharge Summary - Hospital Course Free Text/Narrative:: Akash is an 89 year old male who presents to the ED via private vehicle with c/ o elevated BP, dizziness, and headache on the left side of his head. He reports that headache started about 1.5 hrs ago. He reports he was unable to get his BP down at home. Reports his BP was 200s/100s at home. BP upon arrival 137/107. He reports he has never had headaches like this. Reports dizziness, described as lightheaded, also started about 1.5 hrs ago. Denies any vision changes, weakness , N/V/D, chest pain, shortness of breath, worsening edema. Does c/o occasional chest pressure and palpitations. Diagnosis: Stroke: No Modified Cartwright Scale: No Symptoms at All Modified Mariely Scale Score: 0 - Discharge Data Discharge Date: 09/08/19 Discharge Disposition: Home, Self-Care 01 Condition: Good - Referral to Home Health Primary Care Physician: Torito Taylor MD - Patient Summary/Data Complications: none Hospital Course: Patient doing well this am. He denies any further headaches. No chest pain, shortness of breath, or lightheadedness. Is ambulating to the bathroom without difficulty. Was admitted with concerns of atrial fib last evening, this am shows NSR. Has history of paroxysmal atrial fib, had previously been on Eliquis but was stopped due to GI bleeding. Rate is controlled with meds. Blood pressure is stable this am and since admit. Discharge home today, follow up with Dr. Taylor next week. - Patient Instructions Diet: Usual Diet as Tolerated Activity: As Tolerated - Discharge Plan *PRESCRIPTION DRUG MONITORING PROGRAM REVIEWED*: Not Applicable *COPY OF PRESCRIPTION DRUG MONITORING REPORT IN PATIENT TENZIN: Not Applicable Home Medications: Home Meds Simvastatin 10 mg PO BEDTIME 02/08/14 [History] allopurinoL [Allopurinol] 300 mg PO DAILY 02/08/14 [History] Ketorolac [Acular 0.5% Ophth Soln] 1 drop OP TID PRN 10/22/14 [History] Bumetanide [Bumex] 1 mg PO BID 11/09/14 [History] Tamsulosin [Flomax] 0.4 mg PO BEDTIME 11/09/14 [History] Metoprolol Succinate [Toprol XL] 50 mg PO DAILY 01/11/16 [History] Cholecalciferol (Vitamin D3) [Vitamin D] 2,000 unit PO DAILY 05/02/18 [History] hydrALAZINE [Apresoline] 25 mg PO TID 05/02/18 [History] Isosorbide Mononitrate [Isosorbide Mononitrate ER] 30 mg PO DAILY 05/03/18 [ History] Finasteride 5 mg PO DAILY 04/12/19 [History] Lisinopril 5 mg PO DAILY 04/12/19 [History] Insulin Degludec [Tresiba] 24 unit SUBCUT DAILY 04/16/19 [History] Aspirin [Halfprin] 81 mg PO DAILY 08/21/19 [History] Docusate Sodium [Colace] 100 mg PO DAILY PRN 08/21/19 [History] Levothyroxine 75 mcg PO ACBREAKFAST 08/21/19 [History] Forms: ED Department Discharge Referrals: Torito Taylor MD [Primary Care Provider] - (Follow up with Dr. Taylor on Wednesday. Bring blood pressure cuff in for comparison) - Discharge Summary/Plan Comment DC Time >30 min.: No - General Info Date of Service: 09/08/19 Admission Dx/Problem (Free Text: Atrial fib Elevated blood pressure Functional Status: Reports: Pain Controlled, Tolerating Diet, Ambulating - Review of Systems General: Denies: Fever, Weakness, Fatigue, Malaise HEENT: Denies: Ear Pain, Sinus Congestion, Rhinitis Pulmonary: Denies: Shortness of Breath, Cough Cardiovascular: Denies: Chest Pain, Edema, Lightheadedness Gastrointestinal: Denies: Abdominal Pain, Nausea, Vomiting Genitourinary: Reports: No Symptoms Musculoskeletal: Reports: No Symptoms Skin: Reports: No Symptoms Neurological: Reports: No Symptoms - Patient Data Vitals - Most Recent: Last Vital Signs Temp 97.4 F 09/08/19 08:00 Pulse 59 L 09/08/19 08:00 Resp 18 09/08/19 08:00 BP 154/83 H 09/08/19 08:00 Pulse Ox 98 09/08/19 08:00 Weight - Most Recent: 221 lb 11.2 oz Lab Results - Last 24 hrs: Laboratory Results - last 24 hr 09/07/19 09/07/19 09/07/19 Range/Units 23:28 23:28 23:46 WBC 9.7 (5.0-10.0) 10^3/uL RBC 4.65 (4.50-6.00) 10^6/uL Hgb 13.0 L (14.0-18.0) g/dL Hct 40.3 (40.0-54.0) % MCV 86.7 (82.0-94.0) fL MCH 28.0 (27.0-32.0) pg MCHC 32.3 L (33.0-38.0) g/dL RDW Coeff of Emma 14.4 (11.0-15.0) % Plt Count 325 (150-400) 10^3/uL Neut % (Auto) 70.1 (35-85) % Lymph % (Auto) 16.6 (10-55) % [place] % (Auto) 8.8 (0-16) % Eos % (Auto) 4.2 (0-5) % Baso % (Auto) 0.3 (0-3) % Neut # (Auto) 6.78 (1.80-7.00) 10^3/uL Lymph # (Auto) 1.61 (1.00-4.80) 10^3/uL [place] # (Auto) 0.85 H (0.00-0.80) 10^3/uL Eos # (Auto) 0.41 (0.00-0.45) 10^3/uL Baso # (Auto) 0.03 10^3/uL Sodium 136 (136-145) mEq/L Potassium 4.1 (3.5-5.0) mEq/L Chloride 102 (98-106) mEq/L Carbon Dioxide 24 (21-32) mmol/L BUN 33 H (7-18) mg/dL Creatinine 1.9 H (0.7-1.3) mg/dL Est Cr Clr Drug Dosing 26.00 mL/min Estimated GFR (MDRD) 34 L (>=60) mL/min Glucose 210 H (75-99) mg/dL Calcium 9.0 (8.4-10.1) mg/dL Lactate Dehydrogenase 217 H (100-190) U/L Creatine Kinase 83 (35-232) U/L Troponin I 0.041 (0.00-0.06) ng/mL Urine Color Yellow (YELLOW) Urine Appearance Clear (CLEAR) Urine pH 6.5 (4.5-8.0) Ur Specific [place] 1.020 (1.003-1.020) Urine Protein >=300 H (NEGATIVE) mg/dL Urine Glucose (UA) 100 H (NEGATIVE) mg/dL Urine Ketones Negative (NEGATIVE) mg/dL Urine Occult Blood Trace-intact H (NEGATIVE) Urine Nitrite Negative (NEGATIVE) Urine Bilirubin Negative (NEGATIVE) Urine Urobilinogen 0.2 (0.2-1.0) EU/dL Ur Leukocyte Esterase Trace H (NEGATIVE) Urine RBC 10-20 H (0-5) /HPF Urine WBC 10-20 H (0-5) /HPF Ur Epithelial Cells Few H (NOT SEEN) /HPF Urinalysis Comment See note Med Orders - Current: Current Medications Discontinued Medications Allopurinol (Zyloprim) 300 mg PO DAILY [facility] Last Admin: 09/08/19 08:55 Dose: Not Given Aspirin (Halfprin) 81 mg PO DAILY [facility] Last Admin: 09/08/19 08:55 Dose: Not Given Bumetanide (Bumex) 1 mg PO BID [facility] Last Admin: 09/08/19 08:55 Dose: Not Given Cholecalciferol (Vitamin D3) 50 mcg PO DAILY [facility] Last Admin: 09/08/19 08:55 Dose: Not Given Docusate Sodium (Colace) 100 mg PO DAILY PRN PRN Reason: Constipation Enoxaparin Sodium (Lovenox) 30 mg SUBCUT Q24H [facility] Last Admin: 09/08/19 09:09 Dose: Not Given Enoxaparin Sodium (Lovenox) 30 mg SUBCUT ONETIME ONE Stop: 09/08/19 01:31 Last Admin: 09/08/19 05:38 Dose: Not Given Finasteride (Proscar) 5 mg PO DAILY [facility] Last Admin: 09/08/19 08:55 Dose: Not Given Hydralazine HCl (Apresoline) 25 mg PO TID [facility] Last Admin: 09/08/19 08:54 Dose: Not Given Insulin Glargine (Lantus Solostar) 24 units SUBCUT DAILY [facility] Last Admin: 09/08/19 09:09 Dose: Not Given Isosorbide Mononitrate (Imdur) 30 mg PO DAILY [facility] Last Admin: 09/08/19 08:55 Dose: Not Given Levothyroxine Sodium (Synthroid) 75 mcg PO ACBREAKFAST [facility] Last Admin: 09/08/19 08:54 Dose: Not Given Lisinopril (Prinivil) 5 mg PO DAILY [facility] Last Admin: 09/08/19 08:55 Dose: Not Given Metoprolol Succinate (Toprol Xl) 50 mg PO DAILY [facility] Last Admin: 09/08/19 08:55 Dose: Not Given Simvastatin (Zocor) 10 mg PO BEDTIME [facility] Sodium Chloride (Saline Flush) 10 ml FLUSH ASDIRECTED PRN PRN Reason: Keep Vein Open Tamsulosin HCl (Flomax) 0.4 mg PO BEDTIME [facility] Temazepam (Restoril) 15 mg PO BEDTIME PRN PRN Reason: Sleep - Exam General: Reports: Alert, Oriented HEENT: Reports: Mucous Membr. Moist/[place] Neck: Reports: Supple Lungs: Reports: Clear to Auscultation, Normal Respiratory Effort Cardiovascular: Reports: Regular Rate, Regular Rhythm GI/Abdominal Exam: Normal Bowel Sounds, Soft, Non-Tender Extremities: Normal Inspection, No Pedal Edema Skin: Reports: Warm, Dry Neurological: Reports: No New Focal Deficit
[2019-09-08] MEDS ORDERED: Simvastatin 10 MG Tab PO SCH (20:00)
[2019-09-08] MEDS ORDERED: Tamsulosin 0.4 MG Cap.ER PO SCH (20:00)
== END 2019-09-08 09:43 | disposition home or self-care (01) ==
LOC: CC.ED 23:04 → CC.MS 23:58 → UNDOADMOB 23:58 → CC.MS 09-08 00:01 → UNDOADMOB 09-08 00:08 → CC.MS 09-08 00:08
PROVIDERS: ADMIT Nurse Practitioner Family; ATTEND Family Medicine
DX: I48.91 Unspecified atrial fibrillation (principal); I10 Essential (primary) hypertension; K21.9 Gastro-esophageal reflux disease without esophagitis; E11.9 Type 2 diabetes mellitus without complications; E78.00 Pure hypercholesterolemia, unspecified; M19.90 Unspecified osteoarthritis, unspecified site; Z79.899 Other long term (current) drug therapy; Z79.82 Long term (current) use of aspirin; Z79.4 Long term (current) use of insulin; Z95.2 Presence of prosthetic heart valve; Z88.2 Allergy status to sulfonamides; Z88.8 Allergy status to other drugs, medicaments and biological substances
CPT/HCPCS: 36415; 70450; 80048; 81001; 82550; 83615; 84484; 85025; 87086; 93005; 99285-25; G0378

== ENCOUNTER 2021-02-25 13:37 | Inpatient (IN) | payer MEDICARE, MEDICAID ==
--- NOTE | 2021-02-25 14:10 | EDM.PDOC ---
ED HPI GENERAL MEDICAL PROBLEM - General Chief Complaint: General Stated Complaint: BALANCE Time Seen by Provider: 02/25/21 13:50 Source of Information: Reports: Patient History Limitations: Reports: No Limitations - History of Present Illness INITIAL COMMENTS - FREE TEXT/NARRATIVE: Akash is an 89 year old male who presents to ER with complaints of increasing dizziness, chest discomfort and shortness of breath. has been dizzy for about a week but has gotten much worse over the last 2 days or so. Was at the [facility] today, in the bathroom and when standing, the room started spinning and he wasn't sure he was going to make it out of the bathroom. States feels like he is going to lose his balance. Does have a history of this so did have meclizine at home which has has been taking but not noting as much relief with that. No nausea or vomiting. Admits to anterior chest pain that waxes and wanes and mostly hurts when he gets short of breath. Denies any fevers, sinus congestion or cough. Legs are very edematous but he relates that is chronic for him. He does take diuretics. Unable to wear hardeep hose as he states it causes his upper legs to swell then. Onset: Gradual Duration: Day(s):, Getting Worse Location: Reports: Chest, Lower Extremity, Left, Lower Extremity, Right, Gene ralized Severity: Moderate Improves with: Reports: Rest Worsens with: Reports: Movement Associated Symptoms: Reports: Chest Pain, Malaise, Shortness of Breath, Weakness. Denies: Confusion, Cough, Diaphoresis, Fever/Chills, Headaches, Loss of Appetite, Nausea/Vomiting, Syncope Treatments [employer]: Reports: Other Medication(s) Other Treatments [employer]: meclizine - Related Data Allergies Allergy/AdvReac Type Severity Reaction Status Date / Time Sulfa (Sulfonamide Allergy Cannot Verified 02/25/21 13:40 Antibiotics) Remember terazosin [Terazosin] Allergy Cannot Verified 02/25/21 13:40 Remember Home Meds: Home Meds allopurinoL [Allopurinol] 150 mg PO DAILY 02/08/14 [History] Ketorolac [Acular 0.5% Ophth Soln] 1 drop OP TID PRN 10/22/14 [History] Bumetanide [Bumex] 1 mg PO BID 11/09/14 [History] Metoprolol Succinate [Toprol XL] 100 mg PO DAILY 08/05/15 [History] Cholecalciferol (Vitamin D3) [Vitamin D] 2,000 unit PO DAILY 05/02/18 [History] hydrALAZINE [Apresoline] 100 mg PO TID 05/02/18 [History] Isosorbide Mononitrate [Isosorbide Mononitrate ER] 30 mg PO DAILY 05/03/18 [History] Lisinopril 10 mg PO DAILY 04/12/19 [History] Insulin Degludec [Tresiba] 22 unit SUBCUT DAILY 04/16/19 [History] Docusate Sodium [Colace] 100 mg PO DAILY PRN 08/21/19 [History] Levothyroxine 112 mcg PO ACBREAKFAST 08/21/19 [History] Iron,Carb/Vit C/Vit B12/Folic [Iron 100 Plus Tablet] 65 mg PO DAILY 02/25/21 [History] Past Medical History HEENT History: Reports: Cataract, Impaired Vision, Other (See Below) Other HEENT History: right false eye Cardiovascular History: Reports: Heart Murmur, Heart Valve Replacement, High Cholesterol, Hypertension Gastrointestinal History: Reports: GERD, GI Bleed, Hemorrhoids Musculoskeletal History: Reports: Arthritis, Back Pain, Chronic Endocrine/Metabolic History: Reports: Diabetes, Type II - Past Surgical History HEENT Surgical History: Reports: Cataract Surgery Cardiovascular Surgical History: Reports: Valve Replacement GI Surgical History: Reports: Colonoscopy Endocrine Surgical History: Reports: Other (See Below) Other Endocrine Surgeries/Procedures: PARTIAL THRYROIDECTOMY Social & Family History - Family History Family Medical History: No Pertinent Family History Cardiac: Reports: CAD, Hypertension - Tobacco Use Tobacco Use Status *Q: Unknown Ever Used Tobacco - Caffeine Use Caffeine Use: Reports: Coffee - Living Situation & Occupation Living situation: Reports: , with Spouse ED ROS GENERAL - Review of Systems Review Of Systems: See Below Constitutional: Reports: Malaise, Weakness, Fatigue. Denies: Fever, Chills, Diaphoresis, Decreased Appetite HEENT: Reports: Vertigo. Denies: Ear Pain, Rhinitis, Sinus Problem, Throat Pain Respiratory: Reports: Shortness of Breath. Denies: Cough Cardiovascular: Reports: Edema. Denies: Chest Pain, Lightheadedness Endocrine: Reports: Fatigue GI/Abdominal: Denies: Abdominal Pain, Constipation, Diarrhea, Nausea, Vomiting : Reports: No Symptoms Musculoskeletal: Reports: Leg Pain Skin: Reports: Erythema (to legs) Neurological: Reports: Dizziness, Difficulty Walking, Weakness. Denies: Syncope Psychiatric: Reports: No Symptoms ED EXAM, DIZZINESS - Physical Exam Exam: See Below Exam Limited By: No Limitations General Appearance: Alert, WD/WN, No Apparent Distress Nystagmus: reproducible, short duration Ears: Normal External Exam, Normal Canal, Normal TMs Nose: Normal Inspection, Normal Mucosa, No Blood Throat/Mouth: Normal Inspection, Normal Oropharynx Head Exam: Normocephalic Neck: Normal Inspection, Supple, Non-Tender Respiratory/Chest: Decreased Breath Sounds, Crackles Cardiovascular: Regular Rate, Rhythm, Systolic Murmur GI/Abdominal: Normal Bowel Sounds, Soft, Non-Tender Neurological: Alert Extremities: Pedal Edema (3+ pitting edema) Skin Exam: Warm, Dry Course - Vital Signs Last Recorded V/S: Last Vital Signs Temp 97.7 F 02/25/21 20:00 Pulse 67 02/25/21 20:00 Resp 20 02/25/21 20:00 BP 171/95 H 02/25/21 20:00 Pulse Ox 95 02/25/21 20:00 - Orders/Labs/Meds Orders: Active Orders 24 hr Category Date Time Status Chest 1V Frontal [CR] Routine Exams 02/25/21 Taken EKG 12 Lead [EK] Stat Ther 02/25/21 13:43 Stop Req Medication Orders Acetaminophen (Acetaminophen 325 Mg Tab) 650 mg PO Q4H PRN PRN Reason: Pain (Mild 1-3)/fever Allopurinol (Allopurinol 300 Mg Tab) 150 mg PO DAILY [facility] Azithromycin (Azithromycin 250 Mg Tab) 250 mg PO DAILY [facility] Ceftriaxone Sodium (Ceftriaxone 1 Gm Vial) 1 gm IVPUSH Q24H [facility] Last Admin: 02/25/21 17:31 Dose: 1 gm Documented by: KEYON Cholecalciferol (Cholecalciferol (Vitamin D3) 25 Mcg Tab) 50 mcg PO DAILY [facility] Docusate Sodium (Docusate Sodium 100 Mg Cap) 100 mg PO DAILY PRN PRN Reason: Constipation Enoxaparin Sodium (Enoxaparin 30 Mg/0.3 Ml Syringe) 30 mg SUBCUT BEDTIME [facility] Last Admin: 02/25/21 19:45 Dose: 30 mg Documented by: MARIA LUISA Furosemide (Furosemide 40 Mg/4 Ml Vial) 40 mg IVPUSH BIDDIURETIC [facility] Hydralazine HCl (Hydralazine 25 Mg Tab) 100 mg PO TIDMEALS [facility] Last Admin: 02/25/21 16:51 Dose: 100 mg Documented by: KEYON Insulin Glargine (Insulin Glarg,Human.Rec.Analog 100 Unit/Ml) 22 unit SUBCUT BEDTIME [facility] Last Admin: 02/25/21 19:48 Dose: 22 unit Documented by: MARIA ULISA Isosorbide Mononitrate (Isosorbide Mononitrate 30 Mg Tab.Er) 30 mg PO DAILY [facility] Ketorolac Tromethamine (Ketorolac 0.5% Ophth Soln 3 Ml Bottle) 0 ml EYEBOTH TID PRN PRN Reason: Dry Eyes Levothyroxine Sodium (Levothyroxine 112 Mcg Tab) 112 mcg PO ACBREAKFAST [facility] Lisinopril (Lisinopril 10 Mg Tab) 10 mg PO DAILY [facility] Metoprolol Succinate (Metoprolol Succinate 100 Mg Tab.Er) 100 mg PO DAILY [facility] Multivitamins/Minerals/Vitamin C (Multivitamin Tab) 1 tab PO DAILY [facility] Ondansetron HCl (Ondansetron 4 Mg Tab.Dis) 4 mg PO Q4H PRN PRN Reason: nausea, able to take PO Ondansetron HCl (Ondansetron 4 Mg/2 Ml Sdv) 4 mg IV Q4H PRN PRN Reason: Nausea/Vomiting Sodium Chloride (Sodium Chloride 0.9% 10 Ml Syringe) 10 ml FLUSH ASDIRECTED PRN PRN Reason: Keep Vein Open Temazepam (Temazepam 15 Mg Cap) 15 mg PO BEDTIME PRN PRN Reason: Sleep Labs: Laboratory Tests 02/25/21 02/25/21 02/25/21 Range/Units 13:56 13:56 13:56 WBC 7.9 (4.0-11.0) 10^3/uL RBC 4.53 (4.50-6.00) x10^6/uL Hgb 12.4 L (14.0-18.0) g/dL Hct 40.3 L (42.0-52.0) % MCV 89.0 (83.0-97.0) fL MCH 27.4 (27.0-32.0) pg MCHC 30.8 L (32.0-36.0) g/dL RDW Coeff of Emma 15.4 H (11.0-15.0) % Plt Count 270 (150-400) 10^3/uL Immature Gran % (Auto) 0.1 (0.0-4.9) % Neut % (Auto) 77.1 H (41-71) % Lymph % (Auto) 12.6 L (24-44) % [place] % (Auto) 7.2 (0-10) % Eos % (Auto) 2.5 (0-6) % Baso % (Auto) 0.5 (0-1) % Neut # (Auto) 6.07 (1.80-8.00) x10^3/uL Lymph # (Auto) 0.99 (0.60-5.00) 10^3/uL [place] # (Auto) 0.57 (0.00-1.50) 10^3/uL Eos # (Auto) 0.20 (0.00-1.50) 10^3/uL Baso # (Auto) 0.04 (0.00-0.50) 10^3/uL Immature Gran # (Auto) 0.01 (0.00-0.49) 10^3/uL D-Dimer, Quantitative 2.48 H (0.00-0.50) Sodium 137 (136-145) mEq/L Potassium 4.5 (3.5-5.0) mEq/L Chloride 104 (98-106) mEq/L Carbon Dioxide 27 (21-32) mmol/L BUN 37 H D (7-18) mg/dL Creatinine 1.9 H (0.7-1.3) mg/dL Est Cr Clr Drug Dosing 23.79 mL/min Estimated GFR (MDRD) 34 L (>=60) mL/min Glucose 138 H D (75-99) mg/dL Calcium 8.3 L (8.4-10.1) mg/dL Total Bilirubin 0.5 (0.0-1.0) mg/dL AST 29 (15-37) U/L ALT 20 (12-78) U/L Alkaline Phosphatase 141 H (46-116) U/L Lactate Dehydrogenase 211 H (100-190) U/L Creatine Kinase 85 (35-232) U/L Troponin I < 0.017 (0.00-0.06) ng/mL NT-Pro-B Natriuret Pep 48582 H (0-1000) pg/mL Total Protein 7.3 (6.4-8.2) g/dL Albumin 2.9 L (3.4-5.0) g/dL Meds: Medications Generic Name Dose Route Start Last Admin Trade Name Freq PRN Reason Stop Dose Admin Acetaminophen 650 mg 02/25/21 16:37 Acetaminophen 325 Mg Tab PO Q4H PRN Pain (Mild 1-3)/fever Allopurinol 150 mg 02/26/21 08:00 Allopurinol 300 Mg Tab PO DAILY [facility] Azithromycin 250 mg 02/26/21 08:00 Azithromycin 250 Mg Tab PO DAILY [facility] Ceftriaxone Sodium 1 gm 02/25/21 18:00 02/25/21 17:31 Ceftriaxone 1 Gm Vial IVPUSH 1 gm Q24H [facility] Administration Cholecalciferol 50 mcg 02/26/21 08:00 Cholecalciferol (Vitamin D3) 25 Mcg Tab PO DAILY [facility] Docusate Sodium 100 mg 02/25/21 15:08 Docusate Sodium 100 Mg Cap PO DAILY PRN Constipation Enoxaparin Sodium 30 mg 02/25/21 20:00 02/25/21 19:45 Enoxaparin 30 Mg/0.3 Ml Syringe SUBCUT 30 mg BEDTIME [facility] Administration Furosemide 40 mg 02/26/21 08:00 Furosemide 40 Mg/4 Ml Vial IVPUSH BIDDIURETIC [facility] Hydralazine HCl 100 mg 02/25/21 17:30 02/25/21 16:51 Hydralazine 25 Mg Tab PO 100 mg TIDMEALS [facility] Administration Insulin Glargine 22 unit 02/25/21 20:00 02/25/21 19:48 Insulin Glarg,Human.Rec.Analog 100 Unit/Ml SUBCUT 22 unit BEDTIME [facility] Administration Isosorbide Mononitrate 30 mg 02/26/21 08:00 Isosorbide Mononitrate 30 Mg Tab.Er PO DAILY [facility] Ketorolac Tromethamine 0 ml 02/25/21 15:08 Ketorolac 0.5% Ophth Soln 3 Ml Bottle EYEBOTH TID PRN Dry Eyes Levothyroxine Sodium 112 mcg 02/26/21 07:00 Levothyroxine 112 Mcg Tab PO ACBREAKFAST [facility] Lisinopril 10 mg 02/26/21 08:00 Lisinopril 10 Mg Tab PO DAILY [facility] Metoprolol Succinate 100 mg 02/26/21 08:00 Metoprolol Succinate 100 Mg Tab.Er PO DAILY [facility] Multivitamins/Minerals/Vitamin C 1 tab 02/26/21 08:00 Multivitamin Tab PO DAILY [facility] Ondansetron HCl 4 mg 02/25/21 16:37 Ondansetron 4 Mg Tab.Dis PO Q4H PRN nausea, able to take PO Ondansetron HCl 4 mg 02/25/21 16:37 Ondansetron 4 Mg/2 Ml Sdv IV Q4H PRN Nausea/Vomiting Sodium Chloride 10 ml 02/25/21 16:37 Sodium Chloride 0.9% 10 Ml Syringe FLUSH ASDIRECTED PRN Keep Vein Open Temazepam 15 mg 02/25/21 16:37 Temazepam 15 Mg Cap PO BEDTIME PRN Sleep Discontinued Medications Generic Name Dose Route Start Last Admin Trade Name Freq PRN Reason Stop Dose Admin Aspirin 81 mg 02/26/21 08:00 Aspirin 81 Mg Tab.Ec PO DAILY [facility] Azithromycin 500 mg 02/25/21 17:04 02/25/21 17:31 Azithromycin 250 Mg Tab PO 02/25/21 17:05 500 mg ONETIME ONE Administration Furosemide 40 mg 02/25/21 17:00 02/25/21 16:52 Furosemide 40 Mg/4 Ml Vial IVPUSH 02/25/21 18:00 40 mg BID [facility] Administration Simvastatin 10 mg 02/25/21 20:00 Simvastatin 10 Mg Tab PO BEDTIME [facility] Tamsulosin HCl 0.4 mg 02/25/21 20:00 Tamsulosin 0.4 Mg Cap.Er PO BEDTIME [facility] Tamsulosin HCl 0.4 mg 02/26/21 08:00 Tamsulosin 0.4 Mg Cap.Er PO DAILY [facility] - Re-Assessments/Exams Free Text/Narrative Re-Assessment/Exam: 02/25/21 Lab [place] [address], Creatinine 1.9. D-Dimer is elevated at 2.48, comparable to previous evaluations. WBC is normal. Chest xray does show venous congestion. Discussed with Dr. Taylor. Will admit to inpatient, start IV Lasix. Repeat labs in am. Lovenox 30 mg daily. Departure - Departure Time of Disposition: 14:45 Disposition: Admitted As Inpatient 67 Condition: Fair Clinical Impression: CHF, Congestive heart failure - Discharge Information *PRESCRIPTION DRUG MONITORING PROGRAM REVIEWED*: No *COPY OF PRESCRIPTION DRUG MONITORING REPORT IN PATIENT TENZIN: No Sepsis Event Note (ED) - Evaluation Sepsis Screening Result: No Definite Risk - Focused Exam Vital Signs: Vital Signs Temp Pulse Resp BP Pulse Ox 02/25/21 14:30 162/96 H 02/25/21 14:09 159/86 H 02/25/21 13:54 98.2 F 73 17 140/78 93 L - Problem List & Annotations (1) Congestive heart failure SNOMED Code(s): 27786809 Code(s): I50.9 - HEART FAILURE, UNSPECIFIED Status: Chronic Priority: High Current Visit: Yes Qualifiers: Heart failure type: systolic Heart failure chronicity: acute on chronic Qualified Code(s): I50.23 - Acute on chronic systolic (congestive) heart failure (2) Chronic kidney disease SNOMED Code(s): 133090655 Code(s): N18.9 - CHRONIC KIDNEY DISEASE, UNSPECIFIED Status: Chronic Priority: High Current Visit: Yes - Problem List Review Problem List Initiated/Reviewed/Updated: Yes - My Orders Last 24 Hours: My Active Orders 02/25/21 Chest 1V Frontal [CR] Routine 02/25/21 13:43 EKG 12 Lead [EK] Stat - Assessment/Plan Admission H&P: Please use this note as an admission H&P Last 24 Hours: My Active Orders 02/25/21 Chest 1V Frontal [CR] Routine 02/25/21 13:43 EKG 12 Lead [EK] Stat Assessment:: Acute on Chronic Systolic CHF CKD DM Type 2 Plan: Admit inpatient. IV Lasix. Lovenox SQ. Elevate legs. Hardeep hose if able. Repeat labs in am.
[2021-02-25 14:21] LABS: CHLORIDE,CL 104 mEq/L (98-106); SODIUM,NA 137 mEq/L (136-145)
[2021-02-25] MEDS ORDERED: Docusate Sodium 100 MG Cap PO PRN (15:08)
[2021-02-25] MEDS ORDERED: Ketorolac 0.5% Ophth Soln 3 ML Bottle EYEBOTH PRN (15:08)
[2021-02-25] MEDS ORDERED: Temazepam 15 MG Cap PO PRN (16:37)
[2021-02-25] MEDS ORDERED: Sodium Chloride 0.9% 10 ML Syringe FLUSH PRN (16:37)
[2021-02-25] MEDS ORDERED: Ondansetron 4 MG Tab.DIS PO PRN (16:37)
[2021-02-25] MEDS ORDERED: Ondansetron 4 MG/2 ML SDV IV PRN (16:37)
[2021-02-25] MEDS ORDERED: Acetaminophen 325 MG Tab PO PRN (16:37)
[2021-02-25] MEDS: hydrALAZINE 25 MG Tab PO SCH (16:51)
[2021-02-25] MEDS ORDERED: Furosemide 40 MG/4 ML VIAL IVPUSH SCH (17:00)
[2021-02-25] MEDS ORDERED: Azithromycin 250 MG Tab PO ONE (17:04)
[2021-02-25] MEDS: cefTRIAXone 1 GM Vial IVPUSH SCH (17:31)
[2021-02-25] MEDS: Enoxaparin 30 MG/0.3 ML Syringe SUBCUT SCH (19:45)
[2021-02-25] MEDS ORDERED: Insulin Glarg,Human.Rec.Analog 100 Unit/ML SUBCUT SCH (20:00)
[2021-02-25] MEDS ORDERED: Simvastatin 10 MG Tab PO SCH (20:00)
[2021-02-25] MEDS ORDERED: Tamsulosin 0.4 MG Cap.ER PO SCH (20:00)
[2021-02-26] MEDS: Furosemide 40 MG/4 ML VIAL IVPUSH SCH ×2 (07:40→16:12)
[2021-02-26] MEDS: Allopurinol 300 MG Tab PO SCH (07:41)
[2021-02-26] MEDS: hydrALAZINE 25 MG Tab PO SCH ×3 (07:41→17:38)
[2021-02-26] MEDS: Lisinopril 10 MG Tab PO SCH (07:41)
[2021-02-26] MEDS: Cholecalciferol (Vitamin D3) 25 MCG Tab PO SCH (07:41)
[2021-02-26] MEDS: Multivitamin Tab PO SCH (07:42)
[2021-02-26] MEDS: Metoprolol Succinate 100 MG Tab.ER PO SCH (07:42)
[2021-02-26] MEDS: Azithromycin 250 MG Tab PO SCH (07:42)
[2021-02-26] MEDS: Levothyroxine 112 MCG Tab PO SCH (07:43)
[2021-02-26] MEDS: Isosorbide Mononitrate 30 MG Tab.ER PO SCH (07:43)
[2021-02-26] MEDS ORDERED: Tamsulosin 0.4 MG Cap.ER PO SCH (08:00)
[2021-02-26] MEDS ORDERED: RIVAROXABAN 15 MG PO SCH (08:00)
[2021-02-26] MEDS ORDERED: Aspirin 81 MG Tab.EC PO SCH (08:00)
--- NOTE | 2021-02-26 10:34 | PN ---
DATE: 02/26/2021 S: Akash was admitted yesterday by Josy Davila for exacerbation of CHF. It appears that there have been some significant compliance issues with some of his medications. He had not filled his hydralazine in over 3 months I believe. He had previously been on Xarelto. He had stopped that for his AFib. Unsure what the compliance is on some of his other medications. Nevertheless, he was admitted for diuresis. There was a question of possible infiltrate on his chest x-ray and he was empirically started on antibiotics in the form of Rocephin and Zithromax. He did drop his weight from yesterday to today over 2 kg. Feels like his swelling is better. He denies any complaints of pain or shortness of breath. O: GENERAL: He is in his usual state. He is very pleasant and cooperative. HEENT: Grossly benign. NECK: His neck veins show no resting JVD. LUNGS: Lung sounds are diminished in both bases, more prominent on the right with crackles more prevalent on the left. CARDIOVASCULAR: His cardiac tones are irregular. ABDOMEN: Soft. EXTREMITIES: He has 2+ to 3 edema from the knees to the feet. ASSESSMENT: 1. ACUTE EXACERBATION OF CHRONIC CONGESTIVE HEART FAILURE. 2. HYPERTENSION. 3. POSSIBLE PNEUMONIA. 4. HYPOTHYROIDISM. 5. TYPE 2 DIABETES, REQUIRING INSULIN. P: We will continue with all current cares for now. We will check the status of his last echocardiogram. Repeat chest x-ray tomorrow morning. MICHEL/TIFFANY /[id number]
[2021-02-26] MEDS: cefTRIAXone 1 GM Vial IVPUSH SCH (17:38)
[2021-02-26] MEDS: Enoxaparin 30 MG/0.3 ML Syringe SUBCUT SCH (19:54)
[2021-02-26] MEDS ORDERED: Insulin Glarg,Human.Rec.Analog 100 Unit/ML SUBCUT SCH (20:00)
[2021-02-27] MEDS: Levothyroxine 112 MCG Tab PO SCH (06:27)
[2021-02-27] MEDS: Furosemide 40 MG/4 ML VIAL IVPUSH SCH ×2 (07:35→16:16)
[2021-02-27] MEDS: Allopurinol 300 MG Tab PO SCH (07:35)
[2021-02-27] MEDS: hydrALAZINE 25 MG Tab PO SCH ×3 (07:36→17:24)
[2021-02-27] MEDS: Cholecalciferol (Vitamin D3) 25 MCG Tab PO SCH (07:36)
[2021-02-27] MEDS: Isosorbide Mononitrate 30 MG Tab.ER PO SCH (07:36)
[2021-02-27] MEDS: Lisinopril 10 MG Tab PO SCH (07:36)
[2021-02-27] MEDS: Multivitamin Tab PO SCH (07:37)
[2021-02-27] MEDS: Azithromycin 250 MG Tab PO SCH (07:37)
[2021-02-27] MEDS: Metoprolol Succinate 100 MG Tab.ER PO SCH ×2 (07:46→09:54)
[2021-02-27] MEDS ORDERED: 50% Dextrose in Water 50 ML Syringe IVPUSH PRN (09:48)
[2021-02-27] MEDS ORDERED: Glucagon,Human Recombinant 1 MG Vial IM PRN (09:48)
[2021-02-27 10:20] LABS: CHLORIDE,CL 106 mEq/L (98-106); SODIUM,NA 140 mEq/L (136-145)
[2021-02-27] MEDS ORDERED: Isosorbide Mononitrate 30 MG Tab.ER PO SCH (11:00)
[2021-02-27] MEDS: Insulin Lispro 100 Units/ML 3 ML Vial SUBCUT SCH ×3 (11:37→20:54)
--- NOTE | 2021-02-27 12:00 | PN ---
DATE: 02/27/2021 S: Akash had reasonably good day yesterday. He is continuing to run some low blood sugars. He was down in the 60s this morning. Has been a little bit bradycardic as well and they did hold his beta claudia this morning. Has not had any complaints of chest pain, although he is now starting to cough up sputum and his chest x-ray on review looks more like pneumonia. His BNP is elevated and we are giving him IV Lasix. Weights are down over 5 pounds. He is still having significant edema in his legs. PHYSICAL EXAMINATION: GENERAL: He is pleasant and cooperative, confused more this morning. HEENT: Grossly benign. NECK: Neck veins appear nondistended. LUNGS: Lungs sounds are diminished, mostly in the right base, and a little bit of crackles in the left as well. No audible rales or wheeze. CARDIAC: Cardiac tones appear irregular. ABDOMEN: Soft. EXTREMITIES: He has 2 to 3+ edema below the knees. ASSESSMENT: 1. PNEUMONIA. 2. CONGESTIVE HEART FAILURE. 3. TYPE 2 DIABETES, REQUIRING INSULIN WITH HYPOGLYCEMIC EPISODES. 4. BRADYCARDIA. P: We will continue Zithromax and Rocephin. I will repeat his routine lab work today. We will continue with his routine dose of Lasix at this time. I am going to hold his insulin and use a sliding scale only at this point. I will have staff give him his dose of metoprolol as his pressures continue to run high and we will just keep an eye on this. MICHEL/TIFFANY /[id number]
[2021-02-27] MEDS: cefTRIAXone 1 GM Vial IVPUSH SCH (17:24)
[2021-02-27] MEDS: Enoxaparin 30 MG/0.3 ML Syringe SUBCUT SCH (19:56)
[2021-02-28] MEDS: Levothyroxine 112 MCG Tab PO SCH (06:37)
[2021-02-28] MEDS: Insulin Lispro 100 Units/ML 3 ML Vial SUBCUT SCH ×4 (07:55→20:37)
[2021-02-28] MEDS: Furosemide 40 MG/4 ML VIAL IVPUSH SCH ×2 (08:25→16:28)
[2021-02-28] MEDS: Cholecalciferol (Vitamin D3) 25 MCG Tab PO SCH (08:27)
[2021-02-28] MEDS: Isosorbide Mononitrate 30 MG Tab.ER PO SCH (08:27)
[2021-02-28] MEDS: Allopurinol 300 MG Tab PO SCH (08:27)
[2021-02-28] MEDS: Multivitamin Tab PO SCH (08:27)
[2021-02-28] MEDS: Azithromycin 250 MG Tab PO SCH (08:30)
[2021-02-28] MEDS: Metoprolol Succinate 100 MG Tab.ER PO SCH (08:30)
[2021-02-28] MEDS: Lisinopril 10 MG Tab PO SCH (08:30)
[2021-02-28] MEDS: hydrALAZINE 25 MG Tab PO SCH ×3 (08:30→16:30)
--- NOTE | 2021-02-28 11:39 | PN ---
DATE: 02/28/2021 S: Akash continues to feel fine. His blood pressures remain a little bit on the elevated side, but he is clinically feeling better, requiring less O2 I believe, down at 2 L. His weights are down over 6 pounds since we have been diuresing him. Chest x-ray was repeated yesterday, and he looks more like a failure than he does pneumonia at this time. He did cough up some sputum, and we do have a culture pending. O: GENERAL: He appears in no distress. NECK: Supple. Veins are flat. LUNGS: He has improved air movement in both lung bases. CARDIAC: Tones remain irregular. ABDOMEN: Soft. EXTREMITIES: Lower extremities are still with 1 to 2+ edema, but improved. ASSESSMENT: 1. 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 2. KNOWN AORTIC VALVE STENOSIS. 3. POSSIBLE PNEUMONIA. 4. TYPE 2 DIABETES, REQUIRING INSULIN. 5. BRADYCARDIA, IMPROVED. P: Continue diuresis for now. The patient will continue on IV antibiotics until we get the results of his sputum culture. I did talk with Dr. Coyne yesterday, who is the patient's signal worker helper, and he would theoretically need a TAVR for his aortic valve. There is a question of his surgical appropriateness at this point. We will continue to monitor. MICHEL/TIFFANY /[id number]
[2021-02-28] MEDS: Lanolin/Mineral Oil/NaCl/Petrolatum Lotion 177 ML Bottle TOP PRN (12:27)
[2021-02-28] MEDS: cefTRIAXone 1 GM Vial IVPUSH SCH (17:47)
[2021-02-28] MEDS: Enoxaparin 30 MG/0.3 ML Syringe SUBCUT SCH (19:28)
[2021-03-01] MEDS: Levothyroxine 112 MCG Tab PO SCH (06:39)
[2021-03-01] MEDS: Allopurinol 300 MG Tab PO SCH (07:49)
[2021-03-01] MEDS: Multivitamin Tab PO SCH (07:50)
[2021-03-01] MEDS: Cholecalciferol (Vitamin D3) 25 MCG Tab PO SCH (07:50)
[2021-03-01] MEDS: Azithromycin 250 MG Tab PO SCH (07:50)
[2021-03-01] MEDS: Isosorbide Mononitrate 30 MG Tab.ER PO SCH (07:50)
[2021-03-01] MEDS: Lisinopril 10 MG Tab PO SCH (07:50)
[2021-03-01] MEDS: Metoprolol Succinate 100 MG Tab.ER PO SCH (07:51)
[2021-03-01] MEDS: Furosemide 40 MG/4 ML VIAL IVPUSH SCH (07:52)
[2021-03-01] MEDS: hydrALAZINE 25 MG Tab PO SCH ×3 (07:52→17:48)
[2021-03-01] MEDS: Insulin Lispro 100 Units/ML 3 ML Vial SUBCUT SCH ×4 (07:53→20:51)
--- NOTE | 2021-03-01 12:31 | PCM.PN ---
- General Info Date of Service: 03/01/21 Functional Status: Reports: Pain Controlled, Tolerating Diet, Ambulating, Urinating - Review of Systems General: Reports: No Symptoms HEENT: Reports: No Symptoms Pulmonary: Reports: Shortness of Breath (mild, but much improved) Cardiovascular: Reports: Edema (BLE but improved) Gastrointestinal: Reports: No Symptoms Genitourinary: Reports: No Symptoms Musculoskeletal: Reports: No Symptoms Skin: Reports: No Symptoms Neurological: Reports: No Symptoms Psychiatric: Reports: No Symptoms - Patient Data Vitals - Most Recent: Last Vital Signs Temp 98.1 F 03/01/21 08:00 Pulse 74 03/01/21 08:00 Resp 20 03/01/21 08:00 BP 176/92 H 03/01/21 08:00 Pulse Ox 95 03/01/21 08:00 Weight - Most Recent: 229 lb 11.2 oz Lab Results Last 24 Hours: Laboratory Results - last 24 hr 02/28/21 02/28/21 03/01/21 Range/Units 17:28 20:34 06:42 WBC 8.1 (4.0-11.0) 10^3/uL RBC 4.37 L (4.50-6.00) x10^6/uL Hgb 12.1 L (14.0-18.0) g/dL Hct 39.1 L (42.0-52.0) % MCV 89.5 (83.0-97.0) fL MCH 27.7 (27.0-32.0) pg MCHC 30.9 L (32.0-36.0) g/dL RDW Coeff of Emma 15.1 H (11.0-15.0) % Plt Count 262 (150-400) 10^3/uL Immature Gran % (Auto) 0.1 (0.0-4.9) % Neut % (Auto) 74.4 H (41-71) % Lymph % (Auto) 12.7 L (24-44) % [place] % (Auto) 9.1 (0-10) % Eos % (Auto) 3.1 (0-6) % Baso % (Auto) 0.6 (0-1) % Neut # (Auto) 6.04 (1.80-8.00) x10^3/uL Lymph # (Auto) 1.03 (0.60-5.00) 10^3/uL [place] # (Auto) 0.74 (0.00-1.50) 10^3/uL Eos # (Auto) 0.25 (0.00-1.50) 10^3/uL Baso # (Auto) 0.05 (0.00-0.50) 10^3/uL Immature Gran # (Auto) 0.01 (0.00-0.49) 10^3/uL Sodium (136-145) mEq/L Potassium (3.5-5.0) mEq/L Chloride (98-106) mEq/L Carbon Dioxide (21-32) mmol/L BUN (7-18) mg/dL Creatinine (0.7-1.3) mg/dL Est Cr Clr Drug Dosing mL/min Estimated GFR (MDRD) (>=60) mL/min Glucose (75-99) mg/dL POC Glucose 146 H 222 H (75-105) mg/dL Calcium (8.4-10.1) mg/dL NT-Pro-B Natriuret Pep (0-1000) pg/mL 03/01/21 03/01/21 Range/Units 06:42 11:51 WBC (4.0-11.0) 10^3/uL RBC (4.50-6.00) x10^6/uL Hgb (14.0-18.0) g/dL Hct (42.0-52.0) % MCV (83.0-97.0) fL MCH (27.0-32.0) pg MCHC (32.0-36.0) g/dL RDW Coeff of Emma (11.0-15.0) % Plt Count (150-400) 10^3/uL Immature Gran % (Auto) (0.0-4.9) % Neut % (Auto) (41-71) % Lymph % (Auto) (24-44) % [place] % (Auto) (0-10) % Eos % (Auto) (0-6) % Baso % (Auto) (0-1) % Neut # (Auto) (1.80-8.00) x10^3/uL Lymph # (Auto) (0.60-5.00) 10^3/uL [place] # (Auto) (0.00-1.50) 10^3/uL Eos # (Auto) (0.00-1.50) 10^3/uL Baso # (Auto) (0.00-0.50) 10^3/uL Immature Gran # (Auto) (0.00-0.49) 10^3/uL Sodium 141 (136-145) mEq/L Potassium 4.2 (3.5-5.0) mEq/L Chloride 104 (98-106) mEq/L Carbon Dioxide 30 (21-32) mmol/L BUN 43 H (7-18) mg/dL Creatinine 1.9 H (0.7-1.3) mg/dL Est Cr Clr Drug Dosing 23.79 mL/min Estimated GFR (MDRD) 34 L (>=60) mL/min Glucose 132 H (75-99) mg/dL POC Glucose 166 H (75-105) mg/dL Calcium 8.6 (8.4-10.1) mg/dL NT-Pro-B Natriuret Pep 28648 H (0-1000) pg/mL Neil Results Last 24 Hours: Microbiology 02/27/21 19:51 Gram Stain - Final Sputum - Expectorated Sputum Culture - Preliminary Yeast Isolated Med Orders - Current: Current Medications Acetaminophen (Acetaminophen 325 Mg Tab) 650 mg PO Q4H PRN PRN Reason: Pain (Mild 1-3)/fever Allopurinol (Allopurinol 300 Mg Tab) 150 mg PO DAILY [facility] Last Admin: 03/01/21 07:49 Dose: 150 mg Documented by: Azithromycin (Azithromycin 250 Mg Tab) 250 mg PO DAILY [facility] Last Admin: 03/01/21 07:50 Dose: 250 mg Documented by: Ceftriaxone Sodium (Ceftriaxone 1 Gm Vial) 1 gm IVPUSH Q24H [facility] Last Admin: 02/28/21 17:47 Dose: 1 gm Documented by: Cholecalciferol (Cholecalciferol (Vitamin D3) 25 Mcg Tab) 50 mcg PO DAILY [facility] Last Admin: 03/01/21 07:50 Dose: 50 mcg Documented by: Dextrose/Water (50% Dextrose In Water 50 Ml Syringe) 50 ml IVPUSH ASDIRECTED PRN PRN Reason: Hypoglycemia Docusate Sodium (Docusate Sodium 100 Mg Cap) 100 mg PO DAILY PRN PRN Reason: Constipation Enoxaparin Sodium (Enoxaparin 30 Mg/0.3 Ml Syringe) 30 mg SUBCUT BEDTIME [facility] Last Admin: 02/28/21 19:28 Dose: 30 mg Documented by: Furosemide (Furosemide 40 Mg/4 Ml Vial) 40 mg IVPUSH BIDDIURETIC [facility] Last Admin: 03/01/21 07:52 Dose: 40 mg Documented by: Glucagon (Glucagon,Human Recombinant 1 Mg Vial) 1 mg IM ASDIRECTED PRN PRN Reason: Hypoglycemia Hydralazine HCl (Hydralazine 25 Mg Tab) 100 mg PO TIDMEALS [facility] Last Admin: 03/01/21 07:52 Dose: 100 mg Documented by: Insulin Glargine (Insulin Glarg,Human.Rec.Analog 100 Unit/Ml) 16 unit SUBCUT BEDTIME [facility] Last Admin: 02/26/21 19:55 Dose: 16 units Documented by: Insulin Human Lispro (Insulin Lispro 100 Units/Ml 3 Ml Vial) 0 unit SUBCUT WITHMEALSANDBED [facility]; Protocol Last Admin: 03/01/21 07:53 Dose: Not Given Documented by: Isosorbide Mononitrate (Isosorbide Mononitrate 30 Mg Tab.Er) 60 mg PO DAILY [facility] Last Admin: 03/01/21 07:50 Dose: 60 mg Documented by: Ketorolac Tromethamine (Ketorolac 0.5% Ophth Soln 3 Ml Bottle) 0 ml EYEBOTH TID PRN PRN Reason: Dry Eyes Levothyroxine Sodium (Levothyroxine 112 Mcg Tab) 112 mcg PO ACBREAKFAST [facility] Last Admin: 03/01/21 06:39 Dose: 112 mcg Documented by: Lisinopril (Lisinopril 10 Mg Tab) 10 mg PO DAILY [facility] Last Admin: 03/01/21 07:50 Dose: 10 mg Documented by: Metoprolol Succinate (Metoprolol Succinate 100 Mg Tab.Er) 50 mg PO DAILY [facility] Last Admin: 03/01/21 07:51 Dose: 50 mg Documented by: Multi-Ingredient Lotion (Lanolin/Mineral Oil/Nacl/Petrolatum Lotion 177 Ml Bottle) 0 ml TOP BID PRN PRN Reason: Itching Last Admin: 02/28/21 12:27 Dose: 1 applic Documented by: Multivitamins/Minerals/Vitamin C (Multivitamin Tab) 1 tab PO DAILY [facility] Last Admin: 03/01/21 07:50 Dose: 1 tab Documented by: Ondansetron HCl (Ondansetron 4 Mg Tab.Dis) 4 mg PO Q4H PRN PRN Reason: nausea, able to take PO Ondansetron HCl (Ondansetron 4 Mg/2 Ml Sdv) 4 mg IV Q4H PRN PRN Reason: Nausea/Vomiting Sodium Chloride (Sodium Chloride 0.9% 10 Ml Syringe) 10 ml FLUSH ASDIRECTED PRN PRN Reason: Keep Vein Open Temazepam (Temazepam 15 Mg Cap) 15 mg PO BEDTIME PRN PRN Reason: Sleep Discontinued Medications Aspirin (Aspirin 81 Mg Tab.Ec) 81 mg PO DAILY [facility] Azithromycin (Azithromycin 250 Mg Tab) 500 mg PO ONETIME ONE Stop: 02/25/21 17:05 Last Admin: 02/25/21 17:31 Dose: 500 mg Documented by: Furosemide (Furosemide 40 Mg/4 Ml Vial) 40 mg IVPUSH BID OSVALDO Stop: 02/25/21 18:00 Last Admin: 02/25/21 16:52 Dose: 40 mg Documented by: Insulin Glargine (Insulin Glarg,Human.Rec.Analog 100 Unit/Ml) 22 unit SUBCUT BEDTIME [facility] Last Admin: 02/25/21 19:48 Dose: 22 unit Documented by: Isosorbide Mononitrate (Isosorbide Mononitrate 30 Mg Tab.Er) 30 mg PO DAILY [facility] Last Admin: 02/27/21 07:36 Dose: 30 mg Documented by: Isosorbide Mononitrate (Isosorbide Mononitrate 30 Mg Tab.Er) 30 mg PO DAILY [facility] Stop: 02/27/21 13:00 Last Admin: 02/27/21 11:00 Dose: Not Given Documented by: Metoprolol Succinate (Metoprolol Succinate 100 Mg Tab.Er) 100 mg PO DAILY [facility] Last Admin: 02/27/21 09:54 Dose: 50 mg Documented by: Simvastatin (Simvastatin 10 Mg Tab) 10 mg PO BEDTIME [facility] Tamsulosin HCl (Tamsulosin 0.4 Mg Cap.Er) 0.4 mg PO BEDTIME [facility] Tamsulosin HCl (Tamsulosin 0.4 Mg Cap.Er) 0.4 mg PO DAILY [facility] - Exam General: Alert, Oriented, Cooperative, No Acute Distress Neck: Supple, Trachea Midline, No JVD Lungs: Clear to Auscultation, Normal Respiratory Effort Cardiovascular: Regular Rate, Regular Rhythm GI/Abdominal Exam: Soft, Non-Tender Back Exam: Normal Inspection Extremities: Normal Inspection, Normal Range of Motion, Non-Tender, No Pedal Edema, Normal Capillary Refill, Pedal Edema (+4 RLE, +3 LLE. ) Peripheral Pulses: 2+: Radial (L), Radial (R), Posterior Tibial (L), Posterior Tibial (R), Dorsalis Pedis (L), Dorsalis Pedis (R) Skin: Warm, Dry, Intact Neurological: Normal Gait, Normal Speech Psy/Mental Status: Alert, Normal Affect, Normal Mood - Patient Data Lab Results Last 24 hrs: Laboratory Results - last 24 hr 02/28/21 02/28/21 03/01/21 Range/Units 17:28 20:34 06:42 WBC 8.1 (4.0-11.0) 10^3/uL RBC 4.37 L (4.50-6.00) x10^6/uL Hgb 12.1 L (14.0-18.0) g/dL Hct 39.1 L (42.0-52.0) % MCV 89.5 (83.0-97.0) fL MCH 27.7 (27.0-32.0) pg MCHC 30.9 L (32.0-36.0) g/dL RDW Coeff of Emma 15.1 H (11.0-15.0) % Plt Count 262 (150-400) 10^3/uL Immature Gran % (Auto) 0.1 (0.0-4.9) % Neut % (Auto) 74.4 H (41-71) % Lymph % (Auto) 12.7 L (24-44) % [place] % (Auto) 9.1 (0-10) % Eos % (Auto) 3.1 (0-6) % Baso % (Auto) 0.6 (0-1) % Neut # (Auto) 6.04 (1.80-8.00) x10^3/uL Lymph # (Auto) 1.03 (0.60-5.00) 10^3/uL [place] # (Auto) 0.74 (0.00-1.50) 10^3/uL Eos # (Auto) 0.25 (0.00-1.50) 10^3/uL Baso # (Auto) 0.05 (0.00-0.50) 10^3/uL Immature Gran # (Auto) 0.01 (0.00-0.49) 10^3/uL Sodium (136-145) mEq/L Potassium (3.5-5.0) mEq/L Chloride (98-106) mEq/L Carbon Dioxide (21-32) mmol/L BUN (7-18) mg/dL Creatinine (0.7-1.3) mg/dL Est Cr Clr Drug Dosing mL/min Estimated GFR (MDRD) (>=60) mL/min Glucose (75-99) mg/dL POC Glucose 146 H 222 H (75-105) mg/dL Calcium (8.4-10.1) mg/dL NT-Pro-B Natriuret Pep (0-1000) pg/mL 03/01/21 03/01/21 Range/Units 06:42 11:51 WBC (4.0-11.0) 10^3/uL RBC (4.50-6.00) x10^6/uL Hgb (14.0-18.0) g/dL Hct (42.0-52.0) % MCV (83.0-97.0) fL MCH (27.0-32.0) pg MCHC (32.0-36.0) g/dL RDW Coeff of Emma (11.0-15.0) % Plt Count (150-400) 10^3/uL Immature Gran % (Auto) (0.0-4.9) % Neut % (Auto) (41-71) % Lymph % (Auto) (24-44) % [place] % (Auto) (0-10) % Eos % (Auto) (0-6) % Baso % (Auto) (0-1) % Neut # (Auto) (1.80-8.00) x10^3/uL Lymph # (Auto) (0.60-5.00) 10^3/uL [place] # (Auto) (0.00-1.50) 10^3/uL Eos # (Auto) (0.00-1.50) 10^3/uL Baso # (Auto) (0.00-0.50) 10^3/uL Immature Gran # (Auto) (0.00-0.49) 10^3/uL Sodium 141 (136-145) mEq/L Potassium 4.2 (3.5-5.0) mEq/L Chloride 104 (98-106) mEq/L Carbon Dioxide 30 (21-32) mmol/L BUN 43 H (7-18) mg/dL Creatinine 1.9 H (0.7-1.3) mg/dL Est Cr Clr Drug Dosing 23.79 mL/min Estimated GFR (MDRD) 34 L (>=60) mL/min Glucose 132 H (75-99) mg/dL POC Glucose 166 H (75-105) mg/dL Calcium 8.6 (8.4-10.1) mg/dL NT-Pro-B Natriuret Pep 18785 H (0-1000) pg/mL Result Diagrams: 03/01/21 06:42 03/01/21 06:42 Neil Results Last 24 hrs: Microbiology 02/27/21 19:51 Gram Stain - Final Sputum - Expectorated Sputum Culture - Preliminary Yeast Isolated Sepsis Event Note - Evaluation Sepsis Screening Result: No Definite Risk - Focused Exam Vital Signs: Vital Signs Temp Pulse Pulse Resp BP BP Pulse Ox 03/01/21 08:00 98.1 F 74 20 176/92 H 95 03/01/21 07:52 176/92 H 03/01/21 07:51 74 176/92 H 03/01/21 07:50 176/92 H 03/01/21 04:00 96.9 F 74 20 166/86 H 93 L - Problem List Review Problem List Initiated/Reviewed/Updated: Yes - My Orders Last 24 Hours: My Active Orders 03/02/21 05:00 BASIC METABOLIC PANEL,BMP [CHEM] DAILY CBC WITH AUTO DIFF [HEME] DAILY PRO B-TYPE NATRIUR PEPT,BNPPRO [CHEM] DAILY 03/03/21 05:00 BASIC METABOLIC PANEL,BMP [CHEM] DAILY CBC WITH AUTO DIFF [HEME] DAILY PRO B-TYPE NATRIUR PEPT,BNPPRO [CHEM] DAILY - Plan Plan:: 03/01/21 0900 This patient is a pleasant 89 year old male that was admitted to the hospital for CHF exacerbation. The patient has been on Lasix IV. He has dropped nearly 12lbs of weight since admission. The patient report that he is feeling better today and is feeling like he has more energy. He reports that his shortness of breath is improving, but still present. The patient is on 3L NC oxygen at 95% saturation. The CR today is 1.9, consistent with his baseline. His BNP today is 11,306, on the was 11,845, but clinically compared to the report I received is doing much better. The plan is to keep this patient until Wednesday and discharge home. I will attempt to transition him to PO Lasix starting with his evening dose and attempt to wean his oxygen. Will recheck him tomorrow and see how he is clinically from the transition of IV to PO. Patient sputum cx shows isolated yeast, as this could be contamination, but will go ahead and treat with Diflucan. Will keep acute due to attempt to transition to PO Lasix from IV and patient need for oxygen.
[2021-03-01] MEDS: Fluconazole 100 MG Tab PO SCH (12:45)
[2021-03-01] MEDS: Furosemide 20 MG Tab PO SCH (16:10)
[2021-03-01] MEDS: cefTRIAXone 1 GM Vial IVPUSH SCH (17:57)
[2021-03-01] MEDS: Enoxaparin 30 MG/0.3 ML Syringe SUBCUT SCH (19:21)
[2021-03-02] MEDS: Levothyroxine 112 MCG Tab PO SCH (07:02)
[2021-03-02] MEDS: hydrALAZINE 25 MG Tab PO SCH ×3 (07:45→17:32)
[2021-03-02] MEDS: Fluconazole 100 MG Tab PO SCH (07:46)
[2021-03-02] MEDS: Metoprolol Succinate 100 MG Tab.ER PO SCH (07:46)
[2021-03-02] MEDS: Isosorbide Mononitrate 30 MG Tab.ER PO SCH (07:47)
[2021-03-02] MEDS: Allopurinol 300 MG Tab PO SCH (07:48)
[2021-03-02] MEDS: Azithromycin 250 MG Tab PO SCH (07:48)
[2021-03-02] MEDS: Furosemide 20 MG Tab PO SCH ×2 (07:48→15:42)
[2021-03-02] MEDS: Lisinopril 10 MG Tab PO SCH (07:48)
[2021-03-02] MEDS: Multivitamin Tab PO SCH (07:48)
[2021-03-02] MEDS: Cholecalciferol (Vitamin D3) 25 MCG Tab PO SCH (07:48)
[2021-03-02] MEDS: Insulin Lispro 100 Units/ML 3 ML Vial SUBCUT SCH ×4 (09:03→20:30)
--- NOTE | 2021-03-02 09:12 | PCM.PN ---
- General Info Date of Service: 03/02/21 Functional Status: Reports: Pain Controlled, Tolerating Diet, Ambulating (to the bathroom), Urinating - Review of Systems General: Reports: No Symptoms HEENT: Reports: No Symptoms Pulmonary: Reports: Shortness of Breath (mildly), Cough, Sputum Cardiovascular: Reports: Edema Gastrointestinal: Reports: No Symptoms Genitourinary: Reports: No Symptoms Musculoskeletal: Reports: No Symptoms Skin: Reports: No Symptoms Neurological: Reports: No Symptoms Psychiatric: Reports: No Symptoms - Patient Data Vitals - Most Recent: Last Vital Signs Temp 96.8 F L 03/02/21 04:25 Pulse 73 03/02/21 07:46 Resp 16 03/02/21 04:25 BP 175/88 H 03/02/21 07:48 Pulse Ox 93 L 03/02/21 04:25 Weight - Most Recent: 225 lb 14.4 oz Lab Results Last 24 Hours: Laboratory Results - last 24 hr 03/01/21 03/01/21 03/01/21 Range/Units 11:51 17:35 20:45 WBC (4.0-11.0) 10^3/uL RBC (4.50-6.00) x10^6/uL Hgb (14.0-18.0) g/dL Hct (42.0-52.0) % MCV (83.0-97.0) fL MCH (27.0-32.0) pg MCHC (32.0-36.0) g/dL RDW Coeff of Emma (11.0-15.0) % Plt Count (150-400) 10^3/uL Immature Gran % (Auto) (0.0-4.9) % Neut % (Auto) (41-71) % Lymph % (Auto) (24-44) % Ada % (Auto) (0-10) % Eos % (Auto) (0-6) % Baso % (Auto) (0-1) % Neut # (Auto) (1.80-8.00) x10^3/uL Lymph # (Auto) (0.60-5.00) 10^3/uL Ada # (Auto) (0.00-1.50) 10^3/uL Eos # (Auto) (0.00-1.50) 10^3/uL Baso # (Auto) (0.00-0.50) 10^3/uL Immature Gran # (Auto) (0.00-0.49) 10^3/uL Sodium (136-145) mEq/L Potassium (3.5-5.0) mEq/L Chloride (98-106) mEq/L Carbon Dioxide (21-32) mmol/L BUN (7-18) mg/dL Creatinine (0.7-1.3) mg/dL Est Cr Clr Drug Dosing mL/min Estimated GFR (MDRD) (>=60) mL/min Glucose (75-99) mg/dL POC Glucose 166 H 136 H 168 H (75-105) mg/dL Calcium (8.4-10.1) mg/dL NT-Pro-B Natriuret Pep (0-1000) pg/mL 03/02/21 03/02/21 Range/Units 07:08 07:08 WBC 8.1 (4.0-11.0) 10^3/uL RBC 4.25 L (4.50-6.00) x10^6/uL Hgb 11.8 L (14.0-18.0) g/dL Hct 37.6 L (42.0-52.0) % MCV 88.5 (83.0-97.0) fL MCH 27.8 (27.0-32.0) pg MCHC 31.4 L (32.0-36.0) g/dL RDW Coeff of Emma 15.0 (11.0-15.0) % Plt Count 244 (150-400) 10^3/uL Immature Gran % (Auto) 0.1 (0.0-4.9) % Neut % (Auto) 72.8 H (41-71) % Lymph % (Auto) 13.8 L (24-44) % Ada % (Auto) 9.1 (0-10) % Eos % (Auto) 3.7 (0-6) % Baso % (Auto) 0.5 (0-1) % Neut # (Auto) 5.91 (1.80-8.00) x10^3/uL Lymph # (Auto) 1.12 (0.60-5.00) 10^3/uL Ada # (Auto) 0.74 (0.00-1.50) 10^3/uL Eos # (Auto) 0.30 (0.00-1.50) 10^3/uL Baso # (Auto) 0.04 (0.00-0.50) 10^3/uL Immature Gran # (Auto) 0.01 (0.00-0.49) 10^3/uL Sodium 140 (136-145) mEq/L Potassium 4.0 (3.5-5.0) mEq/L Chloride 103 (98-106) mEq/L Carbon Dioxide 31 (21-32) mmol/L BUN 40 H (7-18) mg/dL Creatinine 1.8 H (0.7-1.3) mg/dL Est Cr Clr Drug Dosing 25.11 mL/min Estimated GFR (MDRD) 36 L (>=60) mL/min Glucose 130 H (75-99) mg/dL POC Glucose (75-105) mg/dL Calcium 8.5 (8.4-10.1) mg/dL NT-Pro-B Natriuret Pep 9846 H (0-1000) pg/mL Neil Results Last 24 Hours: Microbiology 02/27/21 19:51 Gram Stain - Final Sputum - Expectorated Sputum Culture - Final Yeast Isolated Med Orders - Current: Current Medications Acetaminophen (Acetaminophen 325 Mg Tab) 650 mg PO Q4H PRN PRN Reason: Pain (Mild 1-3)/fever Albuterol/Ipratropium (Albuterol/Ipratropium 3.0-0.5 Mg/3 Ml Neb Soln) 3 ml NEB BIDRT [facility] Allopurinol (Allopurinol 300 Mg Tab) 150 mg PO DAILY [facility] Last Admin: 03/02/21 07:48 Dose: 150 mg Documented by: Azithromycin (Azithromycin 250 Mg Tab) 250 mg PO DAILY [facility] Last Admin: 03/02/21 07:48 Dose: 250 mg Documented by: Ceftriaxone Sodium (Ceftriaxone 1 Gm Vial) 1 gm IVPUSH Q24H [facility] Last Admin: 03/01/21 17:57 Dose: 1 gm Documented by: Cholecalciferol (Cholecalciferol (Vitamin D3) 25 Mcg Tab) 50 mcg PO DAILY [facility] Last Admin: 03/02/21 07:48 Dose: 50 mcg Documented by: Dextrose/Water (50% Dextrose In Water 50 Ml Syringe) 50 ml IVPUSH ASDIRECTED PRN PRN Reason: Hypoglycemia Docusate Sodium (Docusate Sodium 100 Mg Cap) 100 mg PO DAILY PRN PRN Reason: Constipation Enoxaparin Sodium (Enoxaparin 30 Mg/0.3 Ml Syringe) 30 mg SUBCUT BEDTIME [facility] Last Admin: 03/01/21 19:21 Dose: 30 mg Documented by: Fluconazole (Fluconazole 100 Mg Tab) 100 mg PO DAILY [facility] Stop: 03/08/21 12:46 Last Admin: 03/02/21 07:46 Dose: 100 mg Documented by: Furosemide (Furosemide 20 Mg Tab) 60 mg PO BIDDIURETIC [facility] Last Admin: 03/02/21 07:48 Dose: 60 mg Documented by: Glucagon (Glucagon,Human Recombinant 1 Mg Vial) 1 mg IM ASDIRECTED PRN PRN Reason: Hypoglycemia Hydralazine HCl (Hydralazine 25 Mg Tab) 100 mg PO TIDMEALS [facility] Last Admin: 03/02/21 07:45 Dose: 100 mg Documented by: Insulin Glargine (Insulin Glarg,Human.Rec.Analog 100 Unit/Ml) 16 unit SUBCUT BEDTIME [facility] Last Admin: 02/26/21 19:55 Dose: 16 units Documented by: Insulin Human Lispro (Insulin Lispro 100 Units/Ml 3 Ml Vial) 0 unit SUBCUT WITHMEALSANDBED [facility]; Protocol Last Admin: 03/01/21 20:51 Dose: 1 unit Documented by: Isosorbide Mononitrate (Isosorbide Mononitrate 30 Mg Tab.Er) 60 mg PO DAILY [facility] Last Admin: 03/02/21 07:47 Dose: 60 mg Documented by: Ketorolac Tromethamine (Ketorolac 0.5% Ophth Soln 3 Ml Bottle) 0 ml EYEBOTH TID PRN PRN Reason: Dry Eyes Levothyroxine Sodium (Levothyroxine 112 Mcg Tab) 112 mcg PO ACBREAKFAST [facility] Last Admin: 03/02/21 07:02 Dose: 112 mcg Documented by: Lisinopril (Lisinopril 10 Mg Tab) 10 mg PO DAILY [facility] Last Admin: 03/02/21 07:48 Dose: 10 mg Documented by: Metoprolol Succinate (Metoprolol Succinate 100 Mg Tab.Er) 50 mg PO DAILY [facility] Last Admin: 03/02/21 07:46 Dose: 50 mg Documented by: Multi-Ingredient Lotion (Lanolin/Mineral Oil/Nacl/Petrolatum Lotion 177 Ml Bottle) 0 ml TOP BID PRN PRN Reason: Itching Last Admin: 02/28/21 12:27 Dose: 1 applic Documented by: Multivitamins/Minerals/Vitamin C (Multivitamin Tab) 1 tab PO DAILY [facility] Last Admin: 03/02/21 07:48 Dose: 1 tab Documented by: Ondansetron HCl (Ondansetron 4 Mg Tab.Dis) 4 mg PO Q4H PRN PRN Reason: nausea, able to take PO Ondansetron HCl (Ondansetron 4 Mg/2 Ml Sdv) 4 mg IV Q4H PRN PRN Reason: Nausea/Vomiting Sodium Chloride (Sodium Chloride 0.9% 10 Ml Syringe) 10 ml FLUSH ASDIRECTED PRN PRN Reason: Keep Vein Open Temazepam (Temazepam 15 Mg Cap) 15 mg PO BEDTIME PRN PRN Reason: Sleep Discontinued Medications Aspirin (Aspirin 81 Mg Tab.Ec) 81 mg PO DAILY [facility] Azithromycin (Azithromycin 250 Mg Tab) 500 mg PO ONETIME ONE Stop: 02/25/21 17:05 Last Admin: 02/25/21 17:31 Dose: 500 mg Documented by: Furosemide (Furosemide 40 Mg/4 Ml Vial) 40 mg IVPUSH BID [facility] Stop: 02/25/21 18:00 Last Admin: 02/25/21 16:52 Dose: 40 mg Documented by: Furosemide (Furosemide 40 Mg/4 Ml Vial) 40 mg IVPUSH BIDDIURETIC [facility] Last Admin: 03/01/21 07:52 Dose: 40 mg Documented by: Insulin Glargine (Insulin Glarg,Human.Rec.Analog 100 Unit/Ml) 22 unit SUBCUT BEDTIME [facility] Last Admin: 02/25/21 19:48 Dose: 22 unit Documented by: Isosorbide Mononitrate (Isosorbide Mononitrate 30 Mg Tab.Er) 30 mg PO DAILY [facility] Last Admin: 02/27/21 07:36 Dose: 30 mg Documented by: Isosorbide Mononitrate (Isosorbide Mononitrate 30 Mg Tab.Er) 30 mg PO DAILY [facility] Stop: 02/27/21 13:00 Last Admin: 02/27/21 11:00 Dose: Not Given Documented by: Metoprolol Succinate (Metoprolol Succinate 100 Mg Tab.Er) 100 mg PO DAILY [facility] Last Admin: 02/27/21 09:54 Dose: 50 mg Documented by: Simvastatin (Simvastatin 10 Mg Tab) 10 mg PO BEDTIME [facility] Tamsulosin HCl (Tamsulosin 0.4 Mg Cap.Er) 0.4 mg PO BEDTIME [facility] Tamsulosin HCl (Tamsulosin 0.4 Mg Cap.Er) 0.4 mg PO DAILY [facility] - Exam Quality Assessment: Supplemental Oxygen General: Alert, Oriented, Cooperative, No Acute Distress Lungs: Normal Respiratory Effort, Rhonchi (moderately throughout) Cardiovascular: Murmurs, Other (+4 BLE edema) Back Exam: Normal Inspection Extremities: Normal Inspection, Normal Range of Motion, Non-Tender, Normal Capillary Refill Peripheral Pulses: 2+: Radial (L), Radial (R), Posterior Tibial (L), Posterior Tibial (R), Dorsalis Pedis (L), Dorsalis Pedis (R) Skin: Warm, Dry, Intact Neurological: No New Focal Deficit, Normal Speech Psy/Mental Status: Alert, Normal Affect, Normal Mood - Patient Data Lab Results Last 24 hrs: Laboratory Results - last 24 hr 03/01/21 03/01/21 03/01/21 Range/Units 11:51 17:35 20:45 WBC (4.0-11.0) 10^3/uL RBC (4.50-6.00) x10^6/uL Hgb (14.0-18.0) g/dL Hct (42.0-52.0) % MCV (83.0-97.0) fL MCH (27.0-32.0) pg MCHC (32.0-36.0) g/dL RDW Coeff of Emma (11.0-15.0) % Plt Count (150-400) 10^3/uL Immature Gran % (Auto) (0.0-4.9) % Neut % (Auto) (41-71) % Lymph % (Auto) (24-44) % Ada % (Auto) (0-10) % Eos % (Auto) (0-6) % Baso % (Auto) (0-1) % Neut # (Auto) (1.80-8.00) x10^3/uL Lymph # (Auto) (0.60-5.00) 10^3/uL Ada # (Auto) (0.00-1.50) 10^3/uL Eos # (Auto) (0.00-1.50) 10^3/uL Baso # (Auto) (0.00-0.50) 10^3/uL Immature Gran # (Auto) (0.00-0.49) 10^3/uL Sodium (136-145) mEq/L Potassium (3.5-5.0) mEq/L Chloride (98-106) mEq/L Carbon Dioxide (21-32) mmol/L BUN (7-18) mg/dL Creatinine (0.7-1.3) mg/dL Est Cr Clr Drug Dosing mL/min Estimated GFR (MDRD) (>=60) mL/min Glucose (75-99) mg/dL POC Glucose 166 H 136 H 168 H (75-105) mg/dL Calcium (8.4-10.1) mg/dL NT-Pro-B Natriuret Pep (0-1000) pg/mL 03/02/21 03/02/21 Range/Units 07:08 07:08 WBC 8.1 (4.0-11.0) 10^3/uL RBC 4.25 L (4.50-6.00) x10^6/uL Hgb 11.8 L (14.0-18.0) g/dL Hct 37.6 L (42.0-52.0) % MCV 88.5 (83.0-97.0) fL MCH 27.8 (27.0-32.0) pg MCHC 31.4 L (32.0-36.0) g/dL RDW Coeff of Emma 15.0 (11.0-15.0) % Plt Count 244 (150-400) 10^3/uL Immature Gran % (Auto) 0.1 (0.0-4.9) % Neut % (Auto) 72.8 H (41-71) % Lymph % (Auto) 13.8 L (24-44) % Ada % (Auto) 9.1 (0-10) % Eos % (Auto) 3.7 (0-6) % Baso % (Auto) 0.5 (0-1) % Neut # (Auto) 5.91 (1.80-8.00) x10^3/uL Lymph # (Auto) 1.12 (0.60-5.00) 10^3/uL Ada # (Auto) 0.74 (0.00-1.50) 10^3/uL Eos # (Auto) 0.30 (0.00-1.50) 10^3/uL Baso # (Auto) 0.04 (0.00-0.50) 10^3/uL Immature Gran # (Auto) 0.01 (0.00-0.49) 10^3/uL Sodium 140 (136-145) mEq/L Potassium 4.0 (3.5-5.0) mEq/L Chloride 103 (98-106) mEq/L Carbon Dioxide 31 (21-32) mmol/L BUN 40 H (7-18) mg/dL Creatinine 1.8 H (0.7-1.3) mg/dL Est Cr Clr Drug Dosing 25.11 mL/min Estimated GFR (MDRD) 36 L (>=60) mL/min Glucose 130 H (75-99) mg/dL POC Glucose (75-105) mg/dL Calcium 8.5 (8.4-10.1) mg/dL NT-Pro-B Natriuret Pep 9846 H (0-1000) pg/mL Result Diagrams: 03/02/21 07:08 03/02/21 07:08 Neil Results Last 24 hrs: Microbiology 02/27/21 19:51 Gram Stain - Final Sputum - Expectorated Sputum Culture - Final Yeast Isolated Sepsis Event Note - Evaluation Sepsis Screening Result: No Definite Risk - Focused Exam Vital Signs: Vital Signs Temp Pulse Pulse Resp BP BP BP 03/02/21 07:48 175/88 H 03/02/21 07:47 175/88 H 03/02/21 07:46 73 175/88 H 03/02/21 07:45 175/88 H 03/02/21 04:25 96.8 F L 75 16 173/85 H 03/02/21 00:00 97.6 F 70 16 155/82 H Pulse Ox 03/02/21 07:48 03/02/21 07:47 03/02/21 07:46 03/02/21 07:45 03/02/21 04:25 93 L 03/02/21 00:00 96 - Problem List Review Problem List Initiated/Reviewed/Updated: Yes - My Orders Last 24 Hours: My Active Orders 03/01/21 12:45 Fluconazole [Diflucan] 100 mg PO DAILY 03/01/21 16:00 Furosemide [Lasix] 60 mg PO BIDDIURETIC 03/02/21 08:41 Chest 2V [CR] Stat 03/02/21 08:49 RT Aerosol Therapy [RC] ASDIRECTED Albuterol/Ipratropium [DuoNeb 3.0-0.5 MG/3 ML] 3 ml NEB BIDRT 03/03/21 05:00 BASIC METABOLIC PANEL,BMP [CHEM] DAILY CBC WITH AUTO DIFF [HEME] DAILY PRO B-TYPE NATRIUR PEPT,BNPPRO [CHEM] DAILY - Plan Plan:: 03/01/21 0900 This patient is a pleasant 89 year old male that was admitted to the hospital for CHF exacerbation. The patient has been on Lasix IV. He has dropped nearly 12lbs of weight since admission. The patient report that he is feeling better today and is feeling like he has more energy. He reports that his shortness of breath is improving, but still present. The patient is on 3L NC oxygen at 95% saturation. The CR today is 1.9, consistent with his baseline. His BNP today is 11,306, on the was 11,845, but clinically compared to the report I received is doing much better. The plan is to keep this patient until Wednesday and lynn yi home. I will attempt to transition him to PO Lasix starting with his evening dose and attempt to wean his oxygen. Will recheck him tomorrow and see how he is clinically from the transition of IV to PO. Patient sputum cx shows isolated yeast, as this could be contamination, but will go ahead and treat with Diflucan. Will keep acute due to attempt to transition to PO Lasix from IV and patient need for oxygen. 03/02/21 0840 This patient today reports that he feels pretty good. He reports that he feels mildly short of breath. He reports some mild chest congestion and productive cough today. We have attempted to wean the patient from his oxygen today. He was 95% on 3L NC, he fell to 91% on RA. He is currently on 1L NC at 93%. His labs today are unremarkable. His CR is 1.8 baseline, BUN 40, baseline. His BNP is greater than 9000, which is improved [place] [address]. The patient on exam has rhonchi throughout which is changed from yesterday. His pitting edema is +4 BLE today. The patient does not have elevated wbc and has no fever. I have added a CXR and duonebs to this patient. He is currently getting Zithromax and Rocephin for pneumonia. He does not appear in distress or toxic. I considered swing today, but due to patient inability to wean oxygen completely this morning, and his change in lung sounds, I will keep him acute. I am hopeful that the patient will be able to wean oxygen by tomorrow morning after neb treatments and continued PO Lasix. If he is able to wean oxygen, has improved lung sounds, and tolerate a transition to the PO Lasix, then I could see this patient being discharged home tomorrow. If not, patient may be swing tomorrow for further treatment, evaluation, and possible PT. The patient reports that he would like to be discharged home tomorrow. 03/02/21 1500 Patient CXR: Fluid overload versus failure, slightly increased as compared to the 02/27/21 exam. Improvement in right lower lobe consolidation and decrease in right-sided pleural effusion. The patient is currently ambulating around the halls without oxygen at 88%. When he returns to his room and sits down it is 91% RA. He is reports he is feeling good this afternoon. Will give 20mg IV Lasix x1 after viewing his CXR. He will continue his PO Lasix.
[2021-03-02] MEDS: Albuterol/Ipratropium 3.0-0.5 MG/3 ML Neb Soln NEB SCH ×2 (09:20→19:47)
[2021-03-02] MEDS: Lanolin/Mineral Oil/NaCl/Petrolatum Lotion 177 ML Bottle TOP PRN (10:00)
[2021-03-02] MEDS ORDERED: Furosemide 20 MG/2 ML VIAL IVPUSH ONE (15:25)
[2021-03-02] MEDS: cefTRIAXone 1 GM Vial IVPUSH SCH (17:34)
[2021-03-02] MEDS: Enoxaparin 30 MG/0.3 ML Syringe SUBCUT SCH (19:21)
[2021-03-03] MEDS: Levothyroxine 112 MCG Tab PO SCH (06:40)
[2021-03-03] MEDS: Albuterol/Ipratropium 3.0-0.5 MG/3 ML Neb Soln NEB SCH (07:31)
[2021-03-03] MEDS: Allopurinol 300 MG Tab PO SCH (07:31)
[2021-03-03] MEDS: Metoprolol Succinate 100 MG Tab.ER PO SCH (07:32)
[2021-03-03] MEDS: Fluconazole 100 MG Tab PO SCH (07:32)
[2021-03-03] MEDS: Lisinopril 10 MG Tab PO SCH (07:32)
[2021-03-03] MEDS: Isosorbide Mononitrate 30 MG Tab.ER PO SCH (07:33)
[2021-03-03] MEDS: Azithromycin 250 MG Tab PO SCH (07:33)
[2021-03-03] MEDS: Multivitamin Tab PO SCH (07:33)
[2021-03-03] MEDS: Cholecalciferol (Vitamin D3) 25 MCG Tab PO SCH (07:33)
[2021-03-03 07:34] VITALS: BP 143/87; PULSE 75
[2021-03-03] MEDS: Furosemide 20 MG Tab PO SCH (07:34)
[2021-03-03] MEDS: Insulin Lispro 100 Units/ML 3 ML Vial SUBCUT SCH (07:50)
[2021-03-03] MEDS: hydrALAZINE 25 MG Tab PO SCH (08:12)
--- NOTE | 2021-03-03 11:32 | DISCH ---
ADMISSION DIAGNOSES: 1. Congestive heart failure. 2. Chronic kidney disease. DISCHARGE DIAGNOSIS: 1. 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 2. AORTIC VALVE STENOSIS. 3. PNEUMONIA. 4. TYPE 2 DIABETES, REQUIRING INSULIN. 5. BRADYCARDIA. HISTORY: Akash is an 89-year-old male with prior aortic valve which has become stenotic. He has had a consultation with Cardiology for a TAVR and they are in the process of deciding on that. He presented with fluid overload, cough. When he was admitted, he did have elevation of his proBNP at 11,800 and evidence of possible pneumonia in consolidation in his right lower lobe, so he was put on IV antibiotics, given Lasix for diuresis, and he has been monitored since. HOSPITAL COURSE: The patient has done very well since admission. His weight is down almost 20 pounds from the Lasix. His proBNP and kidney functions are stable. He has not had really any new symptoms. Did have a sputum culture which grew out yeast, but no bacteria, and given his 7 days of IV antibiotics, I think he can safely stop that. For the most part, we are trying to keep him diuresed and wean him off O2. He has been down to 1 L with exercise now. Otherwise, he has been maintaining his sats around 92%. Clinically, he has done very well. 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 At this time, the patient remains very weak. He is still requiring supplemental O2 and has still gotten IV Lasix. We are going to transition him over to oral Lasix, try to wean his O2, and have Physical Therapy see him for strengthening. We will put him in swing bed for a short time to accomplish that. COMPLICATIONS: During his stay were none. CONSULTATIONS: PT. DISPOSITION: Transferred to swing bed. KRISTAL /[id number]
== END 2021-03-03 10:16 | disposition swing bed (61) | DRG 291 ==
LOC: CC.ED 13:37 → CC.MS 14:46 → UNDOADMIN 14:46 → CC.MS 14:47
PROVIDERS: ADMIT Physician Assistant Medical; ATTEND Family Medicine
DX: I13.0 Hypertensive heart and chronic kidney disease with heart failure and stage 1 through stage 4 chronic kidney disease, or unspecified chronic kidney disease (principal); I50.33 Acute on chronic diastolic (congestive) heart failure; I50.23 Acute on chronic systolic (congestive) heart failure; J18.9 Pneumonia, unspecified organism; I35.0 Nonrheumatic aortic (valve) stenosis; R00.1 Bradycardia, unspecified; N18.9 Chronic kidney disease, unspecified; H54.7 Unspecified visual loss; E78.00 Pure hypercholesterolemia, unspecified; K21.9 Gastro-esophageal reflux disease without esophagitis; M19.90 Unspecified osteoarthritis, unspecified site; G89.29 Other chronic pain; M54.9 Dorsalgia, unspecified; E11.22 Type 2 diabetes mellitus with diabetic chronic kidney disease; E11.649 Type 2 diabetes mellitus with hypoglycemia without coma; Z88.2 Allergy status to sulfonamides; Z79.4 Long term (current) use of insulin; Z88.1 Allergy status to other antibiotic agents; Z88.8 Allergy status to other drugs, medicaments and biological substances; Z79.899 Other long term (current) drug therapy; Z79.890 Hormone replacement therapy; Z95.2 Presence of prosthetic heart valve
CPT/HCPCS: 36415; 71045; 71046; 80048; 80053; 82550; 82947; 83615; 83880; 84484; 85025; 85379; 86140; 87070; 87205; 93005; 93010; 94640; 99285-25; A9270-GY; J0696; J1650; J1815-GY; J1940; J7620-GY

== ENCOUNTER 2021-03-03 10:15 | Inpatient (IN) | payer MEDICARE, MEDICAID ==
[2021-03-03] MEDS ORDERED: Sodium Chloride 0.9% 10 ML Syringe FLUSH PRN ×2 (12:00)
[2021-03-03] MEDS ORDERED: Docusate Sodium 100 MG Cap PO PRN (12:00)
[2021-03-03] MEDS ORDERED: Temazepam 15 MG Cap PO PRN (12:00)
[2021-03-03] MEDS ORDERED: 50% Dextrose in Water 50 ML Syringe IVPUSH PRN (12:00)
[2021-03-03] MEDS ORDERED: Ondansetron 4 MG/2 ML SDV IV PRN (12:00)
[2021-03-03] MEDS ORDERED: Glucagon,Human Recombinant 1 MG Vial IM PRN ×2 (12:00)
[2021-03-03] MEDS ORDERED: Ondansetron 4 MG Tab.DIS PO PRN (12:00)
[2021-03-03] MEDS ORDERED: Ketorolac 0.5% Ophth Soln 3 ML Bottle EYEBOTH PRN (12:00)
[2021-03-03] MEDS ORDERED: Acetaminophen 325 MG Tab PO PRN (12:00)
[2021-03-03] MEDS: hydrALAZINE 25 MG Tab PO SCH ×2 (12:21→16:41)
[2021-03-03] MEDS: Insulin Lispro 100 Units/ML 3 ML Vial SUBCUT SCH ×3 (12:21→20:00)
[2021-03-03] MEDS: Furosemide 20 MG Tab PO SCH (16:41)
[2021-03-03] MEDS: Enoxaparin 30 MG/0.3 ML Syringe SUBCUT SCH (19:41)
[2021-03-03] MEDS: Albuterol/Ipratropium 3.0-0.5 MG/3 ML Neb Soln NEB SCH (19:42)
[2021-03-03] MEDS: cefTRIAXone 1 GM Vial IVPUSH SCH (19:50)
[2021-03-04] MEDS: Levothyroxine 112 MCG Tab PO SCH (06:14)
[2021-03-04] MEDS: hydrALAZINE 25 MG Tab PO SCH ×3 (07:38→17:02)
[2021-03-04] MEDS: Isosorbide Mononitrate 30 MG Tab.ER PO SCH (07:39)
[2021-03-04] MEDS: Albuterol/Ipratropium 3.0-0.5 MG/3 ML Neb Soln NEB SCH ×2 (07:39→20:07)
[2021-03-04] MEDS: Cholecalciferol (Vitamin D3) 25 MCG Tab PO SCH (07:39)
[2021-03-04] MEDS: Allopurinol 300 MG Tab PO SCH (07:40)
[2021-03-04] MEDS: Metoprolol Succinate 25 MG Tab.ER PO SCH (07:40)
[2021-03-04] MEDS: Furosemide 20 MG Tab PO SCH ×2 (07:41→15:42)
[2021-03-04] MEDS: Multivitamin Tab PO SCH (07:41)
[2021-03-04] MEDS: Lisinopril 10 MG Tab PO SCH (07:41)
[2021-03-04] MEDS: Insulin Lispro 100 Units/ML 3 ML Vial SUBCUT SCH ×4 (07:42→20:23)
[2021-03-04] MEDS: Fluconazole 100 MG Tab PO SCH (07:42)
[2021-03-04] MEDS: Enoxaparin 30 MG/0.3 ML Syringe SUBCUT SCH (20:07)
[2021-03-04] MEDS: cefTRIAXone 1 GM Vial IVPUSH SCH (20:08)
[2021-03-05] MEDS: Levothyroxine 112 MCG Tab PO SCH (06:14)
[2021-03-05] MEDS: Albuterol/Ipratropium 3.0-0.5 MG/3 ML Neb Soln NEB SCH ×2 (07:41→19:36)
[2021-03-05] MEDS: Allopurinol 300 MG Tab PO SCH (07:42)
[2021-03-05] MEDS: Furosemide 20 MG Tab PO SCH ×2 (07:42→16:39)
[2021-03-05] MEDS: Multivitamin Tab PO SCH (07:42)
[2021-03-05] MEDS: Cholecalciferol (Vitamin D3) 25 MCG Tab PO SCH (07:43)
[2021-03-05] MEDS: Fluconazole 100 MG Tab PO SCH (07:47)
[2021-03-05] MEDS: hydrALAZINE 25 MG Tab PO SCH ×3 (07:47→16:39)
[2021-03-05] MEDS: Isosorbide Mononitrate 30 MG Tab.ER PO SCH (07:47)
[2021-03-05] MEDS: Metoprolol Succinate 25 MG Tab.ER PO SCH (07:48)
[2021-03-05] MEDS: Insulin Lispro 100 Units/ML 3 ML Vial SUBCUT SCH ×4 (07:54→20:01)
[2021-03-05] MEDS: Lisinopril 10 MG Tab PO SCH (07:55)
[2021-03-05] MEDS: Tamsulosin 0.4 MG Cap.ER PO SCH (08:38)
[2021-03-05] MEDS: Phenazopyridine 95 MG Tab PO SCH ×2 (13:25→18:00)
[2021-03-05] MEDS: Enoxaparin 30 MG/0.3 ML Syringe SUBCUT SCH (19:35)
[2021-03-05] MEDS: cefTRIAXone 1 GM Vial IVPUSH SCH (19:36)
[2021-03-05] MEDS: Lanolin/Mineral Oil/NaCl/Petrolatum Lotion 177 ML Bottle TOP PRN (19:46)
[2021-03-06] MEDS: Levothyroxine 112 MCG Tab PO SCH (06:00)
[2021-03-06] MEDS: Albuterol/Ipratropium 3.0-0.5 MG/3 ML Neb Soln NEB SCH ×2 (07:43→19:48)
[2021-03-06] MEDS: Insulin Lispro 100 Units/ML 3 ML Vial SUBCUT SCH ×4 (07:46→20:04)
[2021-03-06] MEDS: Fluconazole 100 MG Tab PO SCH (07:47)
[2021-03-06] MEDS: Tamsulosin 0.4 MG Cap.ER PO SCH (07:47)
[2021-03-06] MEDS: Allopurinol 300 MG Tab PO SCH (07:47)
[2021-03-06] MEDS: Metoprolol Succinate 25 MG Tab.ER PO SCH (07:47)
[2021-03-06] MEDS: hydrALAZINE 25 MG Tab PO SCH ×3 (07:48→17:33)
[2021-03-06] MEDS: Lisinopril 10 MG Tab PO SCH (07:48)
[2021-03-06] MEDS: Cholecalciferol (Vitamin D3) 25 MCG Tab PO SCH (07:49)
[2021-03-06] MEDS: Multivitamin Tab PO SCH (07:49)
[2021-03-06] MEDS: Furosemide 20 MG Tab PO SCH ×2 (07:49→15:50)
[2021-03-06] MEDS: Isosorbide Mononitrate 30 MG Tab.ER PO SCH (07:50)
[2021-03-06] MEDS: Phenazopyridine 95 MG Tab PO SCH ×3 (07:50→17:33)
[2021-03-06 17:36] VITALS: PULSE 72
[2021-03-06] MEDS: cefTRIAXone 1 GM Vial IVPUSH SCH (19:48)
[2021-03-06] MEDS: Enoxaparin 30 MG/0.3 ML Syringe SUBCUT SCH (19:48)
[2021-03-06] MEDS: Lanolin/Mineral Oil/NaCl/Petrolatum Lotion 177 ML Bottle TOP PRN (20:07)
[2021-03-07] MEDS: Levothyroxine 112 MCG Tab PO SCH (06:10)
[2021-03-07] MEDS: Cholecalciferol (Vitamin D3) 25 MCG Tab PO SCH (07:37)
[2021-03-07] MEDS: Fluconazole 100 MG Tab PO SCH (07:37)
[2021-03-07] MEDS: Albuterol/Ipratropium 3.0-0.5 MG/3 ML Neb Soln NEB SCH (07:37)
[2021-03-07] MEDS: Allopurinol 300 MG Tab PO SCH (07:37)
[2021-03-07] MEDS: Tamsulosin 0.4 MG Cap.ER PO SCH (07:37)
[2021-03-07] MEDS: Lisinopril 10 MG Tab PO SCH (07:37)
[2021-03-07] MEDS: Phenazopyridine 95 MG Tab PO SCH (07:38)
[2021-03-07] MEDS: Multivitamin Tab PO SCH (07:38)
[2021-03-07] MEDS: Furosemide 20 MG Tab PO SCH (07:38)
[2021-03-07] MEDS: Isosorbide Mononitrate 30 MG Tab.ER PO SCH (07:38)
[2021-03-07] MEDS: Metoprolol Succinate 25 MG Tab.ER PO SCH (07:38)
[2021-03-07] MEDS: hydrALAZINE 25 MG Tab PO SCH (07:38)
[2021-03-07 07:39] VITALS: BP 150/85
[2021-03-07] MEDS: Insulin Lispro 100 Units/ML 3 ML Vial SUBCUT SCH (07:43)
--- NOTE | 2021-03-07 11:05 | DISCH ---
ADMISSION DIAGNOSES: 1. Pneumonia. 2. Acute exacerbation of chronic diastolic congestive heart failure. 3. Aortic stenosis with prior aortic valve replacement. 4. Type 2 diabetes, requiring insulin. 5. Bradycardia. 6. Hypertension. DISCHARGE DIAGNOSIS: 1. PNEUMONIA. 2. 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 3. AORTIC STENOSIS WITH PRIOR AORTIC VALVE REPLACEMENT. 4. TYPE 2 DIABETES, REQUIRING INSULIN. 5. BRADYCARDIA. 6. HYPERTENSION. HISTORY: The patient was admitted to swing bed after staying in Acute Care for a right lower lobe pneumonia and some volume overload. He was managed with diuresis with Lasix and lost significant amount of weight. He was kept on Rocephin and Zithromax IV and clinically looked well. He was still requiring some supplemental O2, needed physical therapy for strengthening, and was placed in swing bed for such. SWING BED COURSE: The patient did well on swing bed. PT worked with him and he has plateaued and gotten much stronger. He has been weaned off oxygen. His chest x-ray confirms improvement in his right lower lobe pneumonia, and for the most part, he has been euvolemic. His weights have now been stable and he is down quite a bit of weight after diuresis. He did have an episode of urinary retention and has known BPH with some issues in that regard. We did put a Huang catheter in him and that will stay in until he follows up with Urology as an outpatient. COMPLICATIONS: During his stay were none. CONSULTATIONS: PT. DISPOSITION: Discharged home. MICHEL/TIFFANY /[id number]
== END 2021-03-07 11:57 | disposition home health service (06) | DRG 947 ==
LOC: CC.MS 10:15
PROVIDERS: ADMIT Family Medicine; ATTEND Family Medicine
DX: R53.81 Other malaise (principal); J18.9 Pneumonia, unspecified organism; I50.33 Acute on chronic diastolic (congestive) heart failure; I13.0 Hypertensive heart and chronic kidney disease with heart failure and stage 1 through stage 4 chronic kidney disease, or unspecified chronic kidney disease; N40.0 Benign prostatic hyperplasia without lower urinary tract symptoms; I35.0 Nonrheumatic aortic (valve) stenosis; N18.9 Chronic kidney disease, unspecified; E11.22 Type 2 diabetes mellitus with diabetic chronic kidney disease
CPT/HCPCS: 51702; 81001; 82947; 94640; 97110-GP; 97161-GP; A9270-GY; J0696; J1650; J7620-GY